=== PATIENT | female | born 1935 | race Caucasian/White ===

== ENCOUNTER 2017-01-27 14:15 | Inpatient (IN) | payer MEDICARE, BC ==
[2017-04-21] MEDS ORDERED: Sodium Chloride 0.9% 10 ML Syringe FLUSH PRN (07:00)
[2017-04-21] MEDS ORDERED: Lidocaine 1%/Sod Bicarbonate in NS 8.4% 1 ML Syringe PRN (07:00)
[2017-04-21] MEDS ORDERED: Propofol 200 MG/20 ML SDV ONE ×2 (07:15→10:57)
[2017-04-21] MEDS ORDERED: fentaNYL 100 MCG/2 ML SDV ONE ×2 (07:15→10:51)
[2017-04-21] MEDS ORDERED: ceFAZolin 1 GM Vial ONE (07:15)
[2017-04-21] MEDS: Lactated Ringers 1,000 ML IV SCH ×3 (07:55→11:41)
--- NOTE | 2017-04-21 07:57 | PCM.PREANE ---
Preanesthetic Assessment - Anesthesia/Transfusion/Family Hx Anesthesia History: Prior Anesthesia Without Reaction Type of Anesthesia Reaction: Unknown Family History of Anesthesia Reaction: No Transfusion History: No Prior Transfusion(s) - Review of Systems General: No Symptoms Pulmonary: No Symptoms Cardiovascular: No Symptoms, Other (HTn, EKG NSR, 2-3+ pitting edema) Gastrointestinal: Other (s/p ulcer denies any pain or reflux) Neurological: Other (s/p lami 7-8 years) - Physical Assessment NPO Status Date: 04/20/17 NPO Status Time: 18:00 Pulse: 82 O2 Sat by Pulse Oximetry: 96 Respiratory Rate: 16 Blood Pressure: 170/82 Temperature: 98.6 C Weight: 60.5 kg Mental Status: Alert & Oriented x3 Airway Class: Mallampati = 2 Dentition: Reports: Normal Dentition Thyro-Mental Finger Breadths: 3 Mouth Opening Finger Breadths: 3 ROM/Head Extension: Full Lungs: Clear to Auscultation, Normal Respiratory Effort Cardiovascular: Regular Rate, Regular Rhythm, No Murmurs - Lab Values: Laboratory Last Values MRSA (PCR) Negative 03/19/17 15:20 - Allergies Allergies/Adverse Reactions: Allergies Allergy/AdvReac Type Severity Reaction Status Date / Time No Known Allergies Allergy Verified 04/18/17 14:54 - Blood Blood Available: No Product(s) Available: None - Anesthesia Plan Pre-Op Medication Ordered: None - Acknowledgements Anesthesia Type Planned: General Anesthesia Pt an Appropriate Candidate for the Planned Anesthesia: Yes Alternatives and Risks of Anesthesia Discussed w Pt/Guardian: Yes Pt/Guardian Understands and Agrees with Anesthesia Plan: Yes PreAnesthesia Questionnaire HEENT History: Reports: Impaired Vision, Other (See Below) Other HEENT History: wears glasses Cardiovascular History: Reports: High Cholesterol, Hypertension, Other (See Below) Other Cardiovascular History: peripheral venous insufficiency Respiratory History: Reports: None Gastrointestinal History: Reports: Other (See Below) Other Gastrointestinal History: perforated duodenal ulcer Genitourinary History: Reports: Other (See Below) Other Genitourinary History: CKD III 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 Musculoskeletal History: Reports: Osteoarthritis, Other (See Below) Other Musculoskeletal History: lumbar disc disease Psychiatric History: Reports: None Endocrine/Metabolic History: Reports: None Hematologic History: Reports: None Immunologic History: Reports: None Dermatologic History: Reports: None - Past Surgical History HEENT Surgical History: Reports: Cataract Surgery Cardiovascular Surgical History: Reports: None Respiratory Surgical History: Reports: None GI Surgical History: Reports: Cholecystectomy, EGD, Other (See Below) Other GI Surgeries/Procedures: exploratory laparotomy Female Surgical History: Reports: D&C Male Surgical History: Reports: None Endocrine Surgical History: Reports: None Neurological Surgical History: Reports: Laminectomy Musculoskeletal Surgical History: Reports: Other (See Below) Other Musculoskeletal Surgeries/Procedures:: radius/ulnar fracture with repair Oncologic Surgical History: Reports: Lumpectomy Dermatological Surgical History: Reports: None - SUBSTANCE USE Smoking Status *Q: Never Smoker Second Hand Smoke Exposure: No Recreational Drug Use History: No - HOME MEDS Home Medications: Home Meds Hydrocodone/Acetaminophen [Hydrocodon-Acetaminophn 10-325] 10 mg PO QID [History] Rosuvastatin [Crestor] 5 mg PO DAILY 05/02/14 [History] Triamterene/Hydrochlorothiazid [Triamterene-HCTZ 37.5-25 MG] 1 each PO DAILY [History] B2/Vit A,C & E/Lut/Zeaxanth/Mn [Icaps] 1 tab PO DAILY 04/18/17 [History] Ca Carbonate/Vitamin D3/Vit K [Calcium + D Soft Chewable Tab] 1 tab PO DAILY [History] Cholecalciferol (Vitamin D3) [Vitamin D] 5,000 unit PO DAILY 04/18/17 [History] Forteo 20 mcg SQ DAILY 04/18/17 [History] Furosemide [Lasix] 20 mg PO DAILY PRN 04/18/17 [History] Gabapentin [Neurontin] 300 mg PO TID 04/18/17 [History] Multivitamin [Daily Hector] 1 tab PO DAILY 04/18/17 [History] Pantoprazole Sodium [Protonix] 40 mg PO BID 04/18/17 [History] - CURRENT (IN HOUSE) MEDS Current Meds: Current Medications Bisacodyl (Dulcolax) 5 mg PO DAILY PRN PRN Reason: Constipation Morphine Sulfate 8 mg/Epinephrine HCl 0.3 mg/Cefuroxime Sodium 750 mg/Ketorolac Tromethamine 30 mg/Sodium Chloride 27.9 ml 0 mg .XX ONETIME ONE Stop: 04/21/17 09:01 Docusate Sodium (Colace) 100 mg PO BID [facility] Famotidine (Pepcid) 20 mg PO BID [facility] Lactated Ringer's (Ringers, Lactated) 1,000 mls @ 125 mls/hr IV ASDIRECTED [facility] Stop: 04/21/17 23:00 Cefazolin Sodium/Dextrose 2 gm (/ Premix) 50 mls @ 100 mls/hr IV Q8H [facility] Stop: 04/22/17 09:29 Lidocaine/Sodium Bicarbonate (Buffered Lidocaine 1% In Ns 8.4%) 0.25 ml .XX ONETIME PRN PRN Reason: Prior to IV Start Stop: 04/21/17 18:00 Magnesium Hydroxide (Milk Of Magnesia) 30 ml PO BID PRN PRN Reason: Constipation Morphine Sulfate (Morphine) 2 mg IVPUSH Q2H PRN PRN Reason: Breakthrough Pain Naloxone HCl (Narcan) 0.1 mg IVPUSH Q5M PRN PRN Reason: Oversedation Ondansetron HCl (Zofran) 4 mg IVPUSH Q6H PRN PRN Reason: Nausea/Vomiting Oxycodone/Acetaminophen (Percocet 325-5 Mg) 1 - 2 tab PO Q4H PRN PRN Reason: Pain Rivaroxaban (Xarelto) 10 mg PO DAILY [facility] Senna (Senna) 8.6 mg PO BID PRN PRN Reason: Constipation Sodium Chloride (Saline Flush) 10 ml FLUSH ASDIRECTED PRN PRN Reason: Keep Vein Open Stop: 04/21/17 18:00 Discontinued Medications Cefazolin Sodium (Ancef) Confirm Administered Dose 2 gm .ROUTE .STK-MED ONE Stop: 04/21/17 07:16 Cefazolin Sodium (Ancef) Confirm Administered Dose 2 gm .ROUTE .STK-MED ONE Stop: 04/21/17 07:22 Fentanyl (Sublimaze) Confirm Administered Dose 100 mcg .ROUTE .STK-MED ONE Stop: 04/21/17 07:16 Iodine (Iodine 2% Mild Tincture) Confirm Administered Dose 30 ml .ROUTE .STK- MED ONE Stop: 04/21/17 07:22 Propofol (Diprivan 20 Ml) Confirm Administered Dose 200 mg .ROUTE .STK-MED ONE Stop: 04/21/17 07:16 Tranexamic Acid (Cyklokapron) Confirm Administered Dose 1,000 mg .ROUTE .STK- MED ONE Stop: 04/21/17 07:23 Vancomycin HCl (Vancomycin) Confirm Administered Dose 1 gm .ROUTE .STK-MED ONE Stop: 04/21/17 07:28
[2017-04-21] MEDS ORDERED: Rocuronium 50 MG/5 ML Vial ONE (08:28)
[2017-04-21] MEDS ORDERED: fentaNYL 250 MCG/5 ML SDV ONE (08:28)
[2017-04-21] MEDS ORDERED: Ondansetron 4 MG/2 ML SDV ONE (09:04)
[2017-04-21] MEDS: ceFAZolin 1 GM Vial ONE ×2 (09:08→10:00)
[2017-04-21] MEDS: Bupivacaine 0.25% 30 ML SDV ONE ×2 (09:08→10:07)
[2017-04-21] MEDS: Iodine/Sodium Iodide 2% Tincture 30 ML Bottle ONE ×2 (09:09→09:59)
[2017-04-21] MEDS: Morphine 8 MG, EPINEPHrine 0.3 MG, Cefuroxime 750 MG, Ketorolac 30 MG, Sodium Chloride ... ONE ×10 (09:10→10:05)
[2017-04-21] MEDS: Vancomycin 1 GM SDV ONE ×2 (09:11→10:08)
[2017-04-21] MEDS ORDERED: Phenylephrine 1% 10 MG/ML SDV ONE (09:34)
[2017-04-21] MEDS ORDERED: Magnesium Hydroxide 400 MG/5 ML Susp 30 ML Cup PO PRN (10:00)
[2017-04-21] MEDS ORDERED: Ondansetron 4 MG/2 ML SDV IVPUSH PRN ×2 (10:00→11:04)
[2017-04-21] MEDS ORDERED: Bisacodyl 5 MG Tab PO PRN (10:00)
[2017-04-21] MEDS ORDERED: Sennosides 8.6 MG Tab PO PRN (10:00)
[2017-04-21] MEDS ORDERED: Naloxone 0.4 MG/ML SDV IVPUSH PRN (10:00)
--- NOTE | 2017-04-21 10:25 | PCM.OPNOTE ---
- General Post-Op/Procedure Note Date of Surgery/Procedure: 04/21/17 Operative Procedure(s): left total hip arthroplasty Pre Op Diagnosis: left hip osteoarthrosis Post-Op Diagnosis: Same Anesthesia Technique: General ET Tube, Local Primary Surgeon: Anthony Barrett Anesthesia Provider: Lucy Gill Fork Truck Operator: Mireya Rodriguez Fork Truck Operator: Nancy Kunz EBL in mLs: 700 Complications: None Condition: Good Free Text/Narrative:: radha size 60 tritanium radha size 6 accolade 2 stem 48/28 MDM size F
[2017-04-21] MEDS ORDERED: Lidocaine 1% 30 ML SDV ONE (10:31)
[2017-04-21] MEDS ORDERED: Lactated Ringers 1,000 ML ONE ×2 (10:47)
--- NOTE | 2017-04-21 11:04 | PCM.POSTAN ---
POST ANESTHESIA ASSESSMENT - MENTAL STATUS Mental Status: Alert, Oriented - VITAL SIGNS Pulse Rate: 79 SaO2: 98 Resp Rate: 13 Blood Pressure: 143/70 Temperature: 36.2 C - RESPIRATORY Respiratory Status: Respiratory Rate WNL, Airway Patent, O2 Saturation Stable, Supplemental Oxygen - CARDIOVASCULAR CV Status: Pulse Rate WNL, Blood Pressure Stable - GASTROINTESTINAL GI Status: No Symptoms - PAIN Pain Score: 6 (pain meds given) - POST OP HYDRATION Hydration Status: Adequate & Stable
[2017-04-21] MEDS ORDERED: HYDROmorphone 1 MG/ML Syringe ONE (11:07)
[2017-04-21] MEDS: HYDROmorphone 0.5 MG/0.5 ML Syringe IVPUSH PRN ×2 (11:38→11:53)
[2017-04-21] MEDS ORDERED: fentaNYL 100 MCG/2 ML SDV IVPUSH PRN (12:00)
[2017-04-21] MEDS ORDERED: Diphtheria,Pertussis(Acell),Tetanus Vaccine 0.5 ML SDV IM ONE (12:49)
[2017-04-21] MEDS ORDERED: Pneumococcal 13-Valent Conjugate Vaccine 0.5 ML Syringe IM ONE (12:50)
[2017-04-21] MEDS: Morphine 2 MG/ML Syringe IVPUSH PRN ×5 (13:08→23:11)
[2017-04-21] MEDS: Acetaminophen/oxyCODONE 325-5 MG Tab PO PRN ×3 (13:12→21:56)
--- NOTE | 2017-04-21 14:05 | CR ---
Pelvis and left hip: AP view of the pelvis was obtained centered to the hips as well as lateral view of the left hip. Comparison: No previous study. Left hip prosthesis is seen. Components are aligned. Small amount of soft tissue air around the left hip compatible with recent surgical procedure. Acetabular screw protrudes through the medial acetabulum as seen on one view. Severe and diffuse joint space narrowing is seen within the right hip with osteophytes. Impression: 1. Acetabular screw protrudes through the medial acetabulum as seen on one view. 2. Severe joint space narrowing and osteophytes within the right hip. 3. Other incidental findings. Diagnostic code #2
[2017-04-21] MEDS: ceFAZolin 2 GM in Premix Bag 1 BAG IV SCH (16:14)
--- NOTE | 2017-04-21 17:30 | PCM.CONS ---
H&P History of Present Illness - General Date of Service: 04/21/17 Admit Problem/Dx: Admission Diagnosis/Problem Admission Diagnosis/Problem Osteoarthritis of hip Source of Information: Patient, Old Records, Provider, RN, RN Notes Reviewed, Other (surgical notes ) History Limitations: Reports: No Limitations - History of Present Illness Initial Comments - Free Text/Narative: Ritu Hoffman is a [address] Barrett who is post-operative day 0 with a left JAN. Hospital medicine has been consulted for medical management. Patient is resting comfortably at this time. Pain is controlled. She denies any chest pain, palpitations, shortness of breath, or vomiting. She was nauseated upon arrival to the floor but that has since resolved. She is hemodynamically stable at this time. She carries a history of HTN, pedal edema, duodenal ulcer, laminectomy, HLD, PVD, CKD stage III, and lumbar disk disease. She is a non- smoker. She is a full code and her PCP is Dr. Rima Monroy. Left Hip Pain Score (Numeric/FACES): 4 - Related Data Allergies/Adverse Reactions: Allergies Allergy/AdvReac Type Severity Reaction Status Date / Time No Known Allergies Allergy Verified 04/18/17 14:54 Home Medications: Home Meds Hydrocodone/Acetaminophen [Hydrocodon-Acetaminophn 10-325] 10 mg PO QID [History] Rosuvastatin [Crestor] 5 mg PO DAILY 05/02/14 [History] Triamterene/Hydrochlorothiazid [Triamterene-HCTZ 37.5-25 MG] 1 tab PO DAILY [History] B2/Vit A,C & E/Lut/Zeaxanth/Mn [Icaps] 1 tab PO DAILY 04/18/17 [History] Ca Carbonate/Vitamin D3/Vit K [Calcium + D Soft Chewable Tab] 1 tab PO DAILY [History] Cholecalciferol (Vitamin D3) [Vitamin D] 5,000 unit PO DAILY 04/18/17 [History] Forteo 20 mcg SQ DAILY 04/18/17 [History] Furosemide [Lasix] 20 mg PO DAILY PRN 04/18/17 [History] Gabapentin [Neurontin] 300 mg PO TID 04/18/17 [History] Multivitamin [Daily Hector] 1 tab PO DAILY 04/18/17 [History] Pantoprazole Sodium [Protonix] 40 mg PO BID 04/18/17 [History] Gabapentin [Neurontin] 100 mg PO BEDTIME 04/21/17 [History] Past Medical History HEENT History: Reports: Impaired Vision, Other (See Below) Other HEENT History: wears glasses Cardiovascular History: Reports: High Cholesterol, Hypertension, Other (See Below) Other Cardiovascular History: peripheral venous insufficiency, left upper extremitiy lymphedema Respiratory History: Reports: None Gastrointestinal History: Reports: Other (See Below) Other Gastrointestinal History: perforated duodenal ulcer Genitourinary History: Reports: Other (See Below) Other Genitourinary History: CKD III 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: Musculoskeletal History: Reports: Osteoarthritis, Other (See Below) Other Musculoskeletal History: lumbar disc disease Neurological History: Reports: None Psychiatric History: Reports: None Endocrine/Metabolic History: Reports: None Hematologic History: Reports: None Immunologic History: Reports: None Dermatologic History: Reports: None - Past Surgical History HEENT Surgical History: Reports: Cataract Surgery Cardiovascular Surgical History: Reports: None Respiratory Surgical History: Reports: None GI Surgical History: Reports: Cholecystectomy, EGD, Other (See Below) Other GI Surgeries/Procedures: exploratory laparotomy Female Surgical History: Reports: D&C Endocrine Surgical History: Reports: None Neurological Surgical History: Reports: Laminectomy Musculoskeletal Surgical History: Reports: Other (See Below) Other Musculoskeletal Surgeries/Procedures:: radius/ulnar fracture with repair Oncologic Surgical History: Reports: Lumpectomy Dermatological Surgical History: Reports: None Social & Family History - Tobacco Use Smoking Status *Q: Never Smoker Second Hand Smoke Exposure: No - Caffeine Use Caffeine Use: Reports: Tea - Recreational Drug Use Recreational Drug Use: No H&P Review of Systems - Review of Systems: Review Of Systems: See Below General: Reports: No Symptoms. Denies: Fever, Chills, Malaise, Weakness HEENT: Reports: No Symptoms, Glasses. Denies: Dysphasia, Ear Pain, Eye Pain, Sore Throat Pulmonary: Reports: No Symptoms. Denies: Shortness of Breath, Wheezing, Pleuritic Chest Pain, Cough, Sputum Cardiovascular: Reports: Edema (Chronic). Denies: Chest Pain, Palpitations, Dyspnea on Exertion, Lightheadedness Gastrointestinal: Reports: No Symptoms. Denies: Abdominal Pain, Anorexia, Black Stool, Constipation, Diarrhea, Nausea, Vomiting Genitourinary: Reports: No Symptoms. Denies: Dysuria, Frequency, Burning, Pain , Urgency Musculoskeletal: Reports: Back Pain (chronic ), Joint Pain (left hip). Denies: Neck Pain, Shoulder Pain, Arm Pain, Hand Pain, Leg Pain, Muscle Pain, Muscle Stiffness Skin: Reports: No Symptoms. Denies: Cyanosis, Jaundice, Mottled Psychiatric: Reports: No Symptoms. Denies: Confusion, Depression, Mood Lability , Anxiety Neurological: Reports: No Symptoms. Denies: Confusion, Dizziness, Headache, Numbness, Tingling, Trouble Speaking, Weakness Hematologic/Lymphatic: Reports: No Symptoms Immunologic: Reports: No Symptoms Review of Systems Comment:: History report she is feeling quite well. She is experiencing some left hip pain however it is manageable. She reports she was initially nauseous and this is no longer the case. She feels that she is doing very well. Exam - Exam Exam: See Below - Vital Signs Vital Signs: Last Vital Signs Temp 98.0 F 04/21/17 15:00 Pulse 79 04/21/17 11:03 Resp 16 04/21/17 15:00 BP 125/76 04/21/17 15:00 Pulse Ox 98 04/21/17 15:00 Weight: 133 lb 6.4 oz - Exam Quality Assessment: Urinary Catheter, DVT Prophylaxis General: Alert, Oriented, Cooperative HEENT: Conjunctiva Clear, EACs Clear, Hearing Intact, Mucosa Moist & Paragon, Nares Patent, Normal Nasal Septum, Posterior Pharynx Clear, Pupils Equal, Pupils Reactive Neck: Supple, Trachea Midline. No: JVD Lungs: Clear to Auscultation, Normal Respiratory Effort Cardiovascular: Regular Rate, Regular Rhythm GI/Abdominal Exam: Normal Bowel Sounds, Soft, Non-Tender, No Organomegaly, No Distention, No Abnormal Bruit, No Mass (Female) Exam: Deferred Rectal (Female) Exam: Deferred Back Exam: Normal Inspection, Decreased Range of Motion Extremities: Normal Capillary Refill, Pedal Edema (1-2+), Leg Pain (left hip ), Other (Wedge in place. Left leg wrapped in RAYNE bandage. Bandage is dry and intact. ) Peripheral Pulses: 1+: Posterior Tibial (L), Posterior Tibial (R), Dorsalis Pedis (L), Dorsalis Pedis (R), 2+: Radial (L), Radial (R) Skin: Warm, Dry, Intact Neurological: Cranial Nerves Intact (grossly ) Neuro Extensive - Mental Status: Alert, Oriented x3, Normal Mood/Affect, Normal Cognition, Memory Intact Neuro Extensive - Motor, Sensory, Reflexes: CN II-XII Intact (grossly ), Normal Reflexes Psychiatric: Alert, Normal Affect, Normal Mood Physical Exam Comments:: Patient is lying in bed resting. No complaints or concerns are noted. She appears to be recovering well. She is hemodynamically stable - Patient Data Lab Results Last 24 hrs: Laboratory Results - last 24 hr 04/21/17 04/21/17 Range/Units 07:55 11:30 Hgb 11.4 (11.2-15.7) gm/L Hct 34.5 (34.1-44.9) % Blood Type O POSITIVE Gel Antibody Screen Negative Result Diagrams: 04/21/17 11:30 Consult PN Assessment/Plan POD#: 0 Procedures: Procedures DRAIN/INJ JOINT/BURSA W/O US (02/04/17) DXA BONE DENSITY AXIAL (12/24/16) INJECT SACROILIAC JOINT (05/04/14) (1) HTN (hypertension) SNOMED Code(s): 99786534 Code(s): I10 - ESSENTIAL (PRIMARY) HYPERTENSION Priority: Medium Current Visit: Yes Qualifiers: Hypertension type: unspecified Qualified Code(s): I10 - Essential (primary ) hypertension (2) HLD (hyperlipidemia) SNOMED Code(s): 72263921 Code(s): E78.5 - HYPERLIPIDEMIA, UNSPECIFIED Priority: Low Current Visit : No Qualifiers: Hyperlipidemia type: unspecified Qualified Code(s): E78.5 - Hyperlipidemia , unspecified (3) CKD (chronic kidney disease) stage 3, GFR 30-59 ml/min SNOMED Code(s): 286220774 Code(s): N18.3 - CHRONIC KIDNEY DISEASE, STAGE 3 (MODERATE) Priority: Medium Current Visit: Yes (4) Lumbar disc disease SNOMED Code(s): 52699378 Code(s): M51.9 - UNSP THORACIC, THORACOLUM AND LUMBOSACR INTVRT DISC DISORDER Priority: Low Current Visit: No (5) H/O laminectomy SNOMED Code(s): 719044538 Code(s): Z98.890 - OTHER SPECIFIED POSTPROCEDURAL STATES Priority: Low Current Visit: No (6) H/O: duodenal ulcer SNOMED Code(s): 468628742 Code(s): Z87.19 - PERSONAL HISTORY OF OTHER DISEASES OF THE DIGESTIVE SYSTEM Priority: Low Current Visit: No (7) Pedal edema SNOMED Code(s): 234579029 Code(s): R60.0 - LOCALIZED EDEMA Priority: Medium Current Visit: Yes (8) S/P total hip arthroplasty SNOMED Code(s): 458350295431 Code(s): Z96.649 - PRESENCE OF UNSPECIFIED ARTIFICIAL HIP JOINT Priority: High Current Visit: Yes Qualifiers: Laterality: left Qualified Code(s): Z96.642 - Presence of left artificial hip joint Problem List Initiated/Reviewed/Updated: Yes My Orders Last 24 Hours: My Active Orders 04/21/17 21:00 Gabapentin [Neurontin] 100 mg PO BEDTIME Gabapentin [Neurontin] 300 mg PO TID 04/22/17 09:00 Forteo 20 mcg SQ DAILY Triamterene/Hydrochlorothiazid 1 tab PO DAILY Plan: I/P Acute s/p left JAN, post-operative day 0 -DVT prevention and pain management per the primary team -RT/IS -PT/OT -Monitor oxygen saturations -O2 as needed Post-operative HTN -Has improved tonight -Home medications as indicated -Will continue to monitor Chronic: HTN - see above HLD - hold statin for now Pedal edema - home diuretics CKD stage III - monitor Hx/o Duodenal ulcer Hx/o Laminectomy Plan: Home medications as indicated CM/SW for discharge planning Routine AM labs GI prophylaxis Requesting Provider: Dr. Barrett Date Consult Requested: 04/21/17 Reason for Consult: Post-operative medical management Patient History Reviewed: Yes Admission H&P Reviewed: Yes Time Spent (in minutes): 45
[2017-04-21] MEDS ORDERED: Furosemide 20 MG Tab PO PRN (18:03)
[2017-04-21] MEDS: Docusate Sodium 100 MG Cap PO SCH (20:06)
[2017-04-21] MEDS ORDERED: Gabapentin 100 MG Cap PO SCH (21:00)
[2017-04-21] MEDS ORDERED: Famotidine 20 MG Tab PO SCH (21:00)
[2017-04-21] MEDS ORDERED: Gabapentin 300 MG Cap PO SCH (21:00)
[2017-04-22] MEDS: Morphine 2 MG/ML Syringe IVPUSH PRN ×5 (01:15→16:42)
[2017-04-22] MEDS: ceFAZolin 2 GM in Premix Bag 1 BAG IV SCH ×2 (01:16→08:51)
[2017-04-22] MEDS: Acetaminophen/oxyCODONE 325-5 MG Tab PO PRN ×5 (02:14→18:41)
--- NOTE | 2017-04-22 06:22 | PCM.CONSN ---
- General Info Date of Service: 04/22/17 Admission Dx/Problem (Free Text): Admission Diagnosis/Problem Admission Diagnosis/Problem Osteoarthritis of hip Functional Status: Reports: Pain Controlled (improving now. was highest during/ after PT/OT walk. ), Tolerating Diet, Ambulating, Urinating, Incentive Spirometry. Denies: New Symptoms - Review of Systems General: Reports: No Symptoms HEENT: Reports: No Symptoms Pulmonary: Reports: No Symptoms Cardiovascular: Reports: No Symptoms Gastrointestinal: Reports: No Symptoms Genitourinary: Reports: No Symptoms Musculoskeletal: Reports: Joint Pain (left hip. ) Skin: Reports: No Symptoms Neurological: Reports: No Symptoms Psychiatric: Reports: No Symptoms Systems Review Comment:: Patient reports pain is worse now after walking with PT\OT. It is improving now that she is laying in bed. She denies any other complaints. She has been urinating. - Patient Data Vitals - Most Recent: Last Vital Signs Temp 98.0 F 04/21/17 19:21 Pulse 79 04/21/17 11:03 Resp 18 04/22/17 00:00 BP 140/79 04/22/17 00:00 Pulse Ox 100 04/22/17 00:00 Weight - Most Recent: 133 lb 6.4 oz I&O - Last 24 Hours: Intake & Output 04/21/17 04/21/17 04/22/17 14:59 22:59 06:59 Intake Total 200 650 290 Output Total 300 350 150 Balance -100 300 140 Lab Results Last 24 Hours: Laboratory Results - last 24 hr 04/21/17 04/21/17 Range/Units 07:55 11:30 Hgb 11.4 (11.2-15.7) gm/L Hct 34.5 (34.1-44.9) % Blood Type O POSITIVE Gel Antibody Screen Negative Med Orders - Current: Current Medications Bisacodyl (Dulcolax) 5 mg PO DAILY PRN PRN Reason: Constipation Calcium Carbonate (Calcium Carbonate/Vitamin D 1500 Mg-200 Unit) 1 tab PO DAILY [facility] Cholecalciferol (Vitamin D3) 5,000 units PO DAILY [facility] Docusate Sodium (Colace) 100 mg PO BID [facility] Last Admin: 04/21/17 20:06 Dose: 100 mg Famotidine (Pepcid) 20 mg PO BID [facility] Last Admin: 04/21/17 20:05 Dose: 20 mg Furosemide (Lasix) 20 mg PO DAILY PRN PRN Reason: swelling Cefazolin Sodium/Dextrose 2 gm (/ Premix) 50 mls @ 100 mls/hr IV Q8H [facility] Stop: 04/22/17 09:29 Last Admin: 04/22/17 01:16 Dose: 100 mls/hr Magnesium Hydroxide (Milk Of Magnesia) 30 ml PO BID PRN PRN Reason: Constipation Morphine Sulfate (Morphine) 2 mg IVPUSH Q2H PRN PRN Reason: Breakthrough Pain Last Admin: 04/22/17 06:10 Dose: 2 mg Multivitamins (Thera) 1 each PO DAILY [facility] Naloxone HCl (Narcan) 0.1 mg IVPUSH Q5M PRN PRN Reason: Oversedation Ondansetron HCl (Zofran) 4 mg IVPUSH Q6H PRN PRN Reason: Nausea/Vomiting Oxycodone/Acetaminophen (Percocet 325-5 Mg) 1 - 2 tab PO Q4H PRN PRN Reason: Pain Last Admin: 04/22/17 06:11 Dose: 2 tab Rivaroxaban (Xarelto) 10 mg PO DAILY [facility] Senna (Senna) 8.6 mg PO BID PRN PRN Reason: Constipation Triamterene/HCTZ (Dyazide 25-37.5 Mg) 1 each PO DAILY [facility] Vit A/Vit C/Vit E/Selen/Cu/Zn/Lutei (Icaps Mv) 1 tab PO DAILY [facility] Discontinued Medications Bupivacaine HCl (Marcaine 0.25%) Confirm Administered Dose 30 ml .ROUTE .STK- MED ONE Stop: 04/21/17 07:55 Last Admin: 04/21/17 10:07 Dose: 30 ml Cefazolin Sodium (Ancef) Confirm Administered Dose 2 gm .ROUTE .STK-MED ONE Stop: 04/21/17 07:16 Cefazolin Sodium (Ancef) Confirm Administered Dose 2 gm .ROUTE .STK-MED ONE Stop: 04/21/17 07:22 Last Admin: 04/21/17 10:00 Dose: 2 gm Morphine Sulfate 8 mg/Epinephrine HCl 0.3 mg/Cefuroxime Sodium 750 mg/Ketorolac Tromethamine 30 mg/Sodium Chloride 27.9 ml 0 mg .XX ONETIME ONE Stop: 04/21/17 09:01 Last Admin: 04/21/17 10:05 Dose: 788.3 mg Diphtheria/Tetanus/Acell Pertussis (Adacel) 0.5 ml IM .ONCE ONE Stop: 04/21/17 12:50 Fentanyl (Sublimaze) Confirm Administered Dose 100 mcg .ROUTE .STK-MED ONE Stop: 04/21/17 07:16 Fentanyl (Sublimaze) Confirm Administered Dose 250 mcg .ROUTE .STK-MED ONE Stop: 04/21/17 08:29 Fentanyl (Sublimaze) Confirm Administered Dose 100 mcg .ROUTE .STK-MED ONE Stop: 04/21/17 10:52 Fentanyl (Sublimaze) 50 mcg IVPUSH Q5M PRN PRN Reason: pain Stop: 04/21/17 18:00 Last Admin: 04/21/17 11:17 Dose: 50 mcg Gabapentin (Neurontin) 100 mg PO BEDTIME [facility] Last Admin: 04/21/17 22:50 Dose: Not Given Gabapentin (Neurontin) 300 mg PO TID [facility] Last Admin: 04/21/17 23:07 Dose: Not Given Hydromorphone HCl (Dilaudid) Confirm Administered Dose 1 mg .ROUTE .STK-MED ONE Stop: 04/21/17 11:08 Hydromorphone HCl (Dilaudid) 0.5 mg IVPUSH Q15M PRN PRN Reason: Pain (severe 7-10) Stop: 04/21/17 12:11 Last Admin: 04/21/17 11:53 Dose: 0.5 mg Lactated Ringer's (Ringers, Lactated) 1,000 mls @ 125 mls/hr IV ASDIRECTED [facility] Stop: 04/21/17 23:00 Last Admin: 04/21/17 11:41 Dose: 125 mls/hr Lactated Ringer's (Ringers, Lactated) Confirm Administered Dose 1,000 mls @ as directed .ROUTE .STK-MED ONE Stop: 04/21/17 10:48 Lactated Ringer's (Ringers, Lactated) Confirm Administered Dose 1,000 mls @ as directed .ROUTE .STK-MED ONE Stop: 04/21/17 10:48 Iodine (Iodine 2% Mild Tincture) Confirm Administered Dose 30 ml .ROUTE .STK- MED ONE Stop: 04/21/17 07:22 Last Admin: 04/21/17 09:59 Dose: 30 ml Lidocaine HCl (Xylocaine-Mpf 1%) Confirm Administered Dose 30 ml .ROUTE .STK- MED ONE Stop: 04/21/17 10:32 Lidocaine/Sodium Bicarbonate (Buffered Lidocaine 1% In Ns 8.4%) 0.25 ml .XX ONETIME PRN PRN Reason: Prior to IV Start Stop: 04/21/17 18:00 Last Admin: 04/21/17 07:55 Dose: 0.25 ml Non-Formulary Medication (Forteo) 20 mcg SQ DAILY [facility] Ondansetron HCl (Zofran) Confirm Administered Dose 4 mg .ROUTE .STK-MED ONE Stop: 04/21/17 09:05 Ondansetron HCl (Zofran) 4 mg IVPUSH ONETIME PRN PRN Reason: Nausea/Vomiting Stop: 04/21/17 23:00 Last Admin: 04/21/17 11:30 Dose: 4 mg Phenylephrine HCl (Armando-Synephrine) Confirm Administered Dose 10 mg .ROUTE .STK- MED ONE Stop: 04/21/17 09:35 Pneumococcal 13-Valent Conj Vacc (Prevnar 13) 0.5 ml IM .ONCE ONE Stop: 04/21/17 12:51 Propofol (Diprivan 20 Ml) Confirm Administered Dose 200 mg .ROUTE .STK-MED ONE Stop: 04/21/17 07:16 Propofol (Diprivan 20 Ml) Confirm Administered Dose 200 mg .ROUTE .STK-MED ONE Stop: 04/21/17 10:58 Rocuronium [place] (Zemuron) Confirm Administered Dose 50 mg .ROUTE .STK-MED ONE Stop: 04/21/17 08:29 Sodium Chloride (Saline Flush) 10 ml FLUSH ASDIRECTED PRN PRN Reason: Keep Vein Open Stop: 04/21/17 18:00 Tranexamic Acid (Cyklokapron) Confirm Administered Dose 1,000 mg .ROUTE .STK- MED ONE Stop: 04/21/17 07:23 Last Admin: 04/21/17 09:10 Dose: 1,000 mg Vancomycin HCl (Vancomycin) Confirm Administered Dose 1 gm .ROUTE .STK-MED ONE Stop: 04/21/17 07:28 Last Admin: 04/21/17 09:11 Dose: 1 gm - Exam Quality Assessment: Supplemental Oxygen, DVT Prophylaxis General: Alert, Oriented, Cooperative HEENT: Pupils Equal, Pupils Reactive, Mucous Membr. Moist/[place] Neck: Supple, Trachea Midline, No JVD Lungs: Clear to Auscultation, Normal Respiratory Effort Cardiovascular: Regular Rate, Regular Rhythm GI/Abdominal Exam: Normal Bowel Sounds, Soft, Non-Tender, No Organomegaly, No Distention, No Abnormal Bruit, No Mass (Female) Exam: Deferred Back Exam: Normal Inspection, Full Range of Motion Extremities: No Pedal Edema, Normal Capillary Refill, Limited Range of Motion, Other (leg wedge in place. Left leg covered by RAYNE bandage. ) Peripheral Pulses: 1+: Posterior Tibial (L), Posterior Tibial (R), Dorsalis Pedis (L), Dorsalis Pedis (R), 2+: Radial (L), Radial (R) Skin: Warm, Dry, Intact Wound/Incisions: Dressing Dry and Intact, No Drainage Neurological: No New Focal Deficit Psy/Mental Status: Alert, Normal Affect, Normal Mood Physical Findings Comments:: Patient is doing relatively well. She has been somewhat hypotensive however at this time I'm not concerned. We'll continue to monitor. She doesn't report symptoms quite a bit of blood in surgery and hemoglobin dropped today as expected. We'll continue to monitor and consider supplementation if needed. Consult PN Assessment/Plan POD#: 1 Procedures: Procedures DRAIN/INJ JOINT/BURSA W/O US (02/04/17) DXA BONE DENSITY AXIAL (12/24/16) INJECT SACROILIAC JOINT (05/04/14) (1) HTN (hypertension) SNOMED Code(s): 07435309 Code(s): I10 - ESSENTIAL (PRIMARY) HYPERTENSION Priority: Medium Current Visit: Yes Qualifiers: Hypertension type: unspecified Qualified Code(s): I10 - Essential (primary ) hypertension (2) HLD (hyperlipidemia) SNOMED Code(s): 16954481 Code(s): E78.5 - HYPERLIPIDEMIA, UNSPECIFIED Priority: Low Current Visit : No Qualifiers: Hyperlipidemia type: unspecified Qualified Code(s): E78.5 - Hyperlipidemia , unspecified (3) CKD (chronic kidney disease) stage 3, GFR 30-59 ml/min SNOMED Code(s): 657650028 Code(s): N18.3 - CHRONIC KIDNEY DISEASE, STAGE 3 (MODERATE) Priority: Medium Current Visit: Yes (4) Lumbar disc disease SNOMED Code(s): 58150253 Code(s): M51.9 - UNSP THORACIC, THORACOLUM AND LUMBOSACR INTVRT DISC DISORDER Priority: Low Current Visit: No (5) H/O laminectomy SNOMED Code(s): 138033931 Code(s): Z98.890 - OTHER SPECIFIED POSTPROCEDURAL STATES Priority: Low Current Visit: No (6) H/O: duodenal ulcer SNOMED Code(s): 316293908 Code(s): Z87.19 - PERSONAL HISTORY OF OTHER DISEASES OF THE DIGESTIVE SYSTEM Priority: Low Current Visit: No (7) Pedal edema SNOMED Code(s): 473267916 Code(s): R60.0 - LOCALIZED EDEMA Priority: Medium Current Visit: Yes (8) S/P total hip arthroplasty SNOMED Code(s): 909156788829 Code(s): Z96.649 - PRESENCE OF UNSPECIFIED ARTIFICIAL HIP JOINT Priority: High Current Visit: Yes Qualifiers: Laterality: left Qualified Code(s): Z96.642 - Presence of left artificial hip joint (9) Postoperative hypotension SNOMED Code(s): 584121614 Code(s): I95.89 - OTHER HYPOTENSION Priority: High Current Visit: Yes (10) Hypokalemia SNOMED Code(s): 65026335 Code(s): E87.6 - HYPOKALEMIA Priority: High Current Visit: Yes Problem List Initiated/Reviewed/Updated: Yes My Orders Last 24 Hours: My Active Orders 04/21/17 18:03 Furosemide [Lasix] 20 mg PO DAILY PRN 04/22/17 09:00 Calcium Carbonate/Vitamin D3 [Calcium Carbonate/Vitamin D 1500 MG-200 Unit] 1 tab PO DAILY Cholecalciferol (Vitamin D3) [Vitamin D3] 5,000 units PO DAILY HCTZ/Triamterene [Dyazide 25-37.5 MG] 1 each PO DAILY Multivitamins,Therapeutic [Thera] 1 each PO DAILY Multivitamins/Min/FA/Lut/Zeax [ICaps MV] 1 tab PO DAILY Plan: I/P Acute s/p left JAN, post-operative day 1 -DVT prevention and pain management per the primary team -RT/IS -PT/OT -Monitor oxygen saturations -O2 as needed -Hgb 9.2 -Hct 28.4 -Creatinine 1.0 -eGFR 53 Post-operative hypotension -Asymptomatic -Pt. lost around 750 ml of blood during surgery -Last BP 96/54 -HR normal -Will give fluid as ordered and reassess Hypokalemia -Potassium today 3.1 -Repleated Resolved: Post-operative HTN -Has improved tonight -Home medications as indicated -Will continue to monitor Chronic: HTN - see above HLD - hold statin for now Pedal edema - home diuretics CKD stage III - monitor Hx/o Duodenal ulcer Hx/o Laminectomy Plan: Home medications as indicated CM/SW for discharge planning Routine AM labs GI prophylaxis Will likely need SNF rehab stay based upon PT/OT evaluation.
[2017-04-22] MEDS: Calcium Carbonate/Vitamin D3 1500 MG-200 Units Tab PO SCH (08:11)
[2017-04-22] MEDS: Hydrochlorothiazide/Triamterene 25-37.5 MG Cap PO SCH (08:12)
[2017-04-22] MEDS: Multivitamins with Minerals/Folic Acid/Lutein/Zeaxanth Tab PO SCH (08:12)
[2017-04-22] MEDS: Famotidine 20 MG Tab PO SCH (08:12)
[2017-04-22] MEDS: Rivaroxaban 10 MG Tab PO SCH (08:12)
[2017-04-22] MEDS: Multivitamins,Therapeutic Tab PO SCH (08:12)
[2017-04-22] MEDS: Cholecalciferol (Vitamin D3) 1,000 Unit Tab PO SCH (08:12)
[2017-04-22] MEDS: Docusate Sodium 100 MG Cap PO SCH ×2 (08:12→21:42)
[2017-04-22] MEDS ORDERED: FORTEO 20 MCG SQ SCH (09:00)
--- NOTE | 2017-04-22 12:08 | PCM48HPAN ---
Post Anesthesia Note - EVALUATION WITHIN 48HRS OF ANESTHETIC Vital Signs in Normal Range: Yes Patient Participated in Evaluation: Yes Respiratory Function Stable: Yes Airway Patent: Yes Cardiovascular Function Stable: Yes Hydration Status Stable: Yes Pain Control Satisfactory: Yes Nausea and Vomiting Control Satisfactory: Yes Mental Status Recovered: Yes
[2017-04-22] MEDS ORDERED: Potassium Chloride 10% 20 MEQ/15 ML Soln 30 ML UD Cup PO ONE (12:30)
[2017-04-22] MEDS ORDERED: Sodium Chloride 0.9% 1,000 ML IV SCH (16:15)
--- NOTE | 2017-04-22 20:12 | PCM.SURGPN ---
- General Info Date of Service: 04/22/17 POD#: 1 Functional Status: Reports: Pain Controlled, Tolerating Diet, Ambulating, Urinating, Incentive Spirometry - Review of Systems Musculoskeletal: Reports: Other (The pt is slowly progressing with P.T. and O.T. ) - Patient Data Vitals - Most Recent: Last Vital Signs Temp 99.3 F 04/22/17 18:47 Pulse 79 04/21/17 11:03 Resp 16 04/22/17 18:47 BP 110/48 L 04/22/17 18:47 Pulse Ox 97 04/22/17 18:47 Weight - Most Recent: 133 lb 6.4 oz I&O - Last 24 Hours: Intake & Output 04/22/17 04/22/17 04/22/17 06:59 14:59 22:59 Intake Total 288 790 9802 Output Total 150 375 150 Balance 140 -195 1170 Lab Results Last 24 Hrs: Laboratory Results - last 24 hr 04/22/17 04/22/17 Range/Units 05:55 06:10 WBC 7.53 (3.98-10.04) K/mm3 RBC 3.02 L (3.98-5.22) M/mm3 Hgb 9.2 L (11.2-15.7) gm/L Hct 28.4 L (34.1-44.9) % MCV 94.0 (79.4-94.8) fl MCH 30.5 (25.6-32.2) pg MCHC 32.4 (32.2-35.5) g/dl RDW Std Deviation 46.3 (36.4-46.3) fL Plt Count 171 L (182-369) K/mm3 MPV 9.2 L (9.4-12.3) fl Sodium 141 (136-145) mEq/L Potassium 3.1 L (3.5-5.1) mEq/L Chloride 101 (98-107) mEq/L Carbon Dioxide 28 (21-32) mEq/L Anion Gap 15.1 H (5-15) BUN 17 (7-18) mg/dL Creatinine 1.0 (0.55-1.02) mg/dL Est Cr Clr Drug Dosing 36.81 mL/min Estimated GFR (MDRD) 53 (>60) mL/min BUN/Creatinine Ratio 17.0 (14-18) Glucose 76 L (83-115) mg/dL Calcium 8.6 (8.5-10.1) mg/dL Total Bilirubin 0.5 (0.2-1.0) mg/dL AST 26 (15-37) U/L ALT 16 (14-59) U/L Alkaline Phosphatase 64 (46-116) U/L Total Protein 5.9 L (6.4-8.2) g/dl Albumin 2.8 L (3.4-5.0) g/dl Globulin 3.1 gm/dL Albumin/Globulin Ratio 0.9 L (1-2) Med Orders - Current: Current Medications Bisacodyl (Dulcolax) 5 mg PO DAILY PRN PRN Reason: Constipation Calcium Carbonate (Calcium Carbonate/Vitamin D 1500 Mg-200 Unit) 1 tab PO DAILY [facility] Last Admin: 04/22/17 08:11 Dose: 1 tab Cholecalciferol (Vitamin D3) 5,000 units PO DAILY [facility] Last Admin: 04/22/17 08:12 Dose: 5,000 units Docusate Sodium (Colace) 100 mg PO BID [facility] Last Admin: 04/22/17 08:12 Dose: 100 mg Famotidine (Pepcid) 20 mg PO DAILY [facility] Last Admin: 04/22/17 08:12 Dose: 20 mg Sodium Chloride (Normal Saline) 1,000 mls @ 250 mls/hr IV ASDIRECTED [facility] Last Admin: 04/22/17 16:22 Dose: 250 mls/hr Magnesium Hydroxide (Milk Of Magnesia) 30 ml PO BID PRN PRN Reason: Constipation Morphine Sulfate (Morphine) 2 mg IVPUSH Q2H PRN PRN Reason: Breakthrough Pain Last Admin: 04/22/17 16:42 Dose: 2 mg Multivitamins (Thera) 1 each PO DAILY [facility] Last Admin: 04/22/17 08:12 Dose: 1 each Naloxone HCl (Narcan) 0.1 mg IVPUSH Q5M PRN PRN Reason: Oversedation Ondansetron HCl (Zofran) 4 mg IVPUSH Q6H PRN PRN Reason: Nausea/Vomiting Oxycodone/Acetaminophen (Percocet 325-5 Mg) 1 - 2 tab PO Q4H PRN PRN Reason: Pain Last Admin: 04/22/17 18:41 Dose: 2 tab Rivaroxaban (Xarelto) 10 mg PO DAILY [facility] Last Admin: 04/22/17 08:12 Dose: 10 mg Senna (Senna) 8.6 mg PO BID PRN PRN Reason: Constipation Triamterene/HCTZ (Dyazide 25-37.5 Mg) 1 each PO DAILY [facility] Last Admin: 04/22/17 08:12 Dose: 1 each Vit A/Vit C/Vit E/Selen/Cu/Zn/Lutei (Icaps Mv) 1 tab PO DAILY [facility] Last Admin: 04/22/17 08:12 Dose: 1 tab Discontinued Medications Bupivacaine HCl (Marcaine 0.25%) Confirm Administered Dose 30 ml .ROUTE .STK- MED ONE Stop: 04/21/17 07:55 Last Admin: 04/21/17 10:07 Dose: 30 ml Cefazolin Sodium (Ancef) Confirm Administered Dose 2 gm .ROUTE .STK-MED ONE Stop: 04/21/17 07:16 Cefazolin Sodium (Ancef) Confirm Administered Dose 2 gm .ROUTE .STK-MED ONE Stop: 04/21/17 07:22 Last Admin: 04/21/17 10:00 Dose: 2 gm Morphine Sulfate 8 mg/Epinephrine HCl 0.3 mg/Cefuroxime Sodium 750 mg/Ketorolac Tromethamine 30 mg/Sodium Chloride 27.9 ml 0 mg .XX ONETIME ONE Stop: 04/21/17 09:01 Last Admin: 04/21/17 10:05 Dose: 788.3 mg Diphtheria/Tetanus/Acell Pertussis (Adacel) 0.5 ml IM .ONCE ONE Stop: 04/21/17 12:50 Famotidine (Pepcid) 20 mg PO BID [facility] Last Admin: 04/21/17 20:05 Dose: 20 mg Fentanyl (Sublimaze) Confirm Administered Dose 100 mcg .ROUTE .STK-MED ONE Stop: 04/21/17 07:16 Fentanyl (Sublimaze) Confirm Administered Dose 250 mcg .ROUTE .STK-MED ONE Stop: 04/21/17 08:29 Fentanyl (Sublimaze) Confirm Administered Dose 100 mcg .ROUTE .STK-MED ONE Stop: 04/21/17 10:52 Fentanyl (Sublimaze) 50 mcg IVPUSH Q5M PRN PRN Reason: pain Stop: 04/21/17 18:00 Last Admin: 04/21/17 11:17 Dose: 50 mcg Furosemide (Lasix) 20 mg PO DAILY PRN PRN Reason: swelling Gabapentin (Neurontin) 100 mg PO BEDTIME [facility] Last Admin: 04/21/17 22:50 Dose: Not Given Gabapentin (Neurontin) 300 mg PO TID [facility] Last Admin: 04/21/17 23:07 Dose: Not Given Hydromorphone HCl (Dilaudid) Confirm Administered Dose 1 mg .ROUTE .STK-MED ONE Stop: 04/21/17 11:08 Hydromorphone HCl (Dilaudid) 0.5 mg IVPUSH Q15M PRN PRN Reason: Pain (severe 7-10) Stop: 04/21/17 12:11 Last Admin: 04/21/17 11:53 Dose: 0.5 mg Lactated Ringer's (Ringers, Lactated) 1,000 mls @ 125 mls/hr IV ASDIRECTED [facility] Stop: 04/21/17 23:00 Last Admin: 04/21/17 11:41 Dose: 125 mls/hr Cefazolin Sodium/Dextrose 2 gm (/ Premix) 50 mls @ 100 mls/hr IV Q8H [facility] Stop: 04/22/17 09:29 Last Admin: 04/22/17 08:51 Dose: 100 mls/hr Lactated Ringer's (Ringers, Lactated) Confirm Administered Dose 1,000 mls @ as directed .ROUTE .STK-MED ONE Stop: 04/21/17 10:48 Lactated Ringer's (Ringers, Lactated) Confirm Administered Dose 1,000 mls @ as directed .ROUTE .STK-MED ONE Stop: 04/21/17 10:48 Iodine (Iodine 2% Mild Tincture) Confirm Administered Dose 30 ml .ROUTE .STK- MED ONE Stop: 04/21/17 07:22 Last Admin: 04/21/17 09:59 Dose: 30 ml Lidocaine HCl (Xylocaine-Mpf 1%) Confirm Administered Dose 30 ml .ROUTE .STK- MED ONE Stop: 04/21/17 10:32 Lidocaine/Sodium Bicarbonate (Buffered Lidocaine 1% In Ns 8.4%) 0.25 ml .XX ONETIME PRN PRN Reason: Prior to IV Start Stop: 04/21/17 18:00 Last Admin: 04/21/17 07:55 Dose: 0.25 ml Non-Formulary Medication (Forteo) 20 mcg SQ DAILY [facility] Ondansetron HCl (Zofran) Confirm Administered Dose 4 mg .ROUTE .STK-MED ONE Stop: 04/21/17 09:05 Ondansetron HCl (Zofran) 4 mg IVPUSH ONETIME PRN PRN Reason: Nausea/Vomiting Stop: 04/21/17 23:00 Last Admin: 04/21/17 11:30 Dose: 4 mg Phenylephrine HCl (Armando-Synephrine) Confirm Administered Dose 10 mg .ROUTE .STK- MED ONE Stop: 04/21/17 09:35 Pneumococcal 13-Valent Conj Vacc (Prevnar 13) 0.5 ml IM .ONCE ONE Stop: 04/21/17 12:51 Potassium Chloride (Potassium Chloride) 40 meq PO ONETIME ONE Stop: 04/22/17 12:31 Last Admin: 04/22/17 12:33 Dose: 40 meq Propofol (Diprivan 20 Ml) Confirm Administered Dose 200 mg .ROUTE .STK-MED ONE Stop: 04/21/17 07:16 Propofol (Diprivan 20 Ml) Confirm Administered Dose 200 mg .ROUTE .STK-MED ONE Stop: 04/21/17 10:58 Rocuronium [place] (Zemuron) Confirm Administered Dose 50 mg .ROUTE .STK-MED ONE Stop: 04/21/17 08:29 Sodium Chloride (Saline Flush) 10 ml FLUSH ASDIRECTED PRN PRN Reason: Keep Vein Open Stop: 04/21/17 18:00 Tranexamic Acid (Cyklokapron) Confirm Administered Dose 1,000 mg .ROUTE .STK- MED ONE Stop: 04/21/17 07:23 Last Admin: 04/21/17 10:09 Dose: 1,000 mg Vancomycin HCl (Vancomycin) Confirm Administered Dose 1 gm .ROUTE .STK-MED ONE Stop: 04/21/17 07:28 Last Admin: 04/21/17 10:08 Dose: 1 gm - Exam Wound/Incisions: Dressing Dry and Intact General: Alert, Cooperative, No Acute Distress Extremities: Other (Left thigh soft. NVS intact for BLE. Susan's negative.) - Problem List Review Problem List Initiated/Reviewed/Updated: Yes - My Orders Last 24 Hours: Active Orders 24 hr Category Date Time Status Calcium Carbonate/Vitamin D3 [Calcium Carbonate/Vitamin Med 04/22/17 09:00 Active D 1500 MG-200 Unit] 1 tab PO DAILY Cholecalciferol (Vitamin D3) [Vitamin D3] Med 04/22/17 09:00 Active 5,000 units PO DAILY Docusate Sodium [Colace] Med 04/21/17 21:00 Active 100 mg PO BID Famotidine [Pepcid] Med 04/22/17 09:00 Active 20 mg PO DAILY HCTZ/Triamterene [Dyazide 25-37.5 MG] Med 04/22/17 09:00 Active 1 each PO DAILY Multivitamins,Therapeutic [Thera] Med 04/22/17 09:00 Active 1 each PO DAILY Multivitamins/Min/FA/Lut/Zeax [ICaps MV] Med 04/22/17 09:00 Active 1 tab PO DAILY Rivaroxaban [Xarelto] Med 04/22/17 09:00 Active 10 mg PO DAILY Sodium Chloride 0.9% [Normal Saline] 1,000 ml Med 04/22/17 16:15 Active IV ASDIRECTED Medication Orders Bisacodyl (Dulcolax) 5 mg PO DAILY PRN PRN Reason: Constipation Calcium Carbonate (Calcium Carbonate/Vitamin D 1500 Mg-200 Unit) 1 tab PO DAILY [facility] Last Admin: 04/22/17 08:11 Dose: 1 tab Cholecalciferol (Vitamin D3) 5,000 units PO DAILY [facility] Last Admin: 04/22/17 08:12 Dose: 5,000 units Docusate Sodium (Colace) 100 mg PO BID [facility] Last Admin: 04/22/17 08:12 Dose: 100 mg Admin: 04/21/17 20:06 Dose: 100 mg Famotidine (Pepcid) 20 mg PO DAILY [facility] Last Admin: 04/22/17 08:12 Dose: 20 mg Sodium Chloride (Normal Saline) 1,000 mls @ 250 mls/hr IV ASDIRECTED [facility] Last Admin: 04/22/17 16:22 Dose: 250 mls/hr Magnesium Hydroxide (Milk Of Magnesia) 30 ml PO BID PRN PRN Reason: Constipation Morphine Sulfate (Morphine) 2 mg IVPUSH Q2H PRN PRN Reason: Breakthrough Pain Last Admin: 04/22/17 16:42 Dose: 2 mg Admin: 04/22/17 08:47 Dose: 2 mg Admin: 04/22/17 06:10 Dose: 2 mg Admin: 04/22/17 03:37 Dose: 2 mg Admin: 04/22/17 01:15 Dose: 2 mg Admin: 04/21/17 23:11 Dose: 2 mg Admin: 04/21/17 21:11 Dose: 2 mg Admin: 04/21/17 19:16 Dose: 2 mg Admin: 04/21/17 16:13 Dose: 2 mg Admin: 04/21/17 13:08 Dose: 2 mg Multivitamins (Thera) 1 each PO DAILY [facility] Last Admin: 04/22/17 08:12 Dose: 1 each Naloxone HCl (Narcan) 0.1 mg IVPUSH Q5M PRN PRN Reason: Oversedation Ondansetron HCl (Zofran) 4 mg IVPUSH Q6H PRN PRN Reason: Nausea/Vomiting Oxycodone/Acetaminophen (Percocet 325-5 Mg) 1 - 2 tab PO Q4H PRN PRN Reason: Pain Last Admin: 04/22/17 18:41 Dose: 2 tab Admin: 04/22/17 14:45 Dose: 2 tab Admin: 04/22/17 10:48 Dose: 2 tab Admin: 04/22/17 06:11 Dose: 2 tab Admin: 04/22/17 02:14 Dose: 2 tab Admin: 04/21/17 21:56 Dose: 2 tab Admin: 04/21/17 17:57 Dose: 2 tab Admin: 04/21/17 13:12 Dose: 1 tab Rivaroxaban (Xarelto) 10 mg PO DAILY [facility] Last Admin: 04/22/17 08:12 Dose: 10 mg Senna (Senna) 8.6 mg PO BID PRN PRN Reason: Constipation Triamterene/HCTZ (Dyazide 25-37.5 Mg) 1 each PO DAILY [facility] Last Admin: 04/22/17 08:12 Dose: 1 each Vit A/Vit C/Vit E/Selen/Cu/Zn/Lutei (Icaps Mv) 1 tab PO DAILY [facility] Last Admin: 04/22/17 08:12 Dose: 1 tab - Assessment Assessment (Free Text/Narrative):: POD#1 - left JAN - Plan Plan (Free Text/Narrative):: 1. Continue with P.T. and O.T. Suspect discharge to [facility] on 04-24-2017 for continued rehab. The pt will likely remain in Hospital greater than 96 hours for continued monitoring, therapy and awaiting NH placement. 2. Hgb 9.2 today. 3. Medical management per Hospitalist service. 4. Shant, SCDs, TEDs. Dr. Barrett evaluated the pt today.
[2017-04-23] MEDS: Acetaminophen/oxyCODONE 325-5 MG Tab PO PRN ×5 (04:47→23:04)
[2017-04-23] MEDS: Cholecalciferol (Vitamin D3) 1,000 Unit Tab PO SCH (08:18)
[2017-04-23] MEDS: Famotidine 20 MG Tab PO SCH (08:19)
[2017-04-23] MEDS: Rivaroxaban 10 MG Tab PO SCH (08:19)
[2017-04-23] MEDS: Docusate Sodium 100 MG Cap PO SCH ×2 (08:19→20:02)
[2017-04-23] MEDS: Multivitamins with Minerals/Folic Acid/Lutein/Zeaxanth Tab PO SCH (08:20)
[2017-04-23] MEDS: Multivitamins,Therapeutic Tab PO SCH (08:20)
[2017-04-23] MEDS: Calcium Carbonate/Vitamin D3 1500 MG-200 Units Tab PO SCH (08:20)
[2017-04-23] MEDS: Hydrochlorothiazide/Triamterene 25-37.5 MG Cap PO SCH (09:53)
[2017-04-23] MEDS ORDERED: Furosemide 20 MG/2 ML VIAL IVPUSH ONE ×2 (13:30→17:45)
--- NOTE | 2017-04-23 13:45 | PCM.CONSN ---
- General Info Date of Service: 04/23/17 Admission Dx/Problem (Free Text): Admission Diagnosis/Problem Admission Diagnosis/Problem Osteoarthritis of hip Subjective Update: Follow-up Functional Status: Reports: Pain Controlled, Tolerating Diet, Ambulating, Urinating, Incentive Spirometry. Denies: New Symptoms - Review of Systems General: Reports: No Symptoms HEENT: Reports: No Symptoms Pulmonary: Reports: No Symptoms Cardiovascular: Reports: No Symptoms Gastrointestinal: Reports: No Symptoms Genitourinary: Reports: No Symptoms Musculoskeletal: Reports: Joint Pain (left hip). Denies: Neck Pain, Shoulder Pain, Arm Pain, Hand Pain, Back Pain, Leg Pain, Joint Swelling, Other Skin: Reports: No Symptoms Neurological: Reports: No Symptoms Psychiatric: Reports: No Symptoms Systems Review Comment:: Patient reports she has still been having pain while working with PT\OT. She does acknowledge that has improved however. - Patient Data Vitals - Most Recent: Last Vital Signs Temp 99.4 F 04/23/17 12:00 Pulse 88 04/23/17 12:00 Resp 16 04/23/17 12:00 BP 128/59 L 04/23/17 12:00 Pulse Ox 95 04/23/17 12:00 Weight - Most Recent: 138 lb 9.6 oz I&O - Last 24 Hours: Intake & Output 04/22/17 04/23/17 04/23/17 22:59 06:59 14:59 Intake Total 1320 740 120 Output Total 350 600 Balance 970 140 120 Lab Results Last 24 Hours: Laboratory Results - last 24 hr 04/21/17 04/23/17 04/23/17 Range/Units 07:55 09:35 09:35 WBC 10.88 H (3.98-10.04) K/mm3 RBC 2.77 L (3.98-5.22) M/mm3 Hgb 8.6 L (11.2-15.7) gm/L Hct 25.7 L (34.1-44.9) % MCV 92.8 (79.4-94.8) fl MCH 31.0 (25.6-32.2) pg MCHC 33.5 (32.2-35.5) g/dl RDW Std Deviation 45.4 (36.4-46.3) fL Plt Count 157 L (182-369) K/mm3 MPV 8.7 L (9.4-12.3) fl Neut % (Auto) 75.4 H (34.0-71.1) % Lymph % (Auto) 12.8 L (19.3-51.7) % [place] % (Auto) 10.2 (4.7-12.5) % Eos % (Auto) 1.0 (0.7-5.8) Baso % (Auto) 0.3 (0.1-1.2) % Neut # (Auto) 8.21 H (1.56-6.13) K/mm3 Lymph # (Auto) 1.39 (1.18-3.74) K/mm3 [place] # (Auto) 1.11 H (0.24-0.36) K/mm3 Eos # (Auto) 0.11 (0.04-0.36) K/mm3 Baso # (Auto) 0.03 (0.01-0.08) K/mm3 Sodium 136 (136-145) mEq/L Potassium 3.7 (3.5-5.1) mEq/L Chloride 101 (98-107) mEq/L Carbon Dioxide 27 (21-32) mEq/L Anion Gap 11.7 (5-15) BUN 20 H (7-18) mg/dL Creatinine 1.0 (0.55-1.02) mg/dL Est Cr Clr Drug Dosing 36.81 mL/min Estimated GFR (MDRD) 53 (>60) mL/min BUN/Creatinine Ratio 20.0 H (14-18) Glucose 130 H (83-115) mg/dL Calcium 8.9 (8.5-10.1) mg/dL Magnesium 1.4 L (1.8-2.4) mg/dl Crossmatch See Detail Med Orders - Current: Current Medications Bisacodyl (Dulcolax) 5 mg PO DAILY PRN PRN Reason: Constipation Calcium Carbonate (Calcium Carbonate/Vitamin D 1500 Mg-200 Unit) 1 tab PO DAILY [facility] Last Admin: 04/23/17 08:20 Dose: 1 tab Cholecalciferol (Vitamin D3) 5,000 units PO DAILY [facility] Last Admin: 04/23/17 08:18 Dose: 5,000 units Docusate Sodium (Colace) 100 mg PO BID [facility] Last Admin: 04/23/17 08:19 Dose: 100 mg Famotidine (Pepcid) 20 mg PO DAILY [facility] Last Admin: 04/23/17 08:19 Dose: 20 mg Sodium Chloride (Normal Saline) 1,000 mls @ 250 mls/hr IV ASDIRECTED [facility] Last Admin: 04/22/17 16:22 Dose: 250 mls/hr Magnesium Hydroxide (Milk Of Magnesia) 30 ml PO BID PRN PRN Reason: Constipation Morphine Sulfate (Morphine) 2 mg IVPUSH Q2H PRN PRN Reason: Breakthrough Pain Last Admin: 04/22/17 16:42 Dose: 2 mg Multivitamins (Thera) 1 each PO DAILY [facility] Last Admin: 04/23/17 08:20 Dose: 1 each Naloxone HCl (Narcan) 0.1 mg IVPUSH Q5M PRN PRN Reason: Oversedation Ondansetron HCl (Zofran) 4 mg IVPUSH Q6H PRN PRN Reason: Nausea/Vomiting Oxycodone/Acetaminophen (Percocet 325-5 Mg) 1 - 2 tab PO Q4H PRN PRN Reason: Pain Last Admin: 04/23/17 12:56 Dose: 2 tab Rivaroxaban (Xarelto) 10 mg PO DAILY [facility] Last Admin: 04/23/17 08:19 Dose: 10 mg Senna (Senna) 8.6 mg PO BID PRN PRN Reason: Constipation Triamterene/HCTZ (Dyazide 25-37.5 Mg) 1 each PO DAILY [facility] Last Admin: 04/23/17 09:53 Dose: Not Given Vit A/Vit C/Vit E/Selen/Cu/Zn/Lutei (Icaps Mv) 1 tab PO DAILY [facility] Last Admin: 04/23/17 08:20 Dose: 1 tab Discontinued Medications Bupivacaine HCl (Marcaine 0.25%) Confirm Administered Dose 30 ml .ROUTE .STK- MED ONE Stop: 04/21/17 07:55 Last Admin: 04/21/17 10:07 Dose: 30 ml Cefazolin Sodium (Ancef) Confirm Administered Dose 2 gm .ROUTE .STK-MED ONE Stop: 04/21/17 07:16 Cefazolin Sodium (Ancef) Confirm Administered Dose 2 gm .ROUTE .STK-MED ONE Stop: 04/21/17 07:22 Last Admin: 04/21/17 10:00 Dose: 2 gm Morphine Sulfate 8 mg/Epinephrine HCl 0.3 mg/Cefuroxime Sodium 750 mg/Ketorolac Tromethamine 30 mg/Sodium Chloride 27.9 ml 0 mg .XX ONETIME ONE Stop: 04/21/17 09:01 Last Admin: 04/21/17 10:05 Dose: 788.3 mg Diphtheria/Tetanus/Acell Pertussis (Adacel) 0.5 ml IM .ONCE ONE Stop: 04/21/17 12:50 Famotidine (Pepcid) 20 mg PO BID [facility] Last Admin: 04/21/17 20:05 Dose: 20 mg Fentanyl (Sublimaze) Confirm Administered Dose 100 mcg .ROUTE .STK-MED ONE Stop: 04/21/17 07:16 Fentanyl (Sublimaze) Confirm Administered Dose 250 mcg .ROUTE .STK-MED ONE Stop: 04/21/17 08:29 Fentanyl (Sublimaze) Confirm Administered Dose 100 mcg .ROUTE .STK-MED ONE Stop: 04/21/17 10:52 Fentanyl (Sublimaze) 50 mcg IVPUSH Q5M PRN PRN Reason: pain Stop: 04/21/17 18:00 Last Admin: 04/21/17 11:17 Dose: 50 mcg Furosemide (Lasix) 20 mg PO DAILY PRN PRN Reason: swelling Furosemide (Lasix) 20 mg IVPUSH NOW ONE Stop: 04/23/17 13:31 Gabapentin (Neurontin) 100 mg PO BEDTIME [facility] Last Admin: 04/21/17 22:50 Dose: Not Given Gabapentin (Neurontin) 300 mg PO TID [facility] Last Admin: 04/21/17 23:07 Dose: Not Given Hydromorphone HCl (Dilaudid) Confirm Administered Dose 1 mg .ROUTE .STK-MED ONE Stop: 04/21/17 11:08 Hydromorphone HCl (Dilaudid) 0.5 mg IVPUSH Q15M PRN PRN Reason: Pain (severe 7-10) Stop: 04/21/17 12:11 Last Admin: 04/21/17 11:53 Dose: 0.5 mg Lactated Ringer's (Ringers, Lactated) 1,000 mls @ 125 mls/hr IV ASDIRECTED [facility] Stop: 04/21/17 23:00 Last Admin: 04/21/17 11:41 Dose: 125 mls/hr Cefazolin Sodium/Dextrose 2 gm (/ Premix) 50 mls @ 100 mls/hr IV Q8H AISHA Stop: 04/22/17 09:29 Last Admin: 04/22/17 08:51 Dose: 100 mls/hr Lactated Ringer's (Ringers, Lactated) Confirm Administered Dose 1,000 mls @ as directed .ROUTE .STK-MED ONE Stop: 04/21/17 10:48 Lactated Ringer's (Ringers, Lactated) Confirm Administered Dose 1,000 mls @ as directed .ROUTE .STK-MED ONE Stop: 04/21/17 10:48 Iodine (Iodine 2% Mild Tincture) Confirm Administered Dose 30 ml .ROUTE .STK- MED ONE Stop: 04/21/17 07:22 Last Admin: 04/21/17 09:59 Dose: 30 ml Lidocaine HCl (Xylocaine-Mpf 1%) Confirm Administered Dose 30 ml .ROUTE .STK- MED ONE Stop: 04/21/17 10:32 Lidocaine/Sodium Bicarbonate (Buffered Lidocaine 1% In Ns 8.4%) 0.25 ml .XX ONETIME PRN PRN Reason: Prior to IV Start Stop: 04/21/17 18:00 Last Admin: 04/21/17 07:55 Dose: 0.25 ml Non-Formulary Medication (Forteo) 20 mcg SQ DAILY AISHA Ondansetron HCl (Zofran) Confirm Administered Dose 4 mg .ROUTE .STK-MED ONE Stop: 04/21/17 09:05 Ondansetron HCl (Zofran) 4 mg IVPUSH ONETIME PRN PRN Reason: Nausea/Vomiting Stop: 04/21/17 23:00 Last Admin: 04/21/17 11:30 Dose: 4 mg Phenylephrine HCl (Armando-Synephrine) Confirm Administered Dose 10 mg .ROUTE .STK- MED ONE Stop: 04/21/17 09:35 Pneumococcal 13-Valent Conj Vacc (Prevnar 13) 0.5 ml IM .ONCE ONE Stop: 04/21/17 12:51 Potassium Chloride (Potassium Chloride) 40 meq PO ONETIME ONE Stop: 04/22/17 12:31 Last Admin: 04/22/17 12:33 Dose: 40 meq Propofol (Diprivan 20 Ml) Confirm Administered Dose 200 mg .ROUTE .STK-MED ONE Stop: 04/21/17 07:16 Propofol (Diprivan 20 Ml) Confirm Administered Dose 200 mg .ROUTE .STK-MED ONE Stop: 04/21/17 10:58 Rocuronium Viola (Zemuron) Confirm Administered Dose 50 mg .ROUTE .STK-MED ONE Stop: 04/21/17 08:29 Sodium Chloride (Saline Flush) 10 ml FLUSH ASDIRECTED PRN PRN Reason: Keep Vein Open Stop: 04/21/17 18:00 Tranexamic Acid (Cyklokapron) Confirm Administered Dose 1,000 mg .ROUTE .STK- MED ONE Stop: 04/21/17 07:23 Last Admin: 04/21/17 10:09 Dose: 1,000 mg Vancomycin HCl (Vancomycin) Confirm Administered Dose 1 gm .ROUTE .STK-MED ONE Stop: 04/21/17 07:28 Last Admin: 04/21/17 10:08 Dose: 1 gm - Exam Quality Assessment: Supplemental Oxygen, DVT Prophylaxis General: Alert, Oriented, Cooperative, No Acute Distress HEENT: Pupils Equal, Pupils Reactive, Mucous Membr. Moist/[place] Neck: Supple, Trachea Midline, No JVD Lungs: Clear to Auscultation, Normal Respiratory Effort Cardiovascular: Regular Rate, Regular Rhythm GI/Abdominal Exam: Normal Bowel Sounds, Soft, Non-Tender, No Organomegaly, No Distention, No Abnormal Bruit, No Mass, Pelvis Stable (Female) Exam: Deferred Back Exam: Normal Inspection, Full Range of Motion Extremities: Normal Capillary Refill, Pedal Edema (1-2+), Limited Range of Motion, Other ([place] bandage on left leg. ) Skin: Warm, Dry, Intact Wound/Incisions: Dressing Dry and Intact, No Drainage Neurological: No New Focal Deficit Psy/Mental Status: Normal Affect Physical Findings Comments:: Patient is examined while lying in bed eating. She looks markedly better than yesterday. Consult PN Assessment/Plan POD#: 2 Procedures: Procedures DRAIN/INJ JOINT/BURSA W/O US (02/04/17) DXA BONE DENSITY AXIAL (12/24/16) INJECT SACROILIAC JOINT (05/04/14) (1) HTN (hypertension) SNOMED Code(s): 21102651 Code(s): I10 - ESSENTIAL (PRIMARY) HYPERTENSION Priority: Medium Current Visit: Yes Qualifiers: Hypertension type: unspecified Qualified Code(s): I10 - Essential (primary ) hypertension (2) HLD (hyperlipidemia) SNOMED Code(s): 48728929 Code(s): E78.5 - HYPERLIPIDEMIA, UNSPECIFIED Priority: Low Current Visit : No Qualifiers: Hyperlipidemia type: unspecified Qualified Code(s): E78.5 - Hyperlipidemia , unspecified (3) CKD (chronic kidney disease) stage 3, GFR 30-59 ml/min SNOMED Code(s): 773816054 Code(s): N18.3 - CHRONIC KIDNEY DISEASE, STAGE 3 (MODERATE) Priority: Medium Current Visit: Yes (4) Lumbar disc disease SNOMED Code(s): 63295289 Code(s): M51.9 - UNSP THORACIC, THORACOLUM AND LUMBOSACR INTVRT DISC DISORDER Priority: Low Current Visit: No (5) H/O laminectomy SNOMED Code(s): 559560252 Code(s): Z98.890 - OTHER SPECIFIED POSTPROCEDURAL STATES Priority: Low Current Visit: No (6) H/O: duodenal ulcer SNOMED Code(s): 716234984 Code(s): Z87.19 - PERSONAL HISTORY OF OTHER DISEASES OF THE DIGESTIVE SYSTEM Priority: Low Current Visit: No (7) Pedal edema SNOMED Code(s): 261929302 Code(s): R60.0 - LOCALIZED EDEMA Priority: Medium Current Visit: Yes (8) S/P total hip arthroplasty SNOMED Code(s): 708138257539 Code(s): Z96.649 - PRESENCE OF UNSPECIFIED ARTIFICIAL HIP JOINT Priority: High Current Visit: Yes Qualifiers: Laterality: left Qualified Code(s): Z96.642 - Presence of left artificial hip joint (9) Postoperative hypotension SNOMED Code(s): 385321416 Code(s): I95.89 - OTHER HYPOTENSION Priority: High Current Visit: Yes (10) Hypokalemia SNOMED Code(s): 31141084 Code(s): E87.6 - HYPOKALEMIA Priority: High Current Visit: Yes (11) Hypomagnesemia SNOMED Code(s): 090904558 Code(s): E83.42 - HYPOMAGNESEMIA Priority: High Current Visit: Yes (12) Postoperative anemia SNOMED Code(s): 060279956 Code(s): D64.9 - ANEMIA, UNSPECIFIED Priority: High Current Visit: Yes Problem List Initiated/Reviewed/Updated: Yes My Orders Last 24 Hours: My Active Orders 04/22/17 16:15 Sodium Chloride 0.9% [Normal Saline] 1,000 ml IV ASDIRECTED 04/23/17 12:05 PACKED CELLS [RED BLOOD CELLS LP] [BBK] Routine Transfuse Red Blood Cells [COMM] Routine 04/24/17 05:11 BASIC METABOLIC PANEL,BMP [CHEM] AM CBC WITH AUTO DIFF [HEME] AM MAGNESIUM [CHEM] AM 04/25/17 05:11 BASIC METABOLIC PANEL,BMP [CHEM] AM CBC WITH AUTO DIFF [HEME] AM MAGNESIUM [CHEM] AM Plan: I/P Acute: s/p left JAN, post-operative day 2 -DVT prevention and pain management per the primary team -RT/IS -PT/OT -Monitor oxygen saturations -O2 as needed, attempt to wean -Hgb 9.2-->8.6 -Hct 28.4--25.7 -Creatinine 1.0-->1.0 -eGFR 53-->53\ -Vitals stable Post-operative hypotension, improved -Asymptomatic -Pt. lost around 750 ml of blood during surgery -Last BP 96/54 -HR normal -Will give fluid as ordered and reassess Post-operative anemia -H&H as above -Pt. is asymptomatic -Will give 1 unit blood now followed by 20mg lasix Resolved: Post-operative HTN -Has improved tonight -Home medications as indicated -Will continue to monitor Hypokalemia -Potassium 3.1-->3.7 -Repleated -Continue to monitor Chronic: HTN - see above HLD - hold statin for now Pedal edema - home diuretics CKD stage III - monitor Hx/o Duodenal ulcer Hx/o Laminectomy Plan: Home medications as indicated CM/SW for discharge planning Routine AM labs GI prophylaxis Other orders as above Will likely need SNF rehab stay based upon PT/OT evaluation.
[2017-04-23] MEDS: Magnesium Oxide 400 MG Tab PO SCH ×2 (15:31→17:48)
--- NOTE | 2017-04-23 21:18 | PCM.SURGPN ---
- General Info Date of Service: 04/23/17 POD#: 2 Functional Status: Reports: Pain Controlled, Tolerating Diet, Ambulating, Urinating, Other (The pt states her pain is controlled. ) - Patient Data Vitals - Most Recent: Last Vital Signs Temp 98.0 F 04/23/17 19:58 Pulse 83 04/23/17 19:58 Resp 19 04/23/17 19:58 BP 124/65 04/23/17 19:58 Pulse Ox 96 04/23/17 19:58 Weight - Most Recent: 138 lb 9.6 oz I&O - Last 24 Hours: Intake & Output 04/23/17 04/23/17 04/23/17 06:59 14:59 22:59 Intake Total 448 466 6601 Output Total 600 800 Balance 140 120 420 Lab Results Last 24 Hrs: Laboratory Results - last 24 hr 04/21/17 04/23/17 04/23/17 Range/Units 07:55 09:35 09:35 WBC 10.88 H (3.98-10.04) K/mm3 RBC 2.77 L (3.98-5.22) M/mm3 Hgb 8.6 L (11.2-15.7) gm/L Hct 25.7 L (34.1-44.9) % MCV 92.8 (79.4-94.8) fl MCH 31.0 (25.6-32.2) pg MCHC 33.5 (32.2-35.5) g/dl RDW Std Deviation 45.4 (36.4-46.3) fL Plt Count 157 L (182-369) K/mm3 MPV 8.7 L (9.4-12.3) fl Neut % (Auto) 75.4 H (34.0-71.1) % Lymph % (Auto) 12.8 L (19.3-51.7) % [place] % (Auto) 10.2 (4.7-12.5) % Eos % (Auto) 1.0 (0.7-5.8) Baso % (Auto) 0.3 (0.1-1.2) % Neut # (Auto) 8.21 H (1.56-6.13) K/mm3 Lymph # (Auto) 1.39 (1.18-3.74) K/mm3 [place] # (Auto) 1.11 H (0.24-0.36) K/mm3 Eos # (Auto) 0.11 (0.04-0.36) K/mm3 Baso # (Auto) 0.03 (0.01-0.08) K/mm3 Sodium 136 (136-145) mEq/L Potassium 3.7 (3.5-5.1) mEq/L Chloride 101 (98-107) mEq/L Carbon Dioxide 27 (21-32) mEq/L Anion Gap 11.7 (5-15) BUN 20 H (7-18) mg/dL Creatinine 1.0 (0.55-1.02) mg/dL Est Cr Clr Drug Dosing 36.81 mL/min Estimated GFR (MDRD) 53 (>60) mL/min BUN/Creatinine Ratio 20.0 H (14-18) Glucose 130 H (83-115) mg/dL Calcium 8.9 (8.5-10.1) mg/dL Magnesium 1.4 L (1.8-2.4) mg/dl Blood Type O POSITIVE Gel Antibody Screen Negative Crossmatch See Detail Med Orders - Current: Current Medications Bisacodyl (Dulcolax) 5 mg PO DAILY PRN PRN Reason: Constipation Calcium Carbonate (Calcium Carbonate/Vitamin D 1500 Mg-200 Unit) 1 tab PO DAILY [facility] Last Admin: 04/23/17 08:20 Dose: 1 tab Cholecalciferol (Vitamin D3) 5,000 units PO DAILY [facility] Last Admin: 04/23/17 08:18 Dose: 5,000 units Docusate Sodium (Colace) 100 mg PO BID [facility] Last Admin: 04/23/17 20:02 Dose: 100 mg Famotidine (Pepcid) 20 mg PO DAILY [facility] Last Admin: 04/23/17 08:19 Dose: 20 mg Sodium Chloride (Normal Saline) 1,000 mls @ 250 mls/hr IV ASDIRECTED [facility] Last Admin: 04/22/17 16:22 Dose: 250 mls/hr Magnesium Hydroxide (Milk Of Magnesia) 30 ml PO BID PRN PRN Reason: Constipation Morphine Sulfate (Morphine) 2 mg IVPUSH Q2H PRN PRN Reason: Breakthrough Pain Last Admin: 04/22/17 16:42 Dose: 2 mg Multivitamins (Thera) 1 each PO DAILY [facility] Last Admin: 04/23/17 08:20 Dose: 1 each Naloxone HCl (Narcan) 0.1 mg IVPUSH Q5M PRN PRN Reason: Oversedation Ondansetron HCl (Zofran) 4 mg IVPUSH Q6H PRN PRN Reason: Nausea/Vomiting Oxycodone/Acetaminophen (Percocet 325-5 Mg) 1 - 2 tab PO Q4H PRN PRN Reason: Pain Last Admin: 04/23/17 17:48 Dose: 2 tab Rivaroxaban (Xarelto) 10 mg PO DAILY [facility] Last Admin: 04/23/17 08:19 Dose: 10 mg Senna (Senna) 8.6 mg PO BID PRN PRN Reason: Constipation Triamterene/HCTZ (Dyazide 25-37.5 Mg) 1 each PO DAILY [facility] Last Admin: 04/23/17 09:53 Dose: Not Given Vit A/Vit C/Vit E/Selen/Cu/Zn/Lutei (Icaps Mv) 1 tab PO DAILY [facility] Last Admin: 04/23/17 08:20 Dose: 1 tab Discontinued Medications Bupivacaine HCl (Marcaine 0.25%) Confirm Administered Dose 30 ml .ROUTE .STK- MED ONE Stop: 04/21/17 07:55 Last Admin: 04/21/17 10:07 Dose: 30 ml Cefazolin Sodium (Ancef) Confirm Administered Dose 2 gm .ROUTE .STK-MED ONE Stop: 04/21/17 07:16 Cefazolin Sodium (Ancef) Confirm Administered Dose 2 gm .ROUTE .STK-MED ONE Stop: 04/21/17 07:22 Last Admin: 04/21/17 10:00 Dose: 2 gm Morphine Sulfate 8 mg/Epinephrine HCl 0.3 mg/Cefuroxime Sodium 750 mg/Ketorolac Tromethamine 30 mg/Sodium Chloride 27.9 ml 0 mg .XX ONETIME ONE Stop: 04/21/17 09:01 Last Admin: 04/21/17 10:05 Dose: 788.3 mg Diphtheria/Tetanus/Acell Pertussis (Adacel) 0.5 ml IM .ONCE ONE Stop: 04/21/17 12:50 Famotidine (Pepcid) 20 mg PO BID [facility] Last Admin: 04/21/17 20:05 Dose: 20 mg Fentanyl (Sublimaze) Confirm Administered Dose 100 mcg .ROUTE .STK-MED ONE Stop: 04/21/17 07:16 Fentanyl (Sublimaze) Confirm Administered Dose 250 mcg .ROUTE .STK-MED ONE Stop: 04/21/17 08:29 Fentanyl (Sublimaze) Confirm Administered Dose 100 mcg .ROUTE .STK-MED ONE Stop: 04/21/17 10:52 Fentanyl (Sublimaze) 50 mcg IVPUSH Q5M PRN PRN Reason: pain Stop: 04/21/17 18:00 Last Admin: 04/21/17 11:17 Dose: 50 mcg Furosemide (Lasix) 20 mg PO DAILY PRN PRN Reason: swelling Furosemide (Lasix) 20 mg IVPUSH NOW ONE Stop: 04/23/17 13:31 Last Admin: 04/23/17 17:54 Dose: Not Given Furosemide (Lasix) 20 mg IVPUSH NOW ONE Stop: 04/23/17 17:46 Last Admin: 04/23/17 17:49 Dose: 20 mg Gabapentin (Neurontin) 100 mg PO BEDTIME [facility] Last Admin: 04/21/17 22:50 Dose: Not Given Gabapentin (Neurontin) 300 mg PO TID [facility] Last Admin: 04/21/17 23:07 Dose: Not Given Hydromorphone HCl (Dilaudid) Confirm Administered Dose 1 mg .ROUTE .STK-MED ONE Stop: 04/21/17 11:08 Hydromorphone HCl (Dilaudid) 0.5 mg IVPUSH Q15M PRN PRN Reason: Pain (severe 7-10) Stop: 04/21/17 12:11 Last Admin: 04/21/17 11:53 Dose: 0.5 mg Lactated Ringer's (Ringers, Lactated) 1,000 mls @ 125 mls/hr IV ASDIRECTED [facility] Stop: 04/21/17 23:00 Last Admin: 04/21/17 11:41 Dose: 125 mls/hr Cefazolin Sodium/Dextrose 2 gm (/ Premix) 50 mls @ 100 mls/hr IV Q8H [facility] Stop: 04/22/17 09:29 Last Admin: 04/22/17 08:51 Dose: 100 mls/hr Lactated Ringer's (Ringers, Lactated) Confirm Administered Dose 1,000 mls @ as directed .ROUTE .STK-MED ONE Stop: 04/21/17 10:48 Lactated Ringer's (Ringers, Lactated) Confirm Administered Dose 1,000 mls @ as directed .ROUTE .STK-MED ONE Stop: 04/21/17 10:48 Iodine (Iodine 2% Mild Tincture) Confirm Administered Dose 30 ml .ROUTE .STK- MED ONE Stop: 04/21/17 07:22 Last Admin: 04/21/17 09:59 Dose: 30 ml Lidocaine HCl (Xylocaine-Mpf 1%) Confirm Administered Dose 30 ml .ROUTE .STK- MED ONE Stop: 04/21/17 10:32 Lidocaine/Sodium Bicarbonate (Buffered Lidocaine 1% In Ns 8.4%) 0.25 ml .XX ONETIME PRN PRN Reason: Prior to IV Start Stop: 04/21/17 18:00 Last Admin: 04/21/17 07:55 Dose: 0.25 ml Magnesium Oxide (Magnesium Oxide) 400 mg PO Q4H [facility] Stop: 04/23/17 18:01 Last Admin: 04/23/17 17:48 Dose: 400 mg Non-Formulary Medication (Forteo) 20 mcg SQ DAILY [facility] Ondansetron HCl (Zofran) Confirm Administered Dose 4 mg .ROUTE .STK-MED ONE Stop: 04/21/17 09:05 Ondansetron HCl (Zofran) 4 mg IVPUSH ONETIME PRN PRN Reason: Nausea/Vomiting Stop: 04/21/17 23:00 Last Admin: 04/21/17 11:30 Dose: 4 mg Phenylephrine HCl (Armando-Synephrine) Confirm Administered Dose 10 mg .ROUTE .STK- MED ONE Stop: 04/21/17 09:35 Pneumococcal 13-Valent Conj Vacc (Prevnar 13) 0.5 ml IM .ONCE ONE Stop: 04/21/17 12:51 Potassium Chloride (Potassium Chloride) 40 meq PO ONETIME ONE Stop: 04/22/17 12:31 Last Admin: 04/22/17 12:33 Dose: 40 meq Propofol (Diprivan 20 Ml) Confirm Administered Dose 200 mg .ROUTE .STK-MED ONE Stop: 04/21/17 07:16 Propofol (Diprivan 20 Ml) Confirm Administered Dose 200 mg .ROUTE .STK-MED ONE Stop: 04/21/17 10:58 Rocuronium [place] (Zemuron) Confirm Administered Dose 50 mg .ROUTE .STK-MED ONE Stop: 04/21/17 08:29 Sodium Chloride (Saline Flush) 10 ml FLUSH ASDIRECTED PRN PRN Reason: Keep Vein Open Stop: 04/21/17 18:00 Tranexamic Acid (Cyklokapron) Confirm Administered Dose 1,000 mg .ROUTE .STK- MED ONE Stop: 04/21/17 07:23 Last Admin: 04/21/17 10:09 Dose: 1,000 mg Vancomycin HCl (Vancomycin) Confirm Administered Dose 1 gm .ROUTE .STK-MED ONE Stop: 04/21/17 07:28 Last Admin: 04/21/17 10:08 Dose: 1 gm - Exam Wound/Incisions: Dressing Dry and Intact, Other (Left thigh Mepilex without shadowing and left lower leg Webril without bleeding, drainage.) Extremities: Other (NVS intact for LLE. Susan's negative for BLE. Left thigh soft. No concerns with active left ankle, knee motion.) - Problem List Review Problem List Initiated/Reviewed/Updated: Yes - My Orders Last 24 Hours: Active Orders 24 hr Category Date Time Status BASIC METABOLIC PANEL,BMP [CHEM] AM Lab 04/24/17 05:11 Ordered BASIC METABOLIC PANEL,BMP [CHEM] AM Lab 04/25/17 05:11 Ordered CBC WITH AUTO DIFF [HEME] AM Lab 04/24/17 05:11 Ordered CBC WITH AUTO DIFF [HEME] AM Lab 04/25/17 05:11 Ordered MAGNESIUM [CHEM] AM Lab 04/24/17 05:11 Ordered MAGNESIUM [CHEM] AM Lab 04/25/17 05:11 Ordered Transfuse Red Blood Cells [COMM] Routine Oth 04/23/17 12:05 Ordered Medication Orders Bisacodyl (Dulcolax) 5 mg PO DAILY PRN PRN Reason: Constipation Calcium Carbonate (Calcium Carbonate/Vitamin D 1500 Mg-200 Unit) 1 tab PO DAILY [facility] Last Admin: 04/23/17 08:20 Dose: 1 tab Admin: 04/22/17 08:11 Dose: 1 tab Cholecalciferol (Vitamin D3) 5,000 units PO DAILY [facility] Last Admin: 04/23/17 08:18 Dose: 5,000 units Admin: 04/22/17 08:12 Dose: 5,000 units Docusate Sodium (Colace) 100 mg PO BID [facility] Last Admin: 04/23/17 20:02 Dose: 100 mg Admin: 04/23/17 08:19 Dose: 100 mg Admin: 04/22/17 21:42 Dose: 100 mg Admin: 04/22/17 08:12 Dose: 100 mg Admin: 04/21/17 20:06 Dose: 100 mg Famotidine (Pepcid) 20 mg PO DAILY [facility] Last Admin: 04/23/17 08:19 Dose: 20 mg Admin: 04/22/17 08:12 Dose: 20 mg Sodium Chloride (Normal Saline) 1,000 mls @ 250 mls/hr IV ASDIRECTED [facility] Last Admin: 04/22/17 16:22 Dose: 250 mls/hr Magnesium Hydroxide (Milk Of Magnesia) 30 ml PO BID PRN PRN Reason: Constipation Morphine Sulfate (Morphine) 2 mg IVPUSH Q2H PRN PRN Reason: Breakthrough Pain Last Admin: 04/22/17 16:42 Dose: 2 mg Admin: 04/22/17 08:47 Dose: 2 mg Admin: 04/22/17 06:10 Dose: 2 mg Admin: 04/22/17 03:37 Dose: 2 mg Admin: 04/22/17 01:15 Dose: 2 mg Admin: 04/21/17 23:11 Dose: 2 mg Admin: 04/21/17 21:11 Dose: 2 mg Admin: 04/21/17 19:16 Dose: 2 mg Admin: 04/21/17 16:13 Dose: 2 mg Admin: 04/21/17 13:08 Dose: 2 mg Multivitamins (Thera) 1 each PO DAILY [facility] Last Admin: 04/23/17 08:20 Dose: 1 each Admin: 04/22/17 08:12 Dose: 1 each Naloxone HCl (Narcan) 0.1 mg IVPUSH Q5M PRN PRN Reason: Oversedation Ondansetron HCl (Zofran) 4 mg IVPUSH Q6H PRN PRN Reason: Nausea/Vomiting Oxycodone/Acetaminophen (Percocet 325-5 Mg) 1 - 2 tab PO Q4H PRN PRN Reason: Pain Last Admin: 04/23/17 17:48 Dose: 2 tab Admin: 04/23/17 12:56 Dose: 2 tab Admin: 04/23/17 08:52 Dose: 2 tab Admin: 04/23/17 04:47 Dose: 2 tab Admin: 04/22/17 18:41 Dose: 2 tab Admin: 04/22/17 14:45 Dose: 2 tab Admin: 04/22/17 10:48 Dose: 2 tab Admin: 04/22/17 06:11 Dose: 2 tab Admin: 04/22/17 02:14 Dose: 2 tab Admin: 04/21/17 21:56 Dose: 2 tab Admin: 04/21/17 17:57 Dose: 2 tab Admin: 04/21/17 13:12 Dose: 1 tab Rivaroxaban (Xarelto) 10 mg PO DAILY [facility] Last Admin: 04/23/17 08:19 Dose: 10 mg Admin: 04/22/17 08:12 Dose: 10 mg Senna (Senna) 8.6 mg PO BID PRN PRN Reason: Constipation Triamterene/HCTZ (Dyazide 25-37.5 Mg) 1 each PO DAILY [facility] Last Admin: 04/23/17 09:53 Dose: Admin: 04/22/17 08:12 Dose: 1 each Vit A/Vit C/Vit E/Selen/Cu/Zn/Lutei (Icaps Mv) 1 tab PO DAILY [facility] Last Admin: 04/23/17 08:20 Dose: 1 tab Admin: 04/22/17 08:12 Dose: 1 tab - Assessment Assessment (Free Text/Narrative):: POD#2 - left JAN - Plan Plan (Free Text/Narrative):: 1. Discharge to NH tomorrow. Pt will remain in Hospital overnight while awaiting NH placement and for further monitoring. 2. Medical management per Hospitalist service. The pt received packed RBCs today per Hospitalist order. 3. JAN precautions. The pt will continue with P.T. and O.T. The pt's case was discussed with Dr. Barrett.
[2017-04-24] MEDS: Acetaminophen/oxyCODONE 325-5 MG Tab PO PRN ×2 (04:25→09:08)
[2017-04-24] MEDS ORDERED: Potassium Chloride 10% 20 MEQ/15 ML Soln 30 ML UD Cup PO ONE (07:38)
--- NOTE | 2017-04-24 08:10 | PCM.CONSN ---
- General Info Date of Service: 04/24/17 Admission Dx/Problem (Free Text): Admission Diagnosis/Problem Admission Diagnosis/Problem Osteoarthritis of hip Subjective Update: Follow-up Functional Status: Reports: Pain Controlled, Tolerating Diet, Ambulating, Urinating, Incentive Spirometry. Denies: New Symptoms - Review of Systems General: Reports: No Symptoms HEENT: Reports: No Symptoms Pulmonary: Reports: No Symptoms Cardiovascular: Reports: No Symptoms Gastrointestinal: Reports: No Symptoms Genitourinary: Reports: No Symptoms Musculoskeletal: Reports: Joint Pain (Left hip pain ) Skin: Reports: No Symptoms Neurological: Reports: No Symptoms Psychiatric: Reports: No Symptoms - Patient Data Vitals - Most Recent: Last Vital Signs Temp 98.0 F 04/24/17 07:55 Pulse 79 04/24/17 04:00 Resp 16 04/24/17 07:55 BP 120/66 04/24/17 07:55 Pulse Ox 97 04/24/17 07:55 Weight - Most Recent: 137 lb I&O - Last 24 Hours: Intake & Output 04/23/17 04/24/17 04/24/17 22:59 06:59 14:59 Intake Total 1220 120 Output Total 1200 325 Balance 20 -205 Lab Results Last 24 Hours: Laboratory Results - last 24 hr 04/21/17 04/23/17 04/23/17 Range/Units 07:55 09:35 09:35 WBC 10.88 H (3.98-10.04) K/mm3 RBC 2.77 L (3.98-5.22) M/mm3 Hgb 8.6 L (11.2-15.7) gm/L Hct 25.7 L (34.1-44.9) % MCV 92.8 (79.4-94.8) fl MCH 31.0 (25.6-32.2) pg MCHC 33.5 (32.2-35.5) g/dl RDW Std Deviation 45.4 (36.4-46.3) fL Plt Count 157 L (182-369) K/mm3 MPV 8.7 L (9.4-12.3) fl Neut % (Auto) 75.4 H (34.0-71.1) % Lymph % (Auto) 12.8 L (19.3-51.7) % [place] % (Auto) 10.2 (4.7-12.5) % Eos % (Auto) 1.0 (0.7-5.8) Baso % (Auto) 0.3 (0.1-1.2) % Neut # (Auto) 8.21 H (1.56-6.13) K/mm3 Lymph # (Auto) 1.39 (1.18-3.74) K/mm3 [place] # (Auto) 1.11 H (0.24-0.36) K/mm3 Eos # (Auto) 0.11 (0.04-0.36) K/mm3 Baso # (Auto) 0.03 (0.01-0.08) K/mm3 Sodium 136 (136-145) mEq/L Potassium 3.7 (3.5-5.1) mEq/L Chloride 101 (98-107) mEq/L Carbon Dioxide 27 (21-32) mEq/L Anion Gap 11.7 (5-15) BUN 20 H (7-18) mg/dL Creatinine 1.0 (0.55-1.02) mg/dL Est Cr Clr Drug Dosing 36.81 mL/min Estimated GFR (MDRD) 53 (>60) mL/min BUN/Creatinine Ratio 20.0 H (14-18) Glucose 130 H (83-115) mg/dL Calcium 8.9 (8.5-10.1) mg/dL Magnesium 1.4 L (1.8-2.4) mg/dl Blood Type O POSITIVE Gel Antibody Screen Negative Crossmatch See Detail 04/24/17 04/24/17 Range/Units 06:15 06:15 WBC 8.12 (3.98-10.04) K/mm3 RBC 3.10 L (3.98-5.22) M/mm3 Hgb 9.5 L (11.2-15.7) gm/L Hct 28.2 L (34.1-44.9) % MCV 91.0 (79.4-94.8) fl MCH 30.6 (25.6-32.2) pg MCHC 33.7 (32.2-35.5) g/dl RDW Std Deviation 46.7 H (36.4-46.3) fL Plt Count 160 L (182-369) K/mm3 MPV 8.9 L (9.4-12.3) fl Neut % (Auto) 71.3 H (34.0-71.1) % Lymph % (Auto) 14.7 L (19.3-51.7) % [place] % (Auto) 11.0 (4.7-12.5) % Eos % (Auto) 2.7 (0.7-5.8) Baso % (Auto) 0.2 (0.1-1.2) % Neut # (Auto) 5.79 (1.56-6.13) K/mm3 Lymph # (Auto) 1.19 (1.18-3.74) K/mm3 [place] # (Auto) 0.89 H (0.24-0.36) K/mm3 Eos # (Auto) 0.22 (0.04-0.36) K/mm3 Baso # (Auto) 0.02 (0.01-0.08) K/mm3 Sodium 140 (136-145) mEq/L Potassium 3.4 L (3.5-5.1) mEq/L Chloride 101 (98-107) mEq/L Carbon Dioxide 29 (21-32) mEq/L Anion Gap 13.4 (5-15) BUN 21 H (7-18) mg/dL Creatinine 1.0 (0.55-1.02) mg/dL Est Cr Clr Drug Dosing 36.81 mL/min Estimated GFR (MDRD) 53 (>60) mL/min BUN/Creatinine Ratio 21.0 H (14-18) Glucose 107 (83-115) mg/dL Calcium 9.0 (8.5-10.1) mg/dL Magnesium 1.5 L (1.8-2.4) mg/dl Blood Type Gel Antibody Screen Crossmatch Med Orders - Current: Current Medications Bisacodyl (Dulcolax) 5 mg PO DAILY PRN PRN Reason: Constipation Calcium Carbonate (Calcium Carbonate/Vitamin D 1500 Mg-200 Unit) 1 tab PO DAILY [facility] Last Admin: 04/23/17 08:20 Dose: 1 tab Cholecalciferol (Vitamin D3) 5,000 units PO DAILY [facility] Last Admin: 04/23/17 08:18 Dose: 5,000 units Docusate Sodium (Colace) 100 mg PO BID [facility] Last Admin: 04/23/17 20:02 Dose: 100 mg Famotidine (Pepcid) 20 mg PO DAILY [facility] Last Admin: 04/23/17 08:19 Dose: 20 mg Magnesium Hydroxide (Milk Of Magnesia) 30 ml PO BID PRN PRN Reason: Constipation Morphine Sulfate (Morphine) 2 mg IVPUSH Q2H PRN PRN Reason: Breakthrough Pain Last Admin: 04/22/17 16:42 Dose: 2 mg Multivitamins (Thera) 1 each PO DAILY [facility] Last Admin: 04/23/17 08:20 Dose: 1 each Naloxone HCl (Narcan) 0.1 mg IVPUSH Q5M PRN PRN Reason: Oversedation Ondansetron HCl (Zofran) 4 mg IVPUSH Q6H PRN PRN Reason: Nausea/Vomiting Oxycodone/Acetaminophen (Percocet 325-5 Mg) 1 - 2 tab PO Q4H PRN PRN Reason: Pain Last Admin: 04/24/17 04:25 Dose: 2 tab Rivaroxaban (Xarelto) 10 mg PO DAILY [facility] Last Admin: 04/23/17 08:19 Dose: 10 mg Senna (Senna) 8.6 mg PO BID PRN PRN Reason: Constipation Triamterene/HCTZ (Dyazide 25-37.5 Mg) 1 each PO DAILY [facility] Last Admin: 04/23/17 09:53 Dose: Not Given Vit A/Vit C/Vit E/Selen/Cu/Zn/Lutei (Icaps Mv) 1 tab PO DAILY [facility] Last Admin: 04/23/17 08:20 Dose: 1 tab Discontinued Medications Bupivacaine HCl (Marcaine 0.25%) Confirm Administered Dose 30 ml .ROUTE .STK- MED ONE Stop: 04/21/17 07:55 Last Admin: 04/21/17 10:07 Dose: 30 ml Cefazolin Sodium (Ancef) Confirm Administered Dose 2 gm .ROUTE .STK-MED ONE Stop: 04/21/17 07:16 Cefazolin Sodium (Ancef) Confirm Administered Dose 2 gm .ROUTE .STK-MED ONE Stop: 04/21/17 07:22 Last Admin: 04/21/17 10:00 Dose: 2 gm Morphine Sulfate 8 mg/Epinephrine HCl 0.3 mg/Cefuroxime Sodium 750 mg/Ketorolac Tromethamine 30 mg/Sodium Chloride 27.9 ml 0 mg .XX ONETIME ONE Stop: 04/21/17 09:01 Last Admin: 04/21/17 10:05 Dose: 788.3 mg Diphtheria/Tetanus/Acell Pertussis (Adacel) 0.5 ml IM .ONCE ONE Stop: 04/21/17 12:50 Famotidine (Pepcid) 20 mg PO BID [facility] Last Admin: 04/21/17 20:05 Dose: 20 mg Fentanyl (Sublimaze) Confirm Administered Dose 100 mcg .ROUTE .STK-MED ONE Stop: 04/21/17 07:16 Fentanyl (Sublimaze) Confirm Administered Dose 250 mcg .ROUTE .STK-MED ONE Stop: 04/21/17 08:29 Fentanyl (Sublimaze) Confirm Administered Dose 100 mcg .ROUTE .STK-MED ONE Stop: 04/21/17 10:52 Fentanyl (Sublimaze) 50 mcg IVPUSH Q5M PRN PRN Reason: pain Stop: 04/21/17 18:00 Last Admin: 04/21/17 11:17 Dose: 50 mcg Furosemide (Lasix) 20 mg PO DAILY PRN PRN Reason: swelling Furosemide (Lasix) 20 mg IVPUSH NOW ONE Stop: 04/23/17 13:31 Last Admin: 04/23/17 17:54 Dose: Not Given Furosemide (Lasix) 20 mg IVPUSH NOW ONE Stop: 04/23/17 17:46 Last Admin: 04/23/17 17:49 Dose: 20 mg Gabapentin (Neurontin) 100 mg PO BEDTIME [facility] Last Admin: 04/21/17 22:50 Dose: Not Given Gabapentin (Neurontin) 300 mg PO TID [facility] Last Admin: 04/21/17 23:07 Dose: Not Given Hydromorphone HCl (Dilaudid) Confirm Administered Dose 1 mg .ROUTE .STK-MED ONE Stop: 04/21/17 11:08 Hydromorphone HCl (Dilaudid) 0.5 mg IVPUSH Q15M PRN PRN Reason: Pain (severe 7-10) Stop: 04/21/17 12:11 Last Admin: 04/21/17 11:53 Dose: 0.5 mg Lactated Ringer's (Ringers, Lactated) 1,000 mls @ 125 mls/hr IV ASDIRECTED [facility] Stop: 04/21/17 23:00 Last Admin: 04/21/17 11:41 Dose: 125 mls/hr Cefazolin Sodium/Dextrose 2 gm (/ Premix) 50 mls @ 100 mls/hr IV Q8H [facility] Stop: 04/22/17 09:29 Last Admin: 04/22/17 08:51 Dose: 100 mls/hr Lactated Ringer's (Ringers, Lactated) Confirm Administered Dose 1,000 mls @ as directed .ROUTE .STK-MED ONE Stop: 04/21/17 10:48 Lactated Ringer's (Ringers, Lactated) Confirm Administered Dose 1,000 mls @ as directed .ROUTE .STK-MED ONE Stop: 04/21/17 10:48 Sodium Chloride (Normal Saline) 1,000 mls @ 250 mls/hr IV ASDIRECTED [facility] Last Admin: 04/22/17 16:22 Dose: 250 mls/hr Iodine (Iodine 2% Mild Tincture) Confirm Administered Dose 30 ml .ROUTE .STK- MED ONE Stop: 04/21/17 07:22 Last Admin: 04/21/17 09:59 Dose: 30 ml Lidocaine HCl (Xylocaine-Mpf 1%) Confirm Administered Dose 30 ml .ROUTE .STK- MED ONE Stop: 04/21/17 10:32 Lidocaine/Sodium Bicarbonate (Buffered Lidocaine 1% In Ns 8.4%) 0.25 ml .XX ONETIME PRN PRN Reason: Prior to IV Start Stop: 04/21/17 18:00 Last Admin: 04/21/17 07:55 Dose: 0.25 ml Magnesium Oxide (Magnesium Oxide) 400 mg PO Q4H [facility] Stop: 04/23/17 18:01 Last Admin: 04/23/17 17:48 Dose: 400 mg Non-Formulary Medication (Forteo) 20 mcg SQ DAILY [facility] Ondansetron HCl (Zofran) Confirm Administered Dose 4 mg .ROUTE .STK-MED ONE Stop: 04/21/17 09:05 Ondansetron HCl (Zofran) 4 mg IVPUSH ONETIME PRN PRN Reason: Nausea/Vomiting Stop: 04/21/17 23:00 Last Admin: 04/21/17 11:30 Dose: 4 mg Phenylephrine HCl (Armando-Synephrine) Confirm Administered Dose 10 mg .ROUTE .STK- MED ONE Stop: 04/21/17 09:35 Pneumococcal 13-Valent Conj Vacc (Prevnar 13) 0.5 ml IM .ONCE ONE Stop: 04/21/17 12:51 Potassium Chloride (Potassium Chloride) 40 meq PO ONETIME ONE Stop: 04/22/17 12:31 Last Admin: 04/22/17 12:33 Dose: 40 meq Potassium Chloride (Potassium Chloride) 40 meq PO ONETIME ONE Stop: 04/24/17 07:39 Propofol (Diprivan 20 Ml) Confirm Administered Dose 200 mg .ROUTE .STK-MED ONE Stop: 04/21/17 07:16 Propofol (Diprivan 20 Ml) Confirm Administered Dose 200 mg .ROUTE .STK-MED ONE Stop: 04/21/17 10:58 Rocuronium [place] (Zemuron) Confirm Administered Dose 50 mg .ROUTE .STK-MED ONE Stop: 04/21/17 08:29 Sodium Chloride (Saline Flush) 10 ml FLUSH ASDIRECTED PRN PRN Reason: Keep Vein Open Stop: 04/21/17 18:00 Tranexamic Acid (Cyklokapron) Confirm Administered Dose 1,000 mg .ROUTE .STK- MED ONE Stop: 04/21/17 07:23 Last Admin: 04/21/17 10:09 Dose: 1,000 mg Vancomycin HCl (Vancomycin) Confirm Administered Dose 1 gm .ROUTE .STK-MED ONE Stop: 04/21/17 07:28 Last Admin: 04/21/17 10:08 Dose: 1 gm - Exam Quality Assessment: DVT Prophylaxis General: Alert, Oriented, Cooperative, No Acute Distress HEENT: Pupils Equal, Pupils Reactive, Mucous Membr. Moist/[place] Neck: Supple, Trachea Midline, No JVD Lungs: Clear to Auscultation, Normal Respiratory Effort Cardiovascular: Regular Rate, Regular Rhythm GI/Abdominal Exam: Normal Bowel Sounds, Soft, Non-Tender, No Organomegaly, No Distention (Female) Exam: Deferred Back Exam: Normal Inspection, Full Range of Motion Extremities: No Pedal Edema, Normal Capillary Refill, Other ([place] bandage on left leg. Foam leg wedge in place. ) Peripheral Pulses: 2+: Radial (L), Radial (R), Posterior Tibial (L), Posterior Tibial (R), Dorsalis Pedis (L), Dorsalis Pedis (R) Skin: Warm, Dry, Intact Wound/Incisions: Dressing Dry and Intact, No Drainage Neurological: No New Focal Deficit Psy/Mental Status: Alert, Normal Affect, Normal Mood Consult PN Assessment/Plan POD#: 3 Procedures: Procedures DRAIN/INJ JOINT/BURSA W/O US (02/04/17) DXA BONE DENSITY AXIAL (12/24/16) INJECT SACROILIAC JOINT (05/04/14) (1) HTN (hypertension) SNOMED Code(s): 97089231 Code(s): I10 - ESSENTIAL (PRIMARY) HYPERTENSION Priority: Medium Current Visit: Yes Qualifiers: Hypertension type: unspecified Qualified Code(s): I10 - Essential (primary ) hypertension (2) HLD (hyperlipidemia) SNOMED Code(s): 97161721 Code(s): E78.5 - HYPERLIPIDEMIA, UNSPECIFIED Priority: Low Current Visit : No Qualifiers: Hyperlipidemia type: unspecified Qualified Code(s): E78.5 - Hyperlipidemia , unspecified (3) CKD (chronic kidney disease) stage 3, GFR 30-59 ml/min SNOMED Code(s): 033803495 Code(s): N18.3 - CHRONIC KIDNEY DISEASE, STAGE 3 (MODERATE) Priority: Medium Current Visit: Yes (4) Lumbar disc disease SNOMED Code(s): 66793499 Code(s): M51.9 - UNSP THORACIC, THORACOLUM AND LUMBOSACR INTVRT DISC DISORDER Priority: Low Current Visit: No (5) H/O laminectomy SNOMED Code(s): 431960848 Code(s): Z98.890 - OTHER SPECIFIED POSTPROCEDURAL STATES Priority: Low Current Visit: No (6) H/O: duodenal ulcer SNOMED Code(s): 035247747 Code(s): Z87.19 - PERSONAL HISTORY OF OTHER DISEASES OF THE DIGESTIVE SYSTEM Priority: Low Current Visit: No (7) Pedal edema SNOMED Code(s): 074676646 Code(s): R60.0 - LOCALIZED EDEMA Priority: Medium Current Visit: Yes (8) S/P total hip arthroplasty SNOMED Code(s): 105970217913 Code(s): Z96.649 - PRESENCE OF UNSPECIFIED ARTIFICIAL HIP JOINT Priority: High Current Visit: Yes Qualifiers: Laterality: left Qualified Code(s): Z96.642 - Presence of left artificial hip joint (9) Postoperative hypotension SNOMED Code(s): 252590485 Code(s): I95.89 - OTHER HYPOTENSION Priority: High Current Visit: Yes (10) Hypokalemia SNOMED Code(s): 87131247 Code(s): E87.6 - HYPOKALEMIA Priority: High Current Visit: Yes (11) Hypomagnesemia SNOMED Code(s): 575587314 Code(s): E83.42 - HYPOMAGNESEMIA Priority: High Current Visit: Yes (12) Postoperative anemia SNOMED Code(s): 005845630 Code(s): D64.9 - ANEMIA, UNSPECIFIED Priority: High Current Visit: Yes Problem List Initiated/Reviewed/Updated: Yes My Orders Last 24 Hours: My Active Orders 04/23/17 12:05 Transfuse Red Blood Cells [COMM] Routine 04/25/17 05:11 BASIC METABOLIC PANEL,BMP [CHEM] AM CBC WITH AUTO DIFF [HEME] AM MAGNESIUM [CHEM] AM Plan: I/P Acute: s/p left JAN, post-operative day 3 -DVT prevention and pain management per the primary team -RT/IS -PT/OT -Monitor oxygen saturations -O2 as needed, attempt to wean - off o2 now -Hgb 9.2-->8.6-->9.5 -Hct 28.4-->25.7-->28.2 -Creatinine 1.0-->1.0-->1.0 -eGFR 53-->53-->53 -Vitals stable Post-operative anemia, Improved -H&H as above -Pt. is asymptomatic -Will give 1 unit blood now followed by 20mg lasix Hypokalemia -Potassium 3.1-->3.7-->3.4 -Replete -Continue to monitor Hypomagnesemia -Magnesium 1.4-->1.5 -Replete -Continue to monitor Resolved: Post-operative HTN -Has improved tonight -Home medications as indicated -Will continue to monitor Post-operative hypotension, Resolved -Asymptomatic -Pt. lost around 750 ml of blood during surgery -Last BP 96/54-->120/66 -HR normal -Will give fluid as ordered and reassess Chronic: HTN - see above HLD - hold statin for now Pedal edema - home diuretics CKD stage III - monitor Hx/o Duodenal ulcer Hx/o Laminectomy Plan: Home medications as indicated CM/SW for discharge planning Routine AM labs GI prophylaxis Other orders as above Will likely need SNF rehab stay based upon PT/OT evaluation. From a hospitalist standpoint this patient is clear for discharge pending ortho agreement. Will be discharged today to SNF
[2017-04-24] MEDS ORDERED: Magnesium Oxide 400 MG Tab PO ONE (08:13)
[2017-04-24] MEDS: Docusate Sodium 100 MG Cap PO SCH (08:14)
[2017-04-24] MEDS: Multivitamins,Therapeutic Tab PO SCH (08:14)
[2017-04-24] MEDS: Multivitamins with Minerals/Folic Acid/Lutein/Zeaxanth Tab PO SCH (08:14)
[2017-04-24] MEDS: Cholecalciferol (Vitamin D3) 1,000 Unit Tab PO SCH (08:14)
[2017-04-24] MEDS: Hydrochlorothiazide/Triamterene 25-37.5 MG Cap PO SCH (08:14)
[2017-04-24] MEDS: Calcium Carbonate/Vitamin D3 1500 MG-200 Units Tab PO SCH (08:14)
[2017-04-24] MEDS: Rivaroxaban 10 MG Tab PO SCH (08:14)
[2017-04-24] MEDS: Famotidine 20 MG Tab PO SCH (08:14)
--- NOTE | 2017-04-24 13:08 | PCM.SURGPN ---
- General Info Date of Service: 04/24/17 POD#: 3 Functional Status: Reports: Pain Controlled, Tolerating Diet, Ambulating, Urinating, Incentive Spirometry - Review of Systems Musculoskeletal: Reports: Other (The pt states her pain is manageable and she feels prepared for d/c to [facility].) - Patient Data Vitals - Most Recent: Last Vital Signs Temp 98.0 F 04/24/17 07:55 Pulse 79 04/24/17 04:00 Resp 16 04/24/17 07:55 BP 120/66 04/24/17 07:55 Pulse Ox 97 04/24/17 07:55 Weight - Most Recent: 137 lb I&O - Last 24 Hours: Intake & Output 04/23/17 04/24/17 04/24/17 22:59 06:59 14:59 Intake Total 1220 120 240 Output Total 1200 325 Balance 20 -205 240 Lab Results Last 24 Hrs: Laboratory Results - last 24 hr 04/21/17 04/24/17 04/24/17 Range/Units 07:55 06:15 06:15 WBC 8.12 (3.98-10.04) K/mm3 RBC 3.10 L (3.98-5.22) M/mm3 Hgb 9.5 L (11.2-15.7) gm/L Hct 28.2 L (34.1-44.9) % MCV 91.0 (79.4-94.8) fl MCH 30.6 (25.6-32.2) pg MCHC 33.7 (32.2-35.5) g/dl RDW Std Deviation 46.7 H (36.4-46.3) fL Plt Count 160 L (182-369) K/mm3 MPV 8.9 L (9.4-12.3) fl Neut % (Auto) 71.3 H (34.0-71.1) % Lymph % (Auto) 14.7 L (19.3-51.7) % [place] % (Auto) 11.0 (4.7-12.5) % Eos % (Auto) 2.7 (0.7-5.8) Baso % (Auto) 0.2 (0.1-1.2) % Neut # (Auto) 5.79 (1.56-6.13) K/mm3 Lymph # (Auto) 1.19 (1.18-3.74) K/mm3 [place] # (Auto) 0.89 H (0.24-0.36) K/mm3 Eos # (Auto) 0.22 (0.04-0.36) K/mm3 Baso # (Auto) 0.02 (0.01-0.08) K/mm3 Sodium 140 (136-145) mEq/L Potassium 3.4 L (3.5-5.1) mEq/L Chloride 101 (98-107) mEq/L Carbon Dioxide 29 (21-32) mEq/L Anion Gap 13.4 (5-15) BUN 21 H (7-18) mg/dL Creatinine 1.0 (0.55-1.02) mg/dL Est Cr Clr Drug Dosing 36.81 mL/min Estimated GFR (MDRD) 53 (>60) mL/min BUN/Creatinine Ratio 21.0 H (14-18) Glucose 107 (83-115) mg/dL Calcium 9.0 (8.5-10.1) mg/dL Magnesium 1.5 L (1.8-2.4) mg/dl Blood Type O POSITIVE Gel Antibody Screen Negative Crossmatch See Detail Med Orders - Current: Current Medications Discontinued Medications Bisacodyl (Dulcolax) 5 mg PO DAILY PRN PRN Reason: Constipation Bupivacaine HCl (Marcaine 0.25%) Confirm Administered Dose 30 ml .ROUTE .STK- MED ONE Stop: 04/21/17 07:55 Last Admin: 04/21/17 10:07 Dose: 30 ml Calcium Carbonate (Calcium Carbonate/Vitamin D 1500 Mg-200 Unit) 1 tab PO DAILY [facility] Last Admin: 04/24/17 08:14 Dose: 1 tab Cefazolin Sodium (Ancef) Confirm Administered Dose 2 gm .ROUTE .STK-MED ONE Stop: 04/21/17 07:16 Cefazolin Sodium (Ancef) Confirm Administered Dose 2 gm .ROUTE .STK-MED ONE Stop: 04/21/17 07:22 Last Admin: 04/21/17 10:00 Dose: 2 gm Cholecalciferol (Vitamin D3) 5,000 units PO DAILY [facility] Last Admin: 04/24/17 08:14 Dose: 5,000 units Morphine Sulfate 8 mg/Epinephrine HCl 0.3 mg/Cefuroxime Sodium 750 mg/Ketorolac Tromethamine 30 mg/Sodium Chloride 27.9 ml 0 mg .XX ONETIME ONE Stop: 04/21/17 09:01 Last Admin: 04/21/17 10:05 Dose: 788.3 mg Diphtheria/Tetanus/Acell Pertussis (Adacel) 0.5 ml IM .ONCE ONE Stop: 04/21/17 12:50 Docusate Sodium (Colace) 100 mg PO BID [facility] Last Admin: 04/24/17 08:14 Dose: 100 mg Famotidine (Pepcid) 20 mg PO BID [facility] Last Admin: 04/21/17 20:05 Dose: 20 mg Famotidine (Pepcid) 20 mg PO DAILY [facility] Last Admin: 04/24/17 08:14 Dose: 20 mg Fentanyl (Sublimaze) Confirm Administered Dose 100 mcg .ROUTE .STK-MED ONE Stop: 04/21/17 07:16 Fentanyl (Sublimaze) Confirm Administered Dose 250 mcg .ROUTE .STK-MED ONE Stop: 04/21/17 08:29 Fentanyl (Sublimaze) Confirm Administered Dose 100 mcg .ROUTE .STK-MED ONE Stop: 04/21/17 10:52 Fentanyl (Sublimaze) 50 mcg IVPUSH Q5M PRN PRN Reason: pain Stop: 04/21/17 18:00 Last Admin: 04/21/17 11:17 Dose: 50 mcg Furosemide (Lasix) 20 mg PO DAILY PRN PRN Reason: swelling Furosemide (Lasix) 20 mg IVPUSH NOW ONE Stop: 04/23/17 13:31 Last Admin: 04/23/17 17:54 Dose: Not Given Furosemide (Lasix) 20 mg IVPUSH NOW ONE Stop: 04/23/17 17:46 Last Admin: 04/23/17 17:49 Dose: 20 mg Gabapentin (Neurontin) 100 mg PO BEDTIME [facility] Last Admin: 04/21/17 22:50 Dose: Not Given Gabapentin (Neurontin) 300 mg PO TID [facility] Last Admin: 04/21/17 23:07 Dose: Not Given Hydromorphone HCl (Dilaudid) Confirm Administered Dose 1 mg .ROUTE .STK-MED ONE Stop: 04/21/17 11:08 Hydromorphone HCl (Dilaudid) 0.5 mg IVPUSH Q15M PRN PRN Reason: Pain (severe 7-10) Stop: 04/21/17 12:11 Last Admin: 04/21/17 11:53 Dose: 0.5 mg Lactated Ringer's (Ringers, Lactated) 1,000 mls @ 125 mls/hr IV ASDIRECTED [facility] Stop: 04/21/17 23:00 Last Admin: 04/21/17 11:41 Dose: 125 mls/hr Cefazolin Sodium/Dextrose 2 gm (/ Premix) 50 mls @ 100 mls/hr IV Q8H [facility] Stop: 04/22/17 09:29 Last Admin: 04/22/17 08:51 Dose: 100 mls/hr Lactated Ringer's (Ringers, Lactated) Confirm Administered Dose 1,000 mls @ as directed .ROUTE .STK-MED ONE Stop: 04/21/17 10:48 Lactated Ringer's (Ringers, Lactated) Confirm Administered Dose 1,000 mls @ as directed .ROUTE .STK-MED ONE Stop: 04/21/17 10:48 Sodium Chloride (Normal Saline) 1,000 mls @ 250 mls/[facility] Last Admin: 04/22/17 16:22 Dose: 250 mls/hr Iodine (Iodine 2% Mild Tincture) Confirm Administered Dose 30 ml .ROUTE .STK- MED ONE Stop: 04/21/17 07:22 Last Admin: 04/21/17 09:59 Dose: 30 ml Lidocaine HCl (Xylocaine-Mpf 1%) Confirm Administered Dose 30 ml .ROUTE .STK- MED ONE Stop: 04/21/17 10:32 Lidocaine/Sodium Bicarbonate (Buffered Lidocaine 1% In Ns 8.4%) 0.25 ml .XX ONETIME PRN PRN Reason: Prior to IV Start Stop: 04/21/17 18:00 Last Admin: 04/21/17 07:55 Dose: 0.25 ml Magnesium Hydroxide (Milk Of Magnesia) 30 ml PO BID PRN PRN Reason: Constipation Magnesium Oxide (Magnesium Oxide) 400 mg PO Q4H [facility] Stop: 04/23/17 18:01 Last Admin: 04/23/17 17:48 Dose: 400 mg Magnesium Oxide (Magnesium Oxide) 400 mg PO ONETIME ONE Stop: 04/24/17 08:14 Last Admin: 04/24/17 08:43 Dose: 400 mg Morphine Sulfate (Morphine) 2 mg IVPUSH Q2H PRN PRN Reason: Breakthrough Pain Last Admin: 04/22/17 16:42 Dose: 2 mg Multivitamins (Thera) 1 each PO DAILY [facility] Last Admin: 04/24/17 08:14 Dose: 1 each Naloxone HCl (Narcan) 0.1 mg IVPUSH Q5M PRN PRN Reason: Oversedation Non-Formulary Medication (Forteo) 20 mcg SQ DAILY [facility] Ondansetron HCl (Zofran) 4 mg IVPUSH Q6H PRN PRN Reason: Nausea/Vomiting Ondansetron HCl (Zofran) Confirm Administered Dose 4 mg .ROUTE .STK-MED ONE Stop: 04/21/17 09:05 Ondansetron HCl (Zofran) 4 mg IVPUSH ONETIME PRN PRN Reason: Nausea/Vomiting Stop: 04/21/17 23:00 Last Admin: 04/21/17 11:30 Dose: 4 mg Oxycodone/Acetaminophen (Percocet 325-5 Mg) 1 - 2 tab PO Q4H PRN PRN Reason: Pain Last Admin: 04/24/17 09:08 Dose: 2 tab Phenylephrine HCl (Armando-Synephrine) Confirm Administered Dose 10 mg .ROUTE .STK- MED ONE Stop: 04/21/17 09:35 Pneumococcal 13-Valent Conj Vacc (Prevnar 13) 0.5 ml IM .ONCE ONE Stop: 04/21/17 12:51 Last Admin: 04/24/17 11:50 Dose: 0.5 ml Potassium Chloride (Potassium Chloride) 40 meq PO ONETIME ONE Stop: 04/22/17 12:31 Last Admin: 04/22/17 12:33 Dose: 40 meq Potassium Chloride (Potassium Chloride) 40 meq PO ONETIME ONE Stop: 04/24/17 07:39 Last Admin: 04/24/17 08:13 Dose: 40 meq Propofol (Diprivan 20 Ml) Confirm Administered Dose 200 mg .ROUTE .STK-MED ONE Stop: 04/21/17 07:16 Propofol (Diprivan 20 Ml) Confirm Administered Dose 200 mg .ROUTE .STK-MED ONE Stop: 04/21/17 10:58 Rivaroxaban (Xarelto) 10 mg PO DAILY [facility] Last Admin: 10/19/17 08:14 Dose: 10 mg Rocuronium [place]wn (Zemuron) Confirm Administered Dose 50 mg .ROUTE .STK-MED ONE Stop: 04/21/17 08:29 Senna (Senna) 8.6 mg PO BID PRN PRN Reason: Constipation Sodium Chloride (Saline Flush) 10 ml FLUSH ASDIRECTED PRN PRN Reason: Keep Vein Open Stop: 04/21/17 18:00 Tranexamic Acid (Cyklokapron) Confirm Administered Dose 1,000 mg .ROUTE .STK- MED ONE Stop: 04/21/17 07:23 Last Admin: 04/21/17 10:09 Dose: 1,000 mg Triamterene/HCTZ (Dyazide 25-37.5 Mg) 1 each PO DAILY [facility] Last Admin: 04/24/17 08:14 Dose: 1 each Vancomycin HCl (Vancomycin) Confirm Administered Dose 1 gm .ROUTE .STK-MED ONE Stop: 04/21/17 07:28 Last Admin: 04/21/17 10:08 Dose: 1 gm Vit A/Vit C/Vit E/Selen/Cu/Zn/Lutei (Icaps Mv) 1 tab PO DAILY [facility] Last Admin: 04/24/17 08:14 Dose: 1 tab - Exam Wound/Incisions: Dressing Dry and Intact General: Alert, Cooperative, No Acute Distress Lungs: Normal Respiratory Effort Extremities: Other (NVS intact. Susan's negative. Left thigh soft. ) - Problem List Review Problem List Initiated/Reviewed/Updated: Yes - My Orders Last 24 Hours: Active Orders 24 hr Category Date Time Status Ready for Discharge [RC] PER UNIT ROUTINE Care 04/24/17 09:56 Active - Assessment Assessment (Free Text/Narrative):: POD#3 - left JAN - Plan Plan (Free Text/Narrative):: 1. Discharge to MD today for continued rehab. 2. Xarelto, TEDs, frequent mobility for VTE prophylaxis. 3. Further orders per Hospitalist service. The pt's case was discussed with Dr. Barrett today.
--- NOTE | 2017-04-25 08:31 | PCM.DCSUM1 ---
Discharge Summary - Hospital Course Brief History: Ritu is an 81 yo female who underwent left JAN with Dr. Barrett on 04-21-2017. The procedure was completed under general anesthesia. The pt tolerated the procedure well and was admitted to the Medical-Surgical Unit. Medical management was provided by the Hospitalist service. The pt's Hgb on POD #1 was 9.2. Per Hospitalist order, the pt received 1 unit of RBCs. On POD#1, Xarelto 10mg PO daily was initiated for VTE prophylaxis. SCDs and TEDs were also ordered. A Mepilex dressing was placed at the incision site at the time of surgery and remained clean and dry. The pt participated in P.T. and O.T. and progressed well. She followed the JAN precautions. The pt was allowed to WBAT. On POD#3, the pt was deemed appropriate to discharge to home the senior living for continued therapy. - Discharge Data Discharge Date: 04/24/17 Discharge Disposition: DC/Tfer to [facility] 03 Condition: Good - Patient Summary/Data Operative Procedure(s) Performed: left total hip arthroplasty Consults: Consultations 04/21/17 06:28 Consult to Case Management [CONS] Routine Consult to Physician [CONS] Routine OT Evaluation and Treatment [CONS] Routine 04/21/17 06:32 PT Evaluation and Treatment [CONS] Routine - Patient Instructions Diet: Usual Diet as Tolerated Activity: Apply Ice, As Tolerated, Elevate Extremity, Full Weight Bearing Activity, Other: Total hip precautions. Driving: Do Not Drive Showering/Bathing: May Shower Wound/Incision Care: Keep Operative Site/Wound Site Clean and Dry, Do NOT Change Dressing Notify Provider of: Fever, Increased Pain, Swelling and Redness, Drainage, Nausea and/or Vomiting Other/Special Instructions: Please get up and moving around every hour while awake. This helps to prevent blood clots. Please use your walker and have help as needed. Take the Xarelto blood thinner medication daily. This also helps to prevent blood clots. Do the exercises you were taught in the Hospital. Follow the total hip precautions. Schedule for P.T. Use the pain medication as needed. The medication may cause drowsiness and constipation. Contact your primary care provider for instructions if you are constipated. You may use a stool softener like docusate sodium or Colace 100mg twice daily and/or a laxative like Miralax daily for constipation. Use the ice machine often. Elevate the limb to decrease swelling. Keep the Mepilex dressing in place until follow-up at the Clinic. Notify the Clinic if the dressing is saturated. Wear the [place] hose during the day and you may remove these at night. Eat a diet high in protein as this well help with healing. Schedule an appointment with your primary care provider for 'routine post-op care'. Call the Clinic with questions or concerns - [phone]. - Discharge Plan Home Medications: Home Meds Rosuvastatin [Crestor] 5 mg PO DAILY 05/02/14 [History] Triamterene/Hydrochlorothiazid [Triamterene-HCTZ 37.5-25 MG] 1 tab PO DAILY [History] B2/Vit A,C & E/Lut/Zeaxanth/Mn [Icaps] 1 tab PO DAILY 04/18/17 [History] Ca Carbonate/Vitamin D3/Vit K [Calcium + D Soft Chewable Tab] 1 tab PO DAILY [History] Cholecalciferol (Vitamin D3) [Vitamin D] 5,000 unit PO DAILY 04/18/17 [History] Furosemide [Lasix] 20 mg PO DAILY PRN 04/18/17 [History] Gabapentin [Neurontin] 300 mg PO TID 04/18/17 [History] Multivitamin [Daily Hector] 1 tab PO DAILY 04/18/17 [History] Pantoprazole Sodium [Protonix] 40 mg PO BID 04/18/17 [History] Acetaminophen/oxyCODONE [Percocet 325-5 MG] 1 - 2 tab PO Q6H PRN #60 tablet [Rx] Rivaroxaban [Xarelto] 10 mg PO DAILY 32 Days #32 tablet 04/24/17 [Rx] Patient Handouts: Rivaroxaban oral tablets, Total Hip Replacement, [id number] , Hip Rehabilitation After Surgery, Total Hip Replacement, Care After, Easy-to- Read Referrals: Rima Monroy MD [Primary Care Provider] - Mireya Rodriguez PA-C [Physician Academic Adviser] - - Patient Data Vitals - Most Recent: Last Vital Signs Temp 98.0 F 04/24/17 07:55 Pulse 79 04/24/17 04:00 Resp 16 04/24/17 07:55 BP 120/66 04/24/17 07:55 Pulse Ox 97 04/24/17 07:55 Weight - Most Recent: 137 lb Med Orders - Current: Current Medications Discontinued Medications Bisacodyl (Dulcolax) 5 mg PO DAILY PRN PRN Reason: Constipation Bupivacaine HCl (Marcaine 0.25%) Confirm Administered Dose 30 ml .ROUTE .STK- MED ONE Stop: 04/21/17 07:55 Last Admin: 04/21/17 10:07 Dose: 30 ml Calcium Carbonate (Calcium Carbonate/Vitamin D 1500 Mg-200 Unit) 1 tab PO DAILY COUNTS INCLUDE 234 BEDS AT THE [facility] Last Admin: 04/24/17 08:14 Dose: 1 tab Cefazolin Sodium (Ancef) Confirm Administered Dose 2 gm .ROUTE .STK-MED ONE Stop: 04/21/17 07:16 Cefazolin Sodium (Ancef) Confirm Administered Dose 2 gm .ROUTE .STK-MED ONE Stop: 04/21/17 07:22 Last Admin: 04/21/17 10:00 Dose: 2 gm Cholecalciferol (Vitamin D3) 5,000 units PO DAILY COUNTS INCLUDE 234 BEDS AT THE [facility] Last Admin: 04/24/17 08:14 Dose: 5,000 units Morphine Sulfate 8 mg/Epinephrine HCl 0.3 mg/Cefuroxime Sodium 750 mg/Ketorolac Tromethamine 30 mg/Sodium Chloride 27.9 ml 0 mg .XX ONETIME ONE Stop: 04/21/17 09:01 Last Admin: 04/21/17 10:05 Dose: 788.3 mg Diphtheria/Tetanus/Acell Pertussis (Adacel) 0.5 ml IM .ONCE ONE Stop: 04/21/17 12:50 Docusate Sodium (Colace) 100 mg PO BID COUNTS INCLUDE 234 BEDS AT THE [facility] Last Admin: 04/24/17 08:14 Dose: 100 mg Famotidine (Pepcid) 20 mg PO BID COUNTS INCLUDE 234 BEDS AT THE [facility] Last Admin: 04/21/17 20:05 Dose: 20 mg Famotidine (Pepcid) 20 mg PO DAILY COUNTS INCLUDE 234 BEDS AT THE [facility] Last Admin: 04/24/17 08:14 Dose: 20 mg Fentanyl (Sublimaze) Confirm Administered Dose 100 mcg .ROUTE .STK-MED ONE Stop: 04/21/17 07:16 Fentanyl (Sublimaze) Confirm Administered Dose 250 mcg .ROUTE .STK-MED ONE Stop: 04/21/17 08:29 Fentanyl (Sublimaze) Confirm Administered Dose 100 mcg .ROUTE .STK-MED ONE Stop: 04/21/17 10:52 Fentanyl (Sublimaze) 50 mcg IVPUSH Q5M PRN PRN Reason: pain Stop: 04/21/17 18:00 Last Admin: 04/21/17 11:17 Dose: 50 mcg Furosemide (Lasix) 20 mg PO DAILY PRN PRN Reason: swelling Furosemide (Lasix) 20 mg IVPUSH NOW ONE Stop: 04/23/17 13:31 Last Admin: 04/23/17 17:54 Dose: Not Given Furosemide (Lasix) 20 mg IVPUSH NOW ONE Stop: 04/23/17 17:46 Last Admin: 04/23/17 17:49 Dose: 20 mg Gabapentin (Neurontin) 100 mg PO BEDTIME COUNTS INCLUDE 234 BEDS AT THE [facility] Last Admin: 04/21/17 22:50 Dose: Not Given Gabapentin (Neurontin) 300 mg PO TID COUNTS INCLUDE 234 BEDS AT THE [facility] Last Admin: 04/21/17 23:07 Dose: Not Given Hydromorphone HCl (Dilaudid) Confirm Administered Dose 1 mg .ROUTE .STK-MED ONE Stop: 04/21/17 11:08 Hydromorphone HCl (Dilaudid) 0.5 mg IVPUSH Q15M PRN PRN Reason: Pain (severe 7-10) Stop: 04/21/17 12:11 Last Admin: 04/21/17 11:53 Dose: 0.5 mg Lactated Ringer's (Ringers, Lactated) 1,000 mls @ 125 mls/hr IV ASDIRECTED COUNTS INCLUDE 234 BEDS AT THE [facility] Stop: 04/21/17 23:00 Last Admin: 04/21/17 11:41 Dose: 125 mls/hr Cefazolin Sodium/Dextrose 2 gm (/ Premix) 50 mls @ 100 mls/hr IV Q8H COUNTS INCLUDE 234 BEDS AT THE [facility] Stop: 04/22/17 09:29 Last Admin: 04/22/17 08:51 Dose: 100 mls/hr Lactated Ringer's (Ringers, Lactated) Confirm Administered Dose 1,000 mls @ as directed .ROUTE .STK-MED ONE Stop: 04/21/17 10:48 Lactated Ringer's (Ringers, Lactated) Confirm Administered Dose 1,000 mls @ as directed .ROUTE .STK-MED ONE Stop: 04/21/17 10:48 Sodium Chloride (Normal Saline) 1,000 mls @ 250 mls/hr IV ASDIRECTED COUNTS INCLUDE 234 BEDS AT THE [facility] Last Admin: 04/22/17 16:22 Dose: 250 mls/hr Iodine (Iodine 2% Mild Tincture) Confirm Administered Dose 30 ml .ROUTE .STK- MED ONE Stop: 04/21/17 07:22 Last Admin: 04/21/17 09:59 Dose: 30 ml Lidocaine HCl (Xylocaine-Mpf 1%) Confirm Administered Dose 30 ml .ROUTE .STK- MED ONE Stop: 04/21/17 10:32 Lidocaine/Sodium Bicarbonate (Buffered Lidocaine 1% In Ns 8.4%) 0.25 ml .XX ONETIME PRN PRN Reason: Prior to IV Start Stop: 04/21/17 18:00 Last Admin: 04/21/17 07:55 Dose: 0.25 ml Magnesium Hydroxide (Milk Of Magnesia) 30 ml PO BID PRN PRN Reason: Constipation Magnesium Oxide (Magnesium Oxide) 400 mg PO Q4H COUNTS INCLUDE 234 BEDS AT THE [facility] Stop: 04/23/17 18:01 Last Admin: 04/23/17 17:48 Dose: 400 mg Magnesium Oxide (Magnesium Oxide) 400 mg PO ONETIME ONE Stop: 04/24/17 08:14 Last Admin: 04/24/17 08:43 Dose: 400 mg Morphine Sulfate (Morphine) 2 mg IVPUSH Q2H PRN PRN Reason: Breakthrough Pain Last Admin: 04/22/17 16:42 Dose: 2 mg Multivitamins (Thera) 1 each PO DAILY COUNTS INCLUDE 234 BEDS AT THE [facility] Last Admin: 04/24/17 08:14 Dose: 1 each Naloxone HCl (Narcan) 0.1 mg IVPUSH Q5M PRN PRN Reason: Oversedation Non-Formulary Medication (Forteo) 20 mcg SQ DAILY COUNTS INCLUDE 234 BEDS AT THE [facility] Ondansetron HCl (Zofran) 4 mg IVPUSH Q6H PRN PRN Reason: Nausea/Vomiting Ondansetron HCl (Zofran) Confirm Administered Dose 4 mg .ROUTE .STK-MED ONE Stop: 04/21/17 09:05 Ondansetron HCl (Zofran) 4 mg IVPUSH ONETIME PRN PRN Reason: Nausea/Vomiting Stop: 04/21/17 23:00 Last Admin: 04/21/17 11:30 Dose: 4 mg Oxycodone/Acetaminophen (Percocet 325-5 Mg) 1 - 2 tab PO Q4H PRN PRN Reason: Pain Last Admin: 04/24/17 09:08 Dose: 2 tab Phenylephrine HCl (Armando-Synephrine) Confirm Administered Dose 10 mg .ROUTE .STK- MED ONE Stop: 04/21/17 09:35 Pneumococcal 13-Valent Conj Vacc (Prevnar 13) 0.5 ml IM .ONCE ONE Stop: 04/21/17 12:51 Last Admin: 04/24/17 11:50 Dose: 0.5 ml Potassium Chloride (Potassium Chloride) 40 meq PO ONETIME ONE Stop: 04/22/17 12:31 Last Admin: 04/22/17 12:33 Dose: 40 meq Potassium Chloride (Potassium Chloride) 40 meq PO ONETIME ONE Stop: 04/24/17 07:39 Last Admin: 04/24/17 08:13 Dose: 40 meq Propofol (Diprivan 20 Ml) Confirm Administered Dose 200 mg .ROUTE .STK-MED ONE Stop: 04/21/17 07:16 Propofol (Diprivan 20 Ml) Confirm Administered Dose 200 mg .ROUTE .STK-MED ONE Stop: 04/21/17 10:58 Rivaroxaban (Xarelto) 10 mg PO DAILY COUNTS INCLUDE 234 BEDS AT THE [facility] Last Admin: 04/24/17 08:14 Dose: 10 mg Rocuronium Burns (Zemuron) Confirm Administered Dose 50 mg .ROUTE .STK-MED ONE Stop: 04/21/17 08:29 Senna (Senna) 8.6 mg PO BID PRN PRN Reason: Constipation Sodium Chloride (Saline Flush) 10 ml FLUSH ASDIRECTED PRN PRN Reason: Keep Vein Open Stop: 04/21/17 18:00 Tranexamic Acid (Cyklokapron) Confirm Administered Dose 1,000 mg .ROUTE .STK- MED ONE Stop: 04/21/17 07:23 Last Admin: 04/21/17 10:09 Dose: 1,000 mg Triamterene/HCTZ (Dyazide 25-37.5 Mg) 1 each PO DAILY COUNTS INCLUDE 234 BEDS AT THE [facility] Last Admin: 04/24/17 08:14 Dose: 1 each Vancomycin HCl (Vancomycin) Confirm Administered Dose 1 gm .ROUTE .STK-MED ONE Stop: 04/21/17 07:28 Last Admin: 04/21/17 10:08 Dose: 1 gm Vit A/Vit C/Vit E/Selen/Cu/Zn/Lutei (Icaps Mv) 1 tab PO DAILY AISHA Last Admin: 04/24/17 08:14 Dose: 1 tab *Q Meaningful Use (DIS) - VTE *Q VTE Criteria *Q: - Stroke *Q Stroke Criteria *Q: - AMI *Q AMI Criteria *Q:
--- NOTE | 2017-05-02 10:06 | OR ---
DATE OF OPERATION: 04/21/2017 SURGEON: Anthony Barrett MD OPERATION PERFORMED: Left total hip arthroplasty. PREOPERATIVE DIAGNOSIS: Left hip osteoarthrosis. POSTOPERATIVE DIAGNOSIS: Left hip osteoarthrosis. ANESTHESIA: General endotracheal intubation with local. ANESTHESIA PROVIDER: Dr. Lucy Gill. ASSISTANTS: Mireya Rodriguez PA-C and Nancy Kunz LPN. ESTIMATED BLOOD LOSS: 700 mL. COMPLICATIONS: None. CONDITION: Stable. IMPLANTS: 1. Martha size 60 Tritanium acetabular cup. 2. Martha size 6 Accolade II stem. 3. Olin 48-28, size F MDM components with 20 mm head. DESCRIPTION OF PROCEDURE: The patient was identified in the preop holding area, where the proper site was marked and identified by the surgeon. The patient was taken back to the operating theater, where after adequate anesthesia, the patient was placed in a right lateral decubitus position. All bony prominences were well-padded. Axillary wedge was placed and gluteal fold was parallel with the floor and pegs were placed. At this time, the left hip was then sterilely prepped and draped in the usual sterile fashion. OR time-out was performed. The patient received 2 g IV Ancef. At this time, standard posterior incision was made, centered over the greater trochanter. This was taken down to the IT band and gluteal fascia, which was incised along the incisional length. Charnley retractor was then placed. Short external rotators were identified, takedown of the short external rotator was started at the piriformis and a capsulotomy was done all the way down to the level of the lesser trochanter. The hip was then dislocated. Neck cut guide was then placed. The neck cut was then completed. Anterior and posterior acetabular retractors were then placed and the anterior and posterior labrum were removed along with the pulvinar. At this time, starting with a size 50 reamer, I was able to ream up to a size 60, which was found to be stable with good fit and fill. At this time, secondary to the patient's significant osteoarthrosis with oblong and poor bone quality, I did decide that we use 6.5 screws in the cup as well, so a multihole 60 mm MDM Olin cup was opened and impacted into place in roughly 45 degrees of abduction and 20 degrees of anteversion. At this time, two 6.5 mm screws were placed in the superior- posterior portion of the acetabulum. I was found to have adequate fixation. At this time, the MDM liner was impacted into place. Attention was turned to the femur. Femoral elevator was placed. Broach was used out laterally along with a starter awl. Starting with a size 0, we were able to broach up to a size 6, which was found to be rotationally and vertically stable. At this time, the trial MDM components were placed and the hip was relocated. At this time, the patient had adequate moravian of leg lengths and stable throughout range of motion. At this time, size 6 Accolade II stem was impacted into place along with a 48-28 MDM components that were constructed on the back table. At this time, the hip was relocated. It was found to have adequate moravian of the leg lengths and stability. 1 L of dilute Betadine solution along 3 L pulse lavage irrigation with Ancef were irrigated through the hip. #5 Ethibond suture was used for closure of the short external rotators and capsule. #2 barbed suture was used for closure of the IT band and gluteal fascia after topical tranexamic and topical vancomycin powder. 2-0 Vicryl was used subcutaneously and Prineo was used for the skin. The patient was sent to PACU in stable condition. FABRICE /[id number]
== END 2017-04-24 12:06 | DRG 470 ==
LOC: JD.ICU 04-21 07:15
PROVIDERS: ADMIT Orthopaedic Surgery; ATTEND Orthopaedic Surgery
PROC: 0SRB029 Replacement of Left Hip Joint with Metal on Polyethylene Synthetic Substitute, Cemented, Open Approach (ICD-10-PCS; principal; 2017-04-21)
DX: M16.0 Bilateral primary osteoarthritis of hip (principal); I12.9 Hypertensive chronic kidney disease with stage 1 through stage 4 chronic kidney disease, or unspecified chronic kidney disease; N18.3 Chronic kidney disease, stage 3 (moderate); Z85.3 Personal history of malignant neoplasm of breast; E78.2 Mixed hyperlipidemia; Z88.4 Allergy status to anesthetic agent; Z79.899 Other long term (current) drug therapy; M81.0 Age-related osteoporosis without current pathological fracture; H54.7 Unspecified visual loss; I87.2 Venous insufficiency (chronic) (peripheral); M51.9 Unspecified thoracic, thoracolumbar and lumbosacral intervertebral disc disorder; R60.0 Localized edema; Z23 Encounter for immunization
CPT/HCPCS: 01214; 36415; 36430; 73501-26-LT; 73501-LT; 80048; 80053; 83735; 85014; 85018; 85025; 85027; 86850; 86900; 86901; 86922; 87641; 90670; 97110-GP; 97116-GP; 97162-GP; 97166-GO; 97530-GP; 97535-GO; A9270-GY; C1713; C1776; G0009; J0171; J0690; J0697; J1170; J1885; J2270; J2370; J2405; J2704; J3010; J3370; J3490; J7040; J7120; P9016

== ENCOUNTER 2017-11-03 08:22 | Inpatient (IN) | payer MEDICARE, BC ==
[~2017-11-03 08:22] MED LIST: Bupivacaine 0.25% 30 ML SDV ONE; Lactated Ringers 1,000 ML IV SCH; Lactated Ringers 1,000 ML ONE; Lidocaine 1%/Sod Bicarbonate in NS 8.4% 1 ML Syringe IDERM PRN; Morphine PF 10 MG/10 ML SDV ONE; Propofol 200 MG/20 ML SDV ONE; Sodium Chloride 0.9% 10 ML Syringe FLUSH PRN; ceFAZolin 1 GM Vial ONE; fentaNYL 100 MCG/2 ML SDV ONE
[2017-11-03] MEDS ORDERED: fentaNYL 250 MCG/5 ML SDV ONE (08:27)
[2017-11-03] MEDS ORDERED: Rocuronium 50 MG/5 ML Vial ONE (08:27)
--- NOTE | 2017-11-03 09:05 | PCM.PREANE ---
Preanesthetic Assessment - Anesthesia/Transfusion/Family Hx Anesthesia History: Prior Anesthesia Without Reaction Transfusion History: Prior Transfusion Without Reaction - Review of Systems General: No Symptoms, Other (hx of breast cancer, no bps or iv on left arm) Pulmonary: No Symptoms Cardiovascular: Other (HTN, ekg per H&P normal and CXR shows no acute changes) Gastrointestinal: No Symptoms Neurological: Other (numerous back surgeries with hardware, denies any numbness or tingling) - Physical Assessment NPO Status Date: 11/02/17 NPO Status Time: 18:00 Pulse: 80 O2 Sat by Pulse Oximetry: 95 Respiratory Rate: 18 Blood Pressure: 182/94 Temperature: 37.3 C Weight: 62 kg ASA Class: 3 Mental Status: Alert & Oriented x3 Dentition: Reports: Normal Dentition Thyro-Mental Finger Breadths: 3 Mouth Opening Finger Breadths: 3 ROM/Head Extension: Limited/Partial Lungs: Clear to Auscultation, Normal Respiratory Effort Cardiovascular: Regular Rate, Regular Rhythm - Lab Values: Laboratory Last Values WBC Cancelled 10/22/17 14:00 Corrected WBC Cancelled 10/22/17 14:00 RBC Cancelled 10/22/17 14:00 Hgb Cancelled 10/22/17 14:00 Hct Cancelled 10/22/17 14:00 MCV Cancelled 10/22/17 14:00 MCH Cancelled 10/22/17 14:00 MCHC Cancelled 10/22/17 14:00 RDW Std Deviation Cancelled 10/22/17 14:00 Plt Count Cancelled 10/22/17 14:00 MPV Cancelled 10/22/17 14:00 Neut % (Auto) Cancelled 10/22/17 14:00 Lymph % (Auto) Cancelled 10/22/17 14:00 [place] % (Auto) Cancelled 10/22/17 14:00 Eos % (Auto) Cancelled 10/22/17 14:00 Baso % (Auto) Cancelled 10/22/17 14:00 Neut # (Auto) Cancelled 10/22/17 14:00 Lymph # (Auto) Cancelled 10/22/17 14:00 [place] # (Auto) Cancelled 10/22/17 14:00 Eos # (Auto) Cancelled 10/22/17 14:00 Baso # (Auto) Cancelled 10/22/17 14:00 Manual Slide Review Cancelled 10/22/17 14:00 Sodium Cancelled 10/22/17 14:00 Potassium Cancelled 10/22/17 14:00 Chloride Cancelled 10/22/17 14:00 Carbon Dioxide Cancelled 10/22/17 14:00 Anion Gap Cancelled 10/22/17 14:00 BUN Cancelled 10/22/17 14:00 Creatinine Cancelled 10/22/17 14:00 Est Cr Clr Drug Dosing Cancelled 10/22/17 14:00 Estimated GFR (MDRD) Cancelled 10/22/17 14:00 BUN/Creatinine Ratio Cancelled 10/22/17 14:00 Glucose Cancelled 10/22/17 14:00 Calcium Cancelled 10/22/17 14:00 Albumin Cancelled 10/22/17 14:00 MRSA (PCR) Negative 10/22/17 14:10 - Allergies Allergies/Adverse Reactions: Allergies Allergy/AdvReac Type Severity Reaction Status Date / Time No Known Allergies Allergy Verified 10/31/17 14:18 - Blood Blood Available: No Product(s) Available: None - Anesthesia Plan Pre-Op Medication Ordered: None - Acknowledgements Anesthesia Type Planned: General Anesthesia Pt an Appropriate Candidate for the Planned Anesthesia: Yes Alternatives and Risks of Anesthesia Discussed w Pt/Guardian: Yes Pt/Guardian Understands and Agrees with Anesthesia Plan: Yes PreAnesthesia Questionnaire HEENT History: Reports: Impaired Vision, Other (See Below) Other HEENT History: wears glasses Cardiovascular History: Reports: High Cholesterol, Hypertension, Other (See Below) Other Cardiovascular History: peripheral venous insufficiency, left upper extremitiy lymphedema Respiratory History: Reports: None Gastrointestinal History: Reports: Other (See Below) Other Gastrointestinal History: perforated duodenal ulcer Genitourinary History: Reports: Other (See Below) Other Genitourinary History: CKD III STATOR WINDER History: Reports: Musculoskeletal History: Reports: Osteoarthritis, Other (See Below) Other Musculoskeletal History: lumbar disc disease Neurological History: Reports: None Psychiatric History: Reports: None Endocrine/Metabolic History: Reports: None Hematologic History: Reports: None Immunologic History: Reports: None Oncologic (Cancer) History: Reports: None Dermatologic History: Reports: None - Past Surgical History Head Surgeries/Procedures: Reports: None HEENT Surgical History: Reports: Cataract Surgery Cardiovascular Surgical History: Reports: None Respiratory Surgical History: Reports: None GI Surgical History: Reports: Cholecystectomy, EGD, Other (See Below) Other GI Surgeries/Procedures: exploratory laparotomy Female Surgical History: Reports: D&C Male Surgical History: Reports: None Endocrine Surgical History: Reports: None Neurological Surgical History: Reports: Laminectomy Musculoskeletal Surgical History: Reports: Hip Replacement, Knee Replacement, Other (See Below) Other Musculoskeletal Surgeries/Procedures:: radius/ulnar fracture with repair Oncologic Surgical History: Reports: Lumpectomy Dermatological Surgical History: Reports: None - SUBSTANCE USE Smoking Status *Q: Never Smoker Tobacco Use Within Last Twelve Months: No Second Hand Smoke Exposure: No Recreational Drug Use History: No - HOME MEDS Home Medications: Home Meds Rosuvastatin [Crestor] 5 mg PO DAILY 05/02/14 [History] Triamterene/Hydrochlorothiazid [Triamterene-HCTZ 37.5-25 MG] 1 tab PO DAILY [History] Gabapentin [Neurontin] 300 mg PO TID 04/18/17 [History] Pantoprazole Sodium [Protonix] 40 mg PO BID 04/18/17 [History] Hydrocodone/Acetaminophen [Hydrocodon-Acetaminophn 10-325] 1 tab PO Q6H PRN [History] - CURRENT (IN HOUSE) MEDS Current Meds: Current Medications Bisacodyl (Dulcolax) 5 mg PO DAILY PRN PRN Reason: Constipation Morphine Sulfate 8 mg/Epinephrine HCl 0.3 mg/Cefuroxime Sodium 750 mg/Ketorolac Tromethamine 30 mg/Sodium Chloride 27.9 ml 0 mg .XX ONETIME ONE Stop: 11/03/17 10:01 Docusate Sodium (Colace) 100 mg PO BID AISHA Famotidine (Pepcid) 20 mg PO Q12H AISHA Lactated Ringer's (Ringers, Lactated) 1,000 mls @ 125 mls/hr IV ASDIRECTED AISHA Stop: 11/03/17 23:00 Cefazolin Sodium/Dextrose 2 gm (/ Premix) 50 mls @ 100 mls/hr IV Q8H [facility] Stop: 11/03/17 23:44 Lidocaine/Sodium Bicarbonate (Buffered Lidocaine 1% In Ns 8.4%) 0.25 ml IDERM ONETIME PRN PRN Reason: Prior to IV Start Stop: 11/03/17 18:00 Magnesium Hydroxide (Milk Of Magnesia) 30 ml PO BID PRN PRN Reason: Constipation Morphine Sulfate (Morphine) 2 mg IVPUSH Q2H PRN PRN Reason: Breakthrough Pain Naloxone HCl (Narcan) 0.1 mg IVPUSH Q5M PRN PRN Reason: Oversedation Ondansetron HCl (Zofran) 4 mg IVPUSH Q6H PRN PRN Reason: Nausea/Vomiting Oxycodone/Acetaminophen (Percocet 325-5 Mg) 1 - 2 tab PO Q4H PRN PRN Reason: Pain Rivaroxaban (Xarelto) 10 mg PO DAILY AISHA Senna (Senna) 8.6 mg PO BID PRN PRN Reason: Constipation Sodium Chloride (Saline Flush) 10 ml FLUSH ASDIRECTED PRN PRN Reason: Keep Vein Open Stop: 11/03/17 18:00 Discontinued Medications Bupivacaine HCl (Marcaine 0.25%) Confirm Administered Dose 30 ml .ROUTE .STK- MED ONE Stop: 11/03/17 08:18 Cefazolin Sodium (Ancef) Confirm Administered Dose 2 gm .ROUTE .STK-MED ONE Stop: 11/03/17 07:15 Cefazolin Sodium (Ancef) Confirm Administered Dose 2 gm .ROUTE .STK-MED ONE Stop: 11/03/17 08:17 Fentanyl (Sublimaze) Confirm Administered Dose 100 mcg .ROUTE .STK-MED ONE Stop: 11/03/17 07:16 Fentanyl (Sublimaze) Confirm Administered Dose 250 mcg .ROUTE .STK-MED ONE Stop: 11/03/17 08:28 Lactated Ringer's (Ringers, Lactated) Confirm Administered Dose 1,000 mls @ as directed .ROUTE .STK-MED ONE Stop: 11/03/17 07:15 Iodine (Iodine 2% Mild Tincture) Confirm Administered Dose 30 ml .ROUTE .STK- MED ONE Stop: 11/03/17 08:18 Morphine Sulfate (Duramorph Pf) Confirm Administered Dose 10 mg .ROUTE .STK-MED ONE Stop: 11/03/17 07:16 Propofol (Diprivan 20 Ml) Confirm Administered Dose 400 mg .ROUTE .STK-MED ONE Stop: 11/03/17 07:16 Rocuronium [place] (Zemuron) Confirm Administered Dose 50 mg .ROUTE .STK-MED ONE Stop: 11/03/17 08:28 Tranexamic Acid (Cyklokapron) Confirm Administered Dose 1,000 mg .ROUTE .STK- MED ONE Stop: 11/03/17 08:17 Vancomycin HCl (Vancomycin) Confirm Administered Dose 1 gm .ROUTE .STK-MED ONE Stop: 11/03/17 08:17
[2017-11-03] MEDS ORDERED: HYDROmorphone 0.5 MG/0.5 ML Syringe ONE (09:52)
[2017-11-03] MEDS ORDERED: Phenylephrine/Normal Saline 100 MCG/ML 10 ML Syringe ONE (10:27)
[2017-11-03] MEDS: ceFAZolin 1 GM Vial ONE ×2 (10:30→10:42)
[2017-11-03] MEDS: Iodine/Sodium Iodide 2% Tincture 30 ML Bottle ONE ×2 (10:31→10:40)
[2017-11-03] MEDS: Morphine 8 MG, EPINEPHrine 0.3 MG, Cefuroxime 750 MG, Ketorolac 30 MG, Sodium Chloride ... ONE ×10 (10:33→10:47)
[2017-11-03] MEDS: Vancomycin 1 GM SDV ONE ×2 (10:38→10:49)
[2017-11-03] MEDS ORDERED: fentaNYL 100 MCG/2 ML SDV IVPUSH PRN (11:27)
[2017-11-03] MEDS ORDERED: Ondansetron 4 MG/2 ML SDV IVPUSH PRN ×2 (11:27→12:00)
--- NOTE | 2017-11-03 11:27 | PCM.POSTAN ---
POST ANESTHESIA ASSESSMENT - MENTAL STATUS Mental Status: Alert, Oriented - VITAL SIGNS Pulse Rate: 64 SaO2: 100 Resp Rate: 16 Blood Pressure: 164/74 Temperature: 36.2 C - RESPIRATORY Respiratory Status: Respiratory Rate WNL, Airway Patent, O2 Saturation Stable, Supplemental Oxygen - CARDIOVASCULAR CV Status: Pulse Rate WNL - GASTROINTESTINAL GI Status: No Symptoms - PAIN Pain Score: 5 (pain meds per RN) - POST OP HYDRATION Hydration Status: Adequate & Stable
[2017-11-03] MEDS ORDERED: HYDROmorphone 0.5 MG/0.5 ML Syringe IVPUSH PRN (11:28)
--- NOTE | 2017-11-03 11:53 | CR ---
Pelvis and right hip: AP view of the pelvis was obtained as well as lateral view of the right hip. Comparison: Prior pelvis and left hip exam of 04/21/17. Stable left hip prosthesis is seen. Newly placed right hip prosthesis is noted. Components are aligned. Soft tissue air is noted around the right hip compatible with the surgical procedure. Degenerative change is seen within the lower lumbar spine. Vascular calcification is present. No acute bony abnormality is seen. Impression: 1. Satisfactory postop radiographic appearance of recently placed right hip prosthesis. 2. Other incidental findings as noted above. Diagnostic code #2
[2017-11-03] MEDS ORDERED: Magnesium Hydroxide 400 MG/5 ML Susp 30 ML Cup PO PRN (12:00)
[2017-11-03] MEDS ORDERED: Bisacodyl 5 MG Tab PO PRN (12:00)
[2017-11-03] MEDS ORDERED: Morphine 2 MG/ML Syringe IVPUSH PRN (12:00)
[2017-11-03] MEDS ORDERED: Sennosides 8.6 MG Tab PO PRN (12:00)
[2017-11-03] MEDS ORDERED: Naloxone 0.4 MG/ML SDV IVPUSH PRN (12:00)
[2017-11-03] MEDS: Acetaminophen/oxyCODONE 325-5 MG Tab PO PRN ×3 (13:27→23:42)
[2017-11-03] MEDS: ceFAZolin 2 GM in Premix Bag 1 BAG IV SCH ×2 (16:32→23:42)
[2017-11-03] MEDS: Gabapentin 300 MG Cap PO SCH ×2 (16:33→20:34)
[2017-11-03] MEDS: Pantoprazole 40 MG Tab.CR PO SCH (20:34)
[2017-11-03] MEDS: Famotidine 20 MG Tab PO SCH (20:34)
[2017-11-03] MEDS: Docusate Sodium 100 MG Cap PO SCH (20:34)
--- NOTE | 2017-11-03 20:58 | PCM.CONS ---
H&P History of Present Illness - General Date of Service: 11/03/17 Admit Problem/Dx: Admission Diagnosis/Problem Admission Diagnosis/Problem Osteoarthritis of hip Source of Information: Patient, Old Records, Provider History Limitations: Reports: No Limitations - History of Present Illness Initial Comments - Free Text/Narative: Ritu is a 81 yo female patient of Dr. Barrett who is post-operative day 0 of right JAN. Hospital medicine was consulted for post-operative medical care. At this time she is stable. Pain is controlled. She denies any chest pain, shortness of breath, palpitations, nausea, or vomiting. She carries a history of : HTN, HLD, CKD III, breast cancer, emphysema, peptic ulcer disease, osteoarthritis. She has never smoked. She is a full code. Her primary care provider is Rima Monroy. Right Hip Pain Score (Numeric/FACES): 5 - Related Data Allergies/Adverse Reactions: Allergies Allergy/AdvReac Type Severity Reaction Status Date / Time No Known Allergies Allergy Verified 10/31/17 14:18 Home Medications: Home Meds Rosuvastatin [Crestor] 5 mg PO DAILY 05/02/14 [History] Triamterene/Hydrochlorothiazid [Triamterene-HCTZ 37.5-25 MG] 1 tab PO DAILY [History] Gabapentin [Neurontin] 300 mg PO TID 04/18/17 [History] Pantoprazole Sodium [Protonix] 40 mg PO BID 04/18/17 [History] Acetaminophen/oxyCODONE [Percocet 325-5 MG] 1 - 2 tab PO Q6H PRN #60 tablet [Rx] Bisacodyl [Dulcolax] 5 mg PO DAILY PRN tablet 11/03/17 [Rx] Calcium Carbonate/Vitamin D3 [Calcium 500 mg Chewable Tablet] 1 tab PO DAILY [History] Cholecalciferol (Vitamin D3) [Vitamin D] 1 tab PO DAILY 11/03/17 [History] Docusate Sodium [Colace] 100 mg PO BID cap 11/03/17 [Rx] Multivitamin [Multi-Vitamin Daily] 1 tab PO DAILY 11/03/17 [History] Rivaroxaban [Xarelto] 10 mg PO DAILY #32 tablet 11/03/17 [Rx] Sennosides [Senna] 8.6 mg PO BID PRN tablet 11/03/17 [Rx] Past Medical History HEENT History: Reports: Impaired Vision, Other (See Below) Other HEENT History: wears glasses Cardiovascular History: Reports: High Cholesterol, Hypertension, Other (See Below) Other Cardiovascular History: peripheral venous insufficiency, left upper extremitiy lymphedema Respiratory History: Reports: None Gastrointestinal History: Reports: Other (See Below) Other Gastrointestinal History: perforated duodenal ulcer Genitourinary History: Reports: Other (See Below) Other Genitourinary History: CKD III [employer] History: Reports: Musculoskeletal History: Reports: Osteoarthritis, Other (See Below) Other Musculoskeletal History: lumbar disc disease Neurological History: Reports: None Psychiatric History: Reports: None Endocrine/Metabolic History: Reports: None Hematologic History: Reports: None Immunologic History: Reports: None Oncologic (Cancer) History: Reports: None Dermatologic History: Reports: None - Infectious Disease History Infectious Disease History: Reports: Chicken Pox, Influenza, Measles, Mumps - Past Surgical History Head Surgeries/Procedures: Reports: None HEENT Surgical History: Reports: Cataract Surgery Cardiovascular Surgical History: Reports: None Respiratory Surgical History: Reports: None GI Surgical History: Reports: Cholecystectomy, EGD, Other (See Below) Other GI Surgeries/Procedures: exploratory laparotomy Female Surgical History: Reports: D&C Male Surgical History: Reports: None Endocrine Surgical History: Reports: None Neurological Surgical History: Reports: Laminectomy Musculoskeletal Surgical History: Reports: Hip Replacement, Knee Replacement, Other (See Below) Other Musculoskeletal Surgeries/Procedures:: radius/ulnar fracture with repair Oncologic Surgical History: Reports: Lumpectomy Dermatological Surgical History: Reports: None Social & Family History - Family History Family Medical History: Noncontributory - Tobacco Use Smoking Status *Q: Never Smoker Second Hand Smoke Exposure: No - Caffeine Use Caffeine Use: Reports: Coffee - Recreational Drug Use Recreational Drug Use: No H&P Review of Systems - Review of Systems: Review Of Systems: See Below General: Reports: No Symptoms. Denies: Fever, Chills HEENT: Reports: No Symptoms Pulmonary: Reports: No Symptoms. Denies: Shortness of Breath, Wheezing Cardiovascular: Reports: No Symptoms. Denies: Chest Pain, Palpitations, Edema Gastrointestinal: Reports: No Symptoms. Denies: Abdominal Pain, Diarrhea, Nausea, Vomiting Genitourinary: Reports: No Symptoms. Denies: Dysuria, Frequency, Burning, Pain Musculoskeletal: Reports: Joint Pain (01/13 R hip pain s/p R JAN) Skin: Reports: No Symptoms Psychiatric: Reports: No Symptoms Neurological: Reports: No Symptoms Hematologic/Lymphatic: Reports: No Symptoms Immunologic: Reports: No Symptoms Exam - Exam Exam: See Below - Vital Signs Vital Signs: Last Vital Signs Temp 97.9 F 11/03/17 20:41 Pulse 66 11/03/17 20:41 Resp 17 11/03/17 20:41 BP 127/87 11/03/17 20:41 Pulse Ox 96 11/03/17 20:41 Weight: 136 lb 10.986 oz - Exam Quality Assessment: Supplemental Oxygen (1L nasal cannula), DVT Prophylaxis. No : Urinary Catheter General: Alert, Oriented, Cooperative, Mild Distress HEENT: Conjunctiva Clear, EACs Clear, EOMI, Hearing Intact, Mucosa Moist & [place] , Nares Patent, Normal Nasal Septum, Posterior Pharynx Clear, PERRLA Neck: Supple, Trachea Midline, 2 Lungs: Clear to Auscultation, Normal Respiratory Effort Cardiovascular: Regular Rate, Regular Rhythm GI/Abdominal Exam: Normal Bowel Sounds, Soft, Non-Tender, No Organomegaly, No Distention, No Abnormal Bruit, No Mass, Pelvis Stable (Female) Exam: Deferred Rectal (Female) Exam: Deferred Back Exam: Normal Inspection, Full Range of Motion, NT Extremities: Normal Inspection, Non-Tender, No Pedal Edema, Normal Capillary Refill, Limited Range of Motion (s/p R JAN) Peripheral Pulses: 1+: Posterior Tibial (L), Posterior Tibial (R), Dorsalis Pedis (L), Dorsalis Pedis (R) Skin: Warm, Dry, Intact Neurological: Cranial Nerves Intact (grossly) Neuro Extensive - Mental Status: Alert, Oriented x3, Normal Mood/Affect, Normal Cognition Psychiatric: Alert, Normal Affect, Normal Mood - Patient Data Lab Results Last 24 hrs: Laboratory Results - last 24 hr 11/03/17 11/03/17 Range/Units 08:45 08:45 PT 10.6 (9.5-12.1) SECONDS INR 0.97 Blood Type O POSITIVE Gel Antibody Screen Negative Result Diagrams: 10/22/17 14:00 10/22/17 14:00 Consult PN Assessment/Plan POD#: 0 Procedures: Procedures ASSAY OF MAGNESIUM (10/16/17) BLOOD TRANSFUSION SERVICE (04/21/17) BLOOD TYPING SEROLOGIC ABO (04/21/17) BLOOD TYPING SEROLOGIC RH(D) (04/21/17) COMPATIBILITY TEST ANTIGLOB (04/21/17) COMPLETE CBC AUTOMATED (04/21/17) COMPLETE CBC W/AUTO DIFF WBC (04/21/17) COMPREHEN METABOLIC PANEL (04/21/17) DRAIN/INJ JOINT/BURSA W/O US (02/04/17) DXA BONE DENSITY AXIAL (12/24/16) GAIT TRAINING THERAPY (04/21/17) HEMATOCRIT (04/21/17) HEMOGLOBIN (04/21/17) INJECT SACROILIAC JOINT (05/04/14) METABOLIC PANEL TOTAL CA (04/21/17) MR-STAPH DNA AMP PROBE (04/21/17) OT EVAL MOD COMPLEX 45 MIN (04/21/17) PT EVAL MOD COMPLEX 30 MIN (04/21/17) RBC ANTIBODY SCREEN (04/21/17) ROUTINE VENIPUNCTURE (04/21/17) SELF CARE MNGMENT TRAINING (04/21/17) THERAPEUTIC ACTIVITIES (04/21/17) THERAPEUTIC EXERCISES (04/21/17) X-RAY EXAM CHEST 2 VIEWS (10/22/17) X-RAY EXAM HIP UNI 1 VIEW (04/21/17) (1) Status post total hip replacement, right SNOMED Code(s): 635727954216, 794775325642 Code(s): Z96.641 - PRESENCE OF RIGHT ARTIFICIAL HIP JOINT Priority: High Current Visit: Yes (2) History of breast cancer SNOMED Code(s): 577927628 Code(s): Z85.3 - PERSONAL HISTORY OF MALIGNANT NEOPLASM OF BREAST Priority : Low Current Visit: No (3) Peptic ulcer disease SNOMED Code(s): 77341791 Code(s): K27.9 - PEPTIC ULC, SITE UNSP, UNSP AC OR CHR, W/O HEMOR OR PERF Priority: Medium Current Visit: No (4) CKD (chronic kidney disease) stage 3, GFR 30-59 ml/min SNOMED Code(s): 747841986 Code(s): N18.3 - CHRONIC KIDNEY DISEASE, STAGE 3 (MODERATE) Priority: Medium Current Visit: Yes (5) HLD (hyperlipidemia) SNOMED Code(s): 68228997 Code(s): E78.5 - HYPERLIPIDEMIA, UNSPECIFIED Priority: Low Current Visit : No Qualifiers: Hyperlipidemia type: unspecified Qualified Code(s): E78.5 - Hyperlipidemia , unspecified (6) HTN (hypertension) SNOMED Code(s): 12384904 Code(s): I10 - ESSENTIAL (PRIMARY) HYPERTENSION Priority: Medium Current Visit: No Qualifiers: Hypertension type: unspecified Qualified Code(s): I10 - Essential (primary ) hypertension Problem List Initiated/Reviewed/Updated: Yes Plan: I/P: Acute: S/P right total hip arthroplasty - post-operative day 0 -DVT prophylaxis and pain management per primary care team -PT/OT -IS/RT -Monitor oxygen saturation -Titrate oxygen as needed -Vital signs stable -Monitor labs -Pre-operative Hgb was 12.5 Chronic: HTN HLD CKD III Osteoarthritis h/o Breast cancer Emphysema Peptic ulcer disease Plan: CM for discharge planning GI prophylaxis:Protonix, Pepcid DVT/PE prophylaxis: SCD, Xaralto Home medications as indicated Other orders as listed above Routine AM labs She is a full code. Her PCP is Rima Monroy. Thank you for allowing us to participate in the care of this patient!!
[2017-11-04] MEDS: Acetaminophen/oxyCODONE 325-5 MG Tab PO PRN ×4 (04:00→22:02)
--- NOTE | 2017-11-04 07:38 | PCM.CONSN ---
- General Info Date of Service: 11/04/17 Admission Dx/Problem (Free Text): Admission Diagnosis/Problem Admission Diagnosis/Problem Osteoarthritis of hip Functional Status: Reports: Pain Controlled, Tolerating Diet, Ambulating, Urinating, Incentive Spirometry. Denies: New Symptoms - Review of Systems General: Reports: No Symptoms HEENT: Reports: No Symptoms Pulmonary: Reports: No Symptoms Cardiovascular: Reports: No Symptoms Gastrointestinal: Reports: No Symptoms Genitourinary: Reports: No Symptoms Musculoskeletal: Reports: Joint Pain Skin: Reports: No Symptoms Neurological: Reports: No Symptoms Psychiatric: Reports: No Symptoms - Patient Data Vitals - Most Recent: Last Vital Signs Temp 98.4 F 11/04/17 04:05 Pulse 80 11/04/17 04:05 Resp 18 11/04/17 04:05 BP 146/60 H 11/04/17 04:05 Pulse Ox 95 11/04/17 04:05 Weight - Most Recent: 142 lb 8 oz I&O - Last 24 Hours: Intake & Output 11/03/17 11/04/17 11/04/17 22:59 06:59 14:59 Intake Total 850 250 Output Total 150 350 Balance 700 -100 Lab Results Last 24 Hours: Laboratory Results - last 24 hr 11/03/17 11/03/17 11/04/17 Range/Units 08:45 08:45 05:45 WBC 8.11 (3.98-10.04) K/mm3 RBC 3.05 L (3.98-5.22) M/mm3 Hgb 9.0 L (11.2-15.7) gm/L Hct 28.4 L (34.1-44.9) % MCV 93.1 (79.4-94.8) fl MCH 29.5 (25.6-32.2) pg MCHC 31.7 L (32.2-35.5) g/dl RDW Std Deviation 49.9 H (36.4-46.3) fL Plt Count 159 L (182-369) K/mm3 MPV 9.9 (9.4-12.3) fl PT 10.6 (9.5-12.1) SECONDS INR 0.97 Blood Type O POSITIVE Gel Antibody Screen Negative Med Orders - Current: Current Medications Bisacodyl (Dulcolax) 5 mg PO DAILY PRN PRN Reason: Constipation Docusate Sodium (Colace) 100 mg PO BID COUNTS INCLUDE 234 BEDS AT THE [facility] Last Admin: 11/03/17 20:34 Dose: 100 mg Famotidine (Pepcid) 20 mg PO Q12H COUNTS INCLUDE 234 BEDS AT THE [facility] Last Admin: 11/03/17 20:34 Dose: 20 mg Gabapentin (Neurontin) 300 mg PO TID COUNTS INCLUDE 234 BEDS AT THE [facility] Last Admin: 11/03/17 20:34 Dose: 300 mg Cefazolin Sodium/Dextrose 2 gm (/ Premix) 50 mls @ 100 mls/hr IV Q8H COUNTS INCLUDE 234 BEDS AT THE [facility] Stop: 11/04/17 08:59 Last Admin: 11/03/17 23:42 Dose: 100 mls/hr Magnesium Hydroxide (Milk Of Magnesia) 30 ml PO BID PRN PRN Reason: Constipation Morphine Sulfate (Morphine) 2 mg IVPUSH Q2H PRN PRN Reason: Breakthrough Pain Naloxone HCl (Narcan) 0.1 mg IVPUSH Q5M PRN PRN Reason: Oversedation Ondansetron HCl (Zofran) 4 mg IVPUSH Q6H PRN PRN Reason: Nausea/Vomiting Oxycodone/Acetaminophen (Percocet 325-5 Mg) 1 - 2 tab PO Q4H PRN PRN Reason: Pain Last Admin: 11/04/17 04:00 Dose: 2 tab Pantoprazole Sodium (Protonix) 40 mg PO BID COUNTS INCLUDE 234 BEDS AT THE [facility] Last Admin: 11/03/17 20:34 Dose: 40 mg Rivaroxaban (Xarelto) 10 mg PO DAILY COUNTS INCLUDE 234 BEDS AT THE [facility] Rosuvastatin Calcium (Crestor) 5 mg PO DAILY COUNTS INCLUDE 234 BEDS AT THE [facility] Senna (Senna) 8.6 mg PO BID PRN PRN Reason: Constipation Triamterene/HCTZ (Dyazide 25-37.5 Mg) 1 each PO DAILY COUNTS INCLUDE 234 BEDS AT THE [facility] Discontinued Medications Bupivacaine HCl (Marcaine 0.25%) Confirm Administered Dose 30 ml .ROUTE .STK- MED ONE Stop: 11/03/17 08:18 Last Admin: 11/03/17 10:45 Dose: 30 ml Cefazolin Sodium (Ancef) Confirm Administered Dose 2 gm .ROUTE .STK-MED ONE Stop: 11/03/17 07:15 Last Admin: 11/03/17 10:42 Dose: 2 gm Cefazolin Sodium (Ancef) Confirm Administered Dose 2 gm .ROUTE .STK-MED ONE Stop: 11/03/17 08:17 Morphine Sulfate 8 mg/Epinephrine HCl 0.3 mg/Cefuroxime Sodium 750 mg/Ketorolac Tromethamine 30 mg/Sodium Chloride 27.9 ml 0 mg .XX ONETIME ONE Stop: 11/03/17 10:01 Last Admin: 11/03/17 10:47 Dose: 788.3 mg Fentanyl (Sublimaze) Confirm Administered Dose 100 mcg .ROUTE .STK-MED ONE Stop: 11/03/17 07:16 Fentanyl (Sublimaze) Confirm Administered Dose 250 mcg .ROUTE .STK-MED ONE Stop: 11/03/17 08:28 Fentanyl (Sublimaze) 50 mcg IVPUSH Q5M PRN PRN Reason: pain Stop: 11/03/17 16:00 Last Admin: 11/03/17 12:02 Dose: 50 mcg Hydromorphone HCl (Dilaudid) Confirm Administered Dose 0.5 mg .ROUTE .STK-MED ONE Stop: 11/03/17 09:53 Hydromorphone HCl (Dilaudid) 0.5 mg IVPUSH ONETIME PRN PRN Reason: Pain (moderate 4-6) Stop: 11/03/17 11:29 Last Admin: 11/03/17 11:36 Dose: 0.5 mg Lactated Ringer's (Ringers, Lactated) 1,000 mls @ 125 mls/hr IV ASDIRECTED AISHA Stop: 11/03/17 23:00 Last Admin: 11/03/17 08:40 Dose: 125 mls/hr Lactated Ringer's (Ringers, Lactated) Confirm Administered Dose 1,000 mls @ as directed .ROUTE .STK-MED ONE Stop: 11/03/17 07:15 Iodine (Iodine 2% Mild Tincture) Confirm Administered Dose 30 ml .ROUTE .STK- MED ONE Stop: 11/03/17 08:18 Last Admin: 11/03/17 10:40 Dose: 18 ml Lidocaine/Sodium Bicarbonate (Buffered Lidocaine 1% In Ns 8.4%) 0.25 ml IDERM ONETIME PRN PRN Reason: Prior to IV Start Stop: 11/03/17 18:00 Last Admin: 11/03/17 08:39 Dose: 0.25 ml Morphine Sulfate (Duramorph Pf) Confirm Administered Dose 10 mg .ROUTE .STK-MED ONE Stop: 11/03/17 07:16 Ondansetron HCl (Zofran) 4 mg IVPUSH ONETIME PRN PRN Reason: Nausea/Vomiting Stop: 11/03/17 16:00 Phenylephrine HCl (Phenylephrine In Ns 100 Mcg/Ml) Confirm Administered Dose 1 mg .ROUTE .STK-MED ONE Stop: 11/03/17 10:28 Propofol (Diprivan 20 Ml) Confirm Administered Dose 400 mg .ROUTE .STK-MED ONE Stop: 11/03/17 07:16 Rocuronium [place] (Zemuron) Confirm Administered Dose 50 mg .ROUTE .STK-MED ONE Stop: 11/03/17 08:28 Sodium Chloride (Saline Flush) 10 ml FLUSH ASDIRECTED PRN PRN Reason: Keep Vein Open Stop: 11/03/17 18:00 Tranexamic Acid (Cyklokapron) Confirm Administered Dose 1,000 mg .ROUTE .STK- MED ONE Stop: 11/03/17 08:17 Last Admin: 11/03/17 10:50 Dose: 1,000 mg Vancomycin HCl (Vancomycin) Confirm Administered Dose 1 gm .ROUTE .STK-MED ONE Stop: 11/03/17 08:17 Last Admin: 11/03/17 10:49 Dose: 1 gm - Exam Quality Assessment: DVT Prophylaxis General: Alert, Oriented, Cooperative, No Acute Distress HEENT: Pupils Equal, Pupils Reactive, EOMI, Mucous Membr. Moist/[place] Neck: Supple, Trachea Midline, No JVD Lungs: Clear to Auscultation, Normal Respiratory Effort Cardiovascular: Regular Rate, Regular Rhythm GI/Abdominal Exam: Normal Bowel Sounds, Soft, Non-Tender, No Organomegaly, No Distention, No Abnormal Bruit, No Mass, Pelvis Stable (Female) Exam: Deferred Back Exam: Normal Inspection, Full Range of Motion Extremities: Normal Inspection, No Pedal Edema, Normal Capillary Refill, Leg Pain, Limited Range of Motion, Other (Bandage in place on right leg) Peripheral Pulses: 2+: Radial (L), Radial (R), Posterior Tibial (L), Posterior Tibial (R), Dorsalis Pedis (L), Dorsalis Pedis (R) Skin: Warm, Dry, Intact Wound/Incisions: Dressing Dry and Intact, No Drainage Neurological: No New Focal Deficit Psy/Mental Status: Alert, Normal Affect, Normal Mood Consult PN Assessment/Plan POD#: 1 Procedures: Procedures ASSAY OF MAGNESIUM (04/21/17) BLOOD TRANSFUSION SERVICE (04/21/17) BLOOD TYPING SEROLOGIC ABO (04/21/17) BLOOD TYPING SEROLOGIC RH(D) (04/21/17) COMPATIBILITY TEST ANTIGLOB (04/21/17) COMPLETE CBC AUTOMATED (04/21/17) COMPLETE CBC W/AUTO DIFF WBC (04/21/17) COMPREHEN METABOLIC PANEL (04/21/17) DRAIN/INJ JOINT/BURSA W/O US (02/04/17) DXA BONE DENSITY AXIAL (12/24/16) GAIT TRAINING THERAPY (04/21/17) HEMATOCRIT (04/21/17) HEMOGLOBIN (04/21/17) INJECT SACROILIAC JOINT (05/04/14) METABOLIC PANEL TOTAL CA (04/21/17) MR-STAPH DNA AMP PROBE (04/21/17) OT EVAL MOD COMPLEX 45 MIN (04/21/17) PT EVAL MOD COMPLEX 30 MIN (04/21/17) RBC ANTIBODY SCREEN (04/21/17) ROUTINE VENIPUNCTURE (04/21/17) SELF CARE MNGMENT TRAINING (04/21/17) THERAPEUTIC ACTIVITIES (04/21/17) THERAPEUTIC EXERCISES (04/21/17) X-RAY EXAM CHEST 2 VIEWS (10/22/17) X-RAY EXAM HIP UNI 1 VIEW (04/21/17) (1) CKD (chronic kidney disease) stage 3, GFR 30-59 ml/min SNOMED Code(s): 969101028 Code(s): N18.3 - CHRONIC KIDNEY DISEASE, STAGE 3 (MODERATE) Priority: Medium Current Visit: Yes (2) Osteoarthritis SNOMED Code(s): 920334586 Code(s): M19.90 - UNSPECIFIED OSTEOARTHRITIS, UNSPECIFIED SITE Priority: Medium Current Visit: Yes Qualifiers: Osteoarthritis location: hip Osteoarthritis type: primary Laterality: right Qualified Code(s): M16.11 - Unilateral primary osteoarthritis, right hip (3) Status post total hip replacement, right SNOMED Code(s): 301439683832, 913040672435 Code(s): Z96.641 - PRESENCE OF RIGHT ARTIFICIAL HIP JOINT Priority: High Current Visit: Yes (4) H/O laminectomy SNOMED Code(s): 831852672, 714799667 Code(s): Z98.890 - OTHER SPECIFIED POSTPROCEDURAL STATES Priority: Low Current Visit: No (5) H/O: duodenal ulcer SNOMED Code(s): 077228389 Code(s): Z87.19 - PERSONAL HISTORY OF OTHER DISEASES OF THE DIGESTIVE SYSTEM Priority: Low Current Visit: No (6) HLD (hyperlipidemia) SNOMED Code(s): 17804541 Code(s): E78.5 - HYPERLIPIDEMIA, UNSPECIFIED Priority: Low Current Visit : No Qualifiers: Hyperlipidemia type: unspecified Qualified Code(s): E78.5 - Hyperlipidemia , unspecified (7) HTN (hypertension) SNOMED Code(s): 09774714 Code(s): I10 - ESSENTIAL (PRIMARY) HYPERTENSION Priority: Medium Current Visit: No Qualifiers: Hypertension type: unspecified Qualified Code(s): I10 - Essential (primary ) hypertension (8) History of breast cancer SNOMED Code(s): 198964811 Code(s): Z85.3 - PERSONAL HISTORY OF MALIGNANT NEOPLASM OF BREAST Priority : Low Current Visit: No (9) Hypokalemia SNOMED Code(s): 07249849 Code(s): E87.6 - HYPOKALEMIA Priority: Medium Current Visit: Yes (10) Lumbar disc disease SNOMED Code(s): 583775062 Code(s): M51.9 - UNSP THORACIC, THORACOLUM AND LUMBOSACR INTVRT DISC DISORDER Priority: Low Current Visit: No (11) Peptic ulcer disease SNOMED Code(s): 97143982 Code(s): K27.9 - PEPTIC ULC, SITE UNSP, UNSP AC OR CHR, W/O HEMOR OR PERF Priority: Medium Current Visit: No Problem List Initiated/Reviewed/Updated: Yes Plan: I/P: Acute: S/P right total hip arthroplasty - post-operative day 0 -DVT prophylaxis and pain management per primary care team -PT/OT -IS/RT -Monitor oxygen saturation -Titrate oxygen as needed -Vital signs stable -Monitor labs -Pre-operative Hgb was 12.5, now 9.0 -Pre-operative Creatinine 1.2, now 1.1 -Pre-operative eGFR 43, now 47 Hypokalemia -Potassium 3.3 today -Supplement Chronic: HTN HLD CKD III Osteoarthritis h/o Breast cancer Emphysema Peptic ulcer disease Plan: CM for discharge planning GI prophylaxis:Protonix, Pepcid DVT/PE prophylaxis: SCD, Xaralto Home medications as indicated Other orders as listed above Routine AM labs She is a full code. Her PCP is Rima Monroy. From a hospitalist standpoint Ritu is doing well. She has been working with PT/ OT and has urinated. Labs look good. She will stay with us pending placement to [facility]. Thank you for allowing us to participate in the care of this patient!!
--- NOTE | 2017-11-04 08:24 | PCM.SURGPN ---
- General Info Date of Service: 11/04/17 POD#: 1 Functional Status: Reports: Pain Controlled, Tolerating Diet, Ambulating, Urinating, Incentive Spirometry, Other (The pt states she is doing well.) - Patient Data Vitals - Most Recent: Last Vital Signs Temp 99.3 F 11/04/17 07:41 Pulse 79 11/04/17 07:41 Resp 16 11/04/17 07:41 BP 117/74 11/04/17 07:41 Pulse Ox 97 11/04/17 07:41 Weight - Most Recent: 142 lb 8 oz I&O - Last 24 Hours: Intake & Output 11/03/17 11/04/17 11/04/17 22:59 06:59 14:59 Intake Total 850 250 Output Total 150 350 Balance 700 -100 Lab Results Last 24 Hrs: Laboratory Results - last 24 hr 11/03/17 11/03/17 11/04/17 Range/Units 08:45 08:45 05:45 WBC 8.11 (3.98-10.04) K/mm3 RBC 3.05 L (3.98-5.22) M/mm3 Hgb 9.0 L (11.2-15.7) gm/L Hct 28.4 L (34.1-44.9) % MCV 93.1 (79.4-94.8) fl MCH 29.5 (25.6-32.2) pg MCHC 31.7 L (32.2-35.5) g/dl RDW Std Deviation 49.9 H (36.4-46.3) fL Plt Count 159 L (182-369) K/mm3 MPV 9.9 (9.4-12.3) fl PT 10.6 (9.5-12.1) SECONDS INR 0.97 Sodium (136-145) mEq/L Potassium (3.5-5.1) mEq/L Chloride (98-107) mEq/L Carbon Dioxide (21-32) mEq/L Anion Gap (5-15) BUN (7-18) mg/dL Creatinine (0.55-1.02) mg/dL Est Cr Clr Drug Dosing mL/min Estimated GFR (MDRD) (>60) mL/min BUN/Creatinine Ratio (14-18) Glucose (83-115) mg/dL Calcium (8.5-10.1) mg/dL Total Bilirubin (0.2-1.0) mg/dL AST (15-37) U/L ALT (14-59) U/L Alkaline Phosphatase (46-116) U/L Total Protein (6.4-8.2) g/dl Albumin (3.4-5.0) g/dl Globulin gm/dL Albumin/Globulin Ratio (1-2) Blood Type O POSITIVE Gel Antibody Screen Negative 11/04/17 Range/Units 05:45 WBC (3.98-10.04) K/mm3 RBC (3.98-5.22) M/mm3 Hgb (11.2-15.7) gm/L Hct (34.1-44.9) % MCV (79.4-94.8) fl MCH (25.6-32.2) pg MCHC (32.2-35.5) g/dl RDW Std Deviation (36.4-46.3) fL Plt Count (182-369) K/mm3 MPV (9.4-12.3) fl PT (9.5-12.1) SECONDS INR Sodium 136 (136-145) mEq/L Potassium 3.3 L (3.5-5.1) mEq/L Chloride 102 (98-107) mEq/L Carbon Dioxide 28 (21-32) mEq/L Anion Gap 9.3 (5-15) BUN 29 H (7-18) mg/dL Creatinine 1.1 H (0.55-1.02) mg/dL Est Cr Clr Drug Dosing 33.46 mL/min Estimated GFR (MDRD) 47 (>60) mL/min BUN/Creatinine Ratio 26.4 H (14-18) Glucose 109 (83-115) mg/dL Calcium 8.9 (8.5-10.1) mg/dL Total Bilirubin 0.4 (0.2-1.0) mg/dL AST 29 (15-37) U/L ALT 11 L (14-59) U/L Alkaline Phosphatase 66 (46-116) U/L Total Protein 5.7 L (6.4-8.2) g/dl Albumin 2.7 L (3.4-5.0) g/dl Globulin 3.0 gm/dL Albumin/Globulin Ratio 0.9 L (1-2) Blood Type Gel Antibody Screen Med Orders - Current: Current Medications Bisacodyl (Dulcolax) 5 mg PO DAILY PRN PRN Reason: Constipation Docusate Sodium (Colace) 100 mg PO BID [facility] Last Admin: 11/03/17 20:34 Dose: 100 mg Famotidine (Pepcid) 20 mg PO Q12H [facility] Last Admin: 11/03/17 20:34 Dose: 20 mg Gabapentin (Neurontin) 300 mg PO TID [facility] Last Admin: 11/03/17 20:34 Dose: 300 mg Cefazolin Sodium/Dextrose 2 gm (/ Premix) 50 mls @ 100 mls/hr IV Q8H [facility] Stop: 11/04/17 08:59 Last Admin: 11/03/17 23:42 Dose: 100 mls/hr Magnesium Hydroxide (Milk Of Magnesia) 30 ml PO BID PRN PRN Reason: Constipation Morphine Sulfate (Morphine) 2 mg IVPUSH Q2H PRN PRN Reason: Breakthrough Pain Naloxone HCl (Narcan) 0.1 mg IVPUSH Q5M PRN PRN Reason: Oversedation Ondansetron HCl (Zofran) 4 mg IVPUSH Q6H PRN PRN Reason: Nausea/Vomiting Oxycodone/Acetaminophen (Percocet 325-5 Mg) 1 - 2 tab PO Q4H PRN PRN Reason: Pain Last Admin: 11/04/17 04:00 Dose: 2 tab Pantoprazole Sodium (Protonix) 40 mg PO BID [facility] Last Admin: 11/03/17 20:34 Dose: 40 mg Rivaroxaban (Xarelto) 10 mg PO DAILY [facility] Rosuvastatin Calcium (Crestor) 5 mg PO DAILY [facility] Senna (Senna) 8.6 mg PO BID PRN PRN Reason: Constipation Triamterene/HCTZ (Dyazide 25-37.5 Mg) 1 each PO DAILY [facility] Discontinued Medications Bupivacaine HCl (Marcaine 0.25%) Confirm Administered Dose 30 ml .ROUTE .STK- MED ONE Stop: 11/03/17 08:18 Last Admin: 11/03/17 10:45 Dose: 30 ml Cefazolin Sodium (Ancef) Confirm Administered Dose 2 gm .ROUTE .STK-MED ONE Stop: 11/03/17 07:15 Last Admin: 11/03/17 10:42 Dose: 2 gm Cefazolin Sodium (Ancef) Confirm Administered Dose 2 gm .ROUTE .STK-MED ONE Stop: 11/03/17 08:17 Morphine Sulfate 8 mg/Epinephrine HCl 0.3 mg/Cefuroxime Sodium 750 mg/Ketorolac Tromethamine 30 mg/Sodium Chloride 27.9 ml 0 mg .XX ONETIME ONE Stop: 11/03/17 10:01 Last Admin: 11/03/17 10:47 Dose: 788.3 mg Fentanyl (Sublimaze) Confirm Administered Dose 100 mcg .ROUTE .STK-MED ONE Stop: 11/03/17 07:16 Fentanyl (Sublimaze) Confirm Administered Dose 250 mcg .ROUTE .STK-MED ONE Stop: 11/03/17 08:28 Fentanyl (Sublimaze) 50 mcg IVPUSH Q5M PRN PRN Reason: pain Stop: 11/03/17 16:00 Last Admin: 11/03/17 12:02 Dose: 50 mcg Hydromorphone HCl (Dilaudid) Confirm Administered Dose 0.5 mg .ROUTE .STK-MED ONE Stop: 11/03/17 09:53 Hydromorphone HCl (Dilaudid) 0.5 mg IVPUSH ONETIME PRN PRN Reason: Pain (moderate 4-6) Stop: 11/03/17 11:29 Last Admin: 11/03/17 11:36 Dose: 0.5 mg Lactated Ringer's (Ringers, Lactated) 1,000 mls @ 125 mls/hr IV ASDIRECTED [facility] Stop: 11/03/17 23:00 Last Admin: 11/03/17 08:40 Dose: 125 mls/hr Lactated Ringer's (Ringers, Lactated) Confirm Administered Dose 1,000 mls @ as directed .ROUTE .STK-MED ONE Stop: 11/03/17 07:15 Iodine (Iodine 2% Mild Tincture) Confirm Administered Dose 30 ml .ROUTE .STK- MED ONE Stop: 11/03/17 08:18 Last Admin: 11/03/17 10:40 Dose: 18 ml Lidocaine/Sodium Bicarbonate (Buffered Lidocaine 1% In Ns 8.4%) 0.25 ml IDERM ONETIME PRN PRN Reason: Prior to IV Start Stop: 11/03/17 18:00 Last Admin: 11/03/17 08:39 Dose: 0.25 ml Morphine Sulfate (Duramorph Pf) Confirm Administered Dose 10 mg .ROUTE .STK-MED ONE Stop: 11/03/17 07:16 Ondansetron HCl (Zofran) 4 mg IVPUSH ONETIME PRN PRN Reason: Nausea/Vomiting Stop: 11/03/17 16:00 Phenylephrine HCl (Phenylephrine In Ns 100 Mcg/Ml) Confirm Administered Dose 1 mg .ROUTE .STK-MED ONE Stop: 11/03/17 10:28 Propofol (Diprivan 20 Ml) Confirm Administered Dose 400 mg .ROUTE .STK-MED ONE Stop: 11/03/17 07:16 Rocuronium [place] (Zemuron) Confirm Administered Dose 50 mg .ROUTE .STK-MED ONE Stop: 11/03/17 08:28 Sodium Chloride (Saline Flush) 10 ml FLUSH ASDIRECTED PRN PRN Reason: Keep Vein Open Stop: 11/03/17 18:00 Tranexamic Acid (Cyklokapron) Confirm Administered Dose 1,000 mg .ROUTE .STK- MED ONE Stop: 11/03/17 08:17 Last Admin: 11/03/17 10:50 Dose: 1,000 mg Vancomycin HCl (Vancomycin) Confirm Administered Dose 1 gm .ROUTE .STK-MED ONE Stop: 11/03/17 08:17 Last Admin: 11/03/17 10:49 Dose: 1 gm - Exam Wound/Incisions: Dressing Dry and Intact General: Alert, Cooperative Lungs: Normal Respiratory Effort Extremities: Other (Susan's negative for RLE. NVS intact for RLE. Right thigh soft.) - Problem List Review Problem List Initiated/Reviewed/Updated: Yes - My Orders Last 24 Hours: Active Orders 24 hr Category Date Time Status Notify Provider [RC] ASDIRECTED Care 11/03/17 11:27 Active Oxygen Therapy [RC] ASDIRECTED Care 11/03/17 11:27 Active Pulse Oximetry [RC] ASDIRECTED Care 11/03/17 11:27 Active Regular Diet [DIET] Diet 11/03/17 Lunch Active Acetaminophen/oxyCODONE [Percocet 325-5 MG] Med 11/03/17 12:00 Active 1 - 2 tab PO Q4H PRN Bisacodyl [Dulcolax] Med 11/03/17 12:00 Active 5 mg PO DAILY PRN Docusate Sodium [Colace] Med 11/03/17 21:00 Active 100 mg PO BID Famotidine [Pepcid] Med 11/03/17 21:00 Active 20 mg PO Q12H Gabapentin [Neurontin] Med 11/03/17 15:00 Active 300 mg PO TID HCTZ/Triamterene [Dyazide 25-37.5 MG] Med 11/04/17 09:00 Active 1 each PO DAILY Magnesium Hydroxide [Milk of Magnesia] Med 11/03/17 12:00 Active 30 ml PO BID PRN Morphine Med 11/03/17 12:00 Active 2 mg IVPUSH Q2H PRN Naloxone [Narcan] Med 11/03/17 12:00 Active 0.1 mg IVPUSH Q5M PRN Ondansetron [Zofran] Med 11/03/17 12:00 Active 4 mg IVPUSH Q6H PRN Pantoprazole [ProTONIX] Med 11/03/17 21:00 Active 40 mg PO BID Rivaroxaban [Xarelto] Med 11/04/17 09:00 Active 10 mg PO DAILY Rosuvastatin [Crestor] Med 11/04/17 09:00 Active 5 mg PO DAILY Sennosides [Senna] Med 11/03/17 12:00 Active 8.6 mg PO BID PRN ceFAZolin [Ancef] 2 gm Med 11/03/17 16:30 Active Premix Bag 1 bag IV Q8H Medication Orders Bisacodyl (Dulcolax) 5 mg PO DAILY PRN PRN Reason: Constipation Docusate Sodium (Colace) 100 mg PO BID [facility] Last Admin: 11/03/17 20:34 Dose: 100 mg Famotidine (Pepcid) 20 mg PO Q12H [facility] Last Admin: 11/03/17 20:34 Dose: 20 mg Gabapentin (Neurontin) 300 mg PO TID [facility] Last Admin: 11/03/17 20:34 Dose: 300 mg Admin: 11/03/17 16:33 Dose: 300 mg Cefazolin Sodium/Dextrose 2 gm (/ Premix) 50 mls @ 100 mls/hr IV Q8H [facility] Stop: 11/04/17 08:59 Last Admin: 11/03/17 23:42 Dose: 100 mls/hr Infusion: 11/03/17 17:02 Dose: 100 mls/hr Admin: 11/03/17 16:32 Dose: 100 mls/hr Magnesium Hydroxide (Milk Of Magnesia) 30 ml PO BID PRN PRN Reason: Constipation Morphine Sulfate (Morphine) 2 mg IVPUSH Q2H PRN PRN Reason: Breakthrough Pain Naloxone HCl (Narcan) 0.1 mg IVPUSH Q5M PRN PRN Reason: Oversedation Ondansetron HCl (Zofran) 4 mg IVPUSH Q6H PRN PRN Reason: Nausea/Vomiting Oxycodone/Acetaminophen (Percocet 325-5 Mg) 1 - 2 tab PO Q4H PRN PRN Reason: Pain Last Admin: 11/04/17 04:00 Dose: 2 tab Admin: 11/03/17 23:42 Dose: 2 tab Admin: 11/03/17 17:38 Dose: 2 tab Admin: 11/03/17 13:27 Dose: 2 tab Pantoprazole Sodium (Protonix) 40 mg PO BID [facility] Last Admin: 11/03/17 20:34 Dose: 40 mg Rivaroxaban (Xarelto) 10 mg PO DAILY [facility] Rosuvastatin Calcium (Crestor) 5 mg PO DAILY [facility] Senna (Senna) 8.6 mg PO BID PRN PRN Reason: Constipation Triamterene/HCTZ (Dyazide 25-37.5 Mg) 1 each PO DAILY [facility] - Assessment Assessment (Free Text/Narrative):: POD#1 - right JAN - Plan Plan (Free Text/Narrative):: 1. Hgb 9.0. 2. Xarelto, frequent mobility, SCDs, TEDs. 3. Continue with P.T. and O.T. 4. Likely d/c to [place] for continued therapy. The pt's case was discussed with Dr. Barrett.
[2017-11-04] MEDS: Rosuvastatin 10 MG Tab PO SCH (08:34)
[2017-11-04] MEDS: Famotidine 20 MG Tab PO SCH (08:34)
[2017-11-04] MEDS: Rivaroxaban 10 MG Tab PO SCH (08:35)
[2017-11-04] MEDS: Docusate Sodium 100 MG Cap PO SCH ×2 (08:35→22:02)
[2017-11-04] MEDS: Gabapentin 300 MG Cap PO SCH ×3 (08:35→22:02)
[2017-11-04] MEDS: Hydrochlorothiazide/Triamterene 25-37.5 MG Cap PO SCH (08:35)
[2017-11-04] MEDS: Pantoprazole 40 MG Tab.CR PO SCH (08:35)
[2017-11-04] MEDS: ceFAZolin 2 GM in Premix Bag 1 BAG IV SCH (08:36)
[2017-11-04] MEDS ORDERED: Potassium Chloride 20 MEQ Tab.ER PO ONE (08:47)
[2017-11-04] MEDS: Multivitamins with Minerals/Folic Acid/Lutein/Zeaxanth Tab PO SCH (22:01)
[2017-11-05] MEDS: Acetaminophen/oxyCODONE 325-5 MG Tab PO PRN ×4 (05:52→20:04)
[2017-11-05] MEDS: Multivitamins with Minerals/Folic Acid/Lutein/Zeaxanth Tab PO SCH ×2 (08:09→20:03)
[2017-11-05] MEDS: Calcium Carbonate/Vitamin D3 600 MG-200 Units Tab PO SCH (08:09)
[2017-11-05] MEDS: Gabapentin 300 MG Cap PO SCH ×3 (08:12→20:04)
[2017-11-05] MEDS: Rivaroxaban 10 MG Tab PO SCH (08:12)
[2017-11-05] MEDS: Docusate Sodium 100 MG Cap PO SCH ×2 (08:13→20:04)
[2017-11-05] MEDS: Rosuvastatin 10 MG Tab PO SCH (08:14)
[2017-11-05] MEDS: Famotidine 20 MG Tab PO SCH (08:16)
[2017-11-05] MEDS: Hydrochlorothiazide/Triamterene 25-37.5 MG Cap PO SCH (08:17)
[2017-11-05] MEDS: Cholecalciferol (Vitamin D3) 1,000 Unit Tab PO SCH (08:17)
[2017-11-05] MEDS: Multivitamins,Therapeutic Tab PO SCH (08:20)
--- NOTE | 2017-11-05 08:28 | PCM.SURGPN ---
- General Info Date of Service: 11/05/17 POD#: 2 Functional Status: Reports: Pain Controlled, Tolerating Diet, Ambulating, Urinating, Incentive Spirometry, Other (Pt states she was fatigued last night after "busy day" yesterday, but noted improvements this morning.) - Patient Data Vitals - Most Recent: Last Vital Signs Temp 98.4 F 11/05/17 03:14 Pulse 85 11/05/17 03:14 Resp 16 11/05/17 03:14 BP 134/70 11/05/17 03:14 Pulse Ox 98 11/05/17 03:14 Weight - Most Recent: 143 lb 4.8 oz I&O - Last 24 Hours: Intake & Output 11/04/17 11/05/17 11/05/17 22:59 06:59 14:59 Intake Total 1030 100 Output Total 650 Balance 1030 -550 Med Orders - Current: Current Medications Bisacodyl (Dulcolax) 5 mg PO DAILY PRN PRN Reason: Constipation Last Admin: 11/05/17 05:57 Dose: 5 mg Calcium Carbonate (Calcium Carbonate/Vitamin D 600 Mg-200 Unit) 1 tab PO DAILY [facility] Last Admin: 11/05/17 08:09 Dose: 1 tab Cholecalciferol (Vitamin D3) 5,000 units PO DAILY [facility] Last Admin: 11/05/17 08:17 Dose: 5,000 units Docusate Sodium (Colace) 100 mg PO BID [facility] Last Admin: 11/05/17 08:13 Dose: 100 mg Famotidine (Pepcid) 20 mg PO DAILY [facility] Last Admin: 11/05/17 08:16 Dose: 20 mg Gabapentin (Neurontin) 300 mg PO TID [facility] Last Admin: 11/05/17 08:12 Dose: 300 mg Magnesium Hydroxide (Milk Of Magnesia) 30 ml PO BID PRN PRN Reason: Constipation Morphine Sulfate (Morphine) 2 mg IVPUSH Q2H PRN PRN Reason: Breakthrough Pain Multivitamins (Thera) 1 each PO DAILY [facility] Last Admin: 11/05/17 08:20 Dose: 1 each Naloxone HCl (Narcan) 0.1 mg IVPUSH Q5M PRN PRN Reason: Oversedation Ondansetron HCl (Zofran) 4 mg IVPUSH Q6H PRN PRN Reason: Nausea/Vomiting Oxycodone/Acetaminophen (Percocet 325-5 Mg) 1 - 2 tab PO Q4H PRN PRN Reason: Pain Last Admin: 11/05/17 05:52 Dose: 2 tab Rivaroxaban (Xarelto) 10 mg PO DAILY [facility] Last Admin: 11/05/17 08:12 Dose: 10 mg Rosuvastatin Calcium (Crestor) 5 mg PO DAILY [facility] Last Admin: 11/05/17 08:14 Dose: 5 mg Senna (Senna) 8.6 mg PO BID PRN PRN Reason: Constipation Triamterene/HCTZ (Dyazide 25-37.5 Mg) 1 each PO DAILY [facility] Last Admin: 11/05/17 08:17 Dose: 1 each Vit A/Vit C/Vit E/Selen/Cu/Zn/Lutei (Icaps Mv) 1 tab PO BID [facility] Last Admin: 11/05/17 08:09 Dose: 1 tab Discontinued Medications Bupivacaine HCl (Marcaine 0.25%) Confirm Administered Dose 30 ml .ROUTE .STK- MED ONE Stop: 11/03/17 08:18 Last Admin: 11/03/17 10:45 Dose: 30 ml Cefazolin Sodium (Ancef) Confirm Administered Dose 2 gm .ROUTE .STK-MED ONE Stop: 11/03/17 07:15 Last Admin: 11/03/17 10:42 Dose: 2 gm Cefazolin Sodium (Ancef) Confirm Administered Dose 2 gm .ROUTE .STK-MED ONE Stop: 11/03/17 08:17 Morphine Sulfate 8 mg/Epinephrine HCl 0.3 mg/Cefuroxime Sodium 750 mg/Ketorolac Tromethamine 30 mg/Sodium Chloride 27.9 ml 0 mg .XX ONETIME ONE Stop: 11/03/17 10:01 Last Admin: 11/03/17 10:47 Dose: 788.3 mg Famotidine (Pepcid) 20 mg PO Q12H [facility] Last Admin: 11/04/17 08:34 Dose: 20 mg Fentanyl (Sublimaze) Confirm Administered Dose 100 mcg .ROUTE .STK-MED ONE Stop: 11/03/17 07:16 Fentanyl (Sublimaze) Confirm Administered Dose 250 mcg .ROUTE .STK-MED ONE Stop: 11/03/17 08:28 Fentanyl (Sublimaze) 50 mcg IVPUSH Q5M PRN PRN Reason: pain Stop: 11/03/17 16:00 Last Admin: 11/03/17 12:02 Dose: 50 mcg Hydromorphone HCl (Dilaudid) Confirm Administered Dose 0.5 mg .ROUTE .STK-MED ONE Stop: 11/03/17 09:53 Hydromorphone HCl (Dilaudid) 0.5 mg IVPUSH ONETIME PRN PRN Reason: Pain (moderate 4-6) Stop: 11/03/17 11:29 Last Admin: 11/03/17 11:36 Dose: 0.5 mg Lactated Ringer's (Ringers, Lactated) 1,000 mls @ 125 mls/hr IV ASDIRECTED [facility] Stop: 11/03/17 23:00 Last Admin: 11/03/17 08:40 Dose: 125 mls/hr Cefazolin Sodium/Dextrose 2 gm (/ Premix) 50 mls @ 100 mls/hr IV Q8H [facility] Stop: 11/04/17 08:59 Last Admin: 11/04/17 08:36 Dose: 100 mls/hr Lactated Ringer's (Ringers, Lactated) Confirm Administered Dose 1,000 mls @ as directed .ROUTE .STK-MED ONE Stop: 11/03/17 07:15 Iodine (Iodine 2% Mild Tincture) Confirm Administered Dose 30 ml .ROUTE .STK- MED ONE Stop: 11/03/17 08:18 Last Admin: 11/03/17 10:40 Dose: 18 ml Lidocaine/Sodium Bicarbonate (Buffered Lidocaine 1% In Ns 8.4%) 0.25 ml IDERM ONETIME PRN PRN Reason: Prior to IV Start Stop: 11/03/17 18:00 Last Admin: 11/03/17 08:39 Dose: 0.25 ml Morphine Sulfate (Duramorph Pf) Confirm Administered Dose 10 mg .ROUTE .STK-MED ONE Stop: 11/03/17 07:16 Ondansetron HCl (Zofran) 4 mg IVPUSH ONETIME PRN PRN Reason: Nausea/Vomiting Stop: 11/03/17 16:00 Pantoprazole Sodium (Protonix) 40 mg PO BID [facility] Last Admin: 11/04/17 08:35 Dose: Not Given Phenylephrine HCl (Phenylephrine In Ns 100 Mcg/Ml) Confirm Administered Dose 1 mg .ROUTE .STK-MED ONE Stop: 11/03/17 10:28 Potassium Chloride (Klor-Con M20) 40 meq PO ONETIME ONE Stop: 11/04/17 08:48 Last Admin: 11/04/17 09:04 Dose: 40 meq Propofol (Diprivan 20 Ml) Confirm Administered Dose 400 mg .ROUTE .STK-MED ONE Stop: 11/03/17 07:16 Rocuronium [place] (Zemuron) Confirm Administered Dose 50 mg .ROUTE .STK-MED ONE Stop: 11/03/17 08:28 Sodium Chloride (Saline Flush) 10 ml FLUSH ASDIRECTED PRN PRN Reason: Keep Vein Open Stop: 11/03/17 18:00 Tranexamic Acid (Cyklokapron) Confirm Administered Dose 1,000 mg .ROUTE .STK- MED ONE Stop: 11/03/17 08:17 Last Admin: 11/03/17 10:50 Dose: 1,000 mg Vancomycin HCl (Vancomycin) Confirm Administered Dose 1 gm .ROUTE .STK-MED ONE Stop: 11/03/17 08:17 Last Admin: 11/03/17 10:49 Dose: 1 gm - Exam Wound/Incisions: Dressing Dry and Intact General: Alert, Cooperative, No Acute Distress Lungs: Normal Respiratory Effort Extremities: Other (NVS intact for BLE. Susan's negative. Right thigh soft.) - Problem List Review Problem List Initiated/Reviewed/Updated: Yes - My Orders Last 24 Hours: Active Orders 24 hr Category Date Time Status Calcium Carbonate/Vitamin D3 [Calcium Carbonate/Vitamin Med 11/05/17 09:00 Active D 600 MG-200 Unit] 1 tab PO DAILY Cholecalciferol (Vitamin D3) [Vitamin D3] Med 11/05/17 09:00 Active 5,000 units PO DAILY Famotidine [Pepcid] Med 11/05/17 09:00 Active 20 mg PO DAILY HCTZ/Triamterene [Dyazide 25-37.5 MG] Med 11/04/17 09:00 Active 1 each PO DAILY Multivitamins,Therapeutic [Thera] Med 11/05/17 09:00 Active 1 each PO DAILY Multivitamins/Min/FA/Lut/Zeax [ICaps MV] Med 11/04/17 21:00 Active 1 tab PO BID Rivaroxaban [Xarelto] Med 11/04/17 09:00 Active 10 mg PO DAILY Rosuvastatin [Crestor] Med 11/04/17 09:00 Active 5 mg PO DAILY Medication Orders Bisacodyl (Dulcolax) 5 mg PO DAILY PRN PRN Reason: Constipation Last Admin: 11/05/17 05:57 Dose: 5 mg Calcium Carbonate (Calcium Carbonate/Vitamin D 600 Mg-200 Unit) 1 tab PO DAILY [facility] Last Admin: 11/05/17 08:09 Dose: 1 tab Cholecalciferol (Vitamin D3) 5,000 units PO DAILY [facility] Last Admin: 11/05/17 08:17 Dose: 5,000 units Docusate Sodium (Colace) 100 mg PO BID [facility] Last Admin: 11/05/17 08:13 Dose: 100 mg Admin: 11/04/17 22:02 Dose: 100 mg Admin: 11/04/17 08:35 Dose: 100 mg Admin: 11/03/17 20:34 Dose: 100 mg Famotidine (Pepcid) 20 mg PO DAILY [facility] Last Admin: 11/05/17 08:16 Dose: 20 mg Gabapentin (Neurontin) 300 mg PO TID [facility] Last Admin: 11/05/17 08:12 Dose: 300 mg Admin: 11/04/17 22:02 Dose: 300 mg Admin: 11/04/17 14:50 Dose: 300 mg Admin: 11/04/17 08:35 Dose: 300 mg Admin: 11/03/17 20:34 Dose: 300 mg Admin: 11/03/17 16:33 Dose: 300 mg Magnesium Hydroxide (Milk Of Magnesia) 30 ml PO BID PRN PRN Reason: Constipation Morphine Sulfate (Morphine) 2 mg IVPUSH Q2H PRN PRN Reason: Breakthrough Pain Multivitamins (Thera) 1 each PO DAILY [facility] Last Admin: 11/05/17 08:20 Dose: 1 each Naloxone HCl (Narcan) 0.1 mg IVPUSH Q5M PRN PRN Reason: Oversedation Ondansetron HCl (Zofran) 4 mg IVPUSH Q6H PRN PRN Reason: Nausea/Vomiting Oxycodone/Acetaminophen (Percocet 325-5 Mg) 1 - 2 tab PO Q4H PRN PRN Reason: Pain Last Admin: 11/05/17 05:52 Dose: 2 tab Admin: 11/04/17 22:02 Dose: 2 tab Admin: 11/04/17 13:25 Dose: 2 tab Admin: 11/04/17 08:35 Dose: 2 tab Admin: 11/04/17 04:00 Dose: 2 tab Admin: 11/03/17 23:42 Dose: 2 tab Admin: 11/03/17 17:38 Dose: 2 tab Admin: 11/03/17 13:27 Dose: 2 tab Rivaroxaban (Xarelto) 10 mg PO DAILY [facility] Last Admin: 11/05/17 08:12 Dose: 10 mg Admin: 11/04/17 08:35 Dose: 10 mg Rosuvastatin Calcium (Crestor) 5 mg PO DAILY [facility] Last Admin: 11/05/17 08:14 Dose: 5 mg Admin: 11/04/17 08:34 Dose: 5 mg Senna (Senna) 8.6 mg PO BID PRN PRN Reason: Constipation Triamterene/HCTZ (Dyazide 25-37.5 Mg) 1 each PO DAILY [facility] Last Admin: 11/05/17 08:17 Dose: 1 each Admin: 11/04/17 08:35 Dose: 1 each Vit A/Vit C/Vit E/Selen/Cu/Zn/Lutei (Icaps Mv) 1 tab PO BID [facility] Last Admin: 11/05/17 08:09 Dose: 1 tab Admin: 11/04/17 22:01 Dose: 1 tab - Assessment Assessment (Free Text/Narrative):: POD#2 - right JAN - Plan Plan (Free Text/Narrative):: 1. Discharge to [place] tomorrow for continued therapy. 2. Xarelto x 35 days total. SCDs, TEDs also ordered. 3. Continue with P.T. and O.T. WBAT. 4. The pt is to continue with Forteo use. The pt's case was discussed with Dr. Barrett.
--- NOTE | 2017-11-05 11:23 | PCM.CONSN ---
- General Info Date of Service: 11/05/17 Admission Dx/Problem (Free Text): Admission Diagnosis/Problem Admission Diagnosis/Problem Osteoarthritis of hip Subjective Update: Follow up Functional Status: Reports: Pain Controlled, Tolerating Diet, Ambulating, Urinating. Denies: New Symptoms - Review of Systems General: Denies: Fever, Weakness, Fatigue, Malaise HEENT: Denies: No Symptoms Pulmonary: Denies: Shortness of Breath, Pleuritic Chest Pain Cardiovascular: Denies: Chest Pain, Palpitations, Dyspnea on Exertion, Lightheadedness Gastrointestinal: Denies: Abdominal Pain, Decreased Appetite, Nausea, Vomiting Genitourinary: Reports: No Symptoms Musculoskeletal: Reports: No Symptoms Skin: Reports: No Symptoms Neurological: Reports: Difficulty Walking, Gait Disturbance. Denies: Confusion , Weakness Psychiatric: Denies: Depression, Anxiety, Agitation, Hallucinations - Patient Data Vitals - Most Recent: Last Vital Signs Temp 36.4 C 11/05/17 09:30 Pulse 85 11/05/17 09:30 Resp 18 11/05/17 09:30 BP 116/82 11/05/17 09:31 Pulse Ox 96 11/05/17 09:30 Weight - Most Recent: 65 kg I&O - Last 24 Hours: Intake & Output 11/04/17 11/05/17 11/05/17 22:59 06:59 14:59 Intake Total 1030 100 180 Output Total 650 Balance 1030 -550 180 Med Orders - Current: Current Medications Bisacodyl (Dulcolax) 5 mg PO DAILY PRN PRN Reason: Constipation Last Admin: 11/05/17 05:57 Dose: 5 mg Calcium Carbonate (Calcium Carbonate/Vitamin D 600 Mg-200 Unit) 1 tab PO DAILY [facility] Last Admin: 11/05/17 08:09 Dose: 1 tab Cholecalciferol (Vitamin D3) 5,000 units PO DAILY [facility] Last Admin: 11/05/17 08:17 Dose: 5,000 units Docusate Sodium (Colace) 100 mg PO BID [facility] Last Admin: 11/05/17 08:13 Dose: 100 mg Famotidine (Pepcid) 20 mg PO DAILY [facility] Last Admin: 11/05/17 08:16 Dose: 20 mg Gabapentin (Neurontin) 300 mg PO TID [facility] Last Admin: 11/05/17 08:12 Dose: 300 mg Magnesium Hydroxide (Milk Of Magnesia) 30 ml PO BID PRN PRN Reason: Constipation Morphine Sulfate (Morphine) 2 mg IVPUSH Q2H PRN PRN Reason: Breakthrough Pain Multivitamins (Thera) 1 each PO DAILY [facility] Last Admin: 11/05/17 08:20 Dose: 1 each Naloxone HCl (Narcan) 0.1 mg IVPUSH Q5M PRN PRN Reason: Oversedation Ondansetron HCl (Zofran) 4 mg IVPUSH Q6H PRN PRN Reason: Nausea/Vomiting Oxycodone/Acetaminophen (Percocet 325-5 Mg) 1 - 2 tab PO Q4H PRN PRN Reason: Pain Last Admin: 11/05/17 09:57 Dose: 2 tab Rivaroxaban (Xarelto) 10 mg PO DAILY [facility] Last Admin: 11/05/17 08:12 Dose: 10 mg Rosuvastatin Calcium (Crestor) 5 mg PO DAILY [facility] Last Admin: 11/05/17 08:14 Dose: 5 mg Senna (Senna) 8.6 mg PO BID PRN PRN Reason: Constipation Triamterene/HCTZ (Dyazide 25-37.5 Mg) 1 each PO DAILY [facility] Last Admin: 11/05/17 08:17 Dose: 1 each Vit A/Vit C/Vit E/Selen/Cu/Zn/Lutei (Icaps Mv) 1 tab PO BID [facility] Last Admin: 11/05/17 08:09 Dose: 1 tab Discontinued Medications Bupivacaine HCl (Marcaine 0.25%) Confirm Administered Dose 30 ml .ROUTE .STK- MED ONE Stop: 11/03/17 08:18 Last Admin: 11/03/17 10:45 Dose: 30 ml Cefazolin Sodium (Ancef) Confirm Administered Dose 2 gm .ROUTE .STK-MED ONE Stop: 11/03/17 07:15 Last Admin: 11/03/17 10:42 Dose: 2 gm Cefazolin Sodium (Ancef) Confirm Administered Dose 2 gm .ROUTE .STK-MED ONE Stop: 11/03/17 08:17 Morphine Sulfate 8 mg/Epinephrine HCl 0.3 mg/Cefuroxime Sodium 750 mg/Ketorolac Tromethamine 30 mg/Sodium Chloride 27.9 ml 0 mg .XX ONETIME ONE Stop: 11/03/17 10:01 Last Admin: 11/03/17 10:47 Dose: 788.3 mg Famotidine (Pepcid) 20 mg PO Q12H [facility] Last Admin: 11/04/17 08:34 Dose: 20 mg Fentanyl (Sublimaze) Confirm Administered Dose 100 mcg .ROUTE .STK-MED ONE Stop: 11/03/17 07:16 Fentanyl (Sublimaze) Confirm Administered Dose 250 mcg .ROUTE .STK-MED ONE Stop: 11/03/17 08:28 Fentanyl (Sublimaze) 50 mcg IVPUSH Q5M PRN PRN Reason: pain Stop: 11/03/17 16:00 Last Admin: 11/03/17 12:02 Dose: 50 mcg Hydromorphone HCl (Dilaudid) Confirm Administered Dose 0.5 mg .ROUTE .STK-MED ONE Stop: 11/03/17 09:53 Hydromorphone HCl (Dilaudid) 0.5 mg IVPUSH ONETIME PRN PRN Reason: Pain (moderate 4-6) Stop: 11/03/17 11:29 Last Admin: 11/03/17 11:36 Dose: 0.5 mg Lactated Ringer's (Ringers, Lactated) 1,000 mls @ 125 mls/hr IV ASDIRECTED [facility] Stop: 11/03/17 23:00 Last Admin: 11/03/17 08:40 Dose: 125 mls/hr Cefazolin Sodium/Dextrose 2 gm (/ Premix) 50 mls @ 100 mls/hr IV Q8H [facility] Stop: 11/04/17 08:59 Last Admin: 11/04/17 08:36 Dose: 100 mls/hr Lactated Ringer's (Ringers, Lactated) Confirm Administered Dose 1,000 mls @ as directed .ROUTE .STK-MED ONE Stop: 11/03/17 07:15 Iodine (Iodine 2% Mild Tincture) Confirm Administered Dose 30 ml .ROUTE .STK- MED ONE Stop: 11/03/17 08:18 Last Admin: 11/03/17 10:40 Dose: 18 ml Lidocaine/Sodium Bicarbonate (Buffered Lidocaine 1% In Ns 8.4%) 0.25 ml IDERM ONETIME PRN PRN Reason: Prior to IV Start Stop: 11/03/17 18:00 Last Admin: 11/03/17 08:39 Dose: 0.25 ml Morphine Sulfate (Duramorph Pf) Confirm Administered Dose 10 mg .ROUTE .STK-MED ONE Stop: 11/03/17 07:16 Ondansetron HCl (Zofran) 4 mg IVPUSH ONETIME PRN PRN Reason: Nausea/Vomiting Stop: 11/03/17 16:00 Pantoprazole Sodium (Protonix) 40 mg PO BID [facility] Last Admin: 11/04/17 08:35 Dose: Not Given Phenylephrine HCl (Phenylephrine In Ns 100 Mcg/Ml) Confirm Administered Dose 1 mg .ROUTE .STK-MED ONE Stop: 11/03/17 10:28 Potassium Chloride (Klor-Con M20) 40 meq PO ONETIME ONE Stop: 11/04/17 08:48 Last Admin: 11/04/17 09:04 Dose: 40 meq Propofol (Diprivan 20 Ml) Confirm Administered Dose 400 mg .ROUTE .STK-MED ONE Stop: 11/03/17 07:16 Rocuronium [place] (Zemuron) Confirm Administered Dose 50 mg .ROUTE .STK-MED ONE Stop: 11/03/17 08:28 Sodium Chloride (Saline Flush) 10 ml FLUSH ASDIRECTED PRN PRN Reason: Keep Vein Open Stop: 11/03/17 18:00 Tranexamic Acid (Cyklokapron) Confirm Administered Dose 1,000 mg .ROUTE .STK- MED ONE Stop: 11/03/17 08:17 Last Admin: 11/03/17 10:50 Dose: 1,000 mg Vancomycin HCl (Vancomycin) Confirm Administered Dose 1 gm .ROUTE .STK-MED ONE Stop: 11/03/17 08:17 Last Admin: 11/03/17 10:49 Dose: 1 gm - Exam General: Alert, Oriented, Cooperative, No Acute Distress HEENT: Pupils Equal, Pupils Reactive, EOMI, Mucous Membr. Moist/[place] Neck: Supple, Trachea Midline, No JVD, No Thyromegaly Lungs: Clear to Auscultation, Normal Respiratory Effort Cardiovascular: Regular Rate, Regular Rhythm GI/Abdominal Exam: Normal Bowel Sounds, Soft, Non-Tender, No Organomegaly, No Distention, No Abnormal Bruit (Female) Exam: Deferred Back Exam: Normal Inspection, Decreased Range of Motion Extremities: Normal Inspection, Normal Range of Motion, Non-Tender, No Pedal Edema, Normal Capillary Refill, Limited Range of Motion Peripheral Pulses: 2+: Dorsalis Pedis (L), Dorsalis Pedis (R) Skin: Warm, Dry, Intact Wound/Incisions: Healing Well, Dressing Dry and Intact, No Drainage Neurological: No New Focal Deficit. No: Normal Gait Psy/Mental Status: Alert, Normal Affect, Normal Mood Consult PN Assessment/Plan POD#: 2 Procedures: Procedures ASSAY OF MAGNESIUM (04/21/17) BLOOD TRANSFUSION SERVICE (04/21/17) BLOOD TYPING SEROLOGIC ABO (04/21/17) BLOOD TYPING SEROLOGIC RH(D) (04/21/17) COMPATIBILITY TEST ANTIGLOB (04/21/17) COMPLETE CBC AUTOMATED (04/21/17) COMPLETE CBC W/AUTO DIFF WBC (04/21/17) COMPREHEN METABOLIC PANEL (04/21/17) DRAIN/INJ JOINT/BURSA W/O US (02/04/17) DXA BONE DENSITY AXIAL (12/24/16) GAIT TRAINING THERAPY (04/21/17) HEMATOCRIT (04/21/17) HEMOGLOBIN (04/21/17) INJECT SACROILIAC JOINT (05/04/14) METABOLIC PANEL TOTAL CA (04/21/17) MR-STAPH DNA AMP PROBE (04/21/17) OT EVAL MOD COMPLEX 45 MIN (04/21/17) PT EVAL MOD COMPLEX 30 MIN (04/21/17) RBC ANTIBODY SCREEN (04/21/17) ROUTINE VENIPUNCTURE (04/21/17) SELF CARE MNGMENT TRAINING (04/21/17) THERAPEUTIC ACTIVITIES (04/21/17) THERAPEUTIC EXERCISES (04/21/17) X-RAY EXAM CHEST 2 VIEWS (10/22/17) X-RAY EXAM HIP UNI 1 VIEW (04/21/17) Problem List Initiated/Reviewed/Updated: Yes Plan: I/P: Acute: S/P right total hip arthroplasty - post-operative day 2, stable -DVT prophylaxis and pain management per primary care team -Continue PT/OT/IS/RT -Monitor oxygen saturation -Titrate oxygen as needed -Vital signs remains stable Mild Hypokalemia -Likely resolved -Potassium 3.3 today -Supplement Chronic: HTN HLD CKD III Osteoarthritis h/o Breast cancer Emphysema Peptic ulcer disease Plan: CM for discharge planning GI prophylaxis: Protonix/Pepcid DVT/PE prophylaxis: SCD and Xarelto Routine AM labs She is a full code. Her PCP is Rima Monroy. From a hospitalist standpoint Ritu remains stable. She continues to work with PT/OT. She will stay with us pending placement to [facility]. We are signing off her case. Please feel free to re-consult us for any questions or concerns.
[2017-11-06] MEDS ORDERED: Bisacodyl 10 MG Supp RECTAL ONE (06:30)
--- NOTE | 2017-11-06 07:07 | PCM.SURGPN ---
- General Info Date of Service: 11/06/17 POD#: 3 Functional Status: Reports: Pain Controlled, Tolerating Diet, Ambulating, Urinating, Incentive Spirometry, Other (The pt states she is doing well and prepared for d/c to [place] for continued rehab.) - Patient Data Vitals - Most Recent: Last Vital Signs Temp 98.4 F 11/06/17 04:04 Pulse 75 11/06/17 04:04 Resp 16 11/06/17 04:04 BP 132/63 11/06/17 04:04 Pulse Ox 94 L 11/06/17 04:04 Weight - Most Recent: 143 lb 9.6 oz I&O - Last 24 Hours: Intake & Output 11/05/17 11/06/17 11/06/17 22:59 06:59 14:59 Intake Total 1280 700 Output Total 500 Balance 1280 200 Med Orders - Current: Current Medications Bisacodyl (Dulcolax) 5 mg PO DAILY PRN PRN Reason: Constipation Last Admin: 11/05/17 05:57 Dose: 5 mg Calcium Carbonate (Calcium Carbonate/Vitamin D 600 Mg-200 Unit) 1 tab PO DAILY [facility] Last Admin: 11/05/17 08:09 Dose: 1 tab Cholecalciferol (Vitamin D3) 5,000 units PO DAILY [facility] Last Admin: 11/05/17 08:17 Dose: 5,000 units Docusate Sodium (Colace) 100 mg PO BID [facility] Last Admin: 11/05/17 20:04 Dose: 100 mg Famotidine (Pepcid) 20 mg PO DAILY [facility] Last Admin: 11/05/17 08:16 Dose: 20 mg Gabapentin (Neurontin) 300 mg PO TID [facility] Last Admin: 11/05/17 20:04 Dose: 300 mg Magnesium Hydroxide (Milk Of Magnesia) 30 ml PO BID PRN PRN Reason: Constipation Morphine Sulfate (Morphine) 2 mg IVPUSH Q2H PRN PRN Reason: Breakthrough Pain Multivitamins (Thera) 1 each PO DAILY [facility] Last Admin: 11/05/17 08:20 Dose: 1 each Naloxone HCl (Narcan) 0.1 mg IVPUSH Q5M PRN PRN Reason: Oversedation Ondansetron HCl (Zofran) 4 mg IVPUSH Q6H PRN PRN Reason: Nausea/Vomiting Oxycodone/Acetaminophen (Percocet 325-5 Mg) 1 - 2 tab PO Q4H PRN PRN Reason: Pain Last Admin: 11/05/17 20:04 Dose: 2 tab Rivaroxaban (Xarelto) 10 mg PO DAILY [facility] Last Admin: 11/05/17 08:12 Dose: 10 mg Rosuvastatin Calcium (Crestor) 5 mg PO DAILY [facility] Last Admin: 11/05/17 08:14 Dose: 5 mg Senna (Senna) 8.6 mg PO BID PRN PRN Reason: Constipation Last Admin: 11/05/17 16:52 Dose: 8.6 mg Triamterene/HCTZ (Dyazide 25-37.5 Mg) 1 each PO DAILY [facility] Last Admin: 11/05/17 08:17 Dose: 1 each Vit A/Vit C/Vit E/Selen/Cu/Zn/Lutei (Icaps Mv) 1 tab PO BID [facility] Last Admin: 11/05/17 20:03 Dose: 1 tab Discontinued Medications Bisacodyl (Dulcolax) 10 mg RECTAL ONETIME ONE Stop: 11/06/17 06:31 Bupivacaine HCl (Marcaine 0.25%) Confirm Administered Dose 30 ml .ROUTE .STK- MED ONE Stop: 11/03/17 08:18 Last Admin: 11/03/17 10:45 Dose: 30 ml Cefazolin Sodium (Ancef) Confirm Administered Dose 2 gm .ROUTE .STK-MED ONE Stop: 11/03/17 07:15 Last Admin: 11/03/17 10:42 Dose: 2 gm Cefazolin Sodium (Ancef) Confirm Administered Dose 2 gm .ROUTE .STK-MED ONE Stop: 11/03/17 08:17 Morphine Sulfate 8 mg/Epinephrine HCl 0.3 mg/Cefuroxime Sodium 750 mg/Ketorolac Tromethamine 30 mg/Sodium Chloride 27.9 ml 0 mg .XX ONETIME ONE Stop: 11/03/17 10:01 Last Admin: 11/03/17 10:47 Dose: 788.3 mg Famotidine (Pepcid) 20 mg PO Q12H [facility] Last Admin: 11/04/17 08:34 Dose: 20 mg Fentanyl (Sublimaze) Confirm Administered Dose 100 mcg .ROUTE .STK-MED ONE Stop: 11/03/17 07:16 Fentanyl (Sublimaze) Confirm Administered Dose 250 mcg .ROUTE .STK-MED ONE Stop: 11/03/17 08:28 Fentanyl (Sublimaze) 50 mcg IVPUSH Q5M PRN PRN Reason: pain Stop: 11/03/17 16:00 Last Admin: 11/03/17 12:02 Dose: 50 mcg Hydromorphone HCl (Dilaudid) Confirm Administered Dose 0.5 mg .ROUTE .STK-MED ONE Stop: 11/03/17 09:53 Hydromorphone HCl (Dilaudid) 0.5 mg IVPUSH ONETIME PRN PRN Reason: Pain (moderate 4-6) Stop: 11/03/17 11:29 Last Admin: 11/03/17 11:36 Dose: 0.5 mg Lactated Ringer's (Ringers, Lactated) 1,000 mls @ 125 mls/hr IV ASDIRECTED [facility] Stop: 11/03/17 23:00 Last Admin: 11/03/17 08:40 Dose: 125 mls/hr Cefazolin Sodium/Dextrose 2 gm (/ Premix) 50 mls @ 100 mls/hr IV Q8H [facility] Stop: 11/04/17 08:59 Last Admin: 11/04/17 08:36 Dose: 100 mls/hr Lactated Ringer's (Ringers, Lactated) Confirm Administered Dose 1,000 mls @ as directed .ROUTE .STK-MED ONE Stop: 11/03/17 07:15 Iodine (Iodine 2% Mild Tincture) Confirm Administered Dose 30 ml .ROUTE .STK- MED ONE Stop: 11/03/17 08:18 Last Admin: 11/03/17 10:40 Dose: 18 ml Lidocaine/Sodium Bicarbonate (Buffered Lidocaine 1% In Ns 8.4%) 0.25 ml IDERM ONETIME PRN PRN Reason: Prior to IV Start Stop: 11/03/17 18:00 Last Admin: 11/03/17 08:39 Dose: 0.25 ml Morphine Sulfate (Duramorph Pf) Confirm Administered Dose 10 mg .ROUTE .STK-MED ONE Stop: 11/03/17 07:16 Ondansetron HCl (Zofran) 4 mg IVPUSH ONETIME PRN PRN Reason: Nausea/Vomiting Stop: 11/03/17 16:00 Pantoprazole Sodium (Protonix) 40 mg PO BID [facility] Last Admin: 11/04/17 08:35 Dose: Not Given Phenylephrine HCl (Phenylephrine In Ns 100 Mcg/Ml) Confirm Administered Dose 1 mg .ROUTE .STK-MED ONE Stop: 11/03/17 10:28 Potassium Chloride (Klor-Con M20) 40 meq PO ONETIME ONE Stop: 11/04/17 08:48 Last Admin: 11/04/17 09:04 Dose: 40 meq Propofol (Diprivan 20 Ml) Confirm Administered Dose 400 mg .ROUTE .STK-MED ONE Stop: 11/03/17 07:16 Rocuronium [place] (Zemuron) Confirm Administered Dose 50 mg .ROUTE .STK-MED ONE Stop: 11/03/17 08:28 Sodium Chloride (Saline Flush) 10 ml FLUSH ASDIRECTED PRN PRN Reason: Keep Vein Open Stop: 11/03/17 18:00 Tranexamic Acid (Cyklokapron) Confirm Administered Dose 1,000 mg .ROUTE .STK- MED ONE Stop: 11/03/17 08:17 Last Admin: 11/03/17 10:50 Dose: 1,000 mg Vancomycin HCl (Vancomycin) Confirm Administered Dose 1 gm .ROUTE .STK-MED ONE Stop: 11/03/17 08:17 Last Admin: 11/03/17 10:49 Dose: 1 gm - Exam Wound/Incisions: Dressing Dry and Intact General: Alert, Cooperative, No Acute Distress Lungs: Normal Respiratory Effort Extremities: Other (NVS intact for RLE. Susan's negative. Right thigh soft, nontender.) - Problem List Review Problem List Initiated/Reviewed/Updated: Yes - My Orders Last 24 Hours: Active Orders 24 hr Category Date Time Status Ready for Discharge [RC] PER UNIT ROUTINE Care 11/06/17 06:45 Active Calcium Carbonate/Vitamin D3 [Calcium Carbonate/Vitamin Med 11/05/17 09:00 Active D 600 MG-200 Unit] 1 tab PO DAILY Cholecalciferol (Vitamin D3) [Vitamin D3] Med 11/05/17 09:00 Active 5,000 units PO DAILY Famotidine [Pepcid] Med 11/05/17 09:00 Active 20 mg PO DAILY Multivitamins,Therapeutic [Thera] Med 11/05/17 09:00 Active 1 each PO DAILY Medication Orders Bisacodyl (Dulcolax) 5 mg PO DAILY PRN PRN Reason: Constipation Last Admin: 11/05/17 05:57 Dose: 5 mg Calcium Carbonate (Calcium Carbonate/Vitamin D 600 Mg-200 Unit) 1 tab PO DAILY [facility] Last Admin: 11/05/17 08:09 Dose: 1 tab Cholecalciferol (Vitamin D3) 5,000 units PO DAILY [facility] Last Admin: 11/05/17 08:17 Dose: 5,000 units Docusate Sodium (Colace) 100 mg PO BID [facility] Last Admin: 11/05/17 20:04 Dose: 100 mg Admin: 11/05/17 08:13 Dose: 100 mg Admin: 11/04/17 22:02 Dose: 100 mg Admin: 11/04/17 08:35 Dose: 100 mg Admin: 11/03/17 20:34 Dose: 100 mg Famotidine (Pepcid) 20 mg PO DAILY [facility] Last Admin: 11/05/17 08:16 Dose: 20 mg Gabapentin (Neurontin) 300 mg PO TID [facility] Last Admin: 11/05/17 20:04 Dose: 300 mg Admin: 11/05/17 14:33 Dose: 300 mg Admin: 11/05/17 08:12 Dose: 300 mg Admin: 11/04/17 22:02 Dose: 300 mg Admin: 11/04/17 14:50 Dose: 300 mg Admin: 11/04/17 08:35 Dose: 300 mg Admin: 11/03/17 20:34 Dose: 300 mg Admin: 11/03/17 16:33 Dose: 300 mg Magnesium Hydroxide (Milk Of Magnesia) 30 ml PO BID PRN PRN Reason: Constipation Morphine Sulfate (Morphine) 2 mg IVPUSH Q2H PRN PRN Reason: Breakthrough Pain Multivitamins (Thera) 1 each PO DAILY [facility] Last Admin: 11/05/17 08:20 Dose: 1 each Naloxone HCl (Narcan) 0.1 mg IVPUSH Q5M PRN PRN Reason: Oversedation Ondansetron HCl (Zofran) 4 mg IVPUSH Q6H PRN PRN Reason: Nausea/Vomiting Oxycodone/Acetaminophen (Percocet 325-5 Mg) 1 - 2 tab PO Q4H PRN PRN Reason: Pain Last Admin: 11/05/17 20:04 Dose: 2 tab Admin: 11/05/17 14:33 Dose: 2 tab Admin: 11/05/17 09:57 Dose: 2 tab Admin: 11/05/17 05:52 Dose: 2 tab Admin: 11/04/17 22:02 Dose: 2 tab Admin: 11/04/17 13:25 Dose: 2 tab Admin: 11/04/17 08:35 Dose: 2 tab Admin: 11/04/17 04:00 Dose: 2 tab Admin: 11/03/17 23:42 Dose: 2 tab Admin: 11/03/17 17:38 Dose: 2 tab Admin: 11/03/17 13:27 Dose: 2 tab Rivaroxaban (Xarelto) 10 mg PO DAILY [facility] Last Admin: 11/05/17 08:12 Dose: 10 mg Admin: 11/04/17 08:35 Dose: 10 mg Rosuvastatin Calcium (Crestor) 5 mg PO DAILY [facility] Last Admin: 11/05/17 08:14 Dose: 5 mg Admin: 11/04/17 08:34 Dose: 5 mg Senna (Senna) 8.6 mg PO BID PRN PRN Reason: Constipation Last Admin: 11/05/17 16:52 Dose: 8.6 mg Triamterene/HCTZ (Dyazide 25-37.5 Mg) 1 each PO DAILY [facility] Last Admin: 11/05/17 08:17 Dose: 1 each Admin: 11/04/17 08:35 Dose: 1 each Vit A/Vit C/Vit E/Selen/Cu/Zn/Lutei (Icaps Mv) 1 tab PO BID [facility] Last Admin: 11/05/17 20:03 Dose: 1 tab Admin: 11/05/17 08:09 Dose: 1 tab Admin: 11/04/17 22:01 Dose: 1 tab - Assessment Assessment (Free Text/Narrative):: POD#3 - s/p right JAN - Plan Plan (Free Text/Narrative):: 1. Xarelto, frequent mobility, TEDs. 2. Discharge to [place] today for continued rehab. 3. Follow-up at outpatient Clinic next week. The pt's case was discussed with Dr. Barrett today.
--- NOTE | 2017-11-06 07:08 | PCM.DCSUM1 ---
Discharge Summary - Hospital Course Brief History: Ritu is an 81 yo female who underwent right JAN with Dr. Barrett on 11-03-2017. The procedure was completed under general anesthesia. The pt tolerated the procedure well and was admitted to the Medical-Surgical unit. The pt received Ancef dwight-operatively. She participated in P.T. and O.T. and progressed well. She was allowed to WBAT and used a FWW for mobility. JAN precautions were followed. The pt's surgical wound was dressed with a Mepilex dressing and remained clean and dry. On POD#1, the pt was started on Xarelto for VTE prophylaxis. The pt used TEDs and SCDs also. On POD#1, the pt's hemoglobin was 9.0. Medical management was provided by the Hospitalist service and the pt's hospital course was uneventful. On POD#3, the pt was deemed appropriate for discharge to the [facility] for continued rehabilitation. - Discharge Data Discharge Date: 11/06/17 Discharge Disposition: Home, Self-Care 01 Condition: Good - Patient Summary/Data Consults: Consultations 11/03/17 07:06 Consult to Physician [CONS] Routine OT Evaluation and Treatment [CONS] Routine PT Evaluation and Treatment [CONS] Routine - Patient Instructions Diet: Usual Diet as Tolerated Activity: Apply Ice, As Tolerated, Elevate Extremity, Full Weight Bearing Activity, Other: JAN precautions. Driving: Do Not Drive Showering/Bathing: May Shower Wound/Incision Care: Keep Operative Site/Wound Site Clean and Dry, Do NOT Change Dressing Notify Provider of: Fever, Increased Pain, Swelling and Redness, Drainage, Nausea and/or Vomiting Other/Special Instructions: Please get up and moving around every hour while awake. This helps to prevent blood clots. Please use your walker and have help with mobility as needed. Use the blood thinner medication - Xarelto - daily as directed. This is to help prevent blood clots. Please complete the exercises that you learned during the Hospital stay. Schedule for physical therapy. Follow the total hip precautions. Use the pain medication as needed. The medication may cause drowsiness and constipation. Contact your primary care provider for instructions if you are constipated. You may use a stool softener like docusate sodium or Colace 100mg twice daily and/or a laxative like Miralax daily for constipation. Increase your water and fiber intake while you are using the pain medication. Please try to wean from use of the pain medication as soon as able. Wear the [place] hose during the day and you may remove these at night. Elevate the limb to decrease swelling. Place ice to the area often. Place a towel between your skin and the blue pad. Use the incentive spirometer often. Take deep breaths throughout the day. Increase your protein intake while you are healing. If you have diabetes, please closely monitor your blood sugars and notify your primary care provider with abnormal values. Call the Clinic with questions or concerns - [phone]. - Discharge Plan Prescriptions/Med Rec: Acetaminophen/oxyCODONE [Percocet 325-5 MG] 1 - 2 tab PO Q6H PRN #60 tablet PRN Reason: Pain Rivaroxaban [Xarelto] 10 mg PO DAILY #32 tablet Home Medications: Home Meds Rosuvastatin [Crestor] 5 mg PO DAILY 05/02/14 [History] Triamterene/Hydrochlorothiazid [Triamterene-HCTZ 37.5-25 MG] 1 tab PO DAILY [History] Gabapentin [Neurontin] 300 mg PO TID 04/18/17 [History] Pantoprazole Sodium [Protonix] 40 mg PO BID 04/18/17 [History] Acetaminophen/oxyCODONE [Percocet 325-5 MG] 1 - 2 tab PO Q6H PRN #60 tablet [Rx] Bisacodyl [Dulcolax] 5 mg PO DAILY PRN tablet 11/03/17 [Rx] Calcium Carbonate/Vitamin D3 [Calcium 500 mg Chewable Tablet] 1 tab PO DAILY [History] Cholecalciferol (Vitamin D3) [Vitamin D] 1 tab PO DAILY 11/03/17 [History] Docusate Sodium [Colace] 100 mg PO BID cap 11/03/17 [Rx] Multivitamin [Multi-Vitamin Daily] 1 tab PO DAILY 11/03/17 [History] Rivaroxaban [Xarelto] 10 mg PO DAILY #32 tablet 11/03/17 [Rx] Sennosides [Senna] 8.6 mg PO BID PRN tablet 11/03/17 [Rx] B2/Vit A,C & E/Lut/Zeaxanth/Mn [Icaps] 1 each PO BID 11/04/17 [History] Referrals: Mireya Rodriguez PA-C [Physician Formula Clerk] - - Patient Data Vitals - Most Recent: Last Vital Signs Temp 98.4 F 11/06/17 04:04 Pulse 75 11/06/17 04:04 Resp 16 11/06/17 04:04 BP 132/63 11/06/17 04:04 Pulse Ox 94 L 11/06/17 04:04 Weight - Most Recent: 143 lb 9.6 oz I&O - Last 24 hours: Intake & Output 11/05/17 11/06/17 11/06/17 22:59 06:59 14:59 Intake Total 1280 700 Output Total 500 Balance 1280 200 Med Orders - Current: Current Medications Bisacodyl (Dulcolax) 5 mg PO DAILY PRN PRN Reason: Constipation Last Admin: 11/05/17 05:57 Dose: 5 mg Calcium Carbonate (Calcium Carbonate/Vitamin D 600 Mg-200 Unit) 1 tab PO DAILY [facility] Last Admin: 11/05/17 08:09 Dose: 1 tab Cholecalciferol (Vitamin D3) 5,000 units PO DAILY [facility] Last Admin: 11/05/17 08:17 Dose: 5,000 units Docusate Sodium (Colace) 100 mg PO BID [facility] Last Admin: 11/05/17 20:04 Dose: 100 mg Famotidine (Pepcid) 20 mg PO DAILY [facility] Last Admin: 11/05/17 08:16 Dose: 20 mg Gabapentin (Neurontin) 300 mg PO TID [facility] Last Admin: 11/05/17 20:04 Dose: 300 mg Magnesium Hydroxide (Milk Of Magnesia) 30 ml PO BID PRN PRN Reason: Constipation Morphine Sulfate (Morphine) 2 mg IVPUSH Q2H PRN PRN Reason: Breakthrough Pain Multivitamins (Thera) 1 each PO DAILY [facility] Last Admin: 11/05/17 08:20 Dose: 1 each Naloxone HCl (Narcan) 0.1 mg IVPUSH Q5M PRN PRN Reason: Oversedation Ondansetron HCl (Zofran) 4 mg IVPUSH Q6H PRN PRN Reason: Nausea/Vomiting Oxycodone/Acetaminophen (Percocet 325-5 Mg) 1 - 2 tab PO Q4H PRN PRN Reason: Pain Last Admin: 11/05/17 20:04 Dose: 2 tab Rivaroxaban (Xarelto) 10 mg PO DAILY [facility] Last Admin: 11/05/17 08:12 Dose: 10 mg Rosuvastatin Calcium (Crestor) 5 mg PO DAILY [facility] Last Admin: 11/05/17 08:14 Dose: 5 mg Senna (Senna) 8.6 mg PO BID PRN PRN Reason: Constipation Last Admin: 11/05/17 16:52 Dose: 8.6 mg Triamterene/HCTZ (Dyazide 25-37.5 Mg) 1 each PO DAILY [facility] Last Admin: 11/05/17 08:17 Dose: 1 each Vit A/Vit C/Vit E/Selen/Cu/Zn/Lutei (Icaps Mv) 1 tab PO BID [facility] Last Admin: 11/05/17 20:03 Dose: 1 tab Discontinued Medications Bisacodyl (Dulcolax) 10 mg RECTAL ONETIME ONE Stop: 11/06/17 06:31 Bupivacaine HCl (Marcaine 0.25%) Confirm Administered Dose 30 ml .ROUTE .STK- MED ONE Stop: 11/03/17 08:18 Last Admin: 11/03/17 10:45 Dose: 30 ml Cefazolin Sodium (Ancef) Confirm Administered Dose 2 gm .ROUTE .STK-MED ONE Stop: 11/03/17 07:15 Last Admin: 11/03/17 10:42 Dose: 2 gm Cefazolin Sodium (Ancef) Confirm Administered Dose 2 gm .ROUTE .STK-MED ONE Stop: 11/03/17 08:17 Morphine Sulfate 8 mg/Epinephrine HCl 0.3 mg/Cefuroxime Sodium 750 mg/Ketorolac Tromethamine 30 mg/Sodium Chloride 27.9 ml 0 mg .XX ONETIME ONE Stop: 11/03/17 10:01 Last Admin: 11/03/17 10:47 Dose: 788.3 mg Famotidine (Pepcid) 20 mg PO Q12H [facility] Last Admin: 11/04/17 08:34 Dose: 20 mg Fentanyl (Sublimaze) Confirm Administered Dose 100 mcg .ROUTE .STK-MED ONE Stop: 11/03/17 07:16 Fentanyl (Sublimaze) Confirm Administered Dose 250 mcg .ROUTE .STK-MED ONE Stop: 11/03/17 08:28 Fentanyl (Sublimaze) 50 mcg IVPUSH Q5M PRN PRN Reason: pain Stop: 11/03/17 16:00 Last Admin: 11/03/17 12:02 Dose: 50 mcg Hydromorphone HCl (Dilaudid) Confirm Administered Dose 0.5 mg .ROUTE .STK-MED ONE Stop: 11/03/17 09:53 Hydromorphone HCl (Dilaudid) 0.5 mg IVPUSH ONETIME PRN PRN Reason: Pain (moderate 4-6) Stop: 11/03/17 11:29 Last Admin: 11/03/17 11:36 Dose: 0.5 mg Lactated Ringer's (Ringers, Lactated) 1,000 mls @ 125 mls/hr IV ASDIRECTED [facility] Stop: 11/03/17 23:00 Last Admin: 11/03/17 08:40 Dose: 125 mls/hr Cefazolin Sodium/Dextrose 2 gm (/ Premix) 50 mls @ 100 mls/hr IV Q8H [facility] Stop: 11/04/17 08:59 Last Admin: 11/04/17 08:36 Dose: 100 mls/hr Lactated Ringer's (Ringers, Lactated) Confirm Administered Dose 1,000 mls @ as directed .ROUTE .STK-MED ONE Stop: 11/03/17 07:15 Iodine (Iodine 2% Mild Tincture) Confirm Administered Dose 30 ml .ROUTE .STK- MED ONE Stop: 11/03/17 08:18 Last Admin: 11/03/17 10:40 Dose: 18 ml Lidocaine/Sodium Bicarbonate (Buffered Lidocaine 1% In Ns 8.4%) 0.25 ml IDERM ONETIME PRN PRN Reason: Prior to IV Start Stop: 11/03/17 18:00 Last Admin: 11/03/17 08:39 Dose: 0.25 ml Morphine Sulfate (Duramorph Pf) Confirm Administered Dose 10 mg .ROUTE .STK-MED ONE Stop: 11/03/17 07:16 Ondansetron HCl (Zofran) 4 mg IVPUSH ONETIME PRN PRN Reason: Nausea/Vomiting Stop: 11/03/17 16:00 Pantoprazole Sodium (Protonix) 40 mg PO BID [facility] Last Admin: 11/04/17 08:35 Dose: Not Given Phenylephrine HCl (Phenylephrine In Ns 100 Mcg/Ml) Confirm Administered Dose 1 mg .ROUTE .STK-MED ONE Stop: 11/03/17 10:28 Potassium Chloride (Klor-Con M20) 40 meq PO ONETIME ONE Stop: 11/04/17 08:48 Last Admin: 11/04/17 09:04 Dose: 40 meq Propofol (Diprivan 20 Ml) Confirm Administered Dose 400 mg .ROUTE .STK-MED ONE Stop: 11/03/17 07:16 Rocuronium [place] (Zemuron) Confirm Administered Dose 50 mg .ROUTE .STK-MED ONE Stop: 11/03/17 08:28 Sodium Chloride (Saline Flush) 10 ml FLUSH ASDIRECTED PRN PRN Reason: Keep Vein Open Stop: 11/03/17 18:00 Tranexamic Acid (Cyklokapron) Confirm Administered Dose 1,000 mg .ROUTE .STK- MED ONE Stop: 11/03/17 08:17 Last Admin: 11/03/17 10:50 Dose: 1,000 mg Vancomycin HCl (Vancomycin) Confirm Administered Dose 1 gm .ROUTE .STK-MED ONE Stop: 11/03/17 08:17 Last Admin: 11/03/17 10:49 Dose: 1 gm
[2017-11-06] MEDS: Acetaminophen/oxyCODONE 325-5 MG Tab PO PRN ×2 (07:11→10:22)
[2017-11-06] MEDS ORDERED: Pneumococcal 13-Valent Conjugate Vaccine 0.5 ML Syringe IM ONE (09:09)
--- NOTE | 2017-11-06 09:22 | PCM.OPNOTE ---
- General Post-Op/Procedure Note Date of Surgery/Procedure: 11/03/17 Operative Procedure(s): right total hip arthroplasty Pre Op Diagnosis: right hip osteoarthrosis Post-Op Diagnosis: Same Anesthesia Technique: Local, MAC, Spinal Primary Surgeon: Anthony Barrett Anesthesia Provider: Lucy Gill Machine Trimmer: Mireya Rodriguez Machine Trimmer: Nancy Kunz EBL in mLs: 350 Complications: None Condition: Good Free Text/Narrative:: Intake & Output 11/05/17 11/06/17 11/06/17 22:59 06:59 14:59 Intake Total 1280 700 Output Total 500 Balance 1280 200 28+8 size 6 stem 54 cup
[2017-11-06] MEDS: Rosuvastatin 10 MG Tab PO SCH (09:47)
[2017-11-06] MEDS: Multivitamins,Therapeutic Tab PO SCH (09:47)
[2017-11-06] MEDS: Rivaroxaban 10 MG Tab PO SCH (09:47)
[2017-11-06] MEDS: Gabapentin 300 MG Cap PO SCH (09:47)
[2017-11-06] MEDS: Calcium Carbonate/Vitamin D3 600 MG-200 Units Tab PO SCH (09:47)
[2017-11-06] MEDS: Famotidine 20 MG Tab PO SCH (09:47)
[2017-11-06] MEDS: Docusate Sodium 100 MG Cap PO SCH (09:47)
[2017-11-06] MEDS: Multivitamins with Minerals/Folic Acid/Lutein/Zeaxanth Tab PO SCH (09:48)
[2017-11-06] MEDS: Cholecalciferol (Vitamin D3) 1,000 Unit Tab PO SCH (09:48)
[2017-11-06] MEDS: Hydrochlorothiazide/Triamterene 25-37.5 MG Cap PO SCH (09:48)
--- NOTE | 2017-11-13 08:35 | OR ---
DATE OF OPERATION: 11/03/2017 SURGEON: Anthony Barrett MD OPERATION PERFORMED: Right total hip arthroplasty. PREOPERATIVE DIAGNOSIS: Right hip osteoarthrosis. POSTOPERATIVE DIAGNOSIS: Right hip osteoarthrosis. ANESTHESIA: Local MAC with spinal. ANESTHESIA PROVIDER: Lucy Gill. PRODUCTION PLANNER SCHEDULER: Nancy Kunz LPN. ESTIMATED BLOOD LOSS: 350 mL. COMPLICATIONS: None. CONDITION: Stable. IMPLANTS: 1. Martha size 28 +8 mm MDM ceramic head with MDM 42 mm component. 2. Martha size 6 Accolade II stem. 3. Martha size 54 mm solid Tritanium acetabular cup. DESCRIPTION OF PROCEDURE: The patient was identified in the preoperative holding area. Proper site was marked and identified by the surgeon. The patient was taken back to the operating theater, where after adequate anesthesia, the patient was placed in a left lateral decubitus position. Axillary wedge was placed. All bony prominences were well padded. The patient then had the pegs placed, and they were well padded. The patient's gluteal fold was parallel to the floor. At this time, right hip was then sterilely prepped and draped in the usual sterile fashion. OR-wide time-out was performed. The patient received 2 grams of IV Ancef. At this time, a standard incision was made centered over the greater trochanter. This was taken down to the IT band and gluteal fascia. At this time, it was incised along the incisional length. Charnley retractor was then placed. Short external rotators were identified, take down of the short external rotators, starting from the piriformis all the way down to the level of the lesser trochanter as well as a capsulotomy. At this time, the hip was then dislocated and neck cut was then completed. Attention was turned to the acetabulum. Anterior and posterior acetabular retractors were placed. The remaining labrum was removed along with pulvinar. Starting with a 48 reamer, I was able to ream up to a size 54, which was found to have good adequate bite. At this time, a 54-mm trial was placed and it was found to have adequate fixation. At this time, a 54-mm Tritanium acetabular cup was impacted in place in roughly 45 degrees of abduction and 20 degrees of anteversion. The MDM liner was then impacted into place. Attention was turned to the femur. Soft tissue was removed. Box chisel was used out laterally. Starter awl was placed down the canal. Starting with the 0 broach, I was able to broach up to a size 6 and it was found to be rotationally and vertically stable. At this time, trial components were placed. A 28 +0 was first used. The patient's leg lengths were noted to be a small amount short, so 28 +8 was then utilized. At this time, she had adequate sikhism of leg lengths and was stable throughout her range of motion. The size 6 Accolade II stem was impacted into place after the trial components were removed and then the 28 +8 with MDM component 42 mm polyethylene was then impacted into place. Hip was then relocated. 1 L of dilute Betadine solution was irrigated through the hip along with 3 L of pulse lavage irrigation with Ancef. #5 Ethibond suture was used for closure of the capsule and short external rotators. Topical tranexamic acid as well as vancomycin powder were placed deep. #2 barbed suture was used for closure of the IT band and gluteal fascia, 2-0 Vicryl was used subcutaneously, and Prineo was used for the skin. The patient had a sterile soft dressing applied and was sent to the PACU in a stable condition. FABRICE /[id number]
== END 2017-11-06 10:34 | disposition home or self-care (01) | DRG 470 ==
LOC: JD.MS 08:22
PROVIDERS: ADMIT Orthopaedic Surgery; ATTEND Orthopaedic Surgery
PROC: 0SR904Z Replacement of Right Hip Joint with Ceramic on Polyethylene Synthetic Substitute, Open Approach (ICD-10-PCS; principal; 2017-11-03)
PROC: 3E0U029 Introduction of Other Anti-infective into Joints, Open Approach (ICD-10-PCS; principal; 2017-11-03)
PROC: 3E0234Z Introduction of Serum, Toxoid and Vaccine into Muscle, Percutaneous Approach (ICD-10-PCS; 2017-11-06)
DX: M16.11 Unilateral primary osteoarthritis, right hip (principal); E78.5 Hyperlipidemia, unspecified; I12.9 Hypertensive chronic kidney disease with stage 1 through stage 4 chronic kidney disease, or unspecified chronic kidney disease; N18.3 Chronic kidney disease, stage 3 (moderate); J43.9 Emphysema, unspecified; H54.7 Unspecified visual loss; I87.2 Venous insufficiency (chronic) (peripheral); M51.9 Unspecified thoracic, thoracolumbar and lumbosacral intervertebral disc disorder; K27.9 Peptic ulcer, site unspecified, unspecified as acute or chronic, without hemorrhage or perforation; E87.6 Hypokalemia; Z23 Encounter for immunization; Z79.01 Long term (current) use of anticoagulants; Z79.84 Long term (current) use of oral hypoglycemic drugs; Z79.899 Other long term (current) drug therapy; Z85.3 Personal history of malignant neoplasm of breast; Z79.3 Long term (current) use of hormonal contraceptives; Z90.49 Acquired absence of other specified parts of digestive tract; Z96.649 Presence of unspecified artificial hip joint; Z96.659 Presence of unspecified artificial knee joint
CPT/HCPCS: 01214; 36415; 73501-26-RT; 73501-RT; 80048; 80053; 82040; 85025; 85027; 85610; 86850; 86900; 86901; 87641; 90670; 97110-GP; 97116-GP; 97162-GP; 97165-GO; 97530-GP; 97535-GO; A9270-GY; C1776; G0009; J0171; J0690; J0697; J1170; J1885; J2270; J2704; J3010; J3370; J3490; J7120

== ENCOUNTER 2017-11-08 12:56 | Emergency (ER) | payer MEDICARE, BC ==
[2017-11-08] MEDS ORDERED: Sodium Chloride 0.9% 10 ML Syringe FLUSH PRN (13:16)
[2017-11-08] MEDS ORDERED: Sodium Chloride 0.9% 1,000 ML IV SCH (13:30)
--- NOTE | 2017-11-08 13:53 | EDM.PDOC ---
ED HPI GENERAL MEDICAL PROBLEM - General Chief Complaint: Lower Extremity Injury/Pain Stated Complaint: FEVER AND REDNESS TO INCISION SITE Time Seen by Provider: 11/08/17 13:06 Source of Information: Reports: Patient, RN Notes Reviewed - History of Present Illness INITIAL COMMENTS - FREE TEXT/NARRATIVE: 81-year-old female has been sent over from group home for evaluation of fever. She had elective right hip replacement surgery 5 days ago. The surgery is reported to of gone well. She was discharged to the group home 2 days ago. Seen home staff documented temp of around 101 during the night. Her fever is gone at this time although she did have a couple of Percocet couple of hours ago which would've had 650 mg of Tylenol. It is reported there was some slight drainage from wound margin this morning at time of dressing change. states she has been coughing occasionally but not severe. No chest pain or difficulty breathing. No voiding symptomatology. No abdominal pain nausea or vomiting. Right Hip Pain Score (Numeric/FACES): 5 - Related Data Allergies Allergy/AdvReac Type Severity Reaction Status Date / Time Anesthetics - Lupe Type- Allergy Other Verified 11/08/17 14:22 Parabens Home Meds: Home Meds Rosuvastatin [Crestor] 5 mg PO DAILY 05/02/14 [History] Triamterene/Hydrochlorothiazid [Triamterene-HCTZ 37.5-25 MG] 1 tab PO DAILY [History] Gabapentin [Neurontin] 300 mg PO TID 04/18/17 [History] Pantoprazole Sodium [Protonix] 40 mg PO BID 04/18/17 [History] Acetaminophen/oxyCODONE [Percocet 325-5 MG] 1 - 2 tab PO Q6H PRN #60 tablet [Rx] Bisacodyl [Dulcolax] 5 mg PO DAILY PRN tablet 11/03/17 [Rx] Calcium Carbonate/Vitamin D3 [Calcium 500 mg Chewable Tablet] 1 tab PO DAILY [History] Cholecalciferol (Vitamin D3) [Vitamin D] 1 tab PO DAILY 11/03/17 [History] Docusate Sodium [Colace] 100 mg PO BID cap 11/03/17 [Rx] Multivitamin [Multi-Vitamin Daily] 1 tab PO DAILY 11/03/17 [History] Rivaroxaban [Xarelto] 10 mg PO DAILY #32 tablet 11/03/17 [Rx] Sennosides [Senna] 8.6 mg PO BID PRN tablet 11/03/17 [Rx] B2/Vit A,C & E/Lut/Zeaxanth/Mn [Icaps] 1 each PO BID 11/04/17 [History] Cephalexin 500 mg PO QID #30 capsule 11/08/17 [Rx] Teriparatide. 20 mcg SQ DAILY 11/08/17 [History] Past Medical History HEENT History: Reports: Impaired Vision, Other (See Below) Other HEENT History: wears glasses Cardiovascular History: Reports: High Cholesterol, Hypertension, Other (See Below) Other Cardiovascular History: peripheral venous insufficiency, left upper extremitiy lymphedema Respiratory History: Reports: None Gastrointestinal History: Reports: Other (See Below) Other Gastrointestinal History: perforated duodenal ulcer Genitourinary History: Reports: Other (See Below) Other Genitourinary History: CKD III [employer] INSPECTOR History: Reports: Musculoskeletal History: Reports: Osteoarthritis, Other (See Below) Other Musculoskeletal History: lumbar disc disease Neurological History: Reports: None Psychiatric History: Reports: None Endocrine/Metabolic History: Reports: None Hematologic History: Reports: None Immunologic History: Reports: None Oncologic (Cancer) History: Reports: None Dermatologic History: Reports: None - Infectious Disease History Infectious Disease History: Reports: Chicken Pox, Influenza, Measles, Mumps - Past Surgical History Head Surgeries/Procedures: Reports: None HEENT Surgical History: Reports: Cataract Surgery Cardiovascular Surgical History: Reports: None Respiratory Surgical History: Reports: None GI Surgical History: Reports: Cholecystectomy, EGD, Other (See Below) Other GI Surgeries/Procedures: exploratory laparotomy Female Surgical History: Reports: D&C Endocrine Surgical History: Reports: None Neurological Surgical History: Reports: Laminectomy Musculoskeletal Surgical History: Reports: Hip Replacement, Knee Replacement, Other (See Below) Other Musculoskeletal Surgeries/Procedures:: radius/ulnar fracture with repair Oncologic Surgical History: Reports: Lumpectomy Dermatological Surgical History: Reports: None Social & Family History - Family History Family Medical History: Noncontributory - Tobacco Use Smoking Status *Q: Never Smoker Second Hand Smoke Exposure: No - Caffeine Use Caffeine Use: Reports: Coffee - Recreational Drug Use Recreational Drug Use: No Review of Systems - Review of Systems Review Of Systems: See Below Constitutional: Reports: Fever (Gone) Eyes: Reports: No Symptoms Ears: Reports: No Symptoms Nose: Reports: No Symptoms Mouth/Throat: Reports: No Symptoms Respiratory: Reports: Cough. Denies: Shortness of Breath, Wheezing Cardiovascular: Denies: Chest Pain GI/Abdominal: Denies: Abdominal Pain, Nausea, Vomiting Genitourinary: Reports: No Symptoms Musculoskeletal: Reports: Joint Pain (Right hip status post recent surgery) Neurological: Reports: No Symptoms ED EXAM, GENERAL - Physical Exam Exam: See Below General Appearance: Alert, No Apparent Distress Eye Exam: Bilateral Eye: PERRL Throat/Mouth: Normal Inspection, Other Head: No: Facial Swelling Neck: Supple, Full Range of Motion Respiratory/Chest: No Respiratory Distress, Lungs Clear, Normal Breath Sounds. No: Rhonchi Cardiovascular: Regular Rate, Rhythm GI/Abdominal: Soft, Non-Tender. No: Guarding Back Exam: No: CVA Tenderness (L), CVA Tenderness (R) Extremities: Redness (Very mild redness around distal incision and right thigh just distal to lower incision, no active drainage at this time) Skin Exam: Warm, Dry, Normal Color Course - Vital Signs Last Recorded V/S: Last Vital Signs Temp 98.3 F 11/08/17 13:07 Pulse 75 11/08/17 13:07 Resp 16 11/08/17 13:07 BP 107/66 11/08/17 13:07 Pulse Ox 96 11/08/17 13:07 - Orders/Labs/Meds Orders: Active Orders 24 hr Category Date Time Status Peripheral IV Care [RC] . DIRECTED Care 11/08/17 13:17 Active Chest 1V Frontal [CR] Stat Exams 11/08/17 13:28 Taken CULTURE WOUND [RM] Stat Lab 11/08/17 15:09 Ordered Sodium Chloride 0.9% [Normal Saline] 1,000 ml Med 11/08/17 13:30 Active IV ASDIRECTED Sodium Chloride 0.9% [Saline Flush] Med 11/08/17 13:16 Active 10 ml FLUSH ASDIRECTED PRN Peripheral IV Insertion Adult [OM.PC] Stat Oth 11/08/17 13:17 Ordered Medication Orders Sodium Chloride (Normal Saline) 1,000 mls @ 150 mls/hr IV ASDIRECTED AISHA Last Admin: 11/08/17 14:20 Dose: 150 mls/hr Sodium Chloride (Saline Flush) 10 ml FLUSH ASDIRECTED PRN PRN Reason: Keep Vein Open Last Admin: 11/08/17 14:21 Dose: 10 ml Labs: Laboratory Tests 11/08/17 11/08/17 11/08/17 Range/Units 14:20 14:20 14:20 WBC 9.82 (3.98-10.04) K/mm3 RBC 2.76 L (3.98-5.22) M/mm3 Hgb 8.3 L (11.2-15.7) gm/L Hct 25.9 L (34.1-44.9) % MCV 93.8 (79.4-94.8) fl MCH 30.1 (25.6-32.2) pg MCHC 32.0 L (32.2-35.5) g/dl RDW Std Deviation 49.3 H (36.4-46.3) fL Plt Count 210 (182-369) K/mm3 MPV 8.8 L (9.4-12.3) fl Neut % (Auto) 60.8 (34.0-71.1) % Lymph % (Auto) 19.1 L (19.3-51.7) % Dickenson % (Auto) 14.7 H (4.7-12.5) % Eos % (Auto) 4.9 (0.7-5.8) Baso % (Auto) 0.4 (0.1-1.2) % Neut # (Auto) 5.97 (1.56-6.13) K/mm3 Lymph # (Auto) 1.88 (1.18-3.74) K/mm3 Dickenson # (Auto) 1.44 H (0.24-0.36) K/mm3 Eos # (Auto) 0.48 H (0.04-0.36) K/mm3 Baso # (Auto) 0.04 (0.01-0.08) K/mm3 Sodium 137 (136-145) mEq/L Potassium 3.8 (3.5-5.1) mEq/L Chloride 101 (98-107) mEq/L Carbon Dioxide 29 (21-32) mEq/L Anion Gap 10.8 (5-15) BUN 28 H (7-18) mg/dL Creatinine 1.3 H (0.55-1.02) mg/dL Est Cr Clr Drug Dosing 28.31 mL/min Estimated GFR (MDRD) 39 (>60) mL/min BUN/Creatinine Ratio 21.5 H (14-18) Glucose 116 H (83-115) mg/dL Calcium 9.3 (8.5-10.1) mg/dL Total Bilirubin 0.6 (0.2-1.0) mg/dL AST 19 (15-37) U/L ALT 11 L (14-59) U/L Alkaline Phosphatase 74 (46-116) U/L C-Reactive Protein 15.3 H* (<1.0) mg/dL Total Protein 6.2 L (6.4-8.2) g/dl Albumin 2.3 L (3.4-5.0) g/dl Globulin 3.9 gm/dL Albumin/Globulin Ratio 0.6 L (1-2) Meds: Medications Generic Name Dose Route Start Last Admin Trade Name Freq PRN Reason Stop Dose Admin Sodium Chloride 1,000 mls @ 150 mls/hr 11/08/17 13:30 11/08/17 14:20 Normal Saline IV 150 mls/hr ASDIRECTED AISHA Administration Sodium Chloride 10 ml 11/08/17 13:16 11/08/17 14:21 Saline Flush FLUSH 10 ml ASDIRECTED PRN Administration Keep Vein Open Discontinued Medications Generic Name Dose Route Start Last Admin Trade Name Freq PRN Reason Stop Dose Admin Cephalexin 500 mg 11/08/17 15:02 11/08/17 15:10 Keflex PO 11/08/17 15:03 500 mg ONETIME ONE Administration - Re-Assessments/Exams Free Text/Narrative Re-Assessment/Exam: 11/08/17 15:19 White blood count normal, chest x-ray normal, afebrile here in the ED but reported to the [place] [id number] at the group home early this morning. There is no active drainage from the incision, we will attempt to get a culture from along the incision line at this time and then start on cephalexin 500 mg 4 times daily for 1 week. I have been informed she does have a clinic follow-up visit 3 days. Discharge instructions as documented. Departure - Departure Time of Disposition: 15:02 Disposition: DC/Tfer to Quality Reviewer [facility] 61 Condition: Fair Clinical Impression: Fever Qualifiers: Encounter type: initial encounter History of hip replacement Qualifiers: Laterality: right Qualified Code(s): Z96.641 - Presence of right artificial hip joint - Discharge Information Prescriptions: Cephalexin 500 mg PO QID #30 capsule Instructions: Fever, Adult Referrals: Chuck Felder MD [Primary Care Provider] - Forms: ED Department Discharge Additional Instructions: possible early wound infection R hip, CXR, WBC normal here in the ED at this time. Will start on cephalexin 500 mg 4 times daily for 1 week. precription has been escribed to [facility]. Follow up clinic Friday as planned. Call provider or return to ED as needed. - My Orders Last 24 Hours: My Active Orders 11/08/17 13:16 Sodium Chloride 0.9% [Saline Flush] 10 ml FLUSH ASDIRECTED PRN 11/08/17 13:17 Peripheral IV Care [RC] . DIRECTED Peripheral IV Insertion Adult [OM.PC] Stat 11/08/17 13:28 Chest 1V Frontal [CR] Stat 11/08/17 13:30 Sodium Chloride 0.9% [Normal Saline] 1,000 ml IV ASDIRECTED 11/08/17 15:09 CULTURE WOUND [RM] Stat - Assessment/Plan Last 24 Hours: My Active Orders 11/08/17 13:16 Sodium Chloride 0.9% [Saline Flush] 10 ml FLUSH ASDIRECTED PRN 11/08/17 13:17 Peripheral IV Care [RC] . DIRECTED Peripheral IV Insertion Adult [OM.PC] Stat 11/08/17 13:28 Chest 1V Frontal [CR] Stat 11/08/17 13:30 Sodium Chloride 0.9% [Normal Saline] 1,000 ml IV ASDIRECTED 11/08/17 15:09 CULTURE WOUND [RM] Stat
[2017-11-08] MEDS ORDERED: Cephalexin 500 MG Cap PO ONE (15:02)
--- NOTE | 2017-11-09 07:55 | CR ---
Chest: Frontal view of the chest was obtained. Comparison: Prior chest x-ray of 10/22/17. Heart size is normal. Tortuous thoracic aorta is seen. Previous lumbar spine surgery is seen. Lungs are clear. Impression: 1. Incidental findings. Nothing acute is appreciated. Diagnostic code #2
== END 2017-11-08 16:27 ==
LOC: JD.ED 12:56
DX: R50.9 Fever, unspecified (principal); I12.9 Hypertensive chronic kidney disease with stage 1 through stage 4 chronic kidney disease, or unspecified chronic kidney disease; N18.3 Chronic kidney disease, stage 3 (moderate); E78.00 Pure hypercholesterolemia, unspecified; Z96.641 Presence of right artificial hip joint; Z79.899 Other long term (current) drug therapy
CPT/HCPCS: 36415; 71045; 80053; 85025; 86140; 96360; 99283; A9270; J7040; J7050

== ENCOUNTER 2020-06-11 15:30 | Inpatient (IN) | payer MEDICARE, BC ==
--- NOTE | 2020-06-11 16:31 | EDM.PDOC ---
ED HPI GENERAL MEDICAL PROBLEM - General Chief Complaint: Respiratory Problem Stated Complaint: [facility] Time Seen by Provider: 06/11/20 16:05 Source of Information: Reports: Patient History Limitations: Reports: No Limitations - History of Present Illness INITIAL COMMENTS - FREE TEXT/NARRATIVE: Patient is a 84-year-old female who presents to the ED complaining of 5 days a history of positive Covid with generalized weakness, low-grade fever, and cough for the past 7 days. She uses a walker to ambulate. She lives at her own residence with her son. Has had a poor appetite and does not drink as much fluids as she normally would since she cannot get up and go to the bathroom due to generalized weakness. She denies any shortness of breath, sinus congestion, runny nose, postnasal drip, neck pain, chest pain, abdominal pain, nausea or vomiting, diarrhea, bloody stools, dark tarry stools, dysuria, or pain or swelling to her lower extremities. - Related Data Allergies Allergy/AdvReac Type Severity Reaction Status Date / Time Anesthetics - Lupe Type- Allergy Other Verified 11/08/17 14:22 Parabens Home Meds: Home Meds Rosuvastatin [Crestor] 5 mg PO DAILY 05/02/14 [History] Gabapentin [Neurontin] 600 mg PO TID 04/18/17 [History] Pantoprazole Sodium [Protonix] 40 mg PO BID 04/18/17 [History] Cholecalciferol (Vitamin D3) [Vitamin D] 1 tab PO DAILY 11/03/17 [History] Hydrocodone/Acetaminophen [Hydrocodone-Acetamin 10-325 mg] 1 each PO QID PRN 06/11/20 [History] Non-Formulary Medication [NF Drug] 1 tab PO DAILY 06/11/20 [History] Potassium Chloride 20 meq PO DAILY 06/11/20 [History] Past Medical History HEENT History: Reports: Impaired Vision, Other (See Below) Other HEENT History: wears glasses Cardiovascular History: Reports: High Cholesterol, Hypertension, Other (See Below) Other Cardiovascular History: peripheral venous insufficiency, left upper extremitiy lymphedema Respiratory History: Reports: None Gastrointestinal History: Reports: Other (See Below) Other Gastrointestinal History: perforated duodenal ulcer Genitourinary History: Reports: Other (See Below) Other Genitourinary History: CKD III TEAM GUIDE History: Reports: Musculoskeletal History: Reports: Osteoarthritis, Other (See Below) Other Musculoskeletal History: lumbar disc disease Neurological History: Reports: None Psychiatric History: Reports: None Endocrine/Metabolic History: Reports: None Hematologic History: Reports: None Immunologic History: Reports: None Oncologic (Cancer) History: Reports: None Dermatologic History: Reports: None - Infectious Disease History Infectious Disease History: Reports: Chicken Pox, Influenza, Measles, Mumps, Novel Coronavirus - Past Surgical History Head Surgeries/Procedures: Reports: None HEENT Surgical History: Reports: Cataract Surgery Cardiovascular Surgical History: Reports: None Respiratory Surgical History: Reports: None GI Surgical History: Reports: Cholecystectomy, EGD, Other (See Below) Other GI Surgeries/Procedures: exploratory laparotomy Female Surgical History: Reports: D&C Endocrine Surgical History: Reports: None Neurological Surgical History: Reports: Laminectomy Musculoskeletal Surgical History: Reports: Hip Replacement, Knee Replacement, Other (See Below) Other Musculoskeletal Surgeries/Procedures:: radius/ulnar fracture with repair Oncologic Surgical History: Reports: Lumpectomy Dermatological Surgical History: Reports: None Social & Family History - Family History Family Medical History: No Pertinent Family History - Tobacco Use Tobacco Use Status *Q: Never Tobacco User Second Hand Smoke Exposure: No - Caffeine Use Caffeine Use: Reports: None - Recreational Drug Use Recreational Drug Use: No ED ROS GENERAL - Review of Systems Review Of Systems: Comprehensive ROS is negative, except as noted in HPI. ED EXAM, GENERAL - Physical Exam Exam: See Below Exam Limited By: No Limitations General Appearance: Alert, WD/WN, No Apparent Distress Eye Exam: Bilateral Eye: Normal Inspection, PERRL Ears: Normal External Exam, Hearing Grossly Normal Nose: Normal Inspection, Normal Mucosa, No Blood Throat/Mouth: Normal Inspection, Normal Voice, No Airway Compromise, Other (Dry oral mucosa) Head: Atraumatic, Normocephalic Neck: Normal Inspection, Supple, Non-Tender, Full Range of Motion. No: Lymphadenopathy (L), Lymphadenopathy (R) Respiratory/Chest: No Respiratory Distress, Lungs Clear, Normal Breath Sounds, No Accessory Muscle Use, Chest Non-Tender Cardiovascular: Normal Peripheral Pulses, Regular Rate, Rhythm, No Murmur Peripheral Pulses: 2+: Radial (L), Radial (R), Posterior Tibial (L), Posterior Tibial (R) GI/Abdominal: Normal Bowel Sounds, Soft, Non-Tender, No Organomegaly, No Distention Back Exam: Normal Inspection, Decreased Range of Motion. No: CVA Tenderness (L), CVA Tenderness (R) Extremities: Normal Inspection, Normal Range of Motion, Non-Tender, No Pedal Edema Neurological: Alert, Oriented, Normal Cognition, No Motor/Sensory Deficits Psychiatric: Normal Affect, Normal Mood Skin Exam: Warm, Dry, Intact, Normal Color, No Rash Course - Vital Signs Last Recorded V/S: Last Vital Signs Temp 100 F 06/11/20 17:17 Pulse 68 06/11/20 20:45 Resp 14 06/11/20 20:45 BP 137/89 06/11/20 20:45 Pulse Ox 94 L 06/11/20 20:45 - Orders/Labs/Meds Orders: Active Orders 24 hr Category Date Time Status EKG 12 Lead [EKG Documentation Completion] [RC] STAT Care 06/11/20 16:30 Active Vital Signs [RC] Q15M Care 06/11/20 18:31 Active Chest 1V Frontal [CR] Stat Exams 06/11/20 16:31 Taken EPINEPHrine [EPINEPHrine 1:10,000] Med 06/11/20 18:28 Active 0.3 mg IM ONETIME PRN Famotidine [Pepcid] Med 06/11/20 18:28 Active 20 mg IVPUSH ONETIME PRN Sodium Chloride 0.9% [Saline Flush] Med 06/11/20 18:30 Active 30 ml FLUSH ASDIRECTED diphenhydrAMINE [Benadryl] Med 06/11/20 18:28 Active 50 mg IVPUSH ONETIME PRN methylPREDNISolone Sod Succ [Solu-MEDROL] Med 06/11/20 18:28 Active 125 mg IVPUSH ONETIME PRN Medication Orders Diphenhydramine HCl (Benadryl) 50 mg IVPUSH ONETIME PRN PRN Reason: hypersensitivity reaction Epinephrine HCl (Epinephrine 1:10,000) 0.3 mg IM ONETIME PRN PRN Reason: hypersensitivity reaction Famotidine (Pepcid) 20 mg IVPUSH ONETIME PRN PRN Reason: hypersensitivity reaction Methylprednisolone Sodium Succinate (Solu-Medrol) 125 mg IVPUSH ONETIME PRN PRN Reason: hypersensitivity reaction Sodium Chloride (Saline Flush) 30 ml FLUSH ASDIRECTED [facility] Labs: Laboratory Tests 06/11/20 06/11/20 06/11/20 Range/Units 17:10 17:10 17:10 WBC 6.49 (3.98-10.04) K/mm3 RBC 4.58 (3.98-5.22) M/mm3 Hgb 14.2 D (11.2-15.7) gm/dl Hct 41.7 (34.1-44.9) % MCV 91.0 (79.4-94.8) fl MCH 31.0 (25.6-32.2) pg MCHC 34.1 (32.2-35.5) g/dl RDW Std Deviation 42.5 (36.4-46.3) fL Plt Count 129 L D (182-369) K/mm3 MPV 9.4 (9.4-12.3) fl Neutrophils % (Manual) 87 H (40-60) % Band Neutrophils % 0 (0-10) % Lymphocytes % (Manual) 8 L (20-40) % Atypical Lymphs % 0 % Monocytes % (Manual) 5 (2-10) % Eosinophils % (Manual) 0 L (0.7-5.8) % Basophils % (Manual) 0 L (0.1-1.2) Platelet Estimate Adequate Plt Morphology Comment Normal RBC Morph Comment Normal Sodium 130 L (136-145) mEq/L Potassium 2.6 L (3.5-5.1) mEq/L Chloride 92 L (98-107) mEq/L Carbon Dioxide 30 (21-32) mEq/L Anion Gap 10.6 (5-15) BUN 26 H (7-18) mg/dL Creatinine 0.9 (0.55-1.02) mg/dL Est Cr Clr Drug Dosing 40.38 mL/min Estimated GFR (MDRD) 59 (>60) mL/min BUN/Creatinine Ratio 28.9 H (14-18) Glucose 110 (83-115) mg/dL Calcium 9.0 (8.5-10.1) mg/dL Ferritin 160 (8-252) ng/ml Total Bilirubin 0.5 (0.2-1.0) mg/dL AST 17 (15-37) U/L ALT 18 (14-59) U/L Alkaline Phosphatase 48 (46-116) U/L Lactate Dehydrogenase 194 (81-234) U/L Troponin I 0.029 (0.00-0.056) ng/mL C-Reactive Protein 3.3 H* (<1.0) mg/dL Total Protein 7.1 (6.4-8.2) g/dl Albumin 3.2 L (3.4-5.0) g/dl Globulin 3.9 gm/dL Albumin/Globulin Ratio 0.8 L (1-2) Urine Color (Yellow) Urine Appearance (Clear) Urine pH (5.0-8.0) Ur Specific [place] (1.005-1.030) Urine Protein (Negative) Urine Glucose (UA) (Negative) Urine Ketones (Negative) Urine Occult Blood (Negative) Urine Nitrite (Negative) Urine Bilirubin (Negative) Urine Urobilinogen (0.2-1.0) Ur Leukocyte Esterase (Negative) Urine RBC (0-5) /hpf Urine WBC (0-5) /hpf Ur Squamous Epith Cells (0-5) /hpf Urine Bacteria (FEW) /hpf Urine Mucus (FEW) /hpf 06/11/20 Range/Units 17:27 WBC (3.98-10.04) K/mm3 RBC (3.98-5.22) M/mm3 Hgb (11.2-15.7) gm/dl Hct (34.1-44.9) % MCV (79.4-94.8) fl MCH (25.6-32.2) pg MCHC (32.2-35.5) g/dl RDW Std Deviation (36.4-46.3) fL Plt Count (182-369) K/mm3 MPV (9.4-12.3) fl Neutrophils % (Manual) (40-60) % Band Neutrophils % (0-10) % Lymphocytes % (Manual) (20-40) % Atypical Lymphs % % Monocytes % (Manual) (2-10) % Eosinophils % (Manual) (0.7-5.8) % Basophils % (Manual) (0.1-1.2) Platelet Estimate Plt Morphology Comment RBC Morph Comment Sodium (136-145) mEq/L Potassium (3.5-5.1) mEq/L Chloride (98-107) mEq/L Carbon Dioxide (21-32) mEq/L Anion Gap (5-15) BUN (7-18) mg/dL Creatinine (0.55-1.02) mg/dL Est Cr Clr Drug Dosing mL/min Estimated GFR (MDRD) (>60) mL/min BUN/Creatinine Ratio (14-18) Glucose (83-115) mg/dL Calcium (8.5-10.1) mg/dL Ferritin (8-252) ng/ml Total Bilirubin (0.2-1.0) mg/dL AST (15-37) U/L ALT (14-59) U/L Alkaline Phosphatase (46-116) U/L Lactate Dehydrogenase (81-234) U/L Troponin I (0.00-0.056) ng/mL C-Reactive Protein (<1.0) mg/dL Total Protein (6.4-8.2) g/dl Albumin (3.4-5.0) g/dl Globulin gm/dL Albumin/Globulin Ratio (1-2) Urine Color Yellow (Yellow) Urine Appearance Slt cloudy H (Clear) Urine pH 6.5 (5.0-8.0) Ur Specific [place] 1.020 (1.005-1.030) Urine Protein 1+ H (Negative) Urine Glucose (UA) Negative (Negative) Urine Ketones Negative (Negative) Urine Occult Blood Trace-lysed H (Negative) Urine Nitrite Negative (Negative) Urine Bilirubin Negative (Negative) Urine Urobilinogen 0.2 (0.2-1.0) Ur Leukocyte Esterase Trace H (Negative) Urine RBC 0-5 (0-5) /hpf Urine WBC 10-20 H (0-5) /hpf Ur Squamous Epith Cells 20-30 H (0-5) /hpf Urine Bacteria Few (FEW) /hpf Urine Mucus Not seen (FEW) /hpf Meds: Medications Generic Name Dose Route Start Last Admin Trade Name Freq PRN Reason Stop Dose Admin Diphenhydramine HCl 50 mg 06/11/20 18:28 Benadryl IVPUSH ONETIME PRN hypersensitivity reaction Epinephrine HCl 0.3 mg 06/11/20 18:28 Epinephrine 1:10,000 IM ONETIME PRN hypersensitivity reaction Famotidine 20 mg 06/11/20 18:28 Pepcid IVPUSH ONETIME PRN hypersensitivity reaction Methylprednisolone Sodium Succinate 125 mg 06/11/20 18:28 Solu-Medrol IVPUSH ONETIME PRN hypersensitivity reaction Sodium Chloride 30 ml 06/11/20 18:30 Saline Flush FLUSH ASDIRECTED AISHA Discontinued Medications Generic Name Dose Route Start Last Admin Trade Name Becca PRN Reason Stop Dose Admin Acetaminophen 975 mg 06/11/20 16:34 06/11/20 17:17 Tylenol PO 06/11/20 16:35 975 mg NOW ONE Administration Sodium Chloride 500 mls @ 999 mls/hr 06/11/20 16:33 06/11/20 17:16 Normal Saline IV 06/11/20 17:03 999 mls/hr .BOLUS ONE Administration Potassium Chloride 10 meq/ 100 mls @ 100 mls/hr 06/11/20 18:32 06/11/20 21:43 Premix IV 06/11/20 19:31 Not Given ASDIRECTED ONE Potassium Chloride 10 meq/ 100 mls @ 100 mls/hr 06/11/20 18:32 06/11/20 21:43 Premix IV 06/11/20 19:31 Not Given ASDIRECTED ONE Non-Formulary Medication 1,200 250 mls @ 250 mls/hr 06/11/20 20:30 06/11/20 20:33 mg/ Non-Formulary Medication IV 06/11/20 21:29 250 mls/hr 1,200 mg/ Sodium Chloride ONETIME ONE Administration - Re-Assessments/Exams Free Text/Narrative Re-Assessment/Exam: On exam patient's blood pressure is 149/89, pulse is 80, respiratory 18, temperature is 100 F respiratory 18, O2 sats are 95% on room air patient is alert she is oriented x3 she does not appear in acute distress. She complains of generalized weakness and fatigue with a poor appetite and poor oral intake of any fluids. Covid +5 days ago. Has had Covid symptoms for the past 7 days. She lives at home with her son who is an EMT who has covid as well. They are requesting patient receive monoclonal antibody. IV established by EMS. Will order NS 500 mill bolus and Tylenol 975 mg p.o. Initial labs and studies will include: CBC, CHEM 14, CRP, ferritin level, LDH, troponin, UA, checks x-ray 1 view, and EKG. EKG sinus rhythm rate of 75 with LAD, left anterior fascicular block, incomplete right bundle branch block pattern, left atrial hypertrophy, Q waves in leads III and aVF. Diffuse repolarization abnormality. No ischemic changes. Labs reviewed: CBC indicated White blood cell count 6.49, hemoglobin 14.2, platelet count is low at 129, neutrophil percentage is 87, lymphocyte percentage is 8 0 atypical lymphs, and 0 bands. CMP indicated sodium 130, potassium 2.6, chloride is 92, AG is 10.6, CO2 is 30, BUN is 26 and creatinine 0.9. LFTs are within normal limits. Ferritin 160. LDH 194. Troponin 0 0.029. CRP is 3.3. UA slightly cloudy, 1+ protein, trace lysed blood, trace leukocyte Estrace, urine WBCs 10-20, urine squamous epithelial cells 10 to 20-30. Nitrates negative. Appears contaminated. Culture urine has been ordered. 06/11/20 18:18 I will look at admitting the patient due to increased fatigue and weakness with positive Covid. She is not hypoxic. Vital signs have been stable within the ED. Currently her BP is 138/72, SPO2 94, respiratory 14, heart rate has been hanging out in the 80s but with any movement her heart rate jumps up. She is currently 108. I discussed admission with the patient and she is in agreement. Spoke with Dr. Abreu on-call hospitalist and he request patient be administered Regeneron while in the ED. 1817 Spoke with the patient to provide information about Regeneron treatment for her. I offered them the patient and caregiver Regeneron fact sheet to read and review. Stated drug has been approved for emergency use authorization process and has not fully been FDA reviewed or approved. The patient meets the EUA requirements. I discussed that there are other potential treatment options that are currently not FDA approved to treat COVID-19. Offered opportunity to ask questions and all questions were answered. Patient voiced understanding's and agreed to proceed with the treatment for her. Dr. Abreu will be in contact with supervisor wire rope fabrication pharmacists to come in and mix the Regeneron. Patient will not receive any remdesivir or dexamethasone in the ED since she is not requiring O2. He request K riders to be started. Requests patient be admitted to observation. 2140 Orders for Observation admit placed. Departure - Departure Time of Disposition: 18:36 Disposition: Refer to Observation Condition: Poor Clinical Impression: COVID-19, Hyponatremia, Malaise and fatigue, Dehydration, Weakness - Discharge Information Sepsis Event Note (ED) - Evaluation Sepsis Screening Result: No Definite Risk - Focused Exam Vital Signs: Vital Signs Temp Temp Pulse Resp BP Pulse Ox 06/11/20 20:45 68 14 137/89 94 L 06/11/20 20:30 69 14 143/68 H 96 06/11/20 17:17 100 F 06/11/20 15:58 100 F 80 18 149/89 H 95 - My Orders Last 24 Hours: My Active Orders 06/11/20 16:30 EKG 12 Lead [EKG Documentation Completion] [RC] STAT 06/11/20 16:31 Chest 1V Frontal [CR] Stat 06/11/20 18:28 EPINEPHrine [EPINEPHrine 1:10,000] 0.3 mg IM ONETIME PRN Famotidine [Pepcid] 20 mg IVPUSH ONETIME PRN diphenhydrAMINE [Benadryl] 50 mg IVPUSH ONETIME PRN methylPREDNISolone Sod Succ [Solu-MEDROL] 125 mg IVPUSH ONETIME PRN 06/11/20 18:30 Sodium Chloride 0.9% [Saline Flush] 30 ml FLUSH ASDIRECTED 06/11/20 18:31 Vital Signs [RC] Q15M - Assessment/Plan Last 24 Hours: My Active Orders 06/11/20 16:30 EKG 12 Lead [EKG Documentation Completion] [RC] STAT 06/11/20 16:31 Chest 1V Frontal [CR] Stat 06/11/20 18:28 EPINEPHrine [EPINEPHrine 1:10,000] 0.3 mg IM ONETIME PRN Famotidine [Pepcid] 20 mg IVPUSH ONETIME PRN diphenhydrAMINE [Benadryl] 50 mg IVPUSH ONETIME PRN methylPREDNISolone Sod Succ [Solu-MEDROL] 125 mg IVPUSH ONETIME PRN 06/11/20 18:30 Sodium Chloride 0.9% [Saline Flush] 30 ml FLUSH ASDIRECTED 06/11/20 18:31 Vital Signs [RC] Q15M
[2020-06-11] MEDS ORDERED: Sodium Chloride 0.9% 500 ML IV ONE (16:33)
[2020-06-11] MEDS ORDERED: Acetaminophen 325 MG Tab PO ONE (16:34)
[2020-06-11] MEDS ORDERED: Casirivimab 1,200 MG, Imdevimab 1,200 MG in Sodium Chloride 0.9% 230 ML IV ONE ×2 (18:23→20:30)
[2020-06-11] MEDS ORDERED: diphenhydrAMINE 50 MG/ML SDV IVPUSH PRN (18:28)
[2020-06-11] MEDS ORDERED: EPINEPHrine 1:10,000 1 MG/10 ML Syringe IM PRN (18:28)
[2020-06-11] MEDS ORDERED: methylPREDNISolone Sodium Succinate 125 MG/2 ML SDV IVPUSH PRN (18:28)
[2020-06-11] MEDS ORDERED: Famotidine 20 MG/2 ML SDV IVPUSH PRN (18:28)
[2020-06-11] MEDS ORDERED: Sodium Chloride 0.9% 10 ML Syringe FLUSH SCH (18:30)
[2020-06-11] MEDS ORDERED: Potassium Chloride 10 MEQ in Premix Bag 1 BAG IV ONE ×4 (18:32)
[2020-06-11] MEDS ORDERED: Ondansetron 4 MG/2 ML SDV IV PRN (22:23)
[2020-06-11] MEDS ORDERED: Acetaminophen 325 MG Tab PO PRN (22:23)
[2020-06-11] MEDS ORDERED: Acetaminophen/HYDROcodone 325-10 MG Tab PO PRN (22:39)
[2020-06-11] MEDS ORDERED: Potassium Chloride 10% 20 MEQ/15 ML Soln 15 ML UD Cup PO ONE (22:40)
[2020-06-11] MEDS: Famotidine 20 MG Tab PO SCH (23:03)
--- NOTE | 2020-06-12 07:24 | PCM.HP.2 ---
H&P History of Present Illness - General Date of Service: 06/12/20 Admit Problem/Dx: Admission Diagnosis/Problem Admission Diagnosis/Problem Hyponatremia Source of Information: Patient, Old Records, Provider, RN, RN Notes Reviewed History Limitations: Reports: No Limitations - History of Present Illness Initial Comments - Free Text/Narative: This is an 84 yo female who presents to ED via [facility] on 06/11/2020 with generalized weakness, low-grade fever, and cough for the past 7 days. She was diagnosed 5 days prior with Covid. She notes her son was also Covid positive. This would have been on 06/06/2020. She lives at home in her own residence with her son and utilizes a walker to get around. She reports she has not had much of an appetite and has had poor fluid intake due to her weakness and not being able to get up to go to the bathroom. Denies any shortness of breath, sinus congestion, runny nose, postnasal drip, neck pain, chest pain, abdominal pain, nausea, vomiting, diarrhea, black stools, dark tarry stools, dysuria, pain or swelling to her lower extremities. In the ED temp was 100, pulse 60, respirations 14, blood pressure 137/89. Pulse ox was 94%. Labs were obtained with a normal WBC of 6.49. Hemoglobin is 14.2. Platelets were low at 129,000. Neutrophils are elevated at 87%. There is no bandemia. Sodium was low at 130. Potassium low at 2.6. Chloride low at 92. Carbon dioxide 30. Anion gap was 10.6. BUN was 26. Creatinine 0.9. GFR 59. Glucose 110. Calcium 9.0. Ferritin was normal at 160. Bilirubin was 0.5. AST was 17, ALT 18, alkaline phosphatase 48. LDH was 194. Troponin was 0.029. CRP was elevated at 3.3. Protein was 7.1. Albumin was 3.2. UA was negative but did appear to be contaminated. This will be sent to lab for culture. She was given potassium riders and Tylenol. Was given 1/2 L fluid bolus. Twelve-lead EKG was obtained showing sinus rhythm at 75 bpm with LAD, LAFB, incomplete right bundle branch block pattern, left atrial hypertrophy, and Q waves are noted in III and aVF. There is also a diffuse repolarization abnormality. No ischemic changes are noted. ED provider noticed that the patient does get tachycardic with movement. After discussion with the patient Regeneron treatment is given in the ED. Chest x-ray was obtained showing nothing acute. She carries a history of HLD, hypertension, peripheral venous insufficiency, left upper extremity lymphedema, CKD stage III, osteoarthritis, LDD. She was never a smoker. Her PCP is Dr. Rima Monroy She was subsequently admitted observation status to the medical floor. bilateral legs Pain Score (Numeric/FACES): 5 - Related Data Allergies/Adverse Reactions: Allergies Allergy/AdvReac Type Severity Reaction Status Date / Time Anesthetics - Lupe Type- Allergy Other Verified 06/11/20 22:02 Parabens Home Medications: Home Meds Rosuvastatin [Crestor] 5 mg PO DAILY 05/02/14 [History] Gabapentin [Neurontin] 600 mg PO TID 04/18/17 [History] Pantoprazole Sodium [Protonix] 40 mg PO BID 04/18/17 [History] Hydrocodone/Acetaminophen [Hydrocodone-Acetamin 10-325 mg] 1 each PO QID PRN 06/11/20 [History] Non-Formulary Medication [NF Drug] 1 tab PO DAILY 06/11/20 [History] Potassium Chloride 20 meq PO DAILY 06/11/20 [History] Propylene Glycol/Peg 400 [Systane 0.3-0.4% Eye Drops] 1 drop EYEBOTH DAILY 06/12/20 [History] Past Medical History HEENT History: Reports: Impaired Vision, Other (See Below) Other HEENT History: wears glasses Cardiovascular History: Reports: High Cholesterol, Hypertension, Other (See Below) Other Cardiovascular History: peripheral venous insufficiency, left upper ext remitiy lymphedema Respiratory History: Reports: None Gastrointestinal History: Reports: Other (See Below) Other Gastrointestinal History: perforated duodenal ulcer Genitourinary History: Reports: Other (See Below) Other Genitourinary History: CKD 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: Musculoskeletal History: Reports: Osteoarthritis, Other (See Below) Other Musculoskeletal History: lumbar disc disease Neurological History: Reports: None Psychiatric History: Reports: None Endocrine/Metabolic History: Reports: None Hematologic History: Reports: None Immunologic History: Reports: None Oncologic (Cancer) History: Reports: None Dermatologic History: Reports: None - Infectious Disease History Infectious Disease History: Reports: Chicken Pox, Influenza, Measles, Mumps, Novel Coronavirus - Past Surgical History Head Surgeries/Procedures: Reports: None HEENT Surgical History: Reports: Cataract Surgery Cardiovascular Surgical History: Reports: None Respiratory Surgical History: Reports: None GI Surgical History: Reports: Cholecystectomy, EGD, Other (See Below) Other GI Surgeries/Procedures: exploratory laparotomy Female Surgical History: Reports: D&C Endocrine Surgical History: Reports: None Neurological Surgical History: Reports: Laminectomy Musculoskeletal Surgical History: Reports: Hip Replacement, Knee Replacement, Other (See Below) Other Musculoskeletal Surgeries/Procedures:: radius/ulnar fracture with repair Oncologic Surgical History: Reports: Lumpectomy Dermatological Surgical History: Reports: None Social & Family History - Family History Family Medical History: No Pertinent Family History - Tobacco Use Tobacco Use Status *Q: Never Tobacco User Second Hand Smoke Exposure: No - Caffeine Use Caffeine Use: Reports: Coffee, Tea Other Caffeine Use: drinks a couple of cups of either coffee or tea a day - Recreational Drug Use Recreational Drug Use: No H&P Review of Systems - Review of Systems: Review Of Systems: See Below General: Reports: Fever, Malaise, Weakness, Fatigue, Decreased Appetite. Denies: Chills HEENT: Reports: No Symptoms. Denies: Headaches, Rhinitis, Post Nasal Drip, Sore Throat Pulmonary: Reports: Shortness of Breath, Cough, Sputum. Denies: Wheezing, Pleuritic Chest Pain Cardiovascular: Reports: Dyspnea on Exertion. Denies: Chest Pain, Palpitations, Edema, Lightheadedness Gastrointestinal: Reports: No Symptoms. Denies: Abdominal Pain, Constipation, Diarrhea, Nausea, Vomiting Genitourinary: Reports: No Symptoms. Denies: Pain Musculoskeletal: Reports: No Symptoms Skin: Reports: No Symptoms. Denies: Cyanosis Psychiatric: Reports: No Symptoms. Denies: Confusion Neurological: Reports: Difficulty Walking, Weakness, Gait Disturbance. Denies: Dizziness, Headache, Numbness, Tingling Hematologic/Lymphatic: Reports: No Symptoms Immunologic: Reports: No Symptoms Exam - Exam Exam: See Below - Vital Signs Vital Signs: Last Vital Signs Temp 100.0 F 06/12/20 04:52 Pulse 75 06/12/20 04:59 Resp 17 06/12/20 04:52 BP 138/76 06/12/20 04:59 Pulse Ox 92 L 12/07/20 04:59 Weight: 127 lb 4.8 oz - Exam Quality Assessment: DVT Prophylaxis. No: Supplemental Oxygen General: Alert, Oriented, Cooperative. No: Mild Distress HEENT: Conjunctiva Clear, EACs Clear, Mucosa Moist & [place], Posterior Pharynx Clear Neck: Supple, Trachea Midline Lungs: Clear to Auscultation, Normal Respiratory Effort Cardiovascular: Regular Rate, Regular Rhythm GI/Abdominal Exam: Normal Bowel Sounds, Soft, Non-Tender, No Distention, No Abnormal Bruit (Female) Exam: Deferred Rectal (Female) Exam: Deferred Back Exam: Normal Inspection, Full Range of Motion Extremities: Normal Inspection, Normal Range of Motion, Non-Tender, No Pedal Edema, Normal Capillary Refill Skin: Warm, Dry, Intact Neurological: Cranial Nerves Intact (Grossly ) Neuro Extensive - Mental Status: Alert, Oriented x3, Normal Mood/Affect - Patient Data Lab Results Last 24 hrs: Laboratory Results - last 24 hr 06/11/20 06/11/20 06/11/20 Range/Units 17:10 17:10 17:10 WBC 6.49 (3.98-10.04) K/mm3 RBC 4.58 (3.98-5.22) M/mm3 Hgb 14.2 D (11.2-15.7) gm/dl Hct 41.7 (34.1-44.9) % MCV 91.0 (79.4-94.8) fl MCH 31.0 (25.6-32.2) pg MCHC 34.1 (32.2-35.5) g/dl RDW Std Deviation 42.5 (36.4-46.3) fL Plt Count 129 L D (182-369) K/mm3 MPV 9.4 (9.4-12.3) fl Neut % (Auto) (34.0-71.1) % Lymph % (Auto) (19.3-51.7) % [place] % (Auto) (4.7-12.5) % Eos % (Auto) (0.7-5.8) Baso % (Auto) (0.1-1.2) % Neut # (Auto) (1.56-6.13) K/mm3 Lymph # (Auto) (1.18-3.74) K/mm3 [place] # (Auto) (0.24-0.36) K/mm3 Eos # (Auto) (0.04-0.36) K/mm3 Baso # (Auto) (0.01-0.08) K/mm3 Neutrophils % (Manual) 87 H (40-60) % Band Neutrophils % 0 (0-10) % Lymphocytes % (Manual) 8 L (20-40) % Atypical Lymphs % 0 % Monocytes % (Manual) 5 (2-10) % Eosinophils % (Manual) 0 L (0.7-5.8) % Basophils % (Manual) 0 L (0.1-1.2) Platelet Estimate Adequate Plt Morphology Comment Normal RBC Morph Comment Normal D-Dimer, Quantitative (0.19-0.50) mg/L Sodium 130 L (136-145) mEq/L Potassium 2.6 L (3.5-5.1) mEq/L Chloride 92 L (98-107) mEq/L Carbon Dioxide 30 (21-32) mEq/L Anion Gap 10.6 (5-15) BUN 26 H (7-18) mg/dL Creatinine 0.9 (0.55-1.02) mg/dL Est Cr Clr Drug Dosing 40.38 mL/min Estimated GFR (MDRD) 59 (>60) mL/min BUN/Creatinine Ratio 28.9 H (14-18) Glucose 110 (83-115) mg/dL Calcium 9.0 (8.5-10.1) mg/dL Ferritin 160 (8-252) ng/ml Total Bilirubin 0.5 (0.2-1.0) mg/dL AST 17 (15-37) U/L ALT 18 (14-59) U/L Alkaline Phosphatase 48 (46-116) U/L Lactate Dehydrogenase 194 (81-234) U/L Troponin I 0.029 (0.00-0.056) ng/mL C-Reactive Protein 3.3 H* (<1.0) mg/dL Total Protein 7.1 (6.4-8.2) g/dl Albumin 3.2 L (3.4-5.0) g/dl Globulin 3.9 gm/dL Albumin/Globulin Ratio 0.8 L (1-2) Urine Color (Yellow) Urine Appearance (Clear) Urine pH (5.0-8.0) Ur Specific [place] (1.005-1.030) Urine Protein (Negative) Urine Glucose (UA) (Negative) Urine Ketones (Negative) Urine Occult Blood (Negative) Urine Nitrite (Negative) Urine Bilirubin (Negative) Urine Urobilinogen (0.2-1.0) Ur Leukocyte Esterase (Negative) Urine RBC (0-5) /hpf Urine WBC (0-5) /hpf Ur Squamous Epith Cells (0-5) /hpf Urine Bacteria (FEW) /hpf Urine Mucus (FEW) /hpf 06/11/20 06/12/20 06/12/20 Range/Units 17:27 06:30 06:30 WBC 7.49 (3.98-10.04) K/mm3 RBC 4.37 (3.98-5.22) M/mm3 Hgb 13.8 (11.2-15.7) gm/dl Hct 40.4 (34.1-44.9) % MCV 92.4 (79.4-94.8) fl MCH 31.6 (25.6-32.2) pg MCHC 34.2 (32.2-35.5) g/dl RDW Std Deviation 44.1 (36.4-46.3) fL Plt Count 118 L (182-369) K/mm3 MPV 9.9 (9.4-12.3) fl Neut % (Auto) 84.0 H (34.0-71.1) % Lymph % (Auto) 7.7 L (19.3-51.7) % [place] % (Auto) 8.1 (4.7-12.5) % Eos % (Auto) 0 L (0.7-5.8) Baso % (Auto) 0.1 (0.1-1.2) % Neut # (Auto) 6.28 H (1.56-6.13) K/mm3 Lymph # (Auto) 0.58 L (1.18-3.74) K/mm3 [place] # (Auto) 0.61 H (0.24-0.36) K/mm3 Eos # (Auto) 0.00 L (0.04-0.36) K/mm3 Baso # (Auto) 0.01 (0.01-0.08) K/mm3 Neutrophils % (Manual) (40-60) % Band Neutrophils % (0-10) % Lymphocytes % (Manual) (20-40) % Atypical Lymphs % % Monocytes % (Manual) (2-10) % Eosinophils % (Manual) (0.7-5.8) % Basophils % (Manual) (0.1-1.2) Platelet Estimate Plt Morphology Comment RBC Morph Comment D-Dimer, Quantitative 0.48 (0.19-0.50) mg/L Sodium (136-145) mEq/L Potassium (3.5-5.1) mEq/L Chloride (98-107) mEq/L Carbon Dioxide (21-32) mEq/L Anion Gap (5-15) BUN (7-18) mg/dL Creatinine (0.55-1.02) mg/dL Est Cr Clr Drug Dosing mL/min Estimated GFR (MDRD) (>60) mL/min BUN/Creatinine Ratio (14-18) Glucose (83-115) mg/dL Calcium (8.5-10.1) mg/dL Ferritin (8-252) ng/ml Total Bilirubin (0.2-1.0) mg/dL AST (15-37) U/L ALT (14-59) U/L Alkaline Phosphatase (46-116) U/L Lactate Dehydrogenase (81-234) U/L Troponin I (0.00-0.056) ng/mL C-Reactive Protein (<1.0) mg/dL Total Protein (6.4-8.2) g/dl Albumin (3.4-5.0) g/dl Globulin gm/dL Albumin/Globulin Ratio (1-2) Urine Color Yellow (Yellow) Urine Appearance Slt cloudy H (Clear) Urine pH 6.5 (5.0-8.0) Ur Specific [place] 1.020 (1.005-1.030) Urine Protein 1+ H (Negative) Urine Glucose (UA) Negative (Negative) Urine Ketones Negative (Negative) Urine Occult Blood Trace-lysed H (Negative) Urine Nitrite Negative (Negative) Urine Bilirubin Negative (Negative) Urine Urobilinogen 0.2 (0.2-1.0) Ur Leukocyte Esterase Trace H (Negative) Urine RBC 0-5 (0-5) /hpf Urine WBC 10-20 H (0-5) /hpf Ur Squamous Epith Cells 20-30 H (0-5) /hpf Urine Bacteria Few (FEW) /hpf Urine Mucus Not seen (FEW) /hpf Result Diagrams: 06/12/20 06:30 06/12/20 06:30 Sepsis Event Note - Evaluation Sepsis Screening Result: No Definite Risk - Focused Exam Vital Signs: Vital Signs Temp Pulse Pulse Resp BP BP Pulse Ox 06/12/20 04:59 75 138/76 92 L 06/12/20 04:53 167/76 H 06/12/20 04:52 100.0 F 79 17 174/75 H 95 06/11/20 22:15 143/65 H 06/11/20 22:14 97.9 F 70 17 145/107 H 87 L 06/11/20 20:45 68 14 137/89 94 L 06/11/20 20:30 69 14 143/68 H 96 - Problem List (1) Hypophosphatemia SNOMED Code(s): 1094792 ICD Code: E83.39 - OTHER DISORDERS OF PHOSPHORUS METABOLISM Status: Acute Priority: High Current Visit: Yes (2) COVID-19 SNOMED Code(s): 268028759 ICD Code: U07.1 - COVID-19 Status: Acute Priority: High Current Visit: Yes (3) Dehydration SNOMED Code(s): 09295923 ICD Code: E86.0 - DEHYDRATION Status: Acute Priority: High Current Visit: Yes (4) Hyponatremia SNOMED Code(s): 44399766 ICD Code: E87.1 - HYPO-OSMOLALITY AND HYPONATREMIA Status: Acute Priority: High Current Visit: Yes (5) Malaise and fatigue SNOMED Code(s): 579843386 ICD Code: R53.81 - OTHER MALAISE; R53.83 - OTHER FATIGUE Status: Acute Priority: High Current Visit: Yes (6) Weakness SNOMED Code(s): 21524629 ICD Code: R53.1 - WEAKNESS Status: Acute Priority: High Current Visit: Yes (7) Hypokalemia SNOMED Code(s): 91580806 ICD Code: E87.6 - HYPOKALEMIA Status: Acute Priority: High Current Visit: Yes (8) Hypomagnesemia SNOMED Code(s): 234036884 ICD Code: E83.42 - HYPOMAGNESEMIA Status: Acute Priority: High Current Visit: Yes (9) Failure to thrive SNOMED Code(s): 48618276 ICD Code: JDW4244 - Status: Acute Priority: High Current Visit: Yes Qualifiers: Failure to thrive age range: in adult Qualified Code(s): R62.7 - Adult failure to thrive (10) Hypoalbuminemia SNOMED Code(s): 595140703 ICD Code: E88.09 - OTH DISORDERS OF PLASMA-PROTEIN METABOLISM, NEC Status: Acute Current Visit: Yes Problem List Initiated/Reviewed/Updated: Yes Orders Last 24hrs: Active Orders 24 hr Category Date Time Status Admission Status [Patient Status] [ADT] Routine ADT 06/11/20 21:33 Active Cardiac Monitoring [RC] . DIRECTED Care 06/11/20 21:33 Active Oxygen Therapy [RC] PRN Care 06/11/20 22:23 Active Up With Assistance [RC] ASDIRECTED Care 06/11/20 22:23 Active VTE/DVT Education [RC] PER UNIT ROUTINE Care 06/11/20 22:23 Active Vital Signs [RC] Q4HR Care 06/11/20 22:23 Active PT Evaluation and Treatment [CONS] Routine Cons 06/11/20 22:23 Active Regular Diet [DIET] Diet 06/12/20 Breakfast Active Chest 1V Frontal [CR] Stat Exams 06/11/20 16:31 Taken C-REACTIVE PROTEIN [CHEM] AM Lab 06/12/20 06:30 Received CBC WITH AUTO DIFF [HEME] AM Lab 06/12/20 06:30 Results CMP [COMPREHENSIVE METABOLIC PN,CMP] [CHEM] AM Lab 06/12/20 06:30 Received CULTURE URINE [RM] Stat Lab 06/11/20 17:27 Received MAGNESIUM [CHEM] AM Lab 06/12/20 06:30 Received PHOSPHORUS [CHEM] AM Lab 06/12/20 06:30 Received VITAMIN D,25-HYDROXY [CHEM] AM Lab 06/12/20 06:30 Received Acetaminophen [TylenoL] Med 06/11/20 22:23 Active 650 mg PO Q4H PRN Acetaminophen/HYDROcodone [[place] 325-10 MG] Med 06/11/20 22:39 Active 1 tab PO QID PRN Cholecalciferol (Vitamin D3) [Vitamin D3] Med 06/12/20 09:00 Active 25 mcg PO DAILY EPINEPHrine [EPINEPHrine 1:10,000] Med 06/11/20 18:28 Active 0.3 mg IM ONETIME PRN Enoxaparin [Lovenox] Med 06/12/20 09:00 Active 40 mg SUBCUT DAILY Famotidine [Pepcid] Med 06/11/20 18:28 Active 20 mg IVPUSH ONETIME PRN Famotidine [Pepcid] Med 06/11/20 22:30 Active 20 mg PO BID Gabapentin [Neurontin] Med 06/12/20 09:00 Active 600 mg PO TID Ondansetron [Zofran] Med 06/11/20 22:23 Active 4 mg IV Q4H PRN Potassium Chloride [Potassium Chloride Solution] Med 06/12/20 09:00 Once 40 meq PO ONETIME ONE Rosuvastatin [Crestor] Med 06/12/20 09:00 Active 5 mg PO DAILY Sodium Chloride 0.9% [Saline Flush] Med 06/11/20 18:30 Active 30 ml FLUSH ASDIRECTED Zinc Sulfate [Zincate] Med 06/12/20 09:00 Active 220 mg PO DAILY diphenhydrAMINE [Benadryl] Med 06/11/20 18:28 Active 50 mg IVPUSH ONETIME PRN methylPREDNISolone Sod Succ [Solu-MEDROL] Med 06/11/20 18:28 Active 125 mg IVPUSH ONETIME PRN Code Status [Resuscitation Status] Routine Resus Stat 06/11/20 22:38 Ordered Medication Orders Acetaminophen (Tylenol) 650 mg PO Q4H PRN PRN Reason: Pain (Mild 1-3)/fever Hydrocodone Bitart/Acetaminophen ([place] 325-10 Mg) 1 tab PO QID PRN PRN Reason: Pain Last Admin: 06/11/20 23:04 Dose: 1 tab Documented by: AMRIT Cholecalciferol (Vitamin D3) 25 mcg PO DAILY [facility] Diphenhydramine HCl (Benadryl) 50 mg IVPUSH ONETIME PRN PRN Reason: hypersensitivity reaction Enoxaparin Sodium (Lovenox) 40 mg SUBCUT DAILY [facility] Epinephrine HCl (Epinephrine 1:10,000) 0.3 mg IM ONETIME PRN PRN Reason: hypersensitivity reaction Famotidine (Pepcid) 20 mg IVPUSH ONETIME PRN PRN Reason: hypersensitivity reaction Famotidine (Pepcid) 20 mg PO BID [facility] Last Admin: 06/11/20 23:03 Dose: 20 mg Documented by: AMRIT Gabapentin (Neurontin) 600 mg PO TID AISHA Methylprednisolone Sodium Succinate (Solu-Medrol) 125 mg IVPUSH ONETIME PRN PRN Reason: hypersensitivity reaction Ondansetron HCl (Zofran) 4 mg IV Q4H PRN PRN Reason: Nausea/Vomiting Last Admin: 06/12/20 04:58 Dose: 4 mg Documented by: AMRIT Potassium Chloride (Potassium Chloride Solution) 40 meq PO ONETIME ONE Stop: 06/12/20 09:01 Rosuvastatin Calcium (Crestor) 5 mg PO DAILY [facility] Sodium Chloride (Saline Flush) 30 ml FLUSH ASDIRECTED [facility] Zinc Sulfate (Zincate) 220 mg PO DAILY AISHA Assessment/Plan Comment:: Assessment - day of admission - 06/12/20 (Admitted 06/11/20) * 84 yo female presents to ED via [facility] with worsening weakness and fever * Diagnosed with COVID-19 on 06/06/2020 (Notes son was positive too) * Normally utilizes a walker to ambulate, lives in her home with her son * Poor oral intake - reports not drinking much fluid due to weakness and difficulty getting to bathroom * Not requiring oxygen * Labs: * WBC 6.49-->7.49 * Hgb 14.2-->13.8 * PLT 129-->118 * Sodium 130-->131 * Potassium 2.6-->2.9 * Creatinine 0.9-->0.9 * GFR 59-->59 * D-Dimer 0.48 * Ferritin 160 * LDH 194 * Troponin I 0.029 * CRP 3.3-->10.4 * Phosphorous 2.0 * Magnesium 1.6 * Albumin 3.2-->2.8 * UA appears contaminated - culture sent by ED provider * Given tylenol, 500ml fluid bolus * Given Regeneron treatment in ED * EKG shows sinus rhythm at 75 with LAD, LAFB, Incomplete RBBB, LISBETH, Q-waves in III and aVF, Diffuse repolarization abnormality * Chest x-ray in ED shows nothing acute * Admitted to hospital due to hyponatremia, hypokalemia, hypomagnesemia, COVID- 19 +, Failure to thrive Plan: Hypophosphatemia COVID-19 Dehydration Hyponatremia Malaise and fatigue Weakness Hypokalemia Hypomagnesemia Failure to thrive Hypoalbuminemia * Monitor labs * Supplement magnesium, potassium, phosphorous * PT/OT consult * IS/Acapella * RT consult * Monitor need for O2 - goal saturations 88-94% * CM/SW consultation * Oven Equipment Repairer consult * Airborne and contact isolation * Telemetry Chronic: HLD, hypertension, peripheral venous insufficiency, left upper extremity lymphedema, CKD stage III, osteoarthritis, LDD Code status: Full code DVT prophylaxis: Lovenox PCP: Dr. Monroy Social: Lives in her own home with son by [facility] Disposition: Admit to hospital observation status for failure to thrive, hypomagnesemia, hypokalemia, hypophosphatemia, COVID-19+. Will upgrade to inpatient due to significant electrolyte abnormalities, likely need for placement, and concerns over COVID-19. Prognosis: Good - Mortality Measure Prognosis:: Good
[2020-06-12 07:32] LABS: VITAMIN D,25-HYDROXY 51.1 ng/ml (30.0-100.0)
[2020-06-12] MEDS ORDERED: Magnesium Sulfate/Water 2 GM/50 ML BAG IV ONE (08:00)
[2020-06-12] MEDS ORDERED: HYDROCODONE PO PRN (08:42)
[2020-06-12] MEDS ORDERED: ACETAMINOPHEN PO PRN (08:42)
--- NOTE | 2020-06-12 08:44 | CR ---
Chest: Portable view of the chest was obtained. Comparison: Prior chest x-ray of 11/08/17. Findings: Heart and mediastinum: Heart size is slightly prominent but accentuated due to portable technique. Tortuous thoracic aorta is seen. No discrete mediastinal abnormality is seen. Lungs: No acute parenchymal process is seen. Osseous: Appearance of chronic rotator cuff tear on the right side. Osteopenia is seen. Previous lumbar spine surgery is noted. No definite acute osseous finding is seen. Impression: 1. Findings as noted above. 2. Nothing acute is appreciated on portable chest x-ray. Diagnostic code #2
[2020-06-12] MEDS ORDERED: Potassium Chloride 10% 20 MEQ/15 ML Soln 15 ML UD Cup PO ONE (09:00)
[2020-06-12] MEDS ORDERED: ROSUVASTATIN 10 MG PO SCH (09:00)
[2020-06-12] MEDS ORDERED: GABAPENTIN 600 MG PO SCH (09:00)
[2020-06-12] MEDS ORDERED: Gabapentin 300 MG Cap PO SCH (09:00)
[2020-06-12] MEDS ORDERED: Rosuvastatin 10 MG Tab PO SCH (09:00)
[2020-06-12] MEDS: Famotidine 20 MG Tab PO SCH (09:14)
[2020-06-12] MEDS: Enoxaparin 40 MG/0.4 ML Syringe SUBCUT SCH (09:15)
[2020-06-12] MEDS: Zinc Sulfate 220 MG Cap PO SCH (09:15)
[2020-06-12] MEDS: Cholecalciferol (Vitamin D3) 25 MCG Tab PO SCH (09:15)
[2020-06-12] MEDS ORDERED: Sodium Phosphate 30 MMOLE in Sodium Chloride 0.9% 250 ML IV ONE (09:30)
[2020-06-12] MEDS ORDERED: Acetaminophen/HYDROcodone 325-10 MG Tab PO PRN (13:52)
[2020-06-12] MEDS ORDERED: EPINEPHrine 1 MG/ML SDV IM PRN (13:54)
[2020-06-12] MEDS: Gabapentin 600 MG TAB PO SCH ×2 (14:50→20:33)
[2020-06-12] MEDS: Potassium Chloride 10% 20 MEQ/15 ML Soln 15 ML UD Cup PO SCH (20:38)
--- NOTE | 2020-06-13 07:30 | PCM.PN ---
- General Info Date of Service: 06/13/20 Admission Dx/Problem (Free Text): Admission Diagnosis/Problem Admission Diagnosis/Problem Hyponatremia Subjective Update: In to see Ritu. Clinically she looks much better and agrees she feels better. She remains off of oxygen. Her PO intake has improved. She reports her son (whom she lives with) is very sick with COVID-19 and unable to care for her until he feels better. SW is aware of this and discussing options with family and patient. No patient or nursing concerns. Functional Status: Reports: Pain Controlled, Tolerating Diet, Ambulating, Urinating, Incentive Spirometry, Other (acapella ). Denies: New Symptoms - Review of Systems General: Reports: No Symptoms, Weakness, Fatigue, Malaise. Denies: Fever, Chills HEENT: Reports: No Symptoms. Denies: Headaches, Sore Throat Pulmonary: Reports: Shortness of Breath, Cough, Sputum Cardiovascular: Reports: No Symptoms, Dyspnea on Exertion. Denies: Chest Pain, Edema Gastrointestinal: Reports: No Symptoms. Denies: Abdominal Pain, Constipation, Diarrhea, Nausea, Vomiting Genitourinary: Reports: No Symptoms. Denies: Pain Musculoskeletal: Reports: Back Pain Skin: Reports: No Symptoms. Denies: Cyanosis Neurological: Reports: No Symptoms, Difficulty Walking, Weakness. Denies: Confusion, Pre-Existing Deficit Psychiatric: Reports: No Symptoms - Patient Data Vitals - Most Recent: Last Vital Signs Temp 97.5 F 06/13/20 00:15 Pulse 78 06/12/20 20:37 Resp 18 06/13/20 00:15 BP 112/86 06/13/20 00:15 Pulse Ox 94 L 06/13/20 06:12 Weight - Most Recent: 128 lb 1.6 oz I&O - Last 24 Hours: Intake & Output 06/12/20 06/13/20 06/13/20 22:59 06:59 14:59 Intake Total 710 620 Output Total 250 Balance 710 370 Lab Results Last 24 Hours: Laboratory Results - last 24 hr 06/12/20 06/12/20 06/13/20 Range/Units 06:30 06:30 05:43 WBC 3.27 L (3.98-10.04) K/mm3 RBC 4.21 (3.98-5.22) M/mm3 Hgb 13.3 (11.2-15.7) gm/dl Hct 39.7 (34.1-44.9) % MCV 94.3 (79.4-94.8) fl MCH 31.6 (25.6-32.2) pg MCHC 33.5 (32.2-35.5) g/dl RDW Std Deviation 45.1 (36.4-46.3) fL Plt Count 117 L (182-369) K/mm3 MPV 9.6 (9.4-12.3) fl Neut % (Auto) 44.7 (34.0-71.1) % Lymph % (Auto) 36.4 (19.3-51.7) % [place] % (Auto) 18.3 H (4.7-12.5) % Eos % (Auto) 0 L (0.7-5.8) Baso % (Auto) 0.6 (0.1-1.2) % Neut # (Auto) 1.46 L (1.56-6.13) K/mm3 Lymph # (Auto) 1.19 (1.18-3.74) K/mm3 [place] # (Auto) 0.60 H (0.24-0.36) K/mm3 Eos # (Auto) 0.00 L (0.04-0.36) K/mm3 Baso # (Auto) 0.02 (0.01-0.08) K/mm3 Manual Slide Review Abnormal smear D-Dimer, Quantitative (0.19-0.50) mg/L Sodium 131 L (136-145) mEq/L Potassium 2.9 L (3.5-5.1) mEq/L Chloride 95 L (98-107) mEq/L Carbon Dioxide 28 (21-32) mEq/L Anion Gap 10.9 (5-15) BUN 19 H (7-18) mg/dL Creatinine 0.9 (0.55-1.02) mg/dL Est Cr Clr Drug Dosing 40.38 mL/min Estimated GFR (MDRD) 59 (>60) mL/min BUN/Creatinine Ratio 21.1 H (14-18) Glucose 98 (83-115) mg/dL Calcium 8.5 (8.5-10.1) mg/dL Phosphorus 2.0 L (2.6-4.7) mg/dL Magnesium 1.6 L (1.8-2.4) mg/dl Total Bilirubin 0.4 (0.2-1.0) mg/dL AST 16 (15-37) U/L ALT 17 (14-59) U/L Alkaline Phosphatase 43 L (46-116) U/L C-Reactive Protein 10.4 H* (<1.0) mg/dL Total Protein 6.6 (6.4-8.2) g/dl Albumin 2.8 L (3.4-5.0) g/dl Globulin 3.8 gm/dL Albumin/Globulin Ratio 0.7 L (1-2) Vitamin D 25-Hydroxy 51.1 (30.0-100.0) ng/ml 06/13/20 06/13/20 Range/Units 05:43 05:43 WBC (3.98-10.04) K/mm3 RBC (3.98-5.22) M/mm3 Hgb (11.2-15.7) gm/dl Hct (34.1-44.9) % MCV (79.4-94.8) fl MCH (25.6-32.2) pg MCHC (32.2-35.5) g/dl RDW Std Deviation (36.4-46.3) fL Plt Count (182-369) K/mm3 MPV (9.4-12.3) fl Neut % (Auto) (34.0-71.1) % Lymph % (Auto) (19.3-51.7) % [place] % (Auto) (4.7-12.5) % Eos % (Auto) (0.7-5.8) Baso % (Auto) (0.1-1.2) % Neut # (Auto) (1.56-6.13) K/mm3 Lymph # (Auto) (1.18-3.74) K/mm3 [place] # (Auto) (0.24-0.36) K/mm3 Eos # (Auto) (0.04-0.36) K/mm3 Baso # (Auto) (0.01-0.08) K/mm3 Manual Slide Review D-Dimer, Quantitative 0.65 H (0.19-0.50) mg/L Sodium 132 L (136-145) mEq/L Potassium 3.4 L (3.5-5.1) mEq/L Chloride 96 L (98-107) mEq/L Carbon Dioxide 30 (21-32) mEq/L Anion Gap 9.4 (5-15) BUN 23 H (7-18) mg/dL Creatinine 1.0 (0.55-1.02) mg/dL Est Cr Clr Drug Dosing 36.34 mL/min Estimated GFR (MDRD) 53 (>60) mL/min BUN/Creatinine Ratio 23.0 H (14-18) Glucose 94 (83-115) mg/dL Calcium 8.1 L (8.5-10.1) mg/dL Phosphorus 2.1 L (2.6-4.7) mg/dL Magnesium 2.1 (1.8-2.4) mg/dl Total Bilirubin 0.3 (0.2-1.0) mg/dL AST 22 (15-37) U/L ALT 16 (14-59) U/L Alkaline Phosphatase 37 L (46-116) U/L C-Reactive Protein (<1.0) mg/dL Total Protein 6.1 L (6.4-8.2) g/dl Albumin 2.5 L (3.4-5.0) g/dl Globulin 3.6 gm/dL Albumin/Globulin Ratio 0.7 L (1-2) Vitamin D 25-Hydroxy (30.0-100.0) ng/ml Med Orders - Current: Current Medications Acetaminophen (Tylenol) 650 mg PO Q4H PRN PRN Reason: Pain (Mild 1-3)/fever Last Admin: 06/12/20 20:33 Dose: 650 mg Documented by: Hydrocodone Bitart/Acetaminophen ([place] 325-10 Mg) 1 tab PO QID PRN PRN Reason: Pain Cholecalciferol (Vitamin D3) 25 mcg PO DAILY [facility] Last Admin: 06/12/20 09:15 Dose: 25 mcg Documented by: Diphenhydramine HCl (Benadryl) 50 mg IVPUSH ONETIME PRN PRN Reason: hypersensitivity reaction Enoxaparin Sodium (Lovenox) 40 mg SUBCUT DAILY [facility] Last Admin: 06/12/20 09:15 Dose: 40 mg Documented by: Epinephrine HCl (Adrenalin) 0.3 mg IM ONETIME PRN PRN Reason: hypersensitivity reaction Famotidine (Pepcid) 20 mg IVPUSH ONETIME PRN PRN Reason: hypersensitivity reaction Famotidine (Pepcid) 20 mg PO DAILY [facility] Gabapentin (Neurontin) 600 mg PO TID [facility] Last Admin: 06/12/20 20:33 Dose: 600 mg Documented by: Methylprednisolone Sodium Succinate (Solu-Medrol) 125 mg IVPUSH ONETIME PRN PRN Reason: hypersensitivity reaction Ondansetron HCl (Zofran) 4 mg IV Q4H PRN PRN Reason: Nausea/Vomiting Last Admin: 06/12/20 04:58 Dose: 4 mg Documented by: Potassium Chloride (Potassium Chloride Solution) 40 meq PO BID [facility] Stop: 06/13/20 09:01 Last Admin: 06/12/20 20:38 Dose: 40 meq Documented by: Rosuvastatin Calcium (Crestor) 5 mg PO DAILY [facility] Sodium Chloride (Saline Flush) 30 ml FLUSH ASDIRECTED [facility] Sodium Phosphate (Neutra-Phos) 250 mg PO BID [facility] Stop: 06/14/20 21:01 Zinc Sulfate (Zincate) 220 mg PO DAILY [facility] Last Admin: 06/12/20 09:15 Dose: 220 mg Documented by: Discontinued Medications Acetaminophen (Tylenol) 975 mg PO NOW ONE Stop: 06/11/20 16:35 Last Admin: 06/11/20 17:17 Dose: 975 mg Documented by: Hydrocodone Bitart/Acetaminophen ([place] 325-10 Mg) 1 tab PO QID PRN PRN Reason: Pain Last Admin: 06/11/20 23:04 Dose: 1 tab Documented by: Hydrocodone Bitart/Acetaminophen ([place] 325-10 Mg) 1 tab PO QID PRN PRN Reason: Pain Epinephrine HCl (Epinephrine 1:10,000) 0.3 mg IM ONETIME PRN PRN Reason: hypersensitivity reaction Famotidine (Pepcid) 20 mg PO BID [facility] Last Admin: 06/12/20 09:14 Dose: 20 mg Documented by: Gabapentin (Neurontin) 600 mg PO TID [facility] Gabapentin (Neurontin) 600 mg PO TID [facility] Last Admin: 06/12/20 09:20 Dose: 600 mg Documented by: Sodium Chloride (Normal Saline) 500 mls @ 999 mls/hr IV .BOLUS ONE Stop: 06/11/20 17:03 Last Admin: 06/11/20 17:16 Dose: 999 mls/hr Documented by: Potassium Chloride 10 meq/ (Premix) 100 mls @ 100 mls/hr IV ASDIRECTED ONE Stop: 06/11/20 19:31 Last Admin: 06/11/20 21:43 Dose: Not Given Documented by: Potassium Chloride 10 meq/ (Premix) 100 mls @ 100 mls/hr IV ASDIRECTED ONE Stop: 06/11/20 19:31 Last Admin: 06/11/20 21:43 Dose: Not Given Documented by: Non-Formulary Medication 1,200 mg/ Non-Formulary Medication 1,200 mg/ Sodium Chloride 250 mls @ 250 mls/hr IV ONETIME ONE Stop: 06/11/20 21:29 Last Admin: 06/11/20 20:33 Dose: 250 mls/hr Documented by: Sodium Phosphate 30 mmole/ (Sodium Chloride) 260 mls @ 130 mls/hr IV ONETIME ONE Stop: 06/12/20 11:29 Last Admin: 06/12/20 09:14 Dose: 130 mls/hr Documented by: Magnesium Sulfate (Magnesium Sulfate In Water Premix) 2 gm in 50 mls @ 25 mls/hr IV ONETIME ONE Stop: 06/12/20 09:59 Last Admin: 06/12/20 09:14 Dose: 25 mls/hr Documented by: Potassium Chloride (Potassium Chloride Solution) 40 meq PO ONETIME ONE Stop: 06/11/20 22:41 Last Admin: 06/11/20 23:04 Dose: 40 meq Documented by: Potassium Chloride (Potassium Chloride Solution) 40 meq PO ONETIME ONE Stop: 06/12/20 09:01 Last Admin: 06/12/20 09:15 Dose: 40 meq Documented by: Rosuvastatin Calcium (Crestor) 5 mg PO DAILY [facility] Rosuvastatin Calcium (Crestor) 5 mg PO DAILY [facility] Last Admin: 06/12/20 09:24 Dose: 5 mg Documented by: - Exam Quality Assessment: DVT Prophylaxis. No: Supplemental Oxygen, Urine Catheter General: Alert, Oriented, Cooperative, No Acute Distress HEENT: Pupils Equal, Pupils Reactive, Mucous Membr. Moist/[place] Neck: Supple, Trachea Midline Lungs: Clear to Auscultation, Normal Respiratory Effort Cardiovascular: Regular Rate, Regular Rhythm GI/Abdominal Exam: Normal Bowel Sounds, Soft, Non-Tender, No Distention (Female) Exam: Deferred Back Exam: Decreased Range of Motion Extremities: Normal Inspection, Normal Range of Motion, Non-Tender, No Pedal Edema, Normal Capillary Refill Skin: Warm, Dry, Intact Neurological: No New Focal Deficit Psy/Mental Status: Alert, Normal Affect, Normal Mood Sepsis Event Note - Evaluation Sepsis Screening Result: No Definite Risk - Focused Exam Vital Signs: Vital Signs Temp Pulse Resp BP Pulse Ox Pulse Ox 06/13/20 06:12 94 L 06/13/20 00:15 97.5 F 18 112/86 06/12/20 20:37 98.2 F 78 20 148/66 H 94 L - Problem List & Annotations (1) Hypophosphatemia SNOMED Code(s): 1394909 Code(s): E83.39 - OTHER DISORDERS OF PHOSPHORUS METABOLISM Status: Acute Priority: High Current Visit: Yes (2) COVID-19 SNOMED Code(s): 463134022 Code(s): U07.1 - COVID-19 Status: Acute Priority: High Current Visit: Yes (3) Dehydration SNOMED Code(s): 33694035 Code(s): E86.0 - DEHYDRATION Status: Acute Priority: High Current Visit: Yes (4) Hyponatremia SNOMED Code(s): 79677692 Code(s): E87.1 - HYPO-OSMOLALITY AND HYPONATREMIA Status: Acute Priority: High Current Visit: Yes (5) Malaise and fatigue SNOMED Code(s): 926653055 Code(s): R53.81 - OTHER MALAISE; R53.83 - OTHER FATIGUE Status: Acute Priority: High Current Visit: Yes (6) Weakness SNOMED Code(s): 73986562 Code(s): R53.1 - WEAKNESS Status: Acute Priority: High Current Visit: Yes (7) Hypokalemia SNOMED Code(s): 58803560 Code(s): E87.6 - HYPOKALEMIA Status: Acute Priority: High Current Visit: Yes (8) Hypomagnesemia SNOMED Code(s): 944714876 Code(s): E83.42 - HYPOMAGNESEMIA Status: Acute Priority: High Current Visit: Yes (9) Failure to thrive SNOMED Code(s): 27503725 Code(s): IKS3302 - Status: Acute Priority: High Current Visit: Yes Qualifiers: Failure to thrive age range: in adult Qualified Code(s): R62.7 - Adult failure to thrive (10) Hypoalbuminemia SNOMED Code(s): 928218345 Code(s): E88.09 - [facility] DISORDERS OF PLASMA-PROTEIN METABOLISM, NEC Status: Acute Current Visit: Yes - Problem List Review Problem List Initiated/Reviewed/Updated: Yes - My Orders Last 24 Hours: My Active Orders 06/12/20 07:28 Consult to Case Management/Senior Business Intelligence Analyst [CONS] Routine Consult to Manager Social [CONS] Routine OT Evaluation and Treatment [CONS] Routine 06/12/20 09:41 Acapella [RT Chest Physiotherapy] [RC] ASDIRECTED RT Incentive Spirometry [RC] ASDIRECTED 06/12/20 09:42 Consult to Respiratory Therapy [Respiratory Care Assess and Treatment] [CONS] Routine Consult to Spiritual Care [CONS] Routine Isolation [COMM] Routine 06/12/20 10:44 Patient Status [ADT] Routine 06/12/20 21:00 Potassium Chloride [Potassium Chloride Solution] 40 meq PO BID 06/13/20 05:43 CBC WITH AUTO DIFF [HEME] AM 06/13/20 09:00 Phosphorus #1 [Neutra-Phos] 250 mg PO BID 06/14/20 05:11 CBC WITH AUTO DIFF [HEME] AM CMP [COMPREHENSIVE METABOLIC PN,CMP] [CHEM] AM DD [D-DIMER QUANTITATIVE] [COAG] AM MAGNESIUM [CHEM] AM 06/15/20 05:11 CBC WITH AUTO DIFF [HEME] AM CMP [COMPREHENSIVE METABOLIC PN,CMP] [CHEM] AM DD [D-DIMER QUANTITATIVE] [COAG] AM MAGNESIUM [CHEM] AM 06/16/20 05:11 CBC WITH AUTO DIFF [HEME] AM CMP [COMPREHENSIVE METABOLIC PN,CMP] [CHEM] AM DD [D-DIMER QUANTITATIVE] [COAG] AM MAGNESIUM [CHEM] AM - Plan Plan:: Assessment - day of admission - 06/12/20 (Admitted 06/11/20) * 84 yo female presents to ED via [facility] with worsening weakness and fever * Diagnosed with COVID-19 on 06/06/2020 (Notes son was positive too) * Normally utilizes a walker to ambulate, lives in her home with her son * Poor oral intake - reports not drinking much fluid due to weakness and difficulty getting to bathroom * Not requiring oxygen * Labs: * WBC 6.49-->7.49 * Hgb 14.2-->13.8 * PLT 129-->118 * Sodium 130-->131 * Potassium 2.6-->2.9 * Creatinine 0.9-->0.9 * GFR 59-->59 * D-Dimer 0.48-->0.65 * Ferritin 160 * LDH 194 * Troponin I 0.029 * CRP 3.3-->10.4 * Phosphorous 2.0 * Magnesium 1.6 * Albumin 3.2-->2.8 * UA appears contaminated - culture sent by ED provider * Given tylenol, 500ml fluid bolus * Given Regeneron treatment in ED * EKG shows sinus rhythm at 75 with LAD, LAFB, Incomplete RBBB, LISBETH, Q-waves in III and aVF, Diffuse repolarization abnormality * Chest x-ray in ED shows nothing acute * Admitted to hospital due to hyponatremia, hypokalemia, hypomagnesemia, COVID- 19 +, Failure to thrive 06/13/2020 * Improvement with therapies * Labs * WBC 3.27 * Hgb 13.3 * PLT 117 * Sodium 132 * Potassium 3.4 * Creatinine 1.0 * GFR 53 * Phosphorous 2.1 * Magnesium 2.1 * Albumin 2.5 * Not requiring oxygen * Supplementing magnesium/phosphorous/potassium * VSS * Labs grossly stable * States she feels less weak Plan: Hypophosphatemia COVID-19 Dehydration Hyponatremia Malaise and fatigue Weakness Hypokalemia Hypomagnesemia Failure to thrive Hypoalbuminemia * Monitor labs * Supplement magnesium, potassium, phosphorous * PT/OT consult * IS/Acapella * RT consult * Monitor need for O2 - goal saturations 88-94% * CM/SW consultation * Manager Social consult * Airborne and contact isolation * Telemetry Chronic: HLD, hypertension, peripheral venous insufficiency, left upper extremity lymphedema, CKD stage III, osteoarthritis, LDD Code status: Full code DVT prophylaxis: Lovenox PCP: Dr. Monroy Social: Lives in her own home with son by [place] Disposition: Admit to hospital observation status for failure to thrive, hypomagnesemia, hypokalemia, hypophosphatemia, COVID-19+. Will upgrade to inpatient due to significant electrolyte abnormalities, likely need for placement, and concerns over COVID-19. Prognosis: Good
[2020-06-13] MEDS: Famotidine 20 MG Tab PO SCH (09:02)
[2020-06-13] MEDS: Potassium Chloride 10% 20 MEQ/15 ML Soln 15 ML UD Cup PO SCH (09:03)
[2020-06-13] MEDS: Enoxaparin 40 MG/0.4 ML Syringe SUBCUT SCH (09:04)
[2020-06-13] MEDS: Rosuvastatin 10 MG Tab PO SCH (09:05)
[2020-06-13] MEDS: Cholecalciferol (Vitamin D3) 25 MCG Tab PO SCH (09:06)
[2020-06-13] MEDS: Phosphorus #1 250 MG Tab PO SCH ×2 (09:06→21:26)
[2020-06-13] MEDS: Gabapentin 600 MG TAB PO SCH ×3 (09:06→21:26)
[2020-06-13] MEDS: Zinc Sulfate 220 MG Cap PO SCH (09:06)
[2020-06-13] MEDS ORDERED: Potassium Chloride 10% 20 MEQ/15 ML Soln 15 ML UD Cup PO ONE (21:00)
[2020-06-14] MEDS ORDERED: Magnesium Sulfate/Water 2 GM/50 ML BAG IV ONE (07:29)
--- NOTE | 2020-06-14 07:29 | PCM.PN ---
- General Info Date of Service: 06/14/20 Admission Dx/Problem (Free Text): Admission Diagnosis/Problem Admission Diagnosis/Problem Hyponatremia Subjective Update: In to see Ritu. Her oral intake has improved and she has been working with therapies. They continue to recommend SNF placement. Social work does discharge plan with patient and her son and it was decided the patient would be best served at a SNF facility. Patient has selected [facility]. Magn esium was supplemented today. She otherwise continues to do well. We will recheck BMP mag and phosphorus tomorrow. Social work will assist in arranging placement, as there has been some issues placing Covid positive patients based on timeframe of infection. She remains off oxygen and lung sounds remain clear. Functional Status: Reports: Pain Controlled, Tolerating Diet, Ambulating, Urinating, Incentive Spirometry, Other (Acapella ). Denies: New Symptoms - Review of Systems General: Reports: Weakness (improving ). Denies: Fever, Fatigue, Malaise, Chills HEENT: Reports: No Symptoms. Denies: Headaches, Sinus Congestion Pulmonary: Reports: Shortness of Breath (very mild ), Cough (improving ). Denies: Pleuritic Chest Pain, Sputum, Wheezing Cardiovascular: Reports: Dyspnea on Exertion (improved ). Denies: Chest Pain, Palpitations Gastrointestinal: Reports: Decreased Appetite (Improving PO ). Denies: Abdominal Pain, Constipation, Diarrhea, Nausea, Vomiting Genitourinary: Reports: No Symptoms. Denies: Pain Musculoskeletal: Reports: Back Pain (Chronic ) Skin: Reports: No Symptoms. Denies: Cyanosis Neurological: Reports: Difficulty Walking, Weakness. Denies: Confusion, Numbness, Tingling, Gait Disturbance Psychiatric: Reports: No Symptoms - Patient Data Vitals - Most Recent: Last Vital Signs Temp 97.5 F 06/14/20 03:38 Pulse 65 06/14/20 03:38 Resp 14 06/14/20 03:38 BP 139/71 06/14/20 03:38 Pulse Ox 93 L 06/14/20 03:38 Weight - Most Recent: 126 lb 12.8 oz I&O - Last 24 Hours: Intake & Output 06/13/20 06/14/20 06/14/20 22:59 06:59 14:59 Intake Total 420 325 Output Total 900 400 Balance -480 -75 Lab Results Last 24 Hours: Laboratory Results - last 24 hr 06/13/20 06/14/20 06/14/20 Range/Units 05:43 05:59 05:59 WBC 5.55 (3.98-10.04) K/mm3 RBC 4.15 (3.98-5.22) M/mm3 Hgb 13.0 (11.2-15.7) gm/dl Hct 39.4 (34.1-44.9) % MCV 94.9 H (79.4-94.8) fl MCH 31.3 (25.6-32.2) pg MCHC 33.0 (32.2-35.5) g/dl RDW Std Deviation 45.5 (36.4-46.3) fL Plt Count 122 L (182-369) K/mm3 MPV 9.8 (9.4-12.3) fl Neut % (Auto) 60.1 (34.0-71.1) % Lymph % (Auto) 25.8 (19.3-51.7) % Parker % (Auto) 13.5 H (4.7-12.5) % Eos % (Auto) 0.2 L (0.7-5.8) Baso % (Auto) 0.2 (0.1-1.2) % Neut # (Auto) 3.34 (1.56-6.13) K/mm3 Lymph # (Auto) 1.43 (1.18-3.74) K/mm3 Parker # (Auto) 0.75 H (0.24-0.36) K/mm3 Eos # (Auto) 0.01 L (0.04-0.36) K/mm3 Baso # (Auto) 0.01 (0.01-0.08) K/mm3 Manual Slide Review Abnormal smear D-Dimer, Quantitative 0.36 (0.19-0.50) mg/L Sodium (136-145) mEq/L Potassium (3.5-5.1) mEq/L Chloride (98-107) mEq/L Carbon Dioxide (21-32) mEq/L Anion Gap (5-15) BUN (7-18) mg/dL Creatinine (0.55-1.02) mg/dL Est Cr Clr Drug Dosing mL/min Estimated GFR (MDRD) (>60) mL/min BUN/Creatinine Ratio (14-18) Glucose (83-115) mg/dL Calcium (8.5-10.1) mg/dL Magnesium (1.8-2.4) mg/dl Total Bilirubin (0.2-1.0) mg/dL AST (15-37) U/L ALT (14-59) U/L Alkaline Phosphatase (46-116) U/L C-Reactive Protein (<1.0) mg/dL Total Protein (6.4-8.2) g/dl Albumin (3.4-5.0) g/dl Globulin gm/dL Albumin/Globulin Ratio (1-2) 06/14/20 Range/Units 05:59 WBC (3.98-10.04) K/mm3 RBC (3.98-5.22) M/mm3 Hgb (11.2-15.7) gm/dl Hct (34.1-44.9) % MCV (79.4-94.8) fl MCH (25.6-32.2) pg MCHC (32.2-35.5) g/dl RDW Std Deviation (36.4-46.3) fL Plt Count (182-369) K/mm3 MPV (9.4-12.3) fl Neut % (Auto) (34.0-71.1) % Lymph % (Auto) (19.3-51.7) % Parker % (Auto) (4.7-12.5) % Eos % (Auto) (0.7-5.8) Baso % (Auto) (0.1-1.2) % Neut # (Auto) (1.56-6.13) K/mm3 Lymph # (Auto) (1.18-3.74) K/mm3 Parker # (Auto) (0.24-0.36) K/mm3 Eos # (Auto) (0.04-0.36) K/mm3 Baso # (Auto) (0.01-0.08) K/mm3 Manual Slide Review D-Dimer, Quantitative (0.19-0.50) mg/L Sodium 134 L (136-145) mEq/L Potassium 3.9 (3.5-5.1) mEq/L Chloride 99 (98-107) mEq/L Carbon Dioxide 29 (21-32) mEq/L Anion Gap 9.9 (5-15) BUN 28 H (7-18) mg/dL Creatinine 1.0 (0.55-1.02) mg/dL Est Cr Clr Drug Dosing 36.34 mL/min Estimated GFR (MDRD) 53 (>60) mL/min BUN/Creatinine Ratio 28.0 H (14-18) Glucose 94 (83-115) mg/dL Calcium 8.1 L (8.5-10.1) mg/dL Magnesium 1.8 (1.8-2.4) mg/dl Total Bilirubin 0.2 (0.2-1.0) mg/dL AST 21 (15-37) U/L ALT 17 (14-59) U/L Alkaline Phosphatase 40 L (46-116) U/L C-Reactive Protein 4.8 H* (<1.0) mg/dL Total Protein 6.0 L (6.4-8.2) g/dl Albumin 2.5 L (3.4-5.0) g/dl Globulin 3.5 gm/dL Albumin/Globulin Ratio 0.7 L (1-2) Mark Results Last 24 Hours: Microbiology 06/11/20 17:27 Urine Culture - Preliminary Urine, Bladder Med Orders - Current: Current Medications Acetaminophen (Tylenol) 650 mg PO Q4H PRN PRN Reason: Pain (Mild 1-3)/fever Last Admin: 06/12/20 20:33 Dose: 650 mg Documented by: Hydrocodone Bitart/Acetaminophen (Mcdonough 325-10 Mg) 1 tab PO QID PRN PRN Reason: Pain Cholecalciferol (Vitamin D3) 25 mcg PO DAILY [facility] Last Admin: 06/13/20 09:06 Dose: 25 mcg Documented by: Diphenhydramine HCl (Benadryl) 50 mg IVPUSH ONETIME PRN PRN Reason: hypersensitivity reaction Enoxaparin Sodium (Lovenox) 40 mg SUBCUT DAILY [facility] Last Admin: 06/13/20 09:04 Dose: 40 mg Documented by: Epinephrine HCl (Adrenalin) 0.3 mg IM ONETIME PRN PRN Reason: hypersensitivity reaction Famotidine (Pepcid) 20 mg IVPUSH ONETIME PRN PRN Reason: hypersensitivity reaction Famotidine (Pepcid) 20 mg PO DAILY [facility] Last Admin: 12/08/20 09:02 Dose: 20 mg Documented by: Gabapentin (Neurontin) 600 mg PO TID [facility] Last Admin: 06/13/20 21:26 Dose: 600 mg Documented by: Magnesium Sulfate (Magnesium Sulfate In Water Premix) 2 gm in 50 mls @ 25 mls/hr IV ONETIME ONE Stop: 06/14/20 09:28 Magnesium Oxide (Magnesium Oxide) 400 mg PO DAILY [facility] Methylprednisolone Sodium Succinate (Solu-Medrol) 125 mg IVPUSH ONETIME PRN PRN Reason: hypersensitivity reaction Ondansetron HCl (Zofran) 4 mg IV Q4H PRN PRN Reason: Nausea/Vomiting Last Admin: 06/12/20 04:58 Dose: 4 mg Documented by: Potassium Chloride (Klor-Con M20) 20 meq PO DAILY [facility] Rosuvastatin Calcium (Crestor) 5 mg PO DAILY [facility] Last Admin: 06/13/20 09:05 Dose: 5 mg Documented by: Sodium Chloride (Saline Flush) 30 ml FLUSH ASDIRECTED [facility] Sodium Phosphate (Neutra-Phos) 250 mg PO BID [facility] Stop: 06/14/20 21:01 Last Admin: 06/13/20 21:26 Dose: 250 mg Documented by: Zinc Sulfate (Zincate) 220 mg PO DAILY [facility] Last Admin: 06/13/20 09:06 Dose: 220 mg Documented by: Discontinued Medications Acetaminophen (Tylenol) 975 mg PO NOW ONE Stop: 06/11/20 16:35 Last Admin: 06/11/20 17:17 Dose: 975 mg Documented by: Hydrocodone Bitart/Acetaminophen (Mcdonough 325-10 Mg) 1 tab PO QID PRN PRN Reason: Pain Last Admin: 06/11/20 23:04 Dose: 1 tab Documented by: Hydrocodone Bitart/Acetaminophen (Mcdonough 325-10 Mg) 1 tab PO QID PRN PRN Reason: Pain Epinephrine HCl (Epinephrine 1:10,000) 0.3 mg IM ONETIME PRN PRN Reason: hypersensitivity reaction Famotidine (Pepcid) 20 mg PO BID [facility] Last Admin: 06/12/20 09:14 Dose: 20 mg Documented by: Gabapentin (Neurontin) 600 mg PO TID [facility] Gabapentin (Neurontin) 600 mg PO TID [facility] Last Admin: 06/12/20 09:20 Dose: 600 mg Documented by: Sodium Chloride (Normal Saline) 500 mls @ 999 mls/hr IV .BOLUS ONE Stop: 06/11/20 17:03 Last Admin: 06/11/20 17:16 Dose: 999 mls/hr Documented by: Potassium Chloride 10 meq/ (Premix) 100 mls @ 100 mls/hr IV ASDIRECTED ONE Stop: 06/11/20 19:31 Last Admin: 06/11/20 21:43 Dose: Not Given Documented by: Potassium Chloride 10 meq/ (Premix) 100 mls @ 100 mls/hr IV ASDIRECTED ONE Stop: 06/11/20 19:31 Last Admin: 06/11/20 21:43 Dose: Not Given Documented by: Non-Formulary Medication 1,200 mg/ Non-Formulary Medication 1,200 mg/ Sodium Chloride 250 mls @ 250 mls/hr IV ONETIME ONE Stop: 06/11/20 21:29 Last Admin: 06/11/20 20:33 Dose: 250 mls/hr Documented by: Sodium Phosphate 30 mmole/ (Sodium Chloride) 260 mls @ 130 mls/hr IV ONETIME ONE Stop: 06/12/20 11:29 Last Admin: 06/12/20 09:14 Dose: 130 mls/hr Documented by: Magnesium Sulfate (Magnesium Sulfate In Water Premix) 2 gm in 50 mls @ 25 mls/hr IV ONETIME ONE Stop: 06/12/20 09:59 Last Admin: 06/12/20 09:14 Dose: 25 mls/hr Documented by: Potassium Chloride (Potassium Chloride Solution) 40 meq PO ONETIME ONE Stop: 06/11/20 22:41 Last Admin: 06/11/20 23:04 Dose: 40 meq Documented by: Potassium Chloride (Potassium Chloride Solution) 40 meq PO ONETIME ONE Stop: 06/12/20 09:01 Last Admin: 06/12/20 09:15 Dose: 40 meq Documented by: Potassium Chloride (Potassium Chloride Solution) 40 meq PO BID [facility] Stop: 06/13/20 09:01 Last Admin: 06/13/20 09:03 Dose: 40 meq Documented by: Potassium Chloride (Potassium Chloride Solution) 40 meq PO ONETIME ONE Stop: 06/13/20 21:01 Last Admin: 06/13/20 21:25 Dose: 40 meq Documented by: Rosuvastatin Calcium (Crestor) 5 mg PO DAILY [facility] Rosuvastatin Calcium (Crestor) 5 mg PO DAILY [facility] Last Admin: 06/12/20 09:24 Dose: 5 mg Documented by: - Exam Quality Assessment: DVT Prophylaxis. No: Supplemental Oxygen, Urine Catheter General: Alert, Oriented, Cooperative, No Acute Distress HEENT: Pupils Equal, Pupils Reactive, Mucous Membr. Moist/[place] Neck: Supple, Trachea Midline Lungs: Clear to Auscultation, Normal Respiratory Effort. No: Rales, Wheezing Cardiovascular: Regular Rate, Regular Rhythm GI/Abdominal Exam: Normal Bowel Sounds, Soft, Non-Tender, No Distention (Female) Exam: Deferred Back Exam: Normal Inspection, Full Range of Motion Extremities: Normal Inspection, Normal Range of Motion, Non-Tender, No Pedal Edema, Normal Capillary Refill Skin: Warm, Dry, Intact Neurological: No New Focal Deficit Psy/Mental Status: Alert, Normal Affect, Normal Mood Sepsis Event Note - Evaluation Sepsis Screening Result: No Definite Risk - Focused Exam Vital Signs: Vital Signs Temp Pulse Resp BP Pulse Ox Pulse Ox 06/14/20 03:38 97.5 F 65 14 139/71 93 L 06/14/20 00:42 66 147/80 H 93 L 06/14/20 00:41 97.5 F 63 18 148/116 H 93 L 06/13/20 19:59 96 06/13/20 19:51 135/79 06/13/20 19:50 97.9 F 79 18 153/116 H 100 - Problem List & Annotations (1) Hypophosphatemia SNOMED Code(s): 0645556 Code(s): E83.39 - OTHER DISORDERS OF PHOSPHORUS METABOLISM Status: Acute Priority: High Current Visit: Yes (2) COVID-19 SNOMED Code(s): 348239907 Code(s): U07.1 - COVID-19 Status: Acute Priority: High Current Visit: Yes (3) Dehydration SNOMED Code(s): 90327978 Code(s): E86.0 - DEHYDRATION Status: Acute Priority: High Current Visit: Yes (4) Hyponatremia SNOMED Code(s): 94425293 Code(s): E87.1 - HYPO-OSMOLALITY AND HYPONATREMIA Status: Acute Priority: High Current Visit: Yes (5) Malaise and fatigue SNOMED Code(s): 037456438 Code(s): R53.81 - OTHER MALAISE; R53.83 - OTHER FATIGUE Status: Acute Priority: High Current Visit: Yes (6) Weakness SNOMED Code(s): 06174271 Code(s): R53.1 - WEAKNESS Status: Acute Priority: High Current Visit: Yes (7) Hypokalemia SNOMED Code(s): 17888494 Code(s): E87.6 - HYPOKALEMIA Status: Acute Priority: High Current Visit: Yes (8) Hypomagnesemia SNOMED Code(s): 639007462 Code(s): E83.42 - HYPOMAGNESEMIA Status: Acute Priority: High Current Visit: Yes (9) Failure to thrive SNOMED Code(s): 90345063 Code(s): FVS6334 - Status: Acute Priority: High Current Visit: Yes Qualifiers: Failure to thrive age range: in adult Qualified Code(s): R62.7 - Adult failure to thrive (10) Hypoalbuminemia SNOMED Code(s): 006820069 Code(s): E88.09 - [facility] DISORDERS OF PLASMA-PROTEIN METABOLISM, NEC Status: Acute Current Visit: Yes - Problem List Review Problem List Initiated/Reviewed/Updated: Yes - My Orders Last 24 Hours: My Active Orders 06/13/20 09:00 Phosphorus #1 [Neutra-Phos] 250 mg PO BID 06/14/20 07:29 Magnesium Sulfate 2 GM in Water @ 25 MLS/HR ONETIME (50ml) Magnesium Sulfate/Water [Magnesium Sulfate in Water Premix] 2 gm in 50 ml IV ONETIME 06/14/20 09:00 Magnesium Oxide 400 mg PO DAILY Potassium Chloride [Klor-Con M20] 20 meq PO DAILY 06/15/20 05:11 CBC WITH AUTO DIFF [HEME] AM CMP [COMPREHENSIVE METABOLIC PN,CMP] [CHEM] AM CRP [C-REACTIVE PROTEIN] [CHEM] AM DD [D-DIMER QUANTITATIVE] [COAG] AM MAGNESIUM [CHEM] AM PHOSPHORUS [CHEM] AM 06/16/20 05:11 CBC WITH AUTO DIFF [HEME] AM CMP [COMPREHENSIVE METABOLIC PN,CMP] [CHEM] AM CRP [C-REACTIVE PROTEIN] [CHEM] AM DD [D-DIMER QUANTITATIVE] [COAG] AM MAGNESIUM [CHEM] AM 06/17/20 05:11 CRP [C-REACTIVE PROTEIN] [CHEM] AM - Assessment Assessment:: Assessment - day of admission - 06/12/20 (Admitted 06/11/20) * 84 yo female presents to ED via [facility] with worsening weakness and fever * Diagnosed with COVID-19 on 06/06/2020 (Notes son was positive too) * Normally utilizes a walker to ambulate, lives in her home with her son * Poor oral intake - reports not drinking much fluid due to weakness and difficulty getting to bathroom * Not requiring oxygen * Labs: * WBC 6.49-->7.49 * Hgb 14.2-->13.8 * PLT 129-->118 * Sodium 130-->131 * Potassium 2.6-->2.9 * Creatinine 0.9-->0.9 * GFR 59-->59 * D-Dimer 0.48-->0.65 * Ferritin 160 * LDH 194 * Troponin I 0.029 * CRP 3.3-->10.4 * Phosphorous 2.0 * Magnesium 1.6 * Albumin 3.2-->2.8 * UA appears contaminated - culture sent by ED provider * Given tylenol, 500ml fluid bolus * Given Regeneron treatment in ED * EKG shows sinus rhythm at 75 with LAD, LAFB, Incomplete RBBB, LISBETH, Q-waves in III and aVF, Diffuse repolarization abnormality * Chest x-ray in ED shows nothing acute * Admitted to hospital due to hyponatremia, hypokalemia, hypomagnesemia, COVID- 19 +, Failure to thrive 06/13/2020 * Improvement with therapies * Labs * WBC 3.27 * Hgb 13.3 * PLT 117 * Sodium 132 * Potassium 3.4 * Creatinine 1.0 * GFR 53 * Phosphorous 2.1 * Magnesium 2.1 * Albumin 2.5 * Not requiring oxygen * Supplementing magnesium/phosphorous/potassium * VSS * Labs grossly stable * States she feels less weak 06/14/2020 * Continues to improve clinically * Reports she feels better again today * Improved PO intake * VSS * Labs grossly stable * SW discussed discharge plan with patient and patients son who agree on SNF placement - Requesting [facility] * Labs * WBC 5.55 * Hgb 13.0 * Plt 122 * Sodium 134 * Potassium 3.9 * Creatinine 1.0 * GFR 53 * Phosphorous * Magnesium 1.8 * Albumin 2.5 * CRP 4.8 * D-dimer 0.36 * Supplementing magnesium today - Plan Plan:: Hypophosphatemia COVID-19 Dehydration Hyponatremia Malaise and fatigue Weakness Hypokalemia Hypomagnesemia Failure to thrive Hypoalbuminemia * Monitor labs * Supplement magnesium, potassium, phosphorous PRN * PT/OT consult * IS/Acapella * RT consult * Monitor need for O2 - goal saturations 88-94% * CM/SW consultation * [employer] Super[employer] consult * Airborne and contact isolation * Telemetry * Re-check BMP, Mag, Phosphorous tomorrow Chronic: HLD, hypertension, peripheral venous insufficiency, left upper extremity lymphedema, CKD stage III, osteoarthritis, LDD Code status: Full code DVT prophylaxis: Lovenox PCP: Dr. Monroy Social: Lives in her own home with son by [facility] Disposition: Admit to hospital observation status for failure to thrive, hypomagnesemia, hypokalemia, hypophosphatemia, COVID-19+. Will upgrade to inpatient due to significant electrolyte abnormalities, likely need for placement, and concerns over COVID-19. Pending placement Prognosis: Good
[2020-06-14] MEDS: Phosphorus #1 250 MG Tab PO SCH ×2 (08:22→21:58)
[2020-06-14] MEDS: Rosuvastatin 10 MG Tab PO SCH (08:22)
[2020-06-14] MEDS: Gabapentin 600 MG TAB PO SCH ×3 (08:23→21:58)
[2020-06-14] MEDS: Magnesium Oxide 400 MG Tab PO SCH (08:23)
[2020-06-14] MEDS: Cholecalciferol (Vitamin D3) 25 MCG Tab PO SCH (08:23)
[2020-06-14] MEDS: Zinc Sulfate 220 MG Cap PO SCH (08:23)
[2020-06-14] MEDS: Potassium Chloride 20 MEQ Tab.ER PO SCH (08:23)
[2020-06-14] MEDS: Famotidine 20 MG Tab PO SCH (08:23)
[2020-06-14] MEDS: Enoxaparin 40 MG/0.4 ML Syringe SUBCUT SCH (08:24)
[2020-06-15] MEDS: Zinc Sulfate 220 MG Cap PO SCH (08:41)
[2020-06-15] MEDS: Famotidine 20 MG Tab PO SCH (08:41)
[2020-06-15] MEDS: Potassium Chloride 20 MEQ Tab.ER PO SCH (08:41)
[2020-06-15] MEDS: Rosuvastatin 10 MG Tab PO SCH (08:42)
[2020-06-15] MEDS: Gabapentin 600 MG TAB PO SCH (08:42)
[2020-06-15] MEDS: Magnesium Oxide 400 MG Tab PO SCH (08:42)
[2020-06-15] MEDS: Cholecalciferol (Vitamin D3) 25 MCG Tab PO SCH (08:42)
[2020-06-15] MEDS: Enoxaparin 40 MG/0.4 ML Syringe SUBCUT SCH (08:43)
--- NOTE | 2020-06-15 09:39 | PCM.PN ---
- General Info Date of Service: 06/15/20 Admission Dx/Problem (Free Text): Admission Diagnosis/Problem Admission Diagnosis/Problem Hyponatremia Subjective Update: Patient reports feeling well today. States she does have a cough productive of a scant amount of clear sputum. Denies complaints of shortness of breath. States she is ready to go to the correction. Functional Status: Reports: Pain Controlled, Tolerating Diet, Ambulating, In centive Spirometry - Review of Systems General: Reports: No Symptoms HEENT: Reports: Glasses. Denies: Headaches Pulmonary: Reports: Cough, Sputum (Scant amount of clear sputum). Denies: Shortness of Breath, Pleuritic Chest Pain, Wheezing Cardiovascular: Reports: No Symptoms. Denies: Edema Gastrointestinal: Reports: No Symptoms Genitourinary: Reports: No Symptoms Musculoskeletal: Reports: No Symptoms Skin: Reports: No Symptoms Neurological: Reports: No Symptoms Psychiatric: Reports: No Symptoms - Patient Data Vitals - Most Recent: Last Vital Signs Temp 97.3 F 06/15/20 07:24 Pulse 66 06/15/20 07:24 Resp 16 06/15/20 07:24 BP 142/73 H 06/15/20 07:24 Pulse Ox 98 06/15/20 07:24 Weight - Most Recent: 125 lb 11.2 oz I&O - Last 24 Hours: Intake & Output 06/14/20 06/15/20 06/15/20 22:59 06:59 14:59 Intake Total 380 100 Output Total 500 500 Balance -120 -400 Lab Results Last 24 Hours: Laboratory Results - last 24 hr 06/15/20 Range/Units 05:50 Sodium 139 (136-145) mEq/L Potassium 3.8 (3.5-5.1) mEq/L Chloride 102 (98-107) mEq/L Carbon Dioxide 29 (21-32) mEq/L Anion Gap 11.8 (5-15) BUN 22 H (7-18) mg/dL Creatinine 0.8 (0.55-1.02) mg/dL Est Cr Clr Drug Dosing 45.42 mL/min Estimated GFR (MDRD) > 60 (>60) mL/min BUN/Creatinine Ratio 27.5 H (14-18) Glucose 96 (83-115) mg/dL Calcium 8.8 (8.5-10.1) mg/dL Phosphorus 2.6 (2.6-4.7) mg/dL Magnesium 1.9 (1.8-2.4) mg/dl Med Orders - Current: Current Medications Acetaminophen (Tylenol) 650 mg PO Q4H PRN PRN Reason: Pain (Mild 1-3)/fever Last Admin: 06/12/20 20:33 Dose: 650 mg Documented by: Hydrocodone Bitart/Acetaminophen (Gracey 325-10 Mg) 1 tab PO QID PRN PRN Reason: Pain Cholecalciferol (Vitamin D3) 25 mcg PO DAILY [facility] Last Admin: 06/15/20 08:42 Dose: 25 mcg Documented by: Diphenhydramine HCl (Benadryl) 50 mg IVPUSH ONETIME PRN PRN Reason: hypersensitivity reaction Enoxaparin Sodium (Lovenox) 40 mg SUBCUT DAILY [facility] Last Admin: 06/15/20 08:43 Dose: 40 mg Documented by: Epinephrine HCl (Adrenalin) 0.3 mg IM ONETIME PRN PRN Reason: hypersensitivity reaction Famotidine (Pepcid) 20 mg IVPUSH ONETIME PRN PRN Reason: hypersensitivity reaction Famotidine (Pepcid) 20 mg PO DAILY [facility] Last Admin: 06/15/20 08:41 Dose: 20 mg Documented by: Gabapentin (Neurontin) 600 mg PO TID [facility] Last Admin: 06/15/20 08:42 Dose: 600 mg Documented by: Magnesium Oxide (Magnesium Oxide) 400 mg PO DAILY [facility] Last Admin: 06/15/20 08:42 Dose: 400 mg Documented by: Methylprednisolone Sodium Succinate (Solu-Medrol) 125 mg IVPUSH ONETIME PRN PRN Reason: hypersensitivity reaction Ondansetron HCl (Zofran) 4 mg IV Q4H PRN PRN Reason: Nausea/Vomiting Last Admin: 06/12/20 04:58 Dose: 4 mg Documented by: Potassium Chloride (Klor-Con M20) 20 meq PO DAILY [facility] Last Admin: 06/15/20 08:41 Dose: 20 meq Documented by: Rosuvastatin Calcium (Crestor) 5 mg PO DAILY [facility] Last Admin: 06/15/20 08:42 Dose: 5 mg Documented by: Sodium Chloride (Saline Flush) 30 ml FLUSH ASDIRECTED [facility] Zinc Sulfate (Zincate) 220 mg PO DAILY [facility] Last Admin: 06/15/20 08:41 Dose: 220 mg Documented by: Discontinued Medications Acetaminophen (Tylenol) 975 mg PO NOW ONE Stop: 06/11/20 16:35 Last Admin: 06/11/20 17:17 Dose: 975 mg Documented by: Hydrocodone Bitart/Acetaminophen (Gracey 325-10 Mg) 1 tab PO QID PRN PRN Reason: Pain Last Admin: 06/11/20 23:04 Dose: 1 tab Documented by: Hydrocodone Bitart/Acetaminophen (Gracey 325-10 Mg) 1 tab PO QID PRN PRN Reason: Pain Epinephrine HCl (Epinephrine 1:10,000) 0.3 mg IM ONETIME PRN PRN Reason: hypersensitivity reaction Famotidine (Pepcid) 20 mg PO BID [facility] Last Admin: 06/12/20 09:14 Dose: 20 mg Documented by: Gabapentin (Neurontin) 600 mg PO TID [facility] Gabapentin (Neurontin) 600 mg PO TID [facility] Last Admin: 06/12/20 09:20 Dose: 600 mg Documented by: Sodium Chloride (Normal Saline) 500 mls @ 999 mls/hr IV .BOLUS ONE Stop: 06/11/20 17:03 Last Admin: 06/11/20 17:16 Dose: 999 mls/hr Documented by: Potassium Chloride 10 meq/ (Premix) 100 mls @ 100 mls/hr IV ASDIRECTED ONE Stop: 06/11/20 19:31 Last Admin: 06/11/20 21:43 Dose: Not Given Documented by: Potassium Chloride 10 meq/ (Premix) 100 mls @ 100 mls/hr IV ASDIRECTED ONE Stop: 06/11/20 19:31 Last Admin: 06/11/20 21:43 Dose: Not Given Documented by: Non-Formulary Medication 1,200 mg/ Non-Formulary Medication 1,200 mg/ Sodium Chloride 250 mls @ 250 mls/hr IV ONETIME ONE Stop: 06/11/20 21:29 Last Admin: 06/11/20 20:33 Dose: 250 mls/hr Documented by: Sodium Phosphate 30 mmole/ (Sodium Chloride) 260 mls @ 130 mls/hr IV ONETIME ONE Stop: 06/12/20 11:29 Last Admin: 06/12/20 09:14 Dose: 130 mls/hr Documented by: Magnesium Sulfate (Magnesium Sulfate In Water Premix) 2 gm in 50 mls @ 25 mls/hr IV ONETIME ONE Stop: 06/12/20 09:59 Last Admin: 06/12/20 09:14 Dose: 25 mls/hr Documented by: Magnesium Sulfate (Magnesium Sulfate In Water Premix) 2 gm in 50 mls @ 25 mls/hr IV ONETIME ONE Stop: 06/14/20 09:28 Last Admin: 06/14/20 08:24 Dose: 25 mls/hr Documented by: Potassium Chloride (Potassium Chloride Solution) 40 meq PO ONETIME ONE Stop: 06/11/20 22:41 Last Admin: 06/11/20 23:04 Dose: 40 meq Documented by: Potassium Chloride (Potassium Chloride Solution) 40 meq PO ONETIME ONE Stop: 06/12/20 09:01 Last Admin: 06/12/20 09:15 Dose: 40 meq Documented by: Potassium Chloride (Potassium Chloride Solution) 40 meq PO BID [facility] Stop: 06/13/20 09:01 Last Admin: 06/13/20 09:03 Dose: 40 meq Documented by: Potassium Chloride (Potassium Chloride Solution) 40 meq PO ONETIME ONE Stop: 06/13/20 21:01 Last Admin: 06/13/20 21:25 Dose: 40 meq Documented by: Rosuvastatin Calcium (Crestor) 5 mg PO DAILY [facility] Rosuvastatin Calcium (Crestor) 5 mg PO DAILY [facility] Last Admin: 06/12/20 09:24 Dose: 5 mg Documented by: Sodium Phosphate (Neutra-Phos) 250 mg PO BID [facility] Stop: 06/14/20 21:01 Last Admin: 06/14/20 21:58 Dose: 250 mg Documented by: - Exam Quality Assessment: DVT Prophylaxis (Lovenox). No: Supplemental Oxygen General: Alert, Oriented, Cooperative, No Acute Distress HEENT: Pupils Equal, Pupils Reactive, Mucous Membr. Moist/[place] Neck: Supple, Trachea Midline. No: Lymphadenopathy Lungs: Normal Respiratory Effort, Crackles (Right middle and lower lobe) Cardiovascular: Regular Rate, Regular Rhythm, No Murmurs GI/Abdominal Exam: Normal Bowel Sounds, Soft, Non-Tender, No Distention (Female) Exam: Deferred Back Exam: Normal Inspection, Full Range of Motion Extremities: Normal Inspection, Normal Range of Motion, Non-Tender, No Pedal Edema, Normal Capillary Refill Peripheral Pulses: 2+: Radial (L), Radial (R), Dorsalis Pedis (L), Dorsalis Pedis (R) Skin: Warm, Dry, Intact Neurological: No New Focal Deficit Psy/Mental Status: Alert, Normal Affect, Normal Mood Sepsis Event Note - Evaluation Sepsis Screening Result: No Definite Risk - Focused Exam Vital Signs: Vital Signs Temp Pulse Resp BP Pulse Ox 06/15/20 07:24 97.3 F 66 16 142/73 H 98 06/15/20 05:22 97.5 F 75 14 158/91 H 98 06/15/20 01:19 97.5 F 70 20 108/76 95 06/14/20 22:09 97.9 F 67 16 171/87 H 96 - Problem List & Annotations (1) COVID-19 SNOMED Code(s): 756566565 Code(s): U07.1 - COVID-19 Status: Acute Priority: High Current Visit: Yes (2) Dehydration SNOMED Code(s): 83527698 Code(s): E86.0 - DEHYDRATION Status: Acute Priority: High Current Visit: Yes (3) Failure to thrive SNOMED Code(s): 46857246 Code(s): RVV2434 - Status: Acute Priority: High Current Visit: Yes Qualifiers: Failure to thrive age range: in adult Qualified Code(s): R62.7 - Adult failure to thrive (4) Hypoalbuminemia SNOMED Code(s): 525585888 Code(s): E88.09 - OTH DISORDERS OF PLASMA-PROTEIN METABOLISM, NEC Status: Acute Priority: High Current Visit: Yes (5) Hypokalemia SNOMED Code(s): 37689612 Code(s): E87.6 - HYPOKALEMIA Status: Acute Priority: High Current Visit: Yes (6) Hypomagnesemia SNOMED Code(s): 982601588 Code(s): E83.42 - HYPOMAGNESEMIA Status: Acute Priority: High Current Visit: Yes (7) Hyponatremia SNOMED Code(s): 12702040 Code(s): E87.1 - HYPO-OSMOLALITY AND HYPONATREMIA Status: Acute Priority: High Current Visit: Yes (8) Hypophosphatemia SNOMED Code(s): 7199342 Code(s): E83.39 - OTHER DISORDERS OF PHOSPHORUS METABOLISM Status: Acute Priority: High Current Visit: Yes (9) Malaise and fatigue SNOMED Code(s): 609194725 Code(s): R53.81 - OTHER MALAISE; R53.83 - OTHER FATIGUE Status: Acute Priority: High Current Visit: Yes (10) Weakness SNOMED Code(s): 21815280 Code(s): R53.1 - WEAKNESS Status: Acute Priority: High Current Visit: Yes - Problem List Review Problem List Initiated/Reviewed/Updated: Yes - My Orders Last 24 Hours: My Active Orders 06/15/20 09:30 Ready for Discharge [RC] PER UNIT ROUTINE - Assessment Assessment:: Assessment - day of admission - 06/12/20 (Admitted 06/11/20) * 84 yo female presents to ED via [facility] with worsening weakness and fever * Diagnosed with COVID-19 on 06/06/2020 (Notes son was positive too) * Normally utilizes a walker to ambulate, lives in her home with her son * Poor oral intake - reports not drinking much fluid due to weakness and diff iculty getting to bathroom * Not requiring oxygen * Labs: * WBC 6.49-->7.49 * Hgb 14.2-->13.8 * PLT 129-->118 * Sodium 130-->131 * Potassium 2.6-->2.9 * Creatinine 0.9-->0.9 * GFR 59-->59 * D-Dimer 0.48-->0.65 * Ferritin 160 * LDH 194 * Troponin I 0.029 * CRP 3.3-->10.4 * Phosphorous 2.0 * Magnesium 1.6 * Albumin 3.2-->2.8 * UA appears contaminated - culture sent by ED provider * Given tylenol, 500ml fluid bolus * Given Regeneron treatment in ED * EKG shows sinus rhythm at 75 with LAD, LAFB, Incomplete RBBB, LISBETH, Q-waves in III and aVF, Diffuse repolarization abnormality * Chest x-ray in ED shows nothing acute * Admitted to hospital due to hyponatremia, hypokalemia, hypomagnesemia, COVID- 19 +, Failure to thrive 06/13/2020 * Improvement with therapies * Labs * WBC 3.27 * Hgb 13.3 * PLT 117 * Sodium 132 * Potassium 3.4 * Creatinine 1.0 * GFR 53 * Phosphorous 2.1 * Magnesium 2.1 * Albumin 2.5 * Not requiring oxygen * Supplementing magnesium/phosphorous/potassium * VSS * Labs grossly stable * States she feels less weak 06/14/2020 * Continues to improve clinically * Reports she feels better again today * Improved PO intake * VSS * Labs grossly stable * SW discussed discharge plan with patient and patients son who agree on SNF placement - Requesting [facility] * Labs * WBC 5.55 * Hgb 13.0 * Plt 122 * Sodium 134 * Potassium 3.9 * Creatinine 1.0 * GFR 53 * Phosphorous * Magnesium 1.8 * Albumin 2.5 * CRP 4.8 * D-dimer 0.36 * Supplementing magnesium today - Plan Plan:: Hypophosphatemia COVID-19 Dehydration Hyponatremia Malaise and fatigue Weakness Hypokalemia Hypomagnesemia Failure to thrive Hypoalbuminemia * Monitor labs * Supplement magnesium, potassium, phosphorous PRN * PT/OT consult * IS/Acapella * RT consult * Monitor need for O2 - goal saturations 88-94% * CM/SW consultation * [employer] consult * Airborne and contact isolation * Telemetry * Re-check BMP, Mag, Phosphorous tomorrow Chronic: HLD, hypertension, peripheral venous insufficiency, left upper extremity lymphedema, CKD stage III, osteoarthritis, LDD Code status: Full code DVT prophylaxis: Lovenox PCP: Dr. Monroy Social: Lives in her own home with son by [facility] Disposition: Admit to hospital observation status for failure to thrive, hypomagnesemia, hypokalemia, hypophosphatemia, COVID-19+. Will upgrade to inpatient due to significant electrolyte abnormalities, likely need for placement, and concerns over COVID-19. Pending placement Prognosis: Good
--- NOTE | 2020-06-15 09:40 | PCM.DCSUM1 ---
Discharge Summary - Hospital Course HPI Initial Comments: This is an 84 yo female who presents to ED via [facility] [facility] on 06/11/2020 with generalized weakness, low-grade fever, and cough for the past 7 days. She was diagnosed 5 days prior with Covid. She notes her son was also Covid positive. This would have been on 06/06/2020. She lives at home in her own residence with her son and utilizes a walker to get around. She reports she has not had much of an appetite and has had poor fluid intake due to her weakness and not being able to get up to go to the bathroom. Denies any shortness of breath, sinus congestion, runny nose, postnasal drip, neck pain, chest pain, abdominal pain, nausea, vomiting, diarrhea, black stools, dark tarry stools, dysuria, pain or swelling to her lower extremities. In the ED temp was 100, pulse 60, respirations 14, blood pressure 137/89. Pulse ox was 94%. Labs were obtained with a normal WBC of 6.49. Hemoglobin is 14.2. Platelets were low at 129,000. Neutrophils are elevated at 87%. There is no bandemia. Sodium was low at 130. Potassium low at 2.6. Chloride low at 92. Carbon dioxide 30. Anion gap was 10.6. BUN was 26. Creatinine 0.9. GFR 59. Glucose 110. Calcium 9.0. Ferritin was normal at 160. Bilirubin was 0.5. AST was 17, ALT 18, alkaline phosphatase 48. LDH was 194. Troponin was 0.029. CRP was elevated at 3.3. Protein was 7.1. Albumin was 3.2. UA was negative but did appear to be contaminated. This will be sent to lab for culture. She was given potassium riders and Tylenol. Was given 1/2 L fluid bolus. Twelve-lead EKG was obtained showing sinus rhythm at 75 bpm with LAD, LAFB, incomplete right bundle branch block pattern, left atrial hypertrophy, and Q waves are noted in III and aVF. There is also a diffuse repolarization abnormality. No ischemic changes are noted. ED provider noticed that the patient does get tachycardic with movement. After discussion with the patient Regeneron treatment is given in the ED. Chest x-ray was obtained showing nothing acute. She carries a history of HLD, hypertension, peripheral venous insufficiency, left upper extremity lymphedema, CKD stage III, osteoarthritis, LDD. She was never a smoker. Her PCP is Dr. Rima Monroy She was subsequently admitted observation status to the medical floor. Diagnosis: Stroke: No - Discharge Data Discharge Date: 06/15/20 (Admit date: 06/11/20) Discharge Disposition: DC/Tfer to SNF 03 Condition: Good - Referral to Home Health Primary Care Physician: PCP None - Discharge Diagnosis/Problem(s) (1) COVID-19 SNOMED Code(s): 285235871 ICD Code: U07.1 - COVID-19 Status: Acute Priority: High Current Visit: Yes (2) Dehydration SNOMED Code(s): 24084719 ICD Code: E86.0 - DEHYDRATION Status: Acute Priority: High Current Visit: Yes (3) Failure to thrive SNOMED Code(s): 73469137 ICD Code: [id number] - Status: Acute Priority: High Current Visit: Yes Qualifiers: Failure to thrive age range: in adult Qualified Code(s): R62.7 - Adult failure to thrive (4) Hypoalbuminemia SNOMED Code(s): 363774069 ICD Code: E88.09 - OTH DISORDERS OF PLASMA-PROTEIN METABOLISM, NEC Status: Acute Priority: High Current Visit: Yes (5) Hypokalemia SNOMED Code(s): 43956001 ICD Code: E87.6 - HYPOKALEMIA Status: Acute Priority: High Current Visit: Yes (6) Hypomagnesemia SNOMED Code(s): 610754156 ICD Code: E83.42 - HYPOMAGNESEMIA Status: Acute Priority: High Current Visit: Yes (7) Hyponatremia SNOMED Code(s): 29481645 ICD Code: E87.1 - HYPO-OSMOLALITY AND HYPONATREMIA Status: Acute Priority: High Current Visit: Yes (8) Hypophosphatemia SNOMED Code(s): 3228680 ICD Code: E83.39 - OTHER DISORDERS OF PHOSPHORUS METABOLISM Status: Acute Priority: High Current Visit: Yes (9) Malaise and fatigue SNOMED Code(s): 746011401 ICD Code: R53.81 - OTHER MALAISE; R53.83 - OTHER FATIGUE Status: Acute Priority: High Current Visit: Yes (10) Weakness SNOMED Code(s): 62098759 ICD Code: R53.1 - WEAKNESS Status: Acute Priority: High Current Visit: Yes - Patient Summary/Data Consults: Consultations 06/11/20 22:23 PT Evaluation and Treatment [CONS] Routine 06/12/20 07:28 Consult to Case Management/Customer Support Technician [CONS] Routine Consult to Spool Maker [CONS] Routine OT Evaluation and Treatment [CONS] Routine 06/12/20 09:42 Consult to Respiratory Therapy [Respiratory Care Assess and Treatment] [CONS] Routine Consult to Spiritual Care [CONS] Routine Hospital Course: Assessment - day of admission - 06/12/20 (Admitted 06/11/20) * 84 yo female presents to ED via [facility] [facility] with worsening weakness and fever * Diagnosed with COVID-19 on 06/06/2020 (Notes son was positive too) * Normally utilizes a walker to ambulate, lives in her home with her son * Poor oral intake - reports not drinking much fluid due to weakness and difficulty getting to bathroom * Not requiring oxygen * Labs: * WBC 6.49-->7.49 * Hgb 14.2-->13.8 * PLT 129-->118 * Sodium 130-->131 * Potassium 2.6-->2.9 * Creatinine 0.9-->0.9 * GFR 59-->59 * D-Dimer 0.48-->0.65 * Ferritin 160 * LDH 194 * Troponin I 0.029 * CRP 3.3-->10.4 * Phosphorous 2.0 * Magnesium 1.6 * Albumin 3.2-->2.8 * UA appears contaminated - culture sent by ED provider * Given tylenol, 500ml fluid bolus * Given Regeneron treatment in ED * EKG shows sinus rhythm at 75 with LAD, LAFB, Incomplete RBBB, LISBETH, Q-waves in III and aVF, Diffuse repolarization abnormality * Chest x-ray in ED shows nothing acute * Admitted to hospital due to hyponatremia, hypokalemia, hypomagnesemia, COVID- 19 +, Failure to thrive 06/13/2020 * Improvement with therapies * Labs * WBC 3.27 * Hgb 13.3 * PLT 117 * Sodium 132 * Potassium 3.4 * Creatinine 1.0 * GFR 53 * Phosphorous 2.1 * Magnesium 2.1 * Albumin 2.5 * Not requiring oxygen * Supplementing magnesium/phosphorous/potassium * VSS * Labs grossly stable * States she feels less weak 06/14/2020 * Continues to improve clinically * Reports she feels better again today * Improved PO intake * VSS * Labs grossly stable * SW discussed discharge plan with patient and patients son who agree on SNF placement - Requesting [facility] * Labs * WBC 5.55 * Hgb 13.0 * Plt 122 * Sodium 134 * Potassium 3.9 * Creatinine 1.0 * GFR 53 * Phosphorous * Magnesium 1.8 * Albumin 2.5 * CRP 4.8 * D-dimer 0.36 * Supplementing magnesium today - Plan Plan:: Hypophosphatemia COVID-19 Dehydration Hyponatremia Malaise and fatigue Weakness Hypokalemia Hypomagnesemia Failure to thrive Hypoalbuminemia * Monitor labs * Supplement magnesium, potassium, phosphorous PRN * PT/OT consult * IS/Acapella * RT consult * Monitor need for O2 - goal saturations 88-94% * CM/SW consultation * Spool Maker consult * Airborne and contact isolation * Telemetry * Re-check BMP, Mag, Phosphorous tomorrow Chronic: HLD, hypertension, peripheral venous insufficiency, left upper extremity lymphedema, CKD stage III, osteoarthritis, LDD Code status: Full code DVT prophylaxis: Lovenox PCP: Dr. Monroy Social: Lives in her own home with son by [place] Disposition: Admit to hospital observation status for failure to thrive, hypomagnesemia, hypokalemia, hypophosphatemia, COVID-19+. Will upgrade to inpatient due to significant electrolyte abnormalities, likely need for placement, and concerns over COVID-19. Pending placement Prognosis: Good 06/15/20 * Patient reports feeling well. * Will discharge to [facility] for short rehab stay. * Labs today reveal: Sodium 139 up from 134, potassium 3.8, BUN 22, creatinine 0.8, GFR greater than 60, phosphorus 2.6 up from 2.1, magnesium 1.9 up from 1.8 * Will continue to use incentive spirometer and flutter valve every 1 hour. * Continue therapies as needed. * Resume home medications. * Follow-up with primary care provider in 1 to 2 weeks or sooner if needed. - Patient Instructions Diet: Usual Diet as Tolerated Activity: As Tolerated Other/Special Instructions: Patient may be discharged to [facility]. Resume all home medications. Continue to use incentive spirometer and flutter valve. Continue therapies. Follow up with regular provider in 1 to 2 weeks. - Discharge Plan Home Medications: Home Meds Rosuvastatin [Crestor] 5 mg PO DAILY 05/02/14 [History] Gabapentin [Neurontin] 600 mg PO TID 04/18/17 [History] Pantoprazole Sodium [Protonix] 40 mg PO BID 04/18/17 [History] Hydrocodone/Acetaminophen [Hydrocodone-Acetamin 10-325 mg] 1 each PO QID PRN 06/11/20 [History] Non-Formulary Medication [NF Drug] 1 tab PO DAILY 06/11/20 [History] Potassium Chloride 20 meq PO DAILY 06/11/20 [History] Propylene Glycol/Peg 400 [Systane 0.3-0.4% Eye Drops] 1 drop EYEBOTH DAILY 06/12/20 [History] Oxygen Therapy Mode: Room Air Patient Handouts: Sepsis, Diagnosis, Adult Forms: ED Department Discharge Referrals: Rima Monroy MD [Consulting Physician] - - Discharge Summary/Plan Comment DC Time >30 min.: No - General Info Functional Status: Reports: Pain Controlled, Tolerating Diet, Ambulating, Urin ating, Incentive Spirometry - Review of Systems General: Reports: No Symptoms HEENT: Reports: Glasses. Denies: Headaches Pulmonary: Reports: Cough, Sputum (Scant amount of clear sputum). Denies: Shortness of Breath, Pleuritic Chest Pain, Wheezing Cardiovascular: Reports: No Symptoms. Denies: Edema Gastrointestinal: Reports: No Symptoms Genitourinary: Reports: No Symptoms Musculoskeletal: Reports: No Symptoms Skin: Reports: No Symptoms Neurological: Reports: No Symptoms Psychiatric: Reports: No Symptoms - Patient Data Vitals - Most Recent: Last Vital Signs Temp 97.3 F 06/15/20 07:24 Pulse 66 06/15/20 07:24 Resp 16 06/15/20 07:24 BP 142/73 H 06/15/20 07:24 Pulse Ox 98 06/15/20 07:24 Weight - Most Recent: 125 lb 11.2 oz I&O - Last 24 hours: Intake & Output 06/14/20 06/15/20 06/15/20 22:59 06:59 14:59 Intake Total 380 100 Output Total 500 500 Balance -120 -400 Lab Results - Last 24 hrs: Laboratory Results - last 24 hr 06/15/20 Range/Units 05:50 Sodium 139 (136-145) mEq/L Potassium 3.8 (3.5-5.1) mEq/L Chloride 102 (98-107) mEq/L Carbon Dioxide 29 (21-32) mEq/L Anion Gap 11.8 (5-15) BUN 22 H (7-18) mg/dL Creatinine 0.8 (0.55-1.02) mg/dL Est Cr Clr Drug Dosing 45.42 mL/min Estimated GFR (MDRD) > 60 (>60) mL/min BUN/Creatinine Ratio 27.5 H (14-18) Glucose 96 (83-115) mg/dL Calcium 8.8 (8.5-10.1) mg/dL Phosphorus 2.6 (2.6-4.7) mg/dL Magnesium 1.9 (1.8-2.4) mg/dl Med Orders - Current: Current Medications Acetaminophen (Tylenol) 650 mg PO Q4H PRN PRN Reason: Pain (Mild 1-3)/fever Last Admin: 06/12/20 20:33 Dose: 650 mg Documented by: Hydrocodone Bitart/Acetaminophen ([place] 325-10 Mg) 1 tab PO QID PRN PRN Reason: Pain Cholecalciferol (Vitamin D3) 25 mcg PO DAILY [facility] Last Admin: 06/15/20 08:42 Dose: 25 mcg Documented by: Diphenhydramine HCl (Benadryl) 50 mg IVPUSH ONETIME PRN PRN Reason: hypersensitivity reaction Enoxaparin Sodium (Lovenox) 40 mg SUBCUT DAILY [facility] Last Admin: 06/15/20 08:43 Dose: 40 mg Documented by: Epinephrine HCl (Adrenalin) 0.3 mg IM ONETIME PRN PRN Reason: hypersensitivity reaction Famotidine (Pepcid) 20 mg IVPUSH ONETIME PRN PRN Reason: hypersensitivity reaction Famotidine (Pepcid) 20 mg PO DAILY [facility] Last Admin: 06/15/20 08:41 Dose: 20 mg Documented by: Gabapentin (Neurontin) 600 mg PO TID [facility] Last Admin: 06/15/20 08:42 Dose: 600 mg Documented by: Magnesium Oxide (Magnesium Oxide) 400 mg PO DAILY [facility] Last Admin: 06/15/20 08:42 Dose: 400 mg Documented by: Methylprednisolone Sodium Succinate (Solu-Medrol) 125 mg IVPUSH ONETIME PRN PRN Reason: hypersensitivity reaction Ondansetron HCl (Zofran) 4 mg IV Q4H PRN PRN Reason: Nausea/Vomiting Last Admin: 06/12/20 04:58 Dose: 4 mg Documented by: Potassium Chloride (Klor-Con M20) 20 meq PO DAILY [facility] Last Admin: 06/15/20 08:41 Dose: 20 meq Documented by: Rosuvastatin Calcium (Crestor) 5 mg PO DAILY [facility] Last Admin: 06/15/20 08:42 Dose: 5 mg Documented by: Sodium Chloride (Saline Flush) 30 ml FLUSH ASDIRECTED [facility] Zinc Sulfate (Zincate) 220 mg PO DAILY [facility] Last Admin: 06/15/20 08:41 Dose: 220 mg Documented by: Discontinued Medications Acetaminophen (Tylenol) 975 mg PO NOW ONE Stop: 06/11/20 16:35 Last Admin: 06/11/20 17:17 Dose: 975 mg Documented by: Hydrocodone Bitart/Acetaminophen ([place] 325-10 Mg) 1 tab PO QID PRN PRN Reason: Pain Last Admin: 06/11/20 23:04 Dose: 1 tab Documented by: Hydrocodone Bitart/Acetaminophen ([place] 325-10 Mg) 1 tab PO QID PRN PRN Reason: Pain Epinephrine HCl (Epinephrine 1:10,000) 0.3 mg IM ONETIME PRN PRN Reason: hypersensitivity reaction Famotidine (Pepcid) 20 mg PO BID [facility] Last Admin: 06/12/20 09:14 Dose: 20 mg Documented by: Gabapentin (Neurontin) 600 mg PO TID [facility] Gabapentin (Neurontin) 600 mg PO TID [facility] Last Admin: 06/12/20 09:20 Dose: 600 mg Documented by: Sodium Chloride (Normal Saline) 500 mls @ 999 mls/hr IV .BOLUS ONE Stop: 06/11/20 17:03 Last Admin: 06/11/20 17:16 Dose: 999 mls/hr Documented by: Potassium Chloride 10 meq/ (Premix) 100 mls @ 100 mls/hr IV ASDIRECTED ONE Stop: 06/11/20 19:31 Last Admin: 06/11/20 21:43 Dose: Not Given Documented by: Potassium Chloride 10 meq/ (Premix) 100 mls @ 100 mls/hr IV ASDIRECTED ONE Stop: 06/11/20 19:31 Last Admin: 06/11/20 21:43 Dose: Not Given Documented by: Non-Formulary Medication 1,200 mg/ Non-Formulary Medication 1,200 mg/ Sodium Chloride 250 mls @ 250 mls/hr IV ONETIME ONE Stop: 06/11/20 21:29 Last Admin: 06/11/20 20:33 Dose: 250 mls/hr Documented by: Sodium Phosphate 30 mmole/ (Sodium Chloride) 260 mls @ 130 mls/hr IV ONETIME ONE Stop: 06/12/20 11:29 Last Admin: 06/12/20 09:14 Dose: 130 mls/hr Documented by: Magnesium Sulfate (Magnesium Sulfate In Water Premix) 2 gm in 50 mls @ 25 mls/hr IV ONETIME ONE Stop: 06/12/20 09:59 Last Admin: 06/12/20 09:14 Dose: 25 mls/hr Documented by: Magnesium Sulfate (Magnesium Sulfate In Water Premix) 2 gm in 50 mls @ 25 mls/hr IV ONETIME ONE Stop: 06/14/20 09:28 Last Admin: 06/14/20 08:24 Dose: 25 mls/hr Documented by: Potassium Chloride (Potassium Chloride Solution) 40 meq PO ONETIME ONE Stop: 06/11/20 22:41 Last Admin: 06/11/20 23:04 Dose: 40 meq Documented by: Potassium Chloride (Potassium Chloride Solution) 40 meq PO ONETIME ONE Stop: 06/12/20 09:01 Last Admin: 06/12/20 09:15 Dose: 40 meq Documented by: Potassium Chloride (Potassium Chloride Solution) 40 meq PO BID AISHA Stop: 06/13/20 09:01 Last Admin: 06/13/20 09:03 Dose: 40 meq Documented by: Potassium Chloride (Potassium Chloride Solution) 40 meq PO ONETIME ONE Stop: 06/13/20 21:01 Last Admin: 06/13/20 21:25 Dose: 40 meq Documented by: Rosuvastatin Calcium (Crestor) 5 mg PO DAILY [facility] Rosuvastatin Calcium (Crestor) 5 mg PO DAILY [facility] Last Admin: 06/12/20 09:24 Dose: 5 mg Documented by: Sodium Phosphate (Neutra-Phos) 250 mg PO BID AISHA Stop: 06/14/20 21:01 Last Admin: 06/14/20 21:58 Dose: 250 mg Documented by: - Exam Quality Assessment: Reports: DVT Prophylaxis (Lovenox). Denies: Supplemental Oxygen General: Reports: Alert, Oriented, Cooperative, No Acute Distress HEENT: Reports: Pupils Equal, Pupils Reactive, Mucous Membr. Moist/[place] Neck: Reports: Supple, Trachea Midline. Denies: Lymphadenopathy Lungs: Reports: Normal Respiratory Effort, Crackles (Right middle and lower lobe) Cardiovascular: Reports: Regular Rate, Regular Rhythm, No Murmurs GI/Abdominal Exam: Normal Bowel Sounds, Soft, Non-Tender, No Distention (Female) Exam: Deferred Rectal (Female) Exam: Deferred Back Exam: Reports: Normal Inspection, Full Range of Motion Extremities: Normal Inspection, Normal Range of Motion, Non-Tender, No Pedal Edema, Normal Capillary Refill Skin: Reports: Warm, Dry, Intact Neurological: Reports: No New Focal Deficit Psy/Mental Status: Reports: Alert, Normal Affect, Normal Mood
== END 2020-06-15 13:10 | DRG 640 ==
LOC: JD.ED 15:30 → JD.MS 21:33 → OBSVTOIN 06-12 10:44
PROVIDERS: ADMIT Family Medicine; ATTEND Family Medicine
DX: E87.1 Hypo-osmolality and hyponatremia (principal); U07.1 COVID-19; E86.0 Dehydration; R53.1 Weakness; H54.7 Unspecified visual loss; E78.00 Pure hypercholesterolemia, unspecified; I10 Essential (primary) hypertension; I12.9 Hypertensive chronic kidney disease with stage 1 through stage 4 chronic kidney disease, or unspecified chronic kidney disease; I73.9 Peripheral vascular disease, unspecified; N18.30 Chronic kidney disease, stage 3 unspecified; I87.2 Venous insufficiency (chronic) (peripheral); M19.90 Unspecified osteoarthritis, unspecified site; Z98.49 Cataract extraction status, unspecified eye; Z90.49 Acquired absence of other specified parts of digestive tract; Z98.890 Other specified postprocedural states; Z96.649 Presence of unspecified artificial hip joint; Z96.659 Presence of unspecified artificial knee joint; Z88.4 Allergy status to anesthetic agent; Z79.899 Other long term (current) drug therapy; R53.81 Other malaise; E87.6 Hypokalemia; E83.42 Hypomagnesemia; R62.7 Adult failure to thrive; E88.09 Other disorders of plasma-protein metabolism, not elsewhere classified; E83.39 Other disorders of phosphorus metabolism
CPT/HCPCS: 36415 ×2; 71045; 80053 ×2; 81001; 82306; 82728; 83615; 83735; 84100; 84484; 85007; 85025; 85027; 85379; 86140 ×2; 87086; 93005; 97162; A9270 ×10; J1650; J2405; J3475; J7030; J7050 ×2; 80048; 93010; 94667; 94760; 97110-GP; 97116-GP; 97165-GO; 97530-GO; 97535-GO; 99222; 99232; 99238; 99284; 99285-25; M0243

== ENCOUNTER 2020-07-16 10:31 | Emergency (ER) | payer MEDICARE, BC ==
[2020-07-16] MEDS ORDERED: Sodium Chloride 0.9% 10 ML Syringe FLUSH PRN ×2 (11:05→13:05)
[2020-07-16] MEDS ORDERED: Ondansetron 4 MG/2 ML SDV IVPUSH ONE (11:05)
--- NOTE | 2020-07-16 11:08 | EDM.PDOC ---
ED HPI GENERAL MEDICAL PROBLEM - General Chief Complaint: General Stated Complaint: [facility] Time Seen by Provider: 07/16/20 10:56 Source of Information: Reports: Patient, EMS History Limitations: Reports: No Limitations - History of Present Illness INITIAL COMMENTS - FREE TEXT/NARRATIVE: The patient presents by [facility] for generalized weakness, stomach being upset and her brain in a "fog." On June 11 she was admitted to the hospital for COVID 19 infection. She was in the hospital for 4 days and then went to the senior care. She was doing good at the senior care and was sent home last week. She felt good but for the past few days she has generalized weakness. Her stomach is upset. She says she has no pain but it is upset where she does not want to eat and has some nausea. She did not vomit. She has no fever, chills, cough, chest pain or shortness of breath. She does have some rattling in her chest. She takes an inhaler and she says that does help some. She has no dysuria. She is going more often. She says her brain is in a "fog." She has no headache and she is on confused but she feels like she is slow. She also had some tachycardia when EMS was transporting her. Onset: Gradual Duration: Day(s): Severity: Moderate Improves with: Reports: None Worsens with: Reports: None Associated Symptoms: Denies: Chest Pain, Cough - Related Data Allergies Allergy/AdvReac Type Severity Reaction Status Date / Time No Known Allergies Allergy Verified 07/16/20 10:39 Home Meds: Home Meds Rosuvastatin [Crestor] 5 mg PO DAILY 05/02/14 [History] Gabapentin [Neurontin] 600 mg PO TID 04/18/17 [History] Pantoprazole Sodium [Protonix] 40 mg PO BID 04/18/17 [History] Hydrocodone/Acetaminophen [Hydrocodone-Acetamin 10-325 mg] 1 each PO QID PRN 06/11/20 [History] Non-Formulary Medication [NF Drug] 1 tab PO DAILY 06/11/20 [History] Potassium Chloride 20 meq PO DAILY 06/11/20 [History] Albuterol [Ventolin 2 MG/5 ML] 1 dose IH Q6H PRN 07/16/20 [History] Azithromycin [Zithromax] 250 mg PO DAILY #6 tab 07/16/20 [Rx] Ondansetron [Zofran ODT] 4 mg PO Q6H PRN #20 tab.dis 07/16/20 [Rx] Past Medical History HEENT History: Reports: Impaired Vision, Other (See Below) Other HEENT History: wears glasses Cardiovascular History: Reports: High Cholesterol, Hypertension, Other (See Below) Other Cardiovascular History: peripheral venous insufficiency, left upper extremitiy lymphedema Respiratory History: Reports: None Gastrointestinal History: Reports: Other (See Below) Other Gastrointestinal History: perforated duodenal ulcer Genitourinary History: Reports: Other (See Below) Other Genitourinary History: CKD III [employer] History: Reports: Musculoskeletal History: Reports: Osteoarthritis, Other (See Below) Other Musculoskeletal History: lumbar disc disease Neurological History: Reports: None Psychiatric History: Reports: None Endocrine/Metabolic History: Reports: None Hematologic History: Reports: None Immunologic History: Reports: None Oncologic (Cancer) History: Reports: None Dermatologic History: Reports: None - Infectious Disease History Infectious Disease History: Reports: Chicken Pox, Influenza, Measles, Mumps, Novel Coronavirus - Past Surgical History Head Surgeries/Procedures: Reports: None HEENT Surgical History: Reports: Cataract Surgery Cardiovascular Surgical History: Reports: None Respiratory Surgical History: Reports: None GI Surgical History: Reports: Cholecystectomy, EGD, Other (See Below) Other GI Surgeries/Procedures: exploratory laparotomy Female Surgical History: Reports: D&C Endocrine Surgical History: Reports: None Neurological Surgical History: Reports: Laminectomy Musculoskeletal Surgical History: Reports: Hip Replacement, Knee Replacement, Other (See Below) Other Musculoskeletal Surgeries/Procedures:: radius/ulnar fracture with repair Oncologic Surgical History: Reports: Lumpectomy Dermatological Surgical History: Reports: None Social & Family History - Family History Family Medical History: No Pertinent Family History - Tobacco Use Tobacco Use Status *Q: Never Tobacco User Second Hand Smoke Exposure: No - Caffeine Use Caffeine Use: Reports: Coffee Other Caffeine Use: drinks a couple of cups of either coffee or tea a day - Recreational Drug Use Recreational Drug Use: No ED ROS GENERAL - Review of Systems Review Of Systems: See Below Constitutional: Reports: Weakness. Denies: Fever, Chills HEENT: Reports: No Symptoms Respiratory: Reports: No Symptoms Cardiovascular: Reports: No Symptoms Endocrine: Reports: Fatigue GI/Abdominal: Reports: Nausea (upset stomach). Denies: Abdominal Pain, Vomiting : Reports: No Symptoms Musculoskeletal: Reports: No Symptoms ED EXAM, GENERAL - Physical Exam Exam: See Below Exam Limited By: No Limitations General Appearance: Alert, No Apparent Distress Ears: Normal External Exam Nose: Normal Inspection Head: Atraumatic, Normocephalic Neck: Normal Inspection, Supple, Non-Tender Respiratory/Chest: No Respiratory Distress, Rhonchi (Mild that cleared with deep breathing) Cardiovascular: Regular Rate, Rhythm, No Edema, No Murmur GI/Abdominal: Soft, Non-Tender, No Organomegaly, No Mass Back Exam: Normal Inspection Extremities: Normal Inspection #1 Interpretation EKG Date: 07/16/20 Time: 11:47 Rhythm: NSR Rate (Beats/Min): 75 Coden: Normal P-Wave: Present QRS: Normal ST-T: Normal QT: Normal Course - Vital Signs Last Recorded V/S: Last Vital Signs Temp 97.2 F 07/16/20 10:35 Pulse 85 07/16/20 10:35 Resp 20 07/16/20 10:35 BP 174/92 H 07/16/20 10:35 Pulse Ox 98 07/16/20 10:35 - Orders/Labs/Meds Orders: Active Orders 24 hr Category Date Time Status Cardiac Monitoring [RC] . DIRECTED Care 07/16/20 11:05 Active EKG Documentation Completion [RC] STAT Care 07/16/20 11:06 Active Peripheral IV Care [RC] . DIRECTED Care 07/16/20 11:06 Active Sodium Chloride 0.9% [Normal Saline] 1,000 ml Med 07/16/20 11:15 Active IV .BOLUS Sodium Chloride 0.9% [Normal Saline] 100 ml Med 07/16/20 13:15 Active IV ASDIRECTED Sodium Chloride 0.9% [Saline Flush] Med 07/16/20 11:05 Active 10 ml FLUSH ASDIRECTED PRN Sodium Chloride 0.9% [Saline Flush] Med 07/16/20 13:05 Active 10 ml FLUSH ONETIME PRN ED Antiemetic Medication Reflex [OM.PC] Stat Oth 07/16/20 11:06 Ordered Peripheral IV Insertion Adult [OM.PC] Stat Oth 07/16/20 11:05 Ordered Medication Orders Sodium Chloride (Normal Saline) 1,000 mls @ 1,000 mls/hr IV .BOLUS AISHA Last Admin: 07/16/20 11:38 Dose: 1,000 mls/hr Documented by: NIMESH Sodium Chloride (Normal Saline) 100 mls @ 75 mls/hr IV ASDIRECTED AISHA Last Admin: 07/16/20 13:14 Dose: 75 mls/hr Documented by: COOPER Sodium Chloride (Saline Flush) 10 ml FLUSH ASDIRECTED PRN PRN Reason: Keep Vein Open Last Admin: 07/16/20 11:38 Dose: 10 ml Documented by: NIMESH Sodium Chloride (Saline Flush) 10 ml FLUSH ONETIME PRN PRN Reason: IV FLUSH Last Admin: 07/16/20 13:14 Dose: 10 ml Documented by: COOPER Labs: Laboratory Tests 07/16/20 07/16/20 07/16/20 Range/Units 11:20 11:20 11:20 WBC 7.32 (3.98-10.04) K/mm3 RBC 4.14 (3.98-5.22) M/mm3 Hgb 12.7 (11.2-15.7) gm/dl Hct 39.5 (34.1-44.9) % MCV 95.4 H (79.4-94.8) fl MCH 30.7 (25.6-32.2) pg MCHC 32.2 (32.2-35.5) g/dl RDW Std Deviation 47.3 H (36.4-46.3) fL Plt Count 288 D (182-369) K/mm3 MPV 9.2 L (9.4-12.3) fl Neut % (Auto) 77.8 H (34.0-71.1) % Lymph % (Auto) 13.0 L (19.3-51.7) % Bucks % (Auto) 7.7 (4.7-12.5) % Eos % (Auto) 1.1 (0.7-5.8) Baso % (Auto) 0.3 (0.1-1.2) % Neut # (Auto) 5.70 (1.56-6.13) K/mm3 Lymph # (Auto) 0.95 L (1.18-3.74) K/mm3 Bucks # (Auto) 0.56 H (0.24-0.36) K/mm3 Eos # (Auto) 0.08 (0.04-0.36) K/mm3 Baso # (Auto) 0.02 (0.01-0.08) K/mm3 PT 10.9 (9.7-12.0) SECONDS INR 1.02 APTT 27.2 (21.7-31.4) SECONDS D-Dimer, Quantitative 0.70 H (0.19-0.50) mg/L Sodium 140 (136-145) mEq/L Potassium 3.6 (3.5-5.1) mEq/L Chloride 99 (98-107) mEq/L Carbon Dioxide 29 (21-32) mEq/L Anion Gap 15.6 H (5-15) BUN 16 (7-18) mg/dL Creatinine 1.0 (0.55-1.02) mg/dL Est Cr Clr Drug Dosing 36.34 mL/min Estimated GFR (MDRD) 53 (>60) mL/min BUN/Creatinine Ratio 16.0 (14-18) Glucose 106 (83-115) mg/dL Lactic Acid (0.4-2.0) mmol/L Calcium 9.9 (8.5-10.1) mg/dL Magnesium 1.9 (1.8-2.4) mg/dl Total Bilirubin 0.3 (0.2-1.0) mg/dL AST 18 (15-37) U/L ALT 13 L (14-59) U/L Alkaline Phosphatase 62 (46-116) U/L Troponin I 0.021 (0.00-0.056) ng/mL C-Reactive Protein 2.0 H* (<1.0) mg/dL Total Protein 8.0 (6.4-8.2) g/dl Albumin 3.2 L (3.4-5.0) g/dl Globulin 4.8 gm/dL Albumin/Globulin Ratio 0.7 L (1-2) Lipase 40 L (73-393) U/L TSH 3rd Generation (0.358-3.74) uIU/mL Urine Color (Yellow) Urine Appearance (Clear) Urine pH (5.0-8.0) Ur Specific Kent (1.005-1.030) Urine Protein (Negative) Urine Glucose (UA) (Negative) Urine Ketones (Negative) Urine Occult Blood (Negative) Urine Nitrite (Negative) Urine Bilirubin (Negative) Urine Urobilinogen (0.2-1.0) Ur Leukocyte Esterase (Negative) U Hyaline Cast (Auto) (0-5) /lpf Urine RBC (0-5) /hpf Urine WBC (0-5) /hpf Ur Epithelial Cells (0-5) /hpf Urine Bacteria (FEW) /hpf Urine Mucus (FEW) /hpf 07/16/20 07/16/20 07/16/20 Range/Units 11:20 11:30 11:45 WBC (3.98-10.04) K/mm3 RBC (3.98-5.22) M/mm3 Hgb (11.2-15.7) gm/dl Hct (34.1-44.9) % MCV (79.4-94.8) fl MCH (25.6-32.2) pg MCHC (32.2-35.5) g/dl RDW Std Deviation (36.4-46.3) fL Plt Count (182-369) K/mm3 MPV (9.4-12.3) fl Neut % (Auto) (34.0-71.1) % Lymph % (Auto) (19.3-51.7) % Bucks % (Auto) (4.7-12.5) % Eos % (Auto) (0.7-5.8) Baso % (Auto) (0.1-1.2) % Neut # (Auto) (1.56-6.13) K/mm3 Lymph # (Auto) (1.18-3.74) K/mm3 Bucks # (Auto) (0.24-0.36) K/mm3 Eos # (Auto) (0.04-0.36) K/mm3 Baso # (Auto) (0.01-0.08) K/mm3 PT (9.7-12.0) SECONDS INR APTT (21.7-31.4) SECONDS D-Dimer, Quantitative (0.19-0.50) mg/L Sodium (136-145) mEq/L Potassium (3.5-5.1) mEq/L Chloride (98-107) mEq/L Carbon Dioxide (21-32) mEq/L Anion Gap (5-15) BUN (7-18) mg/dL Creatinine (0.55-1.02) mg/dL Est Cr Clr Drug Dosing mL/min Estimated GFR (MDRD) (>60) mL/min BUN/Creatinine Ratio (14-18) Glucose (83-115) mg/dL Lactic Acid 1.4 (0.4-2.0) mmol/L Calcium (8.5-10.1) mg/dL Magnesium (1.8-2.4) mg/dl Total Bilirubin (0.2-1.0) mg/dL AST (15-37) U/L ALT (14-59) U/L Alkaline Phosphatase (46-116) U/L Troponin I (0.00-0.056) ng/mL C-Reactive Protein (<1.0) mg/dL Total Protein (6.4-8.2) g/dl Albumin (3.4-5.0) g/dl Globulin gm/dL Albumin/Globulin Ratio (1-2) Lipase (73-393) U/L TSH 3rd Generation 2.585 (0.358-3.74) uIU/mL Urine Color Yellow (Yellow) Urine Appearance Clear (Clear) Urine pH 7.0 (5.0-8.0) Ur Specific Kent 1.020 (1.005-1.030) Urine Protein Trace H (Negative) Urine Glucose (UA) Negative (Negative) Urine Ketones Negative (Negative) Urine Occult Blood Negative (Negative) Urine Nitrite Negative (Negative) Urine Bilirubin Negative (Negative) Urine Urobilinogen 0.2 (0.2-1.0) Ur Leukocyte Esterase Negative (Negative) U Hyaline Cast (Auto) 5-10 H (0-5) /lpf Urine RBC 0-5 (0-5) /hpf Urine WBC 0-5 (0-5) /hpf Ur Epithelial Cells 0-5 (0-5) /hpf Urine Bacteria Few (FEW) /hpf Urine Mucus Not seen (FEW) /hpf Meds: Medications Generic Name Dose Route Start Last Admin Trade Name Freq PRN Reason Stop Dose Admin Sodium Chloride 1,000 mls @ 1,000 mls/hr 07/16/20 11:15 07/16/20 11:38 Normal Saline IV 1,000 mls/hr .BOLUS AISHA Administration Sodium Chloride 100 mls @ 75 mls/hr 07/16/20 13:15 07/16/20 13:14 Normal Saline IV 75 mls/hr ASDIRECTED AISHA Administration Sodium Chloride 10 ml 07/16/20 11:05 07/16/20 11:38 Saline Flush FLUSH 10 ml ASDIRECTED PRN Administration Keep Vein Open Sodium Chloride 10 ml 07/16/20 13:05 07/16/20 13:14 Saline Flush FLUSH 10 ml ONETIME PRN Administration IV FLUSH Discontinued Medications Generic Name Dose Route Start Last Admin Trade Name Becca PRN Reason Stop Dose Admin Iopamidol 100 ml 07/16/20 13:05 07/16/20 13:14 [id number] (76%) IVPUSH 07/16/20 13:06 100 ml ONETIME ONE Administration Ondansetron HCl 4 mg 07/16/20 11:05 07/16/20 11:35 Zofran IVPUSH 07/16/20 11:06 4 mg ONETIME ONE Administration - Re-Assessments/Exams Free Text/Narrative Re-Assessment/Exam: 07/16/20 11:47 I ordered an IV NS 500ml bolus, EKG, CXR, labs and UA. 07/16/20 13:47 Her EKG shows a NSR with no acute changes. Her CXR looks good. Her CBC looks good. Her PT and PTT look good. Her D-dimer was elevated at 0.7. Her CMP is negative. Her troponin is negative. Her CRP is elevated at 2. Her TSH is normal. Her lipase is low at 40. Her UA is negative. I ordered a CT angio of her chest. Her CT shows no findings of pulmonary embolism are seen. Skin thickening within the left breast. Please correlate if etiology is known. Mild interstitial change within the right lung base and minimal within the left lung base. Difficult to exclude mild interstitial pneumonia. 07/16/20 13:51 I will get her on some zithromax. Departure - Departure Time of Disposition: 14:00 Disposition: Home, Self-Care 01 Condition: Good Clinical Impression: Pneumonia Qualifiers: Pneumonia type: due to unspecified organism Laterality: bilateral Lung location: lower lobe of lung Qualified Code(s): J18.9 - Pneumonia, unspecified organism - Discharge Information *PRESCRIPTION DRUG MONITORING PROGRAM REVIEWED*: Not Applicable *COPY OF PRESCRIPTION DRUG MONITORING REPORT IN PATIENT ISABELA: Not Applicable Prescriptions: Azithromycin [Zithromax] 250 mg PO DAILY #6 tab Referrals: Rima Monroy MD [Primary Care Provider] - 1 Week Forms: ED Department Discharge Additional Instructions: Take your medication as prescribed. Take the zithromax 2 pills on day 1 and 1 pill day 2 through 5. Keep using your inhaler. Follow up with your doctor within a week. Please return if you are worse. Sepsis Event Note (ED) - Evaluation Sepsis Screening Result: No Definite Risk - Focused Exam Vital Signs: Vital Signs Temp Pulse Resp BP Pulse Ox 07/16/20 10:35 97.2 F 85 20 174/92 H 98 - My Orders Last 24 Hours: My Active Orders 07/16/20 11:05 Cardiac Monitoring [RC] . DIRECTED Sodium Chloride 0.9% [Saline Flush] 10 ml FLUSH ASDIRECTED PRN Peripheral IV Insertion Adult [OM.PC] Stat 07/16/20 11:06 EKG Documentation Completion [RC] STAT Peripheral IV Care [RC] . DIRECTED ED Antiemetic Medication Reflex [OM.PC] Stat 07/16/20 11:15 Sodium Chloride 0.9% [Normal Saline] 1,000 ml IV .BOLUS 07/16/20 13:05 Sodium Chloride 0.9% [Saline Flush] 10 ml FLUSH ONETIME PRN 07/16/20 13:15 Sodium Chloride 0.9% [Normal Saline] 100 ml IV ASDIRECTED - Assessment/Plan Last 24 Hours: My Active Orders 07/16/20 11:05 Cardiac Monitoring [RC] . DIRECTED Sodium Chloride 0.9% [Saline Flush] 10 ml FLUSH ASDIRECTED PRN Peripheral IV Insertion Adult [OM.PC] Stat 07/16/20 11:06 EKG Documentation Completion [RC] STAT Peripheral IV Care [RC] . DIRECTED ED Antiemetic Medication Reflex [OM.PC] Stat 07/16/20 11:15 Sodium Chloride 0.9% [Normal Saline] 1,000 ml IV .BOLUS 07/16/20 13:05 Sodium Chloride 0.9% [Saline Flush] 10 ml FLUSH ONETIME PRN 07/16/20 13:15 Sodium Chloride 0.9% [Normal Saline] 100 ml IV ASDIRECTED
[2020-07-16] MEDS ORDERED: Sodium Chloride 0.9% 1,000 ML IV SCH (11:15)
--- NOTE | 2020-07-16 11:44 | CR ---
Chest: Portable view of the chest was obtained. Comparison: Prior chest x-rays of 06/11/20 and 11/08/17. Heart size slightly prominent. Tortuous thoracic aorta is seen. Slight scarring is noted within both costophrenic angles. Lungs otherwise are clear with no acute parenchymal change. Bony structures show prior lumbar spine surgery. No acute osseous finding is seen. Impression: 1. Findings as noted above. 2. Nothing acute is appreciated. Diagnostic code #2
[2020-07-16] MEDS ORDERED: Iopamidol 755 Mg/ML 100 ML Bottle IVPUSH ONE (13:05)
[2020-07-16] MEDS ORDERED: Sodium Chloride 0.9% 100 ML IV SCH (13:15)
--- NOTE | 2020-07-16 13:36 | CT ---
CT chest Technique: Multiple axial sections were obtained from above the lung apices inferiorly through the lung bases. Intravenous contrast was utilized. Study performed as a pulmonary angiogram protocol. Findings: Pulmonary arteries are well opacified. No filling defects are seen to indicate pulmonary embolism. Small mediastinal lymph nodes are seen which are most likely within normal limits. Coronary artery calcification is seen. Heart is slightly enlarged. Visualized upper abdominal structures show no discrete abnormality other than previous cholecystectomy. Thoracic aorta shows no aneurysm. Patchy areas of increased density are seen within the right lung base and minimal within the left lung base. There is a an air-containing bleb being seen within the posterior right subpleural lung base measuring 3.6 cm. No pleural effusions are seen. No pneumothorax is appreciated. Calcification is noted within the left breast. Left breast shows some skin thickening. Fairly severe degenerative change is noted within the right shoulder. No acute osseous abnormality is appreciated. Previous surgery is noted within the lumbar spine with trans-pedicle screws. Mild degenerative change is scattered within the spine. Impression: 1. No findings of pulmonary embolism are seen. 2. Skin thickening within the left breast. Please correlate if etiology is known. 3. Mild interstitial change within the right lung base and minimal within the left lung base. Difficult to exclude mild interstitial pneumonia. 4. Other findings as noted above which are nonacute. Diagnostic code #3
== END 2020-07-16 15:11 | disposition home or self-care (01) ==
LOC: JD.ED 10:31
DX: J18.9 Pneumonia, unspecified organism (principal); E78.00 Pure hypercholesterolemia, unspecified; I12.9 Hypertensive chronic kidney disease with stage 1 through stage 4 chronic kidney disease, or unspecified chronic kidney disease; N18.30 Chronic kidney disease, stage 3 unspecified; Z79.899 Other long term (current) drug therapy
CPT/HCPCS: 36415; 71045; 71275; 80053; 81001; 83605; 83690; 83735; 84443; 84484; 85025; 85379; 85610; 85730; 86140; 93005; 96374; 99285; J2405; J7030; Q9967; 93010; 99284